=== PATIENT | female | born 1935 | race Caucasian/White ===

== ENCOUNTER 2024-02-25 09:18 | Emergency (ER) | payer MEDICARE, OTHER, SELFPAY ==
--- NOTE | ~2024-02-25 | CT_ITS ---
EXAMINATION: CT ABDOMEN AND PELVIS WITHOUT CONTRAST CLINICAL INFORMATION: abd pain, vomiting COMPARISON: None available. TECHNIQUE: Multidetector volumetric imaging was performed from the superior aspect of the liver through the pubic symphysis. Sagittal and coronal reformatted images were obtained on the technologist's workstation. This CT examination was performed using dose optimization techniques as appropriate, variously including the following: *Automated exposure control *Adjustment of mA and/or kV according to patient size (this includes techniques or standardized protocols for targeted exams where dose is matched to indication/reason for exam; i.e. extremities or head) *Use of iterative reconstruction technique DLP: 288 mGy-cm FINDINGS: LUNG BASES: Bibasilar atelectasis. No pleural effusion. Normal-sized heart with small pericardial effusion. LIVER, GALLBLADDER, AND BILIARY TREE: The liver is normal in size, shape, and attenuation. No focal hepatic lesion or biliary ductal dilatation is present. The gallbladder is unremarkable with no evidence of radiopaque gallstones, gallbladder wall thickening, or obvious pericholecystic inflammatory changes. PANCREAS: Unremarkable. SPLEEN: Unremarkable. ADRENAL GLANDS: Unremarkable. KIDNEYS AND URETERS: Left renal mid pole exophytic simple fluid attenuating cyst with punctate peripheral calcification. There are multiple cysts in the right kidney including a lower pole proximal 1.5 cm low-density attenuation cyst with punctate calcification peripherally, a mid pole 0.9 cm low-density cyst, a subcentimeter upper pole high density cyst and an ill-defined approximately 1.4 cm midpole high density cyst. No calculi in the renal collecting system. No hydronephrosis. The kidneys are normal in size, shape, and attenuation. Mild perinephric stranding bilaterally. BLADDER: Unremarkable. GASTROINTESTINAL TRACT: The small and large bowel are nondilated. Mild scattered colonic diverticulosis without evidence of acute osseous. The appendix is not seen, however there is no right lower quadrant inflammatory stranding to suggest acute appendicitis. ABDOMINAL WALL: No significant hernia is appreciated. LYMPH NODES: Normal. VASCULAR: The abdominal aorta is nonaneurysmal. Moderate to severe aortoiliac calcified plaque. PELVIC VISCERA: The uterus is atrophic versus surgically absent. No adnexal masses. OSSEOUS STRUCTURES: No acute or suspicious osseous abnormality. Multilevel lumbar degenerative disc disease. CT/CT abdomen pelvis wo IV con IMPRESSION: 1. No acute abnormality within the abdomen or pelvis. 2. Multiple bilateral renal cysts some of which are high density and likely represent proteinaceous or hemorrhagic cysts. Nonemergent dedicated renal ultrasound is recommended for further assessment. 3. Mild scattered colonic diverticulosis without evidence of acute diverticulitis. Fleischner guidelines were followed.
--- NOTE | ~2024-02-25 | XR_ITS ---
EXAMINATION: XR CHEST CLINICAL INFORMATION: Mental status change COMPARISON: Previous left shoulder x-ray May 2019 and report from chest CT April 2008 TECHNIQUE: Frontal view of the chest was obtained. FINDINGS: The cardiac silhouette does not appear enlarged. There is a large mediastinal mass. This is similar to 2019 left shoulder x-ray. 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 The lungs are otherwise clear. No pleural effusion or pneumothorax. Thoracolumbar scoliosis and degenerative changes of the spine. XR/XR chest 1V IMPRESSION: Stable mediastinal mass from 2019 left shoulder x-ray. 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 This could be further evaluated with chest CT if clinically indicated. No evidence for acute disease in the chest. Severe thoracolumbar scoliosis and degenerative changes of the spine.
--- NOTE | ~2024-02-25 | CT_ITS ---
EXAMINATION: CT HEAD WITHOUT CONTRAST CLINICAL INFORMATION: Mental status change COMPARISON: MRI brain from 04/11/2008 TECHNIQUE: Contiguous axial imaging was performed from the skull base to vertex without intravenous administration of contrast. This CT examination was performed using dose optimization techniques as appropriate, variously including the following: *Automated exposure control *Adjustment of mA and/or kV according to patient size (this includes techniques or standardized protocols for targeted exams where dose is matched to indication/reason for exam; i.e. extremities or head) *Use of iterative reconstruction technique DLP: 530 mGy-cm FINDINGS: There is no evidence of acute intracranial hemorrhage or territorial infarction. 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 Chronic white matter small vessel ischemic changes. Cerebral atrophy with commensurate ventricular changes. No abnormal mass effect or midline shift is seen. [place] to white matter differentiation is well preserved. No extra-axial fluid collections are identified. The ventricles are normal in size. There is no abnormal attenuation within the brain parenchyma. The osseous structures and soft tissues are normal. The mastoid air cells and visualized portions of the paranasal sinuses are well aerated. Atherosclerotic calcifications. CT/CT head/brain wo IV con IMPRESSION: 1. No acute intracranial pathology. 2. 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 3. Chronic white matter small vessel ischemic changes.
[2024-02-25 09:33] VITALS: BP 162/78; BP 211/100; PULSE 80; PULSE 96; RESP 18; TEMP 36.4; O2SAT 97; O2SAT 98; BMI 19.8
--- NOTE | 2024-02-25 09:49 | ECG_ITS ---
Test Reason : MENTAL STATUS CHANGE Blood Pressure : / mmHG Vent. Rate : 080 BPM Atrial Rate : 080 BPM P-R Int : 134 ms QRS Dur : 074 ms QT Int : 396 ms P-R-T Axes : 059 050 055 degrees QTc Int : 456 ms Normal sinus rhythm Normal ECG When compared with ECG of 21-MAY-2019 11:28, No significant change was found Referred By: Marie Sorenson Electronically Signed By:Speedy Vigil
--- NOTE | 2024-02-25 09:52 | ED.AMS ---
HPI - Altered Mental Status General Chief Complaint: Altered Mental Status Stated Complaint: UNK IDENTIFICATION, HX OF DEMENTIA FOUND WANDERING Time Seen by Provider: 02/25/24 09:39 Source: patient, family (Neighbor) and EMS Mode of arrival: EMS Limitations: altered mental status History of Present Illness ED Provider: DR. Sorenson HPI narrative: 88-year-old female brought in by EMS after was found by a neighbor wandering in the building where she lives. Patient stated that she had history of dementia otherwise patient do not know why she has in the hospital today, able to tell me that she had a history of dementia and her and she live with her daughter went to visit her daughter. Stated that she noted blood in the urine but no other urinary symptoms. In neighbor who found the patient wandering on the 5th floor of the building stated that the patient lives on the 2nd floor of the building with her daughter. Related Data Home Medications ?Medication ?Instructions ?Recorded ?Confirmed amlodipine 10 mg tablet 10 mg PO DAILY 02/25/24 02/25/24 donepezil 10 mg tablet 10 mg PO DAILY 02/25/24 02/25/24 insulin glargine 100 unit/mL (3 See Rx Instructions .Route .COMPLEX 02/25/24 02/25/24 mL) subcutaneous pen (Lantus Solostar U-100 Insulin) losartan 50 mg tablet 100 mg PO DAILY 02/25/24 02/25/24 metoprolol succinate 50 mg 50 mg PO DAILY 02/25/24 02/25/24 tablet,extended release 24 hr Allergies Allergy/AdvReac Type Severity Reaction Status Date / Time No Known Allergies Allergy Verified 02/25/24 09:35 [No Known Allergies*] Review of Systems Review of Systems: Yes Unobtainable due to mental condition PMFSH Social History Social History Unable to assess alcohol history related to: Unknown Smoked in Last 30 Days: No Use of substances other than those prescribed or required for medical reasons: No Advance Directives: No Advance Directives Information Provided: No Do you have a plan to hurt others: No Plan Physical Exam ED Vital Signs: Vital Signs - 24 hr 02/25/24 09:33 02/25/24 12:00 Temperature 97.6 F Pulse Rate 80 85 Respiratory Rate 18 16 Blood Pressure 211/100 H 219/73 H Pulse Oximetry 98 99 Oxygen Delivery Method Room Air BMI result Body Mass Index 19.8 Vital signs have been reviewed and appear to be correct. Blood pressure elevated. Heart rate normal. Respiratory rate normal. Temperature normal. Oxygen saturation normal. Appearance: Alert. Oriented to person and place. No acute distress. Head: Normal external exam. Normocephalic. Atraumatic. No Kenney signs noted. No raccoon eyes noted Eyes: PERRLA. EOMI. Conjunctiva and sclera normal. Eyelids normal. ENT: TM's Normal. Pharynx normal. Uvula midline. Moist mucous membranes. No trismus noted. No drooling noted. No muffled voice noted. Neck: Normal inspection. Neck supple. FROM. No adenopathy. Thyroid Normal. No meningeal signs. No neck mass noted. CVS: Normal heart rate and rhythm. Heart sound normal. No murmurs noted. Pulses normal throughout. Respiratory: No respiratory distress. Painless inspiration. Breath sounds normal. No wheezes/rales/rhonchi noted. Chest nontender. No accessory muscle usage noted or decreased air movement noted. Abdomen: Soft and nontender. Bowel sounds normal in all 4 quadrants. No distention noted. No organomegaly noted. No visible injury noted. Back: No CVA tenderness. Full range of motion noted. Skin: Skin warm and dry. Normal skin color. Normal skin turgor. No rashes/lesions/lacerations noted. Extremities: No lower extremity edema. Extremities exhibit normal range of motion. Extremities nontender. Neuro: Oriented X 2. Cranial nerve exam: II-XII are grossly intact No motor deficit. No sensory deficit. Reflexes normal. Course Reevaluation(s) Reevaluation #1: Was able to contact her daughter who stated patient baseline is dementia for the last 2 days patient in the apartment by herself because the daughter is visiting her daughter, waiting for the family to come and car pick up driver the patient. Time: 10:14 Reevaluation #2: Family at the bedside feels that the patient at her baseline, family stated that her dementia fluctuating, patient is having history of hypertension did not take her medicine today. Family wanted director social service involved to arrange for visiting nurse or short-term placement. Signed out to Dr. Crystal. Time: 15:22 Medical Decision Making Differential Diagnosis Differential Diagnoses: The differential diagnosis associated with the presentation includes (Intracranial pathology, intracranial bleed, dementia, electrolyte derangement, UTI, severe anemia.) Admission/Observation Consideration of admission/observation: Escalation of care including admission/observation considered Lab Data MDM Lab Attestation statement: I reviewed the patient's lab results. 02/25/24 10:10 02/25/24 10:10 Labs: Lab Results 02/25/24 02/25/24 Range/Units 10:10 11:45 WBC 8.2 (4.8-10.8) X10*3/uL RBC 4.18 L (4.20-5.50) X10*6/uL Hgb 13.0 (12.0-16.0) g/dl Hct 37.9 (37.0-47.0) % MCV 90.7 (80.0-98.0) fL MCH 31.1 (27.0-33.0) pg MCHC 34.3 (31.0-35.0) g/dl RDW 12.7 (11.0-16.0) % Plt Count 203 (160-400) X10*3/uL MPV 12.1 (9.4-12.3) fL Immature Gran % (Auto) 0.2 (0.0-0.4) % Neut % (Auto) 85.2 H (45-73) % Lymph % (Auto) 6.8 L (20-40) % [place] % (Auto) 7.0 (2-11) % Eos % (Auto) 0.2 (0-4) % Baso % (Auto) 0.6 (0-2) % Lymph # (Auto) 0.6 L (1.2-4.9) X10*3/uL [place] # (Auto) 0.6 (0.1-1.2) X10*3/uL Eos # (Auto) 0.0 (0.0-0.4) X10*3/uL Baso # (Auto) 0.1 (0.0-0.2) X10*3/uL Abs Immat Gran (auto) 0.02 (0.00-0.03) X10*3/uL Absolute Neuts (auto) 7.0 (2.0-8.3) x10*3/uL Absolute Nucleated RBC 0.000 (0.0-0.012) X10*3/uL Nucleated RBC % (auto) 0.0 (0.0-0.2) /100WBC Sodium 141 (135-145) mmol/L Potassium 4.5 (3.3-5.1) mmol/L Chloride 105 (96-108) mmol/L Carbon Dioxide 26 (22-29) mmol/L Anion Gap 15 (12-20) BUN 26 H (9-16) mg/dL Creatinine 1.66 H (0.5-1.4) mg/dL Estim Creat Clear Calc 17.4 Estimated GFR 29 Random Glucose 182 H (60-115) mg/dL Calcium 9.4 (8.4-10.2) mg/dL Total Bilirubin 0.6 (0.0-1.0) mg/dL Direct Bilirubin 0.2 (0.0-0.5) mg/dL AST 18 (5-31) U/L ALT 13 (0-31) U/L Alkaline Phosphatase 101 (39-117) U/L Troponin I High Sens 16.9 (<3.5-17.0) ng/L B-Natriuretic Peptide 102 H (<100) pg/mL Total Protein 6.5 (6.5-8.0) g/dL Albumin 3.8 (3.5-5.0) g/dL Lipase 53 (8-78) U/L Urine Color Yellow Urine Appearance Clear Urine pH 7.5 (5.0-9.0) Ur Specific [place] 1.010 (1.005-1.025) Urine Protein >=1000 (4+) H (Neg-Trace) mg/dL Urine Glucose (UA) 100 H (Negative) mg/dL Urine Ketones Negative (Negative) mg/dL Urine Blood Trace H (Negative) Urine Nitrite Negative (Negative) Ur Leukocyte Esterase Negative (Negative) Urine RBC 3-5 H (0-2) /HPF Urine WBC 0-5 (0-5) /HPF Ur Squamous Epith Cells 0-2 (0-2) /HPF Urine Bacteria None Seen (None Seen) Hyaline Casts 0-2 (0-2) /LPF Urine Opiates Screen Not Detected (Not Detect) Ur Buprenorphine Scrn Not Detected (Not Detect) ng/mL Ur Oxycodone Screen Not Detected (Not Detect) ng/mL Urine Methadone Screen Not Detected (Not Detect) ng/mL Urine Fentanyl Screen Not Detected (Not Detect) Ur Barbiturates Screen Not Detected (Not Detect) Ur Phencyclidine Scrn Not Detected (Not Detect) Ur Amphetamines Screen Not Detected (Not Detect) U Benzodiazepines Scrn Not Detected (Not Detect) Urine Cocaine Screen Not Detected (Not Detect) U Marijuana (THC) Screen Not Detected (Not Detect) Influenza Type A (PCR) NEGATIVE (Negative) Influenza Type B (PCR) NEGATIVE (Negative) RSV RNA Qual (PCR) NEGATIVE (Negative) SARS-CoV-2 RNA (RT-PCR) NEGATIVE (Negative) Independent Interpretation I performed an independent interpretation of an: Plain X-Ray (Chest:Stable mediastinal mass from 2019 left shoulder x-ray. 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 This could be further evaluated with chest CT if clinically indicated. No evidence for acute disease in the chest. Severe thoracolumbar scoliosi) and CT Scan (Head:1. No acute intracranial pathology. 2. 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 3. Chronic white matter small vessel ischemic changes. ) Radiology Impression Discussion of test interpretation with radiology: I have reviewed the radiologist's reading. Chronic Conditions Patient?s care impacted by: Other (Dementia) Discharge Plan Discharge Clinical Impression: Dementia Patient Disposition: Still a Patient Prescriptions: No Action amlodipine 10 mg tablet 10 mg PO DAILY insulin glargine [Lantus Solostar U-100 Insulin] 100 unit/mL (3 mL) insulin pen See Rx Instructions .ROUTE .COMPLEX Rx Instructions: 12 units daily losartan 50 mg tablet 100 mg PO DAILY metoprolol succinate 50 mg Tablet Extended Release 24 Hr 50 mg PO DAILY donepezil 10 mg Tablet 10 mg PO DAILY Print Language: Swedish
[2024-02-25 10:15] LABS: MANUAL DIFF FLAG NO
[2024-02-25 10:30] LABS: Basophils Absolute Auto 0.1 X10*3/uL (0.0-0.2); Basophils Percent Auto 0.6 % (0-2); Eosinophils Percent Auto 0.2 % (0-4); Hematocrit 37.9 % (37.0-47.0); Imm Gran Abs Auto 0.02 X10*3/uL (0.00-0.03); Imm Gran Pct Auto 0.2 % (0.0-0.4); Lymphocytes Absolute Auto 0.6 X10*3/uL (1.2-4.9); Lymphocytes Percent Auto 6.8 % (20-40); Mean Corpuscular HGB Conc 34.3 g/dl (31.0-35.0); Mean Corpuscular Hemoglobin 31.1 pg (27.0-33.0); Mean Corpuscular Volume 90.7 fL (80.0-98.0); Mean Platelet Volume 12.1 fL (9.4-12.3); Monocytes Absolute Auto 0.6 X10*3/uL (0.1-1.2); Neutrophils Percent Auto 85.2 % (45-73); Platelet Count 203 X10*3/uL (160-400); Red Blood Count 4.18 X10*6/uL (4.20-5.50); Red Cell Distribution Width 12.7 % (11.0-16.0); White Blood Count 8.2 X10*3/uL (4.8-10.8)
[2024-02-25 10:44] LABS: Alanine Aminotransferase 13 U/L (0-31); Albumin Level 3.8 g/dL (3.5-5.0); Alkaline Phosphatase 101 U/L (39-117); Anion Gap 15 (12-20); Aspartate Amino Transferase 18 U/L (5-31); Bilirubin Direct 0.2 mg/dL (0.0-0.5); Bilirubin Total 0.6 mg/dL (0.0-1.0); Blood Urea Nitrogen 26 mg/dL (9-16); Calcium 9.4 mg/dL (8.4-10.2); Carbon Dioxide 26 mmol/L (22-29); Chloride 105 mmol/L (96-108); Creatinine Clr Calc Pharmacy 17.4; Estimated Glomerular Filt Rate 29; Glucose Random 182 mg/dL (60-115); Lipase 53 U/L (8-78); Potassium 4.5 mmol/L (3.3-5.1); Sodium 141 mmol/L (135-145); Total Protein 6.5 g/dL (6.5-8.0)
[2024-02-25 10:46] LABS: Troponin-I High Sensitivity 16.9 ng/L (<3.5-17.0)
[2024-02-25 10:53] LABS: Influenza A PCR NEGATIVE (Negative); Influenza B PCR NEGATIVE (Negative); Resp Syncy Virus RNA Qual PCR NEGATIVE (Negative); SARS COV2 PCR INHOUSE NEGATIVE (Negative)
[2024-02-25 10:58] LABS: B Type Natriuretic Peptide 102 pg/mL (<100)
[2024-02-25 11:51] LABS: Appearance Urine Clear; Color Urine Yellow; Glucose Urine UA 100 mg/dL (Negative); Leukocyte Esterase Urine Negative (Negative); Nitrite Urine Negative (Negative); PH 7.5 (5.0-9.0); UMIC TRIGGER UACC YES; Urine Blood Trace (Negative); Urine Ketones Negative (Negative); Urine Protein >=1000 (4+) mg/dL (Neg-Trace)
[2024-02-25 11:54] LABS: Bacteria Urine None Seen (None Seen); Hyaline Casts Urine 0-2 /LPF (0-2); Squamous Epithelial Cell Urine 0-2 /HPF (0-2); WBC Urine 0-5 /HPF (0-5)
[2024-02-25 12:00] VITALS: BP 219/73; PULSE 85; RESP 16; O2SAT 99
[2024-02-25 12:11] LABS: Amphetamine Screen Urine Not Detected (Not Detect); Barbiturates, Urine Not Detected (Not Detect); Benzodiazepines Screen Urine Not Detected (Not Detect); Buprenorphine Scr Not Detected (Not Detect); Cannabinoid Screen Urine Not Detected (Not Detect); Cocaine Screen Urine Not Detected (Not Detect); Fentanyl, urine Not Detected (Not Detect); Methadone Screen, Urine Not Detected (Not Detect); Opiate Screen Urine Not Detected (Not Detect); Oxycodone Screen Urine Not Detected (Not Detect); Phencyclidine Screen Urine Not Detected (Not Detect)
[2024-02-25 15:36] VITALS: BP 220/83
[2024-02-25] MEDS: Losartan Potassium 50 MG TABLET 100 MG PO (15:36)
[2024-02-25] MEDS: Insulin Glargine,Hum.rec.anlog 100 UNIT/ML 10 ML VIAL 12 UNIT SUBCUT (15:36)
[2024-02-25 15:38] VITALS: BP 220/83; PULSE 76
[2024-02-25] MEDS: Metoprolol Succinate ER 50 MG TAB.ER.24H PO (15:38)
[2024-02-25] MEDS: amLODIPine Besylate 10 MG TABLET PO (15:38)
[2024-02-25] MEDS: Donepezil HCl 10 MG TABLET PO (15:43)
[2024-02-25 17:54] VITALS: BP 158/65; PULSE 52; RESP 18; TEMP 36.4; O2SAT 98
[2024-02-25 20:48] VITALS: BP 164/69; PULSE 75; RESP 15; TEMP 36.2; O2SAT 97
[2024-02-26] VITALS (10 sets, daily range): BP systolic 140–199; BP diastolic 55–81; PULSE 45–69; RESP 12–16; TEMP 36.3–36.6; O2SAT 97–99
[2024-02-26 00:12] LABS: Glucose, Whole Blood 159 mg/dL (60-115)
--- NOTE | 2024-02-26 02:13 | PC.NURSE ---
pt resting comfortably with eyes closed, breathing even and unlabored. no apparent distress noted. call ayoub w/in reach
--- NOTE | 2024-02-26 02:19 | PC.NURSE ---
report given to ED overflow
--- NOTE | 2024-02-26 03:32 | PC.NURSE ---
Patient arrived to ED overflow from main ED at 03:20. Care assumed at this time. Pt presented to hospital after neighbor reported her wandering on the wrong floor in her apartment building. Pt has a pmhx of dementia and is pleasantly confused. A&Ox2 to self//age and place (hospital), though cannot recall where she lives, the year or season, or why she is here. Denies pain, trouble breathing, or n/v. VSS. Breathing is even and unlabored without distress on RA. Patient given bed bath per request and clean hospital gown and socks placed. Pt states she would now like to sleep. Warm blanket given. Call ayoub within reach and educated on use. Bed alarm on and safety measures in place.
[2024-02-26 07:30] LABS: Glucose, Whole Blood 115 mg/dL (60-115)
[2024-02-26] MEDS: Donepezil HCl 10 MG TABLET PO (09:08)
[2024-02-26] MEDS: amLODIPine Besylate 10 MG TABLET PO (09:09)
[2024-02-26] MEDS: Losartan Potassium 50 MG TABLET 100 MG PO (09:09)
[2024-02-26] MEDS: Insulin Glargine,Hum.rec.anlog 100 UNIT/ML 10 ML VIAL 12 UNIT SUBCUT (09:12)
--- NOTE | 2024-02-26 10:05 | MHC.CM.PN ---
CM RECEIVED ED CONSULT AND MET WITH PT AT BEDSIDE. NO FAMILY AVAILABLE AND NOT ABLE TO REACH DAUGHTER BY PHONE. PT IS ALERT X 2 AND ABLE TO ANSWER MOST QUESTIONS. PT LIVES WITH DAUGHTER AND CHOOSES HER TO BE HER HCP. PT IS INDEPENDENT WITH MOBILITY. PT UNABLE TO RECALL WHO HER PCP IN THE COMMUNITY IS I HAVE DEMENTIA AND TERRIBLE MEMORY . PER MD NOTES, PT'S FAMILY WOULD LIKE HER TO HAVE A VNA OR POSSIBLE STR. P.T. EVAL HAS BEEN ORDERED AND DISPOSITION WILL DEPEND ON THAT OUTCOME. CM WILL CONTINUE TO ATTEMPT TO REACH DAUGHTER ALANIS AND FOLLOW FOR DC PLAN.
[2024-02-26 11:49] LABS: Glucose, Whole Blood 154 mg/dL (60-115)
[2024-02-26] MEDS: Ondansetron ODT 4 MG TAB.RAPDIS TRANSLINGU (12:39)
[2024-02-26] MEDS: Pantoprazole Sodium 40 MG/10 ML VIAL IVPUSH (16:04)
[2024-02-26] MEDS: 0.9 % Sodium Chloride 500 ML IV (16:04)
[2024-02-26 16:13] LABS: MANUAL DIFF FLAG NO
--- NOTE | 2024-02-26 16:15 | MHC.EDTECH ---
THIS PCT ASSUMED CARE OF PATIENT AT 1500 ,VITALS TAKEN ,BLADDER SCAN DONE ,BLOOD DRAWN AND SENT TO LAB ,PATIENT FAMILY MEMBERS AT BEDSIDE .
[2024-02-26 16:17] LABS: Basophils Percent Auto 0.4 % (0-2); Eosinophils Percent Auto 0.1 % (0-4); Hematocrit 36.1 % (37.0-47.0); Hemoglobin 12.7 g/dl (12.0-16.0); Imm Gran Abs Auto 0.03 X10*3/uL (0.00-0.03); Imm Gran Pct Auto 0.3 % (0.0-0.4); Lymphocytes Absolute Auto 0.6 X10*3/uL (1.2-4.9); Lymphocytes Percent Auto 6.1 % (20-40); Mean Corpuscular HGB Conc 35.2 g/dl (31.0-35.0); Mean Corpuscular Hemoglobin 31.7 pg (27.0-33.0); Mean Platelet Volume 11.1 fL (9.4-12.3); Monocytes Absolute Auto 0.6 X10*3/uL (0.1-1.2); Monocytes Percent Auto 5.9 % (2-11); Neutrophils Absolute Auto 8.7 x10*3/uL (2.0-8.3); Neutrophils Percent Auto 87.2 % (45-73); Platelet Count 251 X10*3/uL (160-400); Red Blood Count 4.01 X10*6/uL (4.20-5.50); Red Cell Distribution Width 12.4 % (11.0-16.0)
[2024-02-26 16:31] LABS: Alanine Aminotransferase 12 U/L (0-31); Albumin Level 3.7 g/dL (3.5-5.0); Alkaline Phosphatase 104 U/L (39-117); Anion Gap 18 (12-20); Aspartate Amino Transferase 19 U/L (5-31); Bilirubin Total 0.7 mg/dL (0.0-1.0); Blood Urea Nitrogen 26 mg/dL (9-16); Calcium 9.2 mg/dL (8.4-10.2); Carbon Dioxide 23 mmol/L (22-29); Chloride 102 mmol/L (96-108); Creatinine Clr Calc Pharmacy 19.8; Estimated Glomerular Filt Rate 34; Glucose Random 137 mg/dL (60-115); Magnesium 2.2 mg/dL (1.6-2.6); Potassium 3.9 mmol/L (3.3-5.1); Sodium 139 mmol/L (135-145); Total Protein 6.4 g/dL (6.5-8.0)
[2024-02-26 16:40] LABS: Glucose, Whole Blood 130 mg/dL (60-115)
--- NOTE | 2024-02-26 17:00 | PC.NURSE ---
Patient c/o nausea, unable to tolerate PO intake, vomiting, provider notified, IV catheter placed - 22 R arm, IVF 500ml NS infused. Bladder scanned for 205ml. Protonix ordered and administered. CT scan with contrast ordered but patient unable to tolerate oral contrast, MD aware. Patient reports feeling better and able to have some broth for dinner.
--- NOTE | 2024-02-26 18:01 | MHC.EDTECH ---
Patient drank 1 bowl of chicken broth and sips of jorge eliel ,and was able to keep it down ,Patient went foe ct -scan ,back in bed ,watching television ,1800 vitals taken .
--- NOTE | 2024-02-26 18:55 | PHA.MEDREC ---
Pharmacy Consult ? Medication Reconciliation Pharmacy has completed the medication reconciliation. spoke with [facility] and daughter Rachna over the phone to confirm medications. Daughter confirmed 12 units daily of Lantus.
[2024-02-26 19:52] LABS: Glucose, Whole Blood 124 mg/dL (60-115)
--- NOTE | 2024-02-27 02:22 | MHC.EDTECH ---
Patient up to bathroom ,void was very agitated attempting to hit staff ,was able to get Patient in bed ,warm blanket given ,trying to climb out of bed ,saying she can't sleep .
[2024-02-27 04:05] VITALS: BP 159/78; PULSE 64; RESP 16; TEMP 37; O2SAT 97
[2024-02-27] MEDS: OLANZapine 10 MG VIAL 5 MG IM (04:05)
--- NOTE | 2024-02-27 04:42 | PC.NURSE ---
Addendum entered by Teresa Day RN 02/27/24 05:46: patient broke her necklace, left on the bedside table Original Note: after midnight patient restless/fidgety in bed, @ 0330 became violent/combative, hitting and punching the aid and RN, security called, patient not being cooperative to take PO Zyprexa, IM 5 mg Zyprexa given right deltoid, V.S wnl, afterwards patient calm, uncooperative with V.S. regular breathing,
[2024-02-27 07:51] LABS: Glucose, Whole Blood 76 mg/dL (60-115)
[2024-02-27 08:58] VITALS: BP 159/78
[2024-02-27] MEDS: amLODIPine Besylate 10 MG TABLET PO (08:58)
[2024-02-27] MEDS: Losartan Potassium 50 MG TABLET 100 MG PO (08:58)
[2024-02-27 08:59] VITALS: BP 159/78; PULSE 64
[2024-02-27] MEDS: Metoprolol Succinate ER 50 MG TAB.ER.24H PO (08:59)
[2024-02-27] MEDS: Insulin Glargine,Hum.rec.anlog 100 UNIT/ML 10 ML VIAL 12 UNIT SUBCUT (08:59)
[2024-02-27 09:20] VITALS: O2SAT 98
[2024-02-27] MEDS: Donepezil HCl 10 MG TABLET PO (10:35)
[2024-02-27 11:58] LABS: Glucose, Whole Blood 186 mg/dL (60-115)
--- NOTE | 2024-02-27 12:11 | MHC.CM.ED ---
Patient remains in ER overflow. Physical therapy eval completed. Short term rehab is recommended. Copy of HCP obtained from [facility]. Patient received IM Zyprexa overnight. Will not be able to find STR for at least 48 hours. Katya LY aware. Continue to monitor for d/c needs.
--- NOTE | 2024-02-27 12:22 | MHC.CM.ED ---
Addendum entered by Mendy Shen 02/27/24 15:07: Patient's daughter, Rachna and son, Robin at bedside. Both updated about barriers to STR placement. Both aware patient will have to go to STR under [facility] and that patient will be required to be 20% of STR stay. Original Note: Patient remains in ER overflow. Physical therapy eval completed. Short term rehab is recommended. Patient received IM Zyprexa overnight. Will not be able to find STR for at least 48 hours. Katya LY aware. Continue to monitor for d/c needs.
[2024-02-27 14:00] VITALS: BP 141/66; PULSE 69; RESP 18; TEMP 36.5; O2SAT 99
[2024-02-27 16:37] LABS: Glucose, Whole Blood 147 mg/dL (60-115)
[2024-02-27 20:20] VITALS: BP 129/62; PULSE 58; RESP 20; TEMP 36.7; O2SAT 96
[2024-02-27 20:32] LABS: Glucose, Whole Blood 160 mg/dL (60-115)
--- NOTE | 2024-02-28 05:52 | PC.NURSE ---
pt resting comfortably through the night with eyes closed, breathing even and unlabored. no apparent distress noted. call ayoub w/in reach. 1 assist to the bathroom at 0430 then back to bed. pt calm and cooperative with care
[2024-02-28 06:34] VITALS: BP 193/70; PULSE 58; RESP 18; TEMP 36.6; O2SAT 98
[2024-02-28 06:39] LABS: Glucose, Whole Blood 72 mg/dL (60-115)
[2024-02-28 07:24] LABS: Glucose, Whole Blood 60 mg/dL (60-115)
[2024-02-28 07:41] VITALS: BP 193/70
[2024-02-28] MEDS: amLODIPine Besylate 10 MG TABLET PO (07:41)
[2024-02-28 07:42] VITALS: BP 193/70; PULSE 60
[2024-02-28] MEDS: Losartan Potassium 50 MG TABLET 100 MG PO (07:42)
[2024-02-28] MEDS: Metoprolol Succinate ER 50 MG TAB.ER.24H PO (07:42)
[2024-02-28 10:06] VITALS: BP 119/51; PULSE 57; RESP 18; TEMP 36.4; O2SAT 98
--- NOTE | 2024-02-28 11:43 | PC.NURSE ---
Report taken, contact made to pharmacy at 1130 regarding meds not stocked in [facility] pyxis. Per Mo from pharmacy, Meds have been sent down, and will track down. Plan at this time is to follow up with pharmacy at 1200 it check status.
--- NOTE | 2024-02-28 11:47 | PC.NURSE ---
Called pharmacy x4 beginning at ~0750 regarding donepezil not being loaded in pyxis. This RN got floated at ~1140 and med was still not loaded, oncoming RN aware.
[2024-02-28 11:52] LABS: Glucose, Whole Blood 228 mg/dL (60-115)
[2024-02-28] MEDS: Donepezil HCl 10 MG TABLET PO (11:54)
--- NOTE | 2024-02-28 12:39 | MHC.EDTECH ---
Assisted patient to and from restroom.
--- NOTE | 2024-02-28 13:50 | MHC.CM.ED ---
Patient remains in ER. Referral broadcasted in [facility] for STR under [facility]. [facility] and [facility] are able to offer a bed for STR. Attempted to speak with patient's daughter, Rachna, via telephone at [phone] to discuss facility options. Continue to monitor for d/c needs.
[2024-02-28 16:41] LABS: Glucose, Whole Blood 127 mg/dL (60-115)
[2024-02-28 18:44] VITALS: BP 122/59; PULSE 61; RESP 18; TEMP 36.6; O2SAT 97
--- NOTE | 2024-02-28 19:33 | PC.NURSE ---
This RN assumed pt care @ 1900. Pt c&a, no signs of distress. Pt requested and assisted to the restroom and back into bed by tech. Pt has a camera. Plan of care ongoing.
--- NOTE | 2024-02-29 01:27 | PC.NURSE ---
Pt attempting to get oob. Pt states I dont know where Im at . Pt reminded she is in the hospital and redirected back into bed. Plan of care ongoing.
[2024-02-29 06:00] VITALS: BP 166/68; PULSE 60; RESP 12; TEMP 36.4; O2SAT 97
[2024-02-29 07:58] VITALS: BP 140/56
[2024-02-29] MEDS: Losartan Potassium 50 MG TABLET 100 MG PO (07:58)
[2024-02-29 07:59] VITALS: BP 140/56; PULSE 74; RESP 16; TEMP 36.4; O2SAT 98
[2024-02-29 07:59] LABS: Glucose, Whole Blood 149 mg/dL (60-115)
[2024-02-29] MEDS: amLODIPine Besylate 10 MG TABLET PO (07:59)
[2024-02-29] MEDS: Donepezil HCl 10 MG TABLET PO (07:59)
[2024-02-29] MEDS: Metoprolol Succinate ER 50 MG TAB.ER.24H PO (07:59)
[2024-02-29] MEDS: Insulin Glargine,Hum.rec.anlog 100 UNIT/ML 10 ML VIAL 12 UNIT SUBCUT (07:59)
[2024-02-29 09:39] VITALS: BP 140/56; PULSE 74; RESP 16; TEMP 36.4; O2SAT 98
== END 2024-02-29 09:40 ==
PROVIDERS: Physician Assistant Medical; Emergency Provider Emergency Medicine; PCP Physician Assistant
DX: F03.90 Unspecified dementia, unspecified severity, without behavioral disturbance, psychotic disturbance, mood disturbance, and anxiety (principal); E11.649 Type 2 diabetes mellitus with hypoglycemia without coma; I10 Essential (primary) hypertension; Z79.4 Long term (current) use of insulin; Z03.818 Encounter for observation for suspected exposure to other biological agents ruled out; Z79.899 Other long term (current) drug therapy
CPT/HCPCS: 0241U; 36415; 70450; 71045; 74176; 80048; 80053; 80076; 80307; 81001; 82947; 83690; 83735; 83880; 84484; 85025; 93005; 96361; 96372; 96374; 96375; 97161; 99285; C9113; J2359

== ENCOUNTER → 2024-02-25 09:49 | Outpatient (BNV) | payer MEDICARE, OTHER, SELFPAY | PROVIDERS: Emergency Provider Emergency Medicine; Visit Provider Internal Medicine Cardiovascular Disease | DX: R41.82 Altered mental status, unspecified (principal) | CPT/HCPCS: 93010 ==

== ENCOUNTER 2025-01-09 10:36 | Emergency (ER) | payer MEDICARE, OTHER, SELFPAY ==
--- NOTE | ~2025-01-09 | CT_ITS ---
EXAMINATION: CT ABDOMEN AND PELVIS WITHOUT CONTRAST CLINICAL INFORMATION: Upper abdominal pain, EWELINA, rule out obstructive uropathy. 89-year-old female. COMPARISON: 02/26/2024 CT abdomen and pelvis without contrast. TECHNIQUE: Multidetector volumetric imaging was performed from the superior aspect of the liver through the pubic symphysis. Sagittal and coronal reformatted images were obtained on the technologist's workstation. This CT examination was performed using dose optimization techniques as appropriate, variously including the following: *Automated exposure control *Adjustment of mA and/or kV according to patient size (this includes techniques or standardized protocols for targeted exams where dose is matched to indication/reason for exam; i.e. extremities or head) *Use of iterative reconstruction technique FINDINGS: LUNG BASES: There is mild cardiac enlargement. There is a small pericardial effusion. Calcification of the mitral annulus and aortic annulus. There are small to moderate layering pleural effusions left greater than right. There is associated passive atelectasis of the left greater than right lower lobes, and portions of the lingula. There is mild underlying emphysema. LIVER, GALLBLADDER, AND BILIARY TREE: The unenhanced liver is normal in size, shape, and attenuation. No focal hepatic lesion or pathologic biliary ductal dilatation is present. The gallbladder is unremarkable with no evidence of radiopaque gallstones, gallbladder wall thickening, or obvious pericholecystic inflammatory changes. PANCREAS: Unremarkable. SPLEEN: Unremarkable. ADRENAL GLANDS: There is left hyperplasia. The right is normal. KIDNEYS AND URETERS: The right kidney demonstrates several hyperattenuating cyst which are stable from the prior exam, largest in the midpole measuring 1.6 cm. These are likely proteinaceous or hemorrhagic cysts. There is a simple cyst in the midpole cortex measuring 1.5 cm. There are no calculi and there is no hydronephrosis. There are left kidney demonstrates a simple cyst in the upper pole measuring 2.1 cm. There is a small simple cyst ventrally measuring 1.4 cm. There are no calculi and there is no obstruction or hydronephrosis. The ureters are nondilated. BLADDER: Partially decompressed. Normal in appearance. GASTROINTESTINAL TRACT: There is a small type I hiatus hernia. The stomach is grossly normal given noncontrast technique. The duodenum and small bowel demonstrate no abnormalities. Moderate fecal residue seen throughout the colon consistent with constipation. No colonic wall thickening or inflammation identified. There is mild descending and sigmoid diverticulosis. ABDOMINAL WALL: No significant hernia is appreciated. LYMPH NODES: None enlarged by size criteria. VASCULAR: There is heavy atheromatous calcification of the aorta and iliac vessels, and branches, without aneurysm. PELVIC VISCERA: There is been a hysterectomy. There are no adnexal masses. OSSEOUS STRUCTURES: No acute or suspicious bony abnormalities. Right convex scoliosis and multilevel thoracolumbar spondylosis present. CT/CT abdomen pelvis wo IV con IMPRESSION: 1. No acute inflammatory abnormality in the abdomen or pelvis. There is no obstructive uropathy or urological calculus. There are bilateral renal cysts present, some hyperattenuating, essentially unchanged from the prior exam. 2. There is mild cardiomegaly, a small pericardial effusion, and small to moderate left greater than right layering pleural effusions with passive atelectasis of the left greater than right lower lobes. 3. Additional ancillary findings as discussed in the body of the report. Electronically signed by: Harsh Garza MD 01/09/2025 12:06 PM EDT
--- NOTE | ~2025-01-09 | XR_ITS ---
EXAMINATION: XR CHEST CLINICAL INFORMATION: CP COMPARISON: 02/25/2024. Report from CT chest 04/12/2008. TECHNIQUE: Frontal view of the chest was obtained. 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 This is partially calcified. There is mild cardiac enlargement. The aorta is calcified and tortuous. Left hilar silhouettes appear normal. Lungs demonstrate patchy consolidative opacity in the left base, with associated small left effusion suspected. Left lower lobe pneumonia is a consideration. The right lung is grossly clear. There is no pneumothorax identified. There is no focal osseous or soft tissue abnormality. Severe degenerative spondylosis of the spine with levoconvex scoliosis noted. XR/XR chest 1V IMPRESSION: 1. 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 It appears similar to the prior chest x-ray of 02/25/2024. 2. There is left base consolidation with probable small effusion. Pneumonia suspected in the appropriate clinical setting. Electronically signed by: Harsh Garza MD 01/09/2025 01:22 PM EDT
--- NOTE | ~2025-01-09 | US_ITS ---
EXAMINATION: US ABDOMEN LIMITED CLINICAL INFORMATION: Right upper quadrant pain.. COMPARISON: CT abdomen and pelvis without contrast 01/09/2025, and 02/26/2024. TECHNIQUE: Real-time imaging of the gallbladder and bile ducts as per ordering provider. FINDINGS: GALLBLADDER: The gallbladder is physiologically distended without evidence of stones, sludge, polyps, wall thickening or pericholecystic fluid. COMMON BILE DUCT: Normal in caliber measuring 0.2 cm in diameter. FREE FLUID: None. US/US abdomen limited IMPRESSION: Normal gallbladder and bile ducts. Electronically signed by: Harsh Garza MD 01/09/2025 12:08 PM EDT
--- NOTE | 2025-01-09 10:38 | ECG_ITS ---
Test Reason : chest pain/fall Blood Pressure : */* mmHG Vent. Rate : 61 BPM Atrial Rate : 61 BPM P-R Int : 198 ms QRS Dur : 84 ms QT Int : 434 ms P-R-T Axes : 60 23 28 degrees QTcB Int : 436 ms Normal sinus rhythm Normal ECG When compared with ECG of 25-Feb-2024 10:14, No significant change was found Referred By: Generic ED Physician Electronically Signed By: ANGEL BROWNING
[2025-01-09 10:48] VITALS: BP 148/53; PULSE 61; RESP 18; O2SAT 97; BMI 24.7
[2025-01-09 11:04] LABS: MANUAL DIFF FLAG NO
[2025-01-09 11:07] LABS: Basophils Percent Auto 0.4 % (0-2); Eosinophils Absolute Auto 0.1 X10*3/uL (0.0-0.4); Eosinophils Percent Auto 0.6 % (0-4); Hematocrit 35.9 % (37.0-47.0); Hemoglobin 11.7 g/dl (12.0-16.0); Imm Gran Abs Auto 0.05 X10*3/uL (0.00-0.03); Imm Gran Pct Auto 0.5 % (0.0-0.4); Lymphocytes Absolute Auto 0.6 X10*3/uL (1.2-4.9); Lymphocytes Percent Auto 5.3 % (20-40); Mean Corpuscular HGB Conc 32.6 g/dl (31.0-35.0); Mean Corpuscular Hemoglobin 30.7 pg (27.0-33.0); Mean Corpuscular Volume 94.2 fL (80.0-98.0); Monocytes Percent Auto 9.3 % (2-11); Neutrophils Absolute Auto 9.1 x10*3/uL (2.0-8.3); Neutrophils Percent Auto 83.9 % (45-73); Platelet Count 289 X10*3/uL (160-400); Red Blood Count 3.81 X10*6/uL (4.20-5.50); Red Cell Distribution Width 13.2 % (11.0-16.0); White Blood Count 10.8 X10*3/uL (4.8-10.8)
[2025-01-09 11:17] LABS: INTERNATIONAL NORM RATIO 0.9 (0.9-1.1); Prothrombin Time 10.8 SEC (10.9-12.4)
[2025-01-09 11:22] LABS: Alanine Aminotransferase 18 U/L (0-31); Albumin Level 3.2 g/dL (3.5-5.0); Alkaline Phosphatase 86 U/L (39-117); Anion Gap 13 (12-20); Aspartate Amino Transferase 19 U/L (5-31); Bilirubin Total 0.4 mg/dL (0.0-1.0); Blood Urea Nitrogen 38 mg/dL (9-16); Calcium 8.7 mg/dL (8.4-10.2); Carbon Dioxide 24 mmol/L (22-29); Chloride 101 mmol/L (96-108); Creatinine Clr Calc Pharmacy 16.2; Estimated Glomerular Filt Rate 22; Glucose Random 369 mg/dL (60-115); Potassium 4.5 mmol/L (3.3-5.1); Sodium 133 mmol/L (135-145); Total Protein 5.8 g/dL (6.5-8.0)
[2025-01-09 11:26] LABS: Troponin-I High Sensitivity 8.7 ng/L (<3.5-17.0)
--- NOTE | 2025-01-09 11:28 | PC.NURSE ---
Pt coming to ED with daughter with complaints of CP that is now resolved. Pt stated she woke up this morning with epigastric pain that radiated to her right arm. Pt is very frail at this time. Daughter reporting she did have a fall this past weekend, but there is no continued complaints. Pt is able to answer most questions but is not able to to give this RN many details about pain. Stated she felt SOB when the pain was there but is no longer SOB. Pt placed on monitor, vitals WNL. Pt aware we need a urine sample and will let us know when she needs to go. Awaiting ED provider at this time.
--- NOTE | 2025-01-09 11:35 | ED.CHESTPAIN ---
HPI - Chest Pain General Chief Complaint: Chest Pain Stated Complaint: Pain in Chest Area Time Seen by Provider: 01/09/25 11:25 Source: patient and family (Daughter) Mode of arrival: ambulatory Limitations: no limitations History of Present Illness ED Provider: DR. Sorenson HPI narrative: 89-year-old female came in for evaluation of right-sided chest pain and upper abdominal pain started since this morning after patient sustained a cough patient describes the pain is mostly in the right side of the abdomen, epigastric area, right upper quadrant area, and right flank area pain is worse with coughing or movement, but patient also still have the pain if she tried to touch her upper abdomen or right side of the chest, patient currently reported improvement of her symptoms with persistent of some upper abdominal discomfort, no recent travel, no lower extremity swelling or tenderness, no nausea, no vomiting, no fever, chills. Patient has been having a normal appetite ate a good size breakfast this morning with no complaints, patient also still at her baseline as per family member able to ambulate and walk with the family. Related Data Home Medications ?Medication ?Instructions ?Recorded ?Confirmed amlodipine 10 mg tablet 10 mg PO DAILY 02/25/24 02/25/24 donepezil 10 mg tablet 10 mg PO DAILY 02/25/24 02/25/24 insulin glargine 100 unit/mL (3 12 unit subcut DAILY 02/25/24 02/26/24 mL) subcutaneous pen (Lantus Solostar U-100 Insulin) losartan 50 mg tablet 100 mg PO DAILY 02/25/24 02/25/24 metoprolol succinate 50 mg 150 mg PO DAILY 02/25/24 02/26/24 tablet,extended release 24 hr atorvastatin 40 mg tablet 40 mg PO BEDTIME 02/26/24 02/26/24 Previous Rx's ?Medication ?Instructions ?Recorded cefuroxime axetil 250 mg tablet 250 mg PO BID 7 days #14 tabs 01/09/25 Allergies Allergy/AdvReac Type Severity Reaction Status Date / Time No Known Allergies Allergy Verified 01/09/25 10:50 [No Known Allergies*] Review of Systems Review of Systems: All other systems are reviewed and are negative Constitutional: Reports as per HPI and Reports no additional constitutional complaints Eyes: Reports as per HPI and Reports no additional eye complaints Reports system reviewed and no additional complaints, except as documented Cardiovascular: Reports as per HPI and Reports no additional cardiovascular complaints Respiratory: Reports as per HPI and Reports no additional respiratory complaints Gastrointestinal: Reports as per HPI and Reports no additional gastrointestinal complaints Genitourinary: Reports no additional female genitourinary complaints Musculoskeletal: Reports no additional musculoskeletal complaints Skin/Breast: Reports system reviewed and no additional complaints, except as docu Psychiatric: Reports no additional psychiatric complaints Endocrine: Reports no additional endocrine complaints Hematologic/Lymphatic: Reports no additional hematologic/lymphatic complaints Allergic/Immunologic: Reports no additional allergic/immunologic complaints Reports system reviewed and no additional complaints, except as documented and Reports Abnormal speech present [facility] Social History Social History Unable to assess alcohol history related to: Unknown Advance Directives: No Advance Directives Information Provided: Yes Physical Exam Vital Signs: Vital Signs: Last Vital Signs Temp 97.6 F 01/09/25 14:20 Pulse 65 01/09/25 14:20 Resp 18 01/09/25 14:20 BP 149/61 H 01/09/25 14:20 Pulse Ox 96 01/09/25 14:20 O2 Del Method Room Air 01/09/25 14:20 BMI result Body Mass Index 24.7 Vital signs have been reviewed and appear to be correct. Blood pressure elevated. Heart rate normal. Respiratory rate normal. Temperature normal. Oxygen saturation normal. Appearance: Alert. Oriented X3. No acute distress. Head: Normal external exam. Normocephalic. Atraumatic. No Kenney signs noted. No raccoon eyes noted Eyes: PERRLA. EOMI. Conjunctiva and sclera normal. Eyelids normal. ENT: TM's Normal. Pharynx normal. Uvula midline. Moist mucous membranes. No trismus noted. No drooling noted. No muffled voice noted. Neck: Normal inspection. Neck supple. FROM. No adenopathy. Thyroid Normal. No meningeal signs. No neck mass noted. CVS: Normal heart rate and rhythm. Heart sound normal. No murmurs noted. Pulses normal throughout. Respiratory: No respiratory distress. Painless inspiration. Breath sounds normal. No wheezes/rales/rhonchi noted. Chest nontender. No accessory muscle usage noted or decreased air movement noted. Abdomen: Soft, epigastric/right upper quadrant abdominal tenderness to light touch, no guarding, no rebound tenderness, + Holcomb sign, Bowel sounds normal in all 4 quadrants. No distention noted. No organomegaly noted. No visible injury noted. Back: No CVA tenderness. Full range of motion noted. Skin: Skin warm and dry. Normal skin color. Normal skin turgor. No rashes/lesions/lacerations noted. Extremities: No lower extremity edema. Extremities exhibit normal range of motion. Extremities nontender. Neuro: Oriented X 3. Cranial nerve exam: II-XII are grossly intact No motor deficit. No sensory deficit. Reflexes normal. Course Reevaluation(s) Reevaluation #1: Feels better, able to tolerate p.o. intake, improvement of abdominal pain, ultrasound/CT of the abdomen pelvis shows no acute abnormality, labs are unremarkable except for slight elevation of blood glucose, troponin is unremarkable. History and physical exam is consistent with muscle pain after coughing. Chest x-ray is suspecting left lower lobe pneumonia. Time: 15:00 Medications Administered Discontinued Medications Generic Name Dose Route Start Last Admin Trade Name Freq PRN Reason Stop Dose Admin Al Hydroxide/Mg Hydroxide 30 ml 01/09/25 13:04 01/09/25 13:30 Magnesium Hydrox/Alum Hydrox 30 Ml Oral.Susp PO 01/09/25 13:05 30 ml ONCE ONE Administration Cefuroxime Axetil 250 mg 01/09/25 13:47 01/09/25 14:22 Cefuroxime Axetil 250 Mg Tablet PO 01/09/25 13:48 250 mg ONCE ONE Administration Famotidine 20 mg 01/09/25 13:04 01/09/25 13:28 Famotidine/Pf 20 Mg/2 Ml Vial IVPUSH 01/09/25 13:05 Not Given ONCE ONE Famotidine 20 mg 01/09/25 13:27 01/09/25 13:30 Famotidine 20 Mg Tablet PO 01/09/25 13:28 20 mg ONCE ONE Administration Medical Decision Making Differential Diagnosis Differential Diagnoses: The differential diagnosis associated with the presentation includes (ACS, pneumonia, pneumothorax, pleural effusion, gastritis, cholelithiasis, cholecystitis, pancreatitis, electrolyte derangement, severe anemia.) Admission/Observation Consideration of admission/observation: Escalation of care including admission/observation considered Lab Data MDM Lab Attestation statement: I reviewed the patient's lab results. 01/09/25 11:00 01/09/25 11:00 Labs: Lab Results 01/09/25 01/09/25 01/09/25 Range/Units 11:00 11:13 12:20 WBC 10.8 (4.8-10.8) X10*3/uL RBC 3.81 L (4.20-5.50) X10*6/uL Hgb 11.7 L (12.0-16.0) g/dl Hct 35.9 L (37.0-47.0) % MCV 94.2 (80.0-98.0) fL MCH 30.7 (27.0-33.0) pg MCHC 32.6 (31.0-35.0) g/dl RDW 13.2 (11.0-16.0) % Plt Count 289 (160-400) X10*3/uL MPV 11.0 (9.4-12.3) fL Immature Gran % (Auto) 0.5 H (0.0-0.4) % Neut % (Auto) 83.9 H (45-73) % Lymph % (Auto) 5.3 L (20-40) % Hockley % (Auto) 9.3 (2-11) % Eos % (Auto) 0.6 (0-4) % Baso % (Auto) 0.4 (0-2) % Lymph # (Auto) 0.6 L (1.2-4.9) X10*3/uL Hockley # (Auto) 1.0 (0.1-1.2) X10*3/uL Eos # (Auto) 0.1 (0.0-0.4) X10*3/uL Baso # (Auto) 0.0 (0.0-0.2) X10*3/uL Abs Immat Gran (auto) 0.05 H (0.00-0.03) X10*3/uL Absolute Neuts (auto) 9.1 H (2.0-8.3) x10*3/uL Absolute Nucleated RBC 0.000 (0.0-0.012) X10*3/uL Nucleated RBC % (auto) 0.0 (0.0-0.2) /100WBC PT 10.8 L (10.9-12.4) SEC INR 0.9 (0.9-1.1) Sodium 133 L (135-145) mmol/L Potassium 4.5 (3.3-5.1) mmol/L Chloride 101 (96-108) mmol/L Carbon Dioxide 24 (22-29) mmol/L Anion Gap 13 (12-20) BUN 38 H (9-16) mg/dL Creatinine 2.10 H (0.5-1.4) mg/dL Estim Creat Clear Calc 16.2 Estimated GFR 22 Random Glucose 369 H* (60-115) mg/dL Lactic Acid 1.5 (0.5-2.0) mmol/L Calcium 8.7 (8.4-10.2) mg/dL Magnesium 2.0 (1.6-2.6) mg/dL Total Bilirubin 0.4 (0.0-1.0) mg/dL AST 19 (5-31) U/L ALT 18 (0-31) U/L Alkaline Phosphatase 86 (39-117) U/L Troponin I High Sens 8.7 (<3.5-17.0) ng/L Total Protein 5.8 L (6.5-8.0) g/dL Albumin 3.2 L (3.5-5.0) g/dL Influenza Type A (PCR) NEGATIVE (Negative) Influenza Type B (PCR) NEGATIVE (Negative) RSV RNA Qual (PCR) NEGATIVE (Negative) SARS-CoV-2 RNA (RT-PCR) NEGATIVE (Negative) 01/09/25 Range/Units 14:09 WBC (4.8-10.8) X10*3/uL RBC (4.20-5.50) X10*6/uL Hgb (12.0-16.0) g/dl Hct (37.0-47.0) % MCV (80.0-98.0) fL MCH (27.0-33.0) pg MCHC (31.0-35.0) g/dl RDW (11.0-16.0) % Plt Count (160-400) X10*3/uL MPV (9.4-12.3) fL Immature Gran % (Auto) (0.0-0.4) % Neut % (Auto) (45-73) % Lymph % (Auto) (20-40) % Hockley % (Auto) (2-11) % Eos % (Auto) (0-4) % Baso % (Auto) (0-2) % Lymph # (Auto) (1.2-4.9) X10*3/uL Hockley # (Auto) (0.1-1.2) X10*3/uL Eos # (Auto) (0.0-0.4) X10*3/uL Baso # (Auto) (0.0-0.2) X10*3/uL Abs Immat Gran (auto) (0.00-0.03) X10*3/uL Absolute Neuts (auto) (2.0-8.3) x10*3/uL Absolute Nucleated RBC (0.0-0.012) X10*3/uL Nucleated RBC % (auto) (0.0-0.2) /100WBC PT (10.9-12.4) SEC INR (0.9-1.1) Sodium (135-145) mmol/L Potassium (3.3-5.1) mmol/L Chloride (96-108) mmol/L Carbon Dioxide (22-29) mmol/L Anion Gap (12-20) BUN (9-16) mg/dL Creatinine (0.5-1.4) mg/dL Estim Creat Clear Calc Estimated GFR Random Glucose (60-115) mg/dL Lactic Acid (0.5-2.0) mmol/L Calcium (8.4-10.2) mg/dL Magnesium (1.6-2.6) mg/dL Total Bilirubin (0.0-1.0) mg/dL AST (5-31) U/L ALT (0-31) U/L Alkaline Phosphatase (39-117) U/L Troponin I High Sens 8.1 (<3.5-17.0) ng/L Total Protein (6.5-8.0) g/dL Albumin (3.5-5.0) g/dL Influenza Type A (PCR) (Negative) Influenza Type B (PCR) (Negative) RSV RNA Qual (PCR) (Negative) SARS-CoV-2 RNA (RT-PCR) (Negative) Independent Interpretation I performed an independent interpretation of an: Plain X-Ray (Chest: 1. 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 It appears similar to the prior chest x-ray of 02/25/2024. 2. There i), Ultrasound (Limited abdomen GB: No acute cholelithiasis or cholecystitis.) and CT Scan (Abdomen pelvis: No acute intra-abdominal pathology.) Radiology Impression Discussion of test interpretation with radiology: I have reviewed the radiologist's reading. Discharge Plan Discharge Clinical Impression: Chest wall pain, Abdominal wall pain, Pneumonia Patient Disposition: Home, Self-Care Instructions: Chest Wall Pain (ED) Additional Instructions: Take [id number] ibuprofen 200 mg every 6 hours if needed for pain. Prescriptions: New cefuroxime axetil 250 mg tablet 250 mg PO BID 7 Days Qty: 14 0RF No Action amlodipine 10 mg tablet 10 mg PO DAILY insulin glargine [Lantus Solostar U-100 Insulin] 100 unit/mL (3 mL) insulin pen 12 unit subcut DAILY losartan 50 mg tablet 100 mg PO DAILY metoprolol succinate 50 mg Tablet Extended Release 24 Hr 150 mg PO DAILY Rx Instructions: 3 tablets daily per [facility] and daughter donepezil 10 mg Tablet 10 mg PO DAILY atorvastatin 40 mg Tablet 40 mg PO BEDTIME Referrals: Whitley Lay PA-C [Primary Care Provider] - Print Language: Persian
[2025-01-09 11:55] LABS: Influenza A PCR NEGATIVE (Negative); Influenza B PCR NEGATIVE (Negative); Resp Syncy Virus RNA Qual PCR NEGATIVE (Negative); SARS COV2 PCR INHOUSE NEGATIVE (Negative)
[2025-01-09 12:41] LABS: Lactic Acid 1.5 mmol/L (0.5-2.0)
[2025-01-09] MEDS: Famotidine 20 MG TABLET PO (13:30)
[2025-01-09] MEDS: Magnesium Hydrox/Alum Hydrox 30 ML ORAL.SUSP PO (13:30)
--- OUTSIDE RECORDS SUMMARY | 2025-01-09 13:33 | XMS_ITS | Encounter Summary ---
Author Organization [facility], Address [address] [place] [address] Phone Care Team Providers Care Soil Tester Name Role Phone Whitley Lay Primary Care Provider Ambreen ladd Encounter Details Date Type Department Care Team (Late st Contact Info) Description 06/22/2023 Documentation Only [facility] Neri [address] [place] [address] Javon Porter MD [address] [place] [address] [place] [address] Social History Tobacco Use Types Packs/Day Years Used Date Smoking Tobacco: Former Cigarettes Alcohol Use Standard Drinks/Week Comments Not Currently 0 (1 standard drink = 0.6 oz pur e alcohol) Comments Unknown Sex and Gender Information Value Date Recorded Sex Assigned at Not on file Legal Sex Female 3:55 PM EST Gender Identity Not on file Sexual Orientation Not on file Occupation Industry Job Start Date Job End Date Retired Not on file Not on file Not on file documented as of this encounter Plan of Treatment Upcoming Encounters Date Type Department Care Team (Late st Contact Info) Description 06/20/2025 10:30 AM EDT Office Visit [facility] Neri [address] [place] [phone] Javon Porter MD [address] [place] [address] [place] [address] documented as of this encounter Visit Diagnoses Not on filedocumented in this encounter Care Teams Soil Tester Relationship Specialty Start Date End Date Whitley Lay PA [address] [place] [phone] PCP - General 12/22/23 documented as of this encounter
--- OUTSIDE RECORDS SUMMARY | 2025-01-09 13:33 | XMS_ITS | Encounter Summary ---
Author Organization [facility] [place], Address [address] [place] [address] Phone Care Team Providers Care Boil Off Machine Operator Cloth Name Role Phone Whitley Lay Primary Care Provider Ambreen ladd Encounter Details Date Type Department Care Team (Late st Contact Info) Description 12/16/2022 Documentation [facility] [address] [place] [address] Rinku Lozano MD [address] [place] [address] Social History Tobacco Use Types Packs/Day Years [...] [facility] [address] [place] [address] Javon Porter MD [address] [place] [phone] documented as of this encounter Visit Diagnoses Not on filedocumented in this encounter Care Teams Boil Off Machine Operator Cloth Relationship Specialty Start Date End Date Whitley Lay PA [address] [place] [phone] PCP - General 12/22/23 documented as of this encounter
--- OUTSIDE RECORDS SUMMARY | 2025-01-09 13:33 | XMS_ITS | Encounter Summary ---
Author Organization [facility], Address [address] [place] [address] Phone Care Team Providers Care Lithographer Apprentice Name Role Phone Whitley Lay Primary Care Provider Ambreen ladd Encounter Details Date Type Department Care Team (Late st Contact Info) Description 01/09/2024 Documentation Only [facility] [address] [place] [address] Juli Ferguson [address] [place] [address] Social History Tobacco Use Types Packs/Day Years [...] Visit [facility] Maico [address] [place] [phone] Javon Porter MD [address] [place] [address] [place] [address] documented as of this encounter Visit Diagnoses Not on filedocumented in this encounter Care Teams Lithographer Apprentice Relationship Specialty Start Date End Date Whitley Lay PA [address] [place] [phone] PCP - General 12/22/23 documented as of this encounter
--- OUTSIDE RECORDS SUMMARY | 2025-01-09 13:33 | XMS_ITS | Encounter Summary ---
Author Organization [facility], Address [address] [place] [address] Phone Care Team Providers Care Radiologic Technology Instructor Name Role Phone Whitley Lay Primary Care Provider Ambreen ladd Encounter Details Date Type Department Care Team (Late st Contact Info) Description 06/20/2024 Documentation Only [facility] [address] [place] [address] Juli Ferguson [address] [place] [address] Social History Tobacco Use Types [...] Visit [facility] [place] [address] Javon Porter MD [address] [place] [phone] documented as of this encounter Visit Diagnoses Not on filedocumented in this encounter Care Teams Radiologic Technology Instructor Relationship Specialty Start Date End Date Whitley Lay PA [address] [place] [phone] PCP - General 12/22/23 documented as of this encounter
--- OUTSIDE RECORDS SUMMARY | 2025-01-09 13:33 | XMS_ITS | Encounter Summary ---
Author Organization [facility] [place], Address [address] [place] [address] Phone Care Team Providers Care French Folder Name Role Phone Whitley Lay Primary Care Provider Ambreen ladd Encounter Details Date Type Department Care Team (Late st Contact Info) Description 12/21/2023 Documentation Only [facility] [address] [place] [address] Juli Ferguson [address] [place] [address] Social History Tobacco Use Types [...] Visit [facility] Maico [address] [place] [phone] Javon Porter MD [address] [place] [address] [place] [address] documented as of this encounter Visit Diagnoses Not on filedocumented in this encounter Care Teams French Folder Relationship Specialty Start Date End Date Whitley Lay PA [address] [place] [phone] PCP - General 12/22/23 documented as of this encounter
--- OUTSIDE RECORDS SUMMARY | 2025-01-09 13:33 | XMS_ITS | Encounter Summary ---
Author Organization [facility], Address [address] [place] [address] Phone Care Team Providers Care Belt Changer Name Role Phone Whitley Lay Primary Care Provider Ambreen ladd Encounter Details Date Type Department Care Team (Late st Contact Info) Description 07/03/2024 Documentation Only [facility] [address] [place] [address] Juli Ferguson [address] [place] [address] Social History Tobacco Use Types [...] Visit [facility] Maico [address] [place] [phone] Javon Porter MD [address] [place] [address] [place] [address] documented as of this encounter Visit Diagnoses Not on filedocumented in this encounter Care Teams Belt Changer Relationship Specialty Start Date End Date Whitley Lay PA [address] [place] [phone] PCP - General 12/22/23 documented as of this encounter
--- OUTSIDE RECORDS SUMMARY | 2025-01-09 13:33 | XMS_ITS | Encounter Summary ---
Author Organization [facility] [place], Address [address] [place] [address] Phone Care Team Providers Care Automation Manager Name Role Phone Whitley Lay Primary Care Provider Ambreen ladd Encounter Details Date Type Department Care Team (Late st Contact Info) Description 06/29/2023 Documentation Only [facility] Neri [address] [place] [address] Javon Porter MD [address] [place] [address] [place] [address] Social History Tobacco Use Types [...] Visit [facility] Neri [address] [place] [phone] Javon Porter MD [address] [place] [address] [place] [address] documented as of this encounter Visit Diagnoses Not on filedocumented in this encounter Care Teams Automation Manager Relationship Specialty Start Date End Date Whitley Lay PA [address] [place] [phone] PCP - General 12/22/23 documented as of this encounter
--- OUTSIDE RECORDS SUMMARY | 2025-01-09 13:33 | XMS_ITS | Encounter Summary ---
Author Organization [facility] [place], Address [address] [place] [address] Phone Care Team Providers Care Automotive Warranty Administrator Name Role Phone Whitley Lay Primary Care Provider Ambreen ladd Encounter Details Date Type Department Care Team (Late st Contact Info) Description 02/09/2023 Documentation Only [facility] [address] [place] [address] Rinku Lozano MD [address] [place] [address] Social History Tobacco Use Types Packs/Day Years [...] Visit [facility] [address] [place] [address] Javon Porter MD [address] [facility] [place] [phone] documented as of this encounter Visit Diagnoses Not on filedocumented in this encounter Care Teams Automotive Warranty Administrator Relationship Specialty Start Date End Date Whitley Lay PA [address] [place] [phone] PCP - General 12/22/23 documented as of this encounter
--- OUTSIDE RECORDS SUMMARY | 2025-01-09 13:33 | XMS_ITS | Encounter Summary ---
Author Organization [facility] [place], Address [address] [place] [address] Phone Care Team Providers Care Sweetbread Trimmer Name Role Phone Whitley Lay Primary Care Provider Ambreen ladd Encounter Details Date Type Department Care Team (Late st Contact Info) Description 06/22/2023 Documentation Only [facility] Neri [address] [place] [address] Javon Porter MD [address] [place] [address] [place] [address] Social History Tobacco Use Types [...] Visit [facility] Neri [address] [place] [phone] Javon Porter MD [address] [place] [place] [address] [place] [address] documented as of this encounter Visit Diagnoses Not on filedocumented in this encounter Care Teams Sweetbread Trimmer Relationship Specialty Start Date End Date Whitley Lya PA [address] [place] [phone] PCP - General 12/22/23 documented as of this encounter
--- OUTSIDE RECORDS SUMMARY | 2025-01-09 13:33 | XMS_ITS | Encounter Summary ---
Author Organization [facility] [place], Address [address] [place] [address] Phone Care Team Providers Care Tinsmith Helper Name Role Phone Whitley Lay Primary Care Provider Ambreen ladd Encounter Details Date Type Department Care Team (Late st Contact Info) Description 12/21/2022 Documentation Only [facility] Neri [address] [place] [address] Javon Porter MD [address] [place] [address] [place] [address] Social History Tobacco Use Types [...] Visit [facility] Neri [address] [place] [phone] Jvaon Porter MD [address] [place] [address] [place] [address] documented as of this encounter Visit Diagnoses Not on filedocumented in this encounter Care Teams Tinsmith Helper Relationship Specialty Start Date End Date Whitley Lay PA [address] [place] [phone] PCP - General 12/22/23 documented as of this encounter
--- OUTSIDE RECORDS SUMMARY | 2025-01-09 13:33 | XMS_ITS | Clinical Summary ---
Author Organization [facility], Address [address] [place] [address] Phone Care Team Providers Care Electric Refrigerator Servicer Name Role Phone Whitley Lay Primary Care Provider Ambreen ladd Allergies No known active allergies Medications amLODIPine (NORVASC) 10 MG tablet Take 10 mg by mouth daily Active aspirin 81 MG chewable tablet Chew 81 mg daily Act breanna atorvastatin (LIPITOR) 40 MG tablet Take 40 mg by mouth daily Active Cholecalcifero l 50 MCG (2000 UT) capsule Take 5,000 Units by mouth 2 (two) times a week Active cyanocobalamin (VITAMIN B-12) 1000 MCG tablet Take by mouth daily Active Lactobacillus- Inulin capsule Take 200 mg by mouth daily Active losartan (COZAAR) 50 MG tablet Take 100 mg by mouth in the morning. Active magnesium oxide (MAG-OX) 400 MG tablet Take 400 mg by mouth in the morning and 400 mg in the evening. 1 Active metoprolol succinate XL (TOPROL XL) 50 MG 24 hr tablet Take 150 mg by mouth daily Active donepezil (ARICEPT) 10 MG tablet Take 10 mg by mouth in the morning. 2 Active Levemir FlexTouch 100 UNIT/ML injection INJECT 10 UNITS SUBCUTANEOUSLY EVERY MORNING INCREASE BY 2 UNITS EVERY 2 DAYS UNTIL FBS < 140 2 Active Active Problems Problem Noted Date Diagnosed Date Simple renal cyst 07/01/2022 Stage 3b chronic kidney disease 08/14/2021 Hematuria 08/14/2021 Hypercholesterolemia 08/14/2021 Hypomagnesemia 08/14/2021 Hypothyroidism 08/14/2021 Essential hypertension 08/14/2021 Uncontrolled type 2 diabetes mellitus 08/14/2021 Overview (06/05/2024): Replacing diagnoses that were inactivated after the 06/05/24 Regulatory Import Renal disorder due to type 2 diabetes mellitus 1 10/15/2020 Family History Medical History Relation Comments Anxiety disorder Daughter Relation Status Comments Daughter Social History Tobacco Use Types Packs/Day Years [...] file Not on file Not on file Plan of Treatment Upcoming Encounters Date Type Department Care Team (Late st Contact Info) Description 06/20/2025 10:30 AM EDT Office Visit [facility] [address] [phone] Javon Porter MD [address] [place] [address] [place] [phone] Health Maintenance Due Date Last Done Comments Diabetes: Ophthalmology Exam 08/14/2021 Diabetes: Pedal Pulse Checked 08/14/2021 Diabetes: Sensory Foot Exam 08/14/2021 Diabetes: Visual Foot Exam 08/14/2021 Diabetes: Hemoglobin A1C 12/14/2021 09/15/2021 Influenza Vaccine (Season Ended) 2025 04/27/2023, 06/23/2019, 06/07/2018, Additional history exists Pneumococcal Vaccine: 50+ Years Completed 02/24/2016, 12/17/2009 Hepatitis B Vaccine Aged Out No longe r eligible based on patient's age to complete this topic Procedures Procedure Name Priority Date/Time Associated Diagnosis Comments HEMOGLOBIN A1C Routine 09/15/2021 11:10 AM EST Stage 3b chronic kidney disease (HCC) Renal disorder due to type 2 diabetes mellitus <Other diabetic kidney complication> (HCC) Essential hypertension from Last 3 Months or Most Recently Relevant to Health Maintenance Results * Hemoglobin A1c (09/15/2021 11:10 AM EST) Blood (Blood, Venous) us Javon Porter MD LAB BLOOD ORDERABLES Final Resul t PRINT/EXTERNAL (NON-INTERFACED LABS) from Last 3 Months or Most Recently Relevant to Health Maintenance Insurance Medicare [facility] Care Teams Electric Refrigerator Servicer Relationship Specialty Start Date End Date Whitley Lay PA [address] [place] [phone] PCP - General 12/22/23
--- OUTSIDE RECORDS SUMMARY | 2025-01-09 13:33 | XMS_ITS | Encounter Summary ---
Author Organization [facility], Address [address] [place] [address] Phone Care Team Providers Care Wharf Helper Name Role Phone Whitley Lay Primary Care Provider Ambreen ladd Encounter Details Date Type Department Care Team (Late st Contact Info) Description 12/16/2022 Documentation Only [facility] [address] [place] [address] Javon Porter MD [address] [place] [address] [place] [address] Social History Tobacco Use Types [...] Visit [facility] [address] [place] [phone] Javon Porter MD [address] [place] [address] [place] [address] documented as of this encounter Visit Diagnoses Not on filedocumented in this encounter Care Teams Wharf Helper Relationship Specialty Start Date End Date Whitley Lay PA [address] [place] [phone] PCP - General 12/22/23 documented as of this encounter
--- OUTSIDE RECORDS SUMMARY | 2025-01-09 13:33 | XMS_ITS | Encounter Summary ---
Author Organization [facility], Address [address] [place] [address] Phone Care Team Providers Care Chassis Mechanic Name Role Phone Whitley Lay Primary Care Provider Ambreen ladd Encounter Details Date Type Department Care Team (Late st Contact Info) Description 06/29/2023 Documentation Only [facility] [address] [place] [address] Javon Porter MD [address] [place] [address] [place] [address] Social History Tobacco Use Types [...] Visit [facility] [address] [place] [phone] Javon Porter MD [address] [place] [address] [place] [address] documented as of this encounter Visit Diagnoses Not on filedocumented in this encounter Care Teams Chassis Mechanic Relationship Specialty Start Date End Date Whitley Lay PA [address] [place] [phone] PCP - General 12/22/23 documented as of this encounter
--- OUTSIDE RECORDS SUMMARY | 2025-01-09 13:33 | XMS_ITS | Encounter Summary ---
Author Organization [facility], Address [address] [place] [address] Phone Care Team Providers Care Window Draper Name Role Phone Whitley Lay Primary Care Provider Ambreen ladd Encounter Details Date Type Department Care Team (Late st Contact Info) Description 06/22/2023 Documentation Only [facility] [address] [place] [address] Javon Porter MD [address] [place] [address] [place] [address] Social History Tobacco Use Types [...] Visit [facility] [address] [place] [phone] Javon Porter MD [address] [place] [address] [place] [address] documented as of this encounter Visit Diagnoses Not on filedocumented in this encounter Care Teams Window Draper Relationship Specialty Start Date End Date Whitley Lay PA [address] [place] [phone] PCP - General 12/22/23 documented as of this encounter
--- OUTSIDE RECORDS SUMMARY | 2025-01-09 13:33 | XMS_ITS | Encounter Summary ---
Author Organization [facility], Address [address] [place] [address] Phone Care Team Providers Care Instructional Support Assistant Name Role Phone Whitley Lay Primary Care Provider Ambreen ladd Encounter Details Date Type Department Care Team (Late st Contact Info) Description 06/22/2023 Documentation Only [facility] [address] [place] [address] Javon Porter MD [address] [place] [address] [place] [address] Social History Tobacco Use Types [...] Visit [facility] [address] [place] [phone] Javon Porter MD [address] [place] [address] [place] [address] documented as of this encounter Visit Diagnoses Not on filedocumented in this encounter Care Teams Instructional Support Assistant Relationship Specialty Start Date End Date Whitley Lay PA [address] [place] [phone] PCP - General 12/22/23 documented as of this encounter
--- OUTSIDE RECORDS SUMMARY | 2025-01-09 13:33 | XMS_ITS | Encounter Summary ---
Author Organization [facility], Address [address] [place] [address] Phone Care Team Providers Care Grinder Operator Surface Tool Name Role Phone Whitley Lay Primary Care Provider Ambreen ladd Encounter Details Date Type Department Care Team (Late st Contact Info) Description 01/02/2024 Documentation Only [facility] [address] [place] [address] Juli Ferguson [address] [place] [address] Social History Tobacco Use Types [...] Visit [facility] [place] [address] Javon Porter MD [address] [place] [phone] documented as of this encounter Visit Diagnoses Not on filedocumented in this encounter Care Teams Grinder Operator Surface Tool Relationship Specialty Start Date End Date Whitley Lay PA [address] [place] [phone] PCP - General 12/22/23 documented as of this encounter
[2025-01-09 14:20] VITALS: BP 149/61; PULSE 65; RESP 18; TEMP 36.4; O2SAT 96
[2025-01-09] MEDS: cefuroxime axetiL 250 MG TABLET PO (14:22)
[2025-01-09 14:36] LABS: Troponin-I High Sensitivity 8.1 ng/L (<3.5-17.0)
[2025-01-09 15:30] VITALS: BP 148/85; PULSE 56; RESP 16; TEMP 36.5; O2SAT 97
== END 2025-01-09 15:33 | disposition home or self-care (01) ==
PROVIDERS: Emergency Provider Emergency Medicine; PCP Physician Assistant
DX: R07.89 Other chest pain (principal); J18.9 Pneumonia, unspecified organism; R10.10 Upper abdominal pain, unspecified; R05.9 Cough, unspecified; R10.13 Epigastric pain; R10.2 Pelvic and perineal pain; Z03.818 Encounter for observation for suspected exposure to other biological agents ruled out; Z79.899 Other long term (current) drug therapy
CPT/HCPCS: 0241U; 36415; 71045; 74176; 76705; 80053; 83605; 83735; 84484; 85025; 85610; 87040; 93005; 96374; 99284; 99285

== ENCOUNTER → 2025-01-09 10:38 | Outpatient (BNV) | payer MEDICARE, OTHER, SELFPAY | PROVIDERS: Emergency Provider Emergency Medicine; PCP Physician Assistant; Visit Provider Internal Medicine | DX: R07.9 Chest pain, unspecified (principal); W19.XXXA Unspecified fall, initial encounter | CPT/HCPCS: 93010 ==

== ENCOUNTER → 2025-01-09 11:32 | Outpatient (BNV) | payer MEDICARE, OTHER, SELFPAY | PROVIDERS: Emergency Provider Emergency Medicine; PCP Physician Assistant; Visit Provider Radiology Diagnostic Radiology | DX: N17.9 Acute kidney failure, unspecified (principal); R10.11 Right upper quadrant pain; R07.9 Chest pain, unspecified | CPT/HCPCS: 71045; 74176; 76705 ==

== ENCOUNTER 2025-03-02 16:42 | Emergency (ER) | payer MEDICARE, OTHER, SELFPAY ==
--- NOTE | ~2025-03-02 | XR_ITS ---
CLINICAL HISTORY: cough 2 view chest x-ray Comparison: CR/SR - XR CHEST 1V - 01/09/25 12:58 EDT CR/SR - XR CHEST 1V - 02/25/24 10:28 EDT Findings: Heart size within normal limits. Stable large mediastinal mass. Lungs are somewhat hyperinflated with mild chronic interstitial changes. Blunting of bilateral costophrenic angles possible pleural effusion or pleural thickening/scarring. No focal consolidation. No significant pneumothorax. Stable osseous structures with scoliosis and degenerative changes of the spine. IMPRESSION: 1. Hyperinflation and chronic interstitial changes suspicious for emphysema. 2. Blunting of bilateral costophrenic angles either small pleural effusions or pleural thickening/scarring. 3. Stable large mediastinal mass which was reported to be stable dating back to 2018 but older studies than 02/25/2024 are not available for comparison. This document has been electronically signed by: Kathy Wooten MD on 03/02/2025 18:09:05
[2025-03-02 16:45] VITALS: BP 160/67; PULSE 66; RESP 16; TEMP 36.2; O2SAT 96; BMI 17.8
--- NOTE | 2025-03-02 16:45 | ED.URI ---
HPI - URI/Sore Throat General Chief Complaint: Upper Respiratory Symptoms Stated Complaint: coughing, rsv exposure Time Seen by Provider: 03/02/25 16:59 Source: patient, family (daughter), RN notes reviewed and old records reviewed Mode of arrival: ambulatory Limitations: no limitations History of Present Illness ED Provider: Rashida SMITH Narrative: 89-year-old female past medical history significant for dementia, thyroid malignancy requiring thyroidectomy presents for evaluation of cough. Patient has had a dry cough since last night. She denies any fevers, chills, shortness of breath, chest pain. Four days ago, the patient was around a granddaughter that was exposed to RSV and the family is concerned the patient was exposed to RSV due to this The patient reports that she feels quite well aside from her dry cough Related Data Home Medications ?Medication ?Instructions ?Recorded ?Confirmed amlodipine 10 mg tablet 10 mg PO DAILY 02/25/24 02/25/24 donepezil 10 mg tablet 10 mg PO DAILY 02/25/24 02/25/24 insulin glargine 100 unit/mL (3 12 unit subcut DAILY 02/25/24 02/26/24 mL) subcutaneous pen (Lantus Solostar U-100 Insulin) losartan 50 mg tablet 100 mg PO DAILY 02/25/24 02/25/24 metoprolol succinate 50 mg 150 mg PO DAILY 02/25/24 02/26/24 tablet,extended release 24 hr atorvastatin 40 mg tablet 40 mg PO BEDTIME 02/26/24 02/26/24 Previous Rx's ?Medication ?Instructions ?Recorded cefuroxime axetil 250 mg tablet 250 mg PO BID 7 days #14 tabs 01/09/25 Allergies Allergy/AdvReac Type Severity Reaction Status Date / Time No Known Allergies (No Known Allergy Verified 03/02/25 16:48 Allergies*) Review of Systems Constitutional: Constitutional: Denies body ache(s), Denies chills, Denies fever(s), Denies headache(s), Denies increased appetite and Denies snoring Eyes: Eyes: Denies blurry vision ENT: Denies dizziness, Denies dry mouth and Denies headache(s) Cardiovascular: Cardiovascular: Denies dyspnea and Denies dyspnea on exertion Respiratory: Respiratory: Denies change in phlegm color, Denies chest congestion, Reports cough, Denies hemoptysis, Denies excessive phlegm production, Denies pain on inspiration, Denies pain with cough, Denies dyspnea, Denies dyspnea on exertion, Denies snoring, Denies stridor and Denies wheezing Gastrointestinal: Gastrointestinal: Denies abdominal pain, Denies nausea and Denies vomiting Musculoskeletal: Musculoskeletal: Denies back pain Integumentary/Breasts: Skin/Breast: Denies rash Neurologic: Denies dizziness and Denies headache(s) Allergic/Immunologic: Allergic/Immunologic: Denies wheezing PMFSH Social History Social History Unable to assess alcohol history related to: Unknown Alcohol intake: former Smoked in Last 30 Days: No Use of substances other than those prescribed or required for medical reasons: No Advance Directives: Yes Advance Directives on File: Yes Advance Directives Date on File: 03/01/24 Physical Exam Vital Signs: Vital Signs: Last Vital Signs Temp 97.8 F 03/02/25 18:59 Pulse 76 03/02/25 18:59 Resp 16 03/02/25 18:59 BP 166/60 H 03/02/25 18:59 Pulse Ox 97 03/02/25 18:59 O2 Del Method Room Air 03/02/25 18:59 BMI result Body Mass Index 17.8 Const: General: healthy appearing, comfortable, no acute distress, alert and awake Nutritional Appearance: well nourished Orientation/consciousness: patient oriented x3 HEENT: Head: Yes normocephalic and Yes atraumatic Eyes: Eyelids: Yes eyelids normal Conjunctivae: conjunctivae normal Sclerae: sclerae normal Corneas: corneas normal Pupils: Equal, round and reactive pupils present EOM: EOMs intact bilaterally Neck: Neck: Yes full ROM Resp: Effort & Inspection: normal respiratory effort, able to speak in complete sentences, no audible wheezes and not labored Auscultation: clear to auscultation bilaterally Cardio: Rate: regular rate Rhythm: regular rhythm GI: Inspection: No distended Palpation (GI): Soft to palpation, not firm, nontender, no guarding and not rigid Back/Spine/Pelvis: Other: Patient has marked scoliosis Skin: General skin exam: no rashes or lesions noted and elasticity normal Neuro: General: patient oriented x3 Cranial nerves: Yes Equal, round and reactive pupils present and Yes Bilaterally intact EOM present Cognition (Neuro): normal cognition Course Course Course Narrative: Tamara Whitaker ALBERT This is a rapid medical exam. Deferred additional HPI, ROS, PE to primary provider. 89 yo female with PMH of dementia, HTN, HLD, DM, CKD, hypothyroidism here with cough x 24 hrs. Will obtain CXR and viral testing. VSS Reevaluation(s) Reevaluation #1: Chest x-ray is without evidence of pneumonia or pleural effusions. Time: 19:28 Medical Decision Making Medical Decision Making [facility] Narrative: 89-year-old female presents for evaluation of a dry cough. She is quite well appearing denies any chest pain, shortness of breath, vital signs are stable. She was exposed to RSV. Plan for viral swabs. A chest x-ray was also ordered. Given that she has no chest pain or shortness of breath, PE, pneumonia in his head to be less likely. She has no fever either. His symptoms could be related to a viral illness, seasonal allergies use, postnasal drip Differential Diagnosis Differential Diagnoses: The differential diagnosis associated with the presentation includes As above Lab Data Labs: Lab Results 03/02/25 Range/Units 16:53 Influenza Type A (PCR) NEGATIVE (Negative) Influenza Type B (PCR) NEGATIVE (Negative) RSV RNA Qual (PCR) NEGATIVE (Negative) SARS-CoV-2 RNA (RT-PCR) NEGATIVE (Negative) Discharge Plan Discharge Clinical Impression: Acute cough Patient Disposition: Home, Self-Care Instructions: Acute Cough (ED) Additional Instructions: You tested negative for RSV, given that your symptoms just started yesterday it is possible that this is a false negative. If your symptoms persist or worsen, you may want to repeat RSV testing given your recent exposure. Your chest x-ray did not show any pneumonia. You may use [id number] cough medicine to help with your cough Prescriptions: No Action amlodipine 10 mg tablet 10 mg PO DAILY insulin glargine [Lantus Solostar U-100 Insulin] 100 unit/mL (3 mL) insulin pen 12 unit subcut DAILY losartan 50 mg tablet 100 mg PO DAILY metoprolol succinate 50 mg Tablet Extended Release 24 Hr 150 mg PO DAILY Rx Instructions: 3 tablets daily per [facility] and daughter donepezil 10 mg Tablet 10 mg PO DAILY atorvastatin 40 mg Tablet 40 mg PO BEDTIME cefuroxime axetil 250 mg tablet 250 mg PO BID 7 Days Qty: 14 0RF Interventions: ED Discharge Assessment Last Done: 03/02/25 18:59 Discharge Date/Time: 03/02/25 19:00 Print Language: Belizean
--- OUTSIDE RECORDS SUMMARY | 2025-03-02 17:01 | XMS_ITS | Encounter Summary ---
Author Organization [facility], Address [address] [place] [address] Phone Care Team Providers Care Molder Labels Name Role Phone Whitley Lay Primary Care Provider Ambreen ladd Encounter Details Date Type Department Care Team (Late st Contact Info) Description 06/22/2023 Documentation Only [facility] [address] [place] [address] Javon Porter MD [address] [place] [address] [place] [address] Social History Tobacco Use Types [...] [facility] [address] [place] [phone] Javon Porter MD [address] [place] [address] [place] [address] documented as of this encounter Visit Diagnoses Not on filedocumented in this encounter Care Teams Molder Labels Relationship Specialty Start Date End Date Whitley Lay PA [address] [place] [phone] PCP - General 12/22/23 documented as of this encounter
[2025-03-02 17:38] LABS: Influenza A PCR NEGATIVE (Negative); Influenza B PCR NEGATIVE (Negative); Resp Syncy Virus RNA Qual PCR NEGATIVE (Negative); SARS COV2 PCR INHOUSE NEGATIVE (Negative)
[2025-03-02 18:00] VITALS: BP 166/60; PULSE 76; RESP 16; TEMP 36.6; O2SAT 97
[2025-03-02 18:59] VITALS: BP 166/60; PULSE 76; RESP 16; TEMP 36.6; O2SAT 97
== END 2025-03-02 19:00 | disposition home or self-care (01) ==
PROVIDERS: Nurse Practitioner Family; Emergency Provider Emergency Medicine Emergency Medical Services; PCP Physician Assistant
DX: J06.9 Acute upper respiratory infection, unspecified (principal); R05.9 Cough, unspecified; Z03.818 Encounter for observation for suspected exposure to other biological agents ruled out; Z79.899 Other long term (current) drug therapy
CPT/HCPCS: 0241U; 71046; 99283; 99284

== ENCOUNTER → 2025-03-02 16:46 | Outpatient (BNV) | payer MEDICARE, OTHER, SELFPAY | PROVIDERS: Emergency Provider Emergency Medicine Emergency Medical Services; PCP Physician Assistant; Visit Provider Specialist | DX: R91.8 Other nonspecific abnormal finding of lung field (principal) | CPT/HCPCS: 71046 ==

== ENCOUNTER → 2025-03-14 08:47 | Outpatient (BNV) | payer MEDICARE, OTHER, SELFPAY | PROVIDERS: PCP Physician Assistant; Visit Provider Radiology Diagnostic Radiology | DX: J44.9 Chronic obstructive pulmonary disease, unspecified (principal) | CPT/HCPCS: 71046 ==

== ENCOUNTER 2025-03-14 09:07 | Inpatient (IN) | payer MEDICARE, OTHER, SELFPAY ==
[2025-03-14] VITALS (10 sets, daily range): BP systolic 139–166; BP diastolic 50–67; PULSE 58–69; RESP 13–19; TEMP 36.3–36.9; O2SAT 94–96; BMI 16.9
--- NOTE | ~2025-03-14 | XR_ITS ---
CLINICAL HISTORY: post right thoracentesis --- Additional Notes or Special Instructions: patient in ultrasound 1 view chest x-ray. Comparison: CT 03/14/2025 Findings: Heart size normal. Pulmonary vasculature approaches limits of normal. No acute fracture. Healed bilateral chest wall rib fractures are present. A right lung base pleural effusion has decreased when compared to the previous exam. No consolidations. Impression: Large anterior mediastinal mass, containing a eggshell calcifications, unchanged in size and configuration compared to 02/25/2024 Status post right thoracentesis, there are no signs of pneumothorax. Residual small left pleural effusion, the lungs are otherwise well-aerated. This document has been electronically signed by: Rivera Chinchilla MD on 03/15/2025 17:06:12
--- NOTE | ~2025-03-14 | CT_ITS ---
EXAMINATION: CT CHEST WITHOUT CONTRAST CLINICAL INFORMATION: Cough. Lung mass. COMPARISON: Correlated to chest x-ray dated March 14, 2025. TECHNIQUE: Multidetector volumetric CT imaging of the chest was done. Axial MIP volume rendering provided. Sagittal and coronal reformatted images were obtained. This CT examination was performed using dose optimization techniques as appropriate, variously including the following: *Automated exposure control *Adjustment of mA and/or kV according to patient size (this includes techniques or standardized protocols for targeted exams where dose is matched to indication/reason for exam; i.e. extremities or head) *Use of iterative reconstruction technique DLP: 198 mGy centimeter. FINDINGS: LIME SLUDGE MIXER: Widening superior mediastinum. Levoconvex curvature of the lower thoracic spine and dextroconvex curvature upper lumbar spine. Vascular calcifications. Blunting of the costophrenic angles bilaterally. Hyperinflated lungs. LUNGS: Pulmonary patchy groundglass extending from pulmonary leilani to the right middle lung lobe lingula and lung bases. Confluent attenuation in the lung bases. No bronchiectasis. No honeycombing. No gross pulmonary nodules. MEDIASTINUM: There is an heterogeneous partially calcified cluster of nodular masses extending from the inferior aspect of the thyroid gland into the anterior mediastinum resulting in lateral deformity of the upper trachea and abutting the ascending thoracic aorta the overall measurement of this mass is 7 x 12 x 10 cm. Mediastinal lymphadenopathy. Small to moderate volume pericardial effusion. Calcified plaques throughout the thoracic aorta its main branches and the coronary arteries. No aneurysm, thoracic aorta. No pneumomediastinum. No hemomediastinum. Calcified plaques in the mitral valve and aortic valve. CORONARY ARTERY CALCIFICATION: Calcified plaques. PLEURA: Bilateral pleural effusions, moderate to large volume. No calcified pleural plaques. No pneumothorax. No hemothorax. AXILLA: No lymphadenopathy. UPPER ABDOMEN: Vascular calcifications. Exophytic cystic lesion, upper pole left kidney. Soft tissue fullness, left adrenal gland which measures 15 Hounsfield units. OSSEOUS STRUCTURES: A S-shaped curvature of the thoracolumbar spine with a levoconvex curvature apex at T7-8. Multilevel spondylosis. 6 mm blastic lesion the superior endplate of T2, nonspecific. 30% volume loss of the vertebral bodies in the midportion of the thoracic spine and likely old. Old healed rib fractures, bilaterally. CT/CT chest wo IV con IMPRESSION: 7 x 12 x 10 cm heterogeneous multinodular with calcific component mass extending from the inferior thyroid gland to the anterior mediastinum. Concerning for malignancy. Bilateral pleural effusions, moderate to large volume. Mild interstitial lung edema. Atelectasis, lung bases. Pericardial effusion, small to moderate volume. Coronary artery disease and atherosclerosis disease. Fleischner guidelines were followed. Electronically signed by: Angel Pedroza MD 03/14/2025 12:13 PM EDT
--- NOTE | ~2025-03-14 | XR_ITS ---
CLINICAL HISTORY: F U bilateral effusion 1 view chest x-ray Comparison: 03/15/2025 Findings: Portions of the exam are obscured by overlying material. There is increasing pulmonary consolidation with bilateral pleural effusions. The exam is otherwise unchanged IMPRESSION: 1. Increased pulmonary consolidation with bilateral pleural effusions This document has been electronically signed by: Héctor Dolan MD on 03/17/2025 08:55:05
--- NOTE | ~2025-03-14 | US_ITS ---
PROCEDURE: Ultrasound-guided right thoracentesis History: Right pleural effusion Specimen: A sample of pleural fluid was sent for analysis Access: 5 Yemeni Yueh catheter Medications: 5 mL 1% lidocaine TECHNIQUE/FINDINGS Appropriate preprocedural clinical history and imaging studies were reviewed. The patient was brought to the department and placed in the seated position. Ultrasound images of the right thorax were obtained to localize a moderate to large pleural effusion. Permanent ultrasound images were saved. Risks and benefits and possible complications were discussed with the patient and consent form was signed. An area of the patient's right back was prepped and draped in usual sterile fashion. 5 mL of 1% lidocaine was used to obtain local anesthesia of the skin and deeper tissues. A standard small bore needle was introduced to sample pleural fluid and demonstrate a safe access route. A 5 Yemeni Yueh catheter was then used to access the pleural cavity. 750 ml of yellow fluid was removed passively. The catheter was then removed. A dressing was applied. A postprocedure chest x-ray will be performed and will be dictated separately. There were no immediate complications. The procedure was performed by Ulices Muhammad NP and supervised by Claude Marquez MD. US/US thoracentesis Impression: Ultrasound-guided right thoracentesis Electronically signed by: Claude Marquez MD 03/19/2025 03:35 PM EDT
--- NOTE | ~2025-03-14 | XR_ITS ---
EXAMINATION: XR CHEST CLINICAL INFORMATION: cough COMPARISON: Several priors dating back to 02/23/2024, most recently 02/22/2025. TECHNIQUE: 2 views of the chest were obtained. FINDINGS: There is a stable large mediastinal mass present. By reports, this is stable from 2018, and related to a large substernal goiter. Aortic mural calcification and aortic tortuosity. Eggshell calcification overlying the right inferior aspect of the mass, unchanged. The left hilar silhouette is normal. The right is partially obscured. Lungs demonstrate small to moderate right effusion, enlarging, and small stable left effusion. Associated right greater than left basilar parenchymal opacities, likely passive atelectasis. There is underlying COPD with increased thoracic AP diameter. Subtle nodular opacity in the left upper lung region, similar to 02/22/2025. There are healed right rib fractures. There is scoliosis and degenerative spondylosis of the spine. No acute osseous or soft tissue abnormality. XR/XR chest 2V IMPRESSION: 1. 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 It appears similar to the prior chest x-rays of 02/23/2024, and 02/22/2025. 2. Oval nodular opacity left upper lung, cannot exclude lung nodule. CT recommended. 3. Enlarging small to moderate right effusion with underlying parenchymal opacity. 4. Stable small layering left effusion. 5. COPD. Electronically signed by: Harsh Garza MD 03/14/2025 10:03 AM EDT
[2025-03-14 10:16] LABS: MANUAL DIFF FLAG NO
[2025-03-14 10:24] LABS: Hematocrit 34.8 % (37.0-47.0); Hemoglobin 12.2 g/dl (12.0-16.0); Imm Gran Abs Auto 0.09 X10*3/uL (0.00-0.03); Imm Gran Pct Auto 0.6 % (0.0-0.4); Lymphocytes Absolute Auto 0.6 X10*3/uL (1.2-4.9); Mean Corpuscular HGB Conc 35.1 g/dl (31.0-35.0); Mean Corpuscular Hemoglobin 31.1 pg (27.0-33.0); Mean Corpuscular Volume 88.8 fL (80.0-98.0); NRBC Abs Auto 0.000 X10*3/uL (0.0-0.012); NRBC Pct Auto 0.0 /100WBC (0.0-0.2); Platelet Count 349 X10*3/uL (160-400); Red Blood Count 3.92 X10*6/uL (4.20-5.50); White Blood Count 15.6 X10*3/uL (4.8-10.8)
[2025-03-14 10:31] LABS: Alanine Aminotransferase 21 U/L (0-31); Albumin Level 3.0 g/dL (3.5-5.0); Alkaline Phosphatase 109 U/L (39-117); Anion Gap 11 (12-20); Aspartate Amino Transferase 23 U/L (5-31); Blood Urea Nitrogen 30 mg/dL (9-16); Calcium 8.3 mg/dL (8.4-10.2); Carbon Dioxide 26 mmol/L (22-29); Chloride 104 mmol/L (96-108); Creatinine Clr Calc Pharmacy 11.9; Estimated Glomerular Filt Rate 20; Magnesium 2.0 mg/dL (1.6-2.6); Potassium 3.9 mmol/L (3.3-5.1); Sodium 137 mmol/L (135-145); Total Protein 5.5 g/dL (6.5-8.0)
[2025-03-14 10:54] LABS: Resp Syncy Virus RNA Qual PCR NEGATIVE (Negative); SARS COV2 PCR INHOUSE NEGATIVE (Negative)
--- NOTE | 2025-03-14 10:55 | ECG_ITS ---
Test Reason : RESP Blood Pressure : */* mmHG Vent. Rate : 59 BPM Atrial Rate : 59 BPM P-R Int : 196 ms QRS Dur : 80 ms QT Int : 468 ms P-R-T Axes : 27 45 30 degrees QTcB Int : 463 ms Sinus bradycardia Cannot rule out Anterior infarct , age undetermined Abnormal ECG When compared with ECG of 09-Jan-2025 10:42, No significant change was found Referred By: Generic ED Physician Electronically Signed By: Speedy Vigil
--- NOTE | 2025-03-14 11:33 | ED.GENADULT ---
[facility] - General Adult General Chief complaint: Upper Respiratory Symptoms Stated complaint: cough l side pain Time Seen by Provider: 03/14/25 11:06 Source: patient and family Mode of arrival: ambulatory Limitations: no limitations History of Present Illness ED Provider: HPI narrative: 89-year-old woman is here with her daughter for persistent cough, there was seen here end of February of this year with concerns of exposure to RSV, tested negative, started on antitussives and initially felt better but she is presenting with a recurrent cough, no fevers or chills, cough is clear, denies chest pain, weight gain. Hemoptysis. No recent procedures or prolonged travels. Her daughter states that also she has having more shortness of breath as well especially when she is ambulating and that has been progressively getting worse over some time. She is usually much more active. Related Data Home Medications ?Medication ?Instructions ?Recorded ?Confirmed amlodipine 10 mg tablet 10 mg PO DAILY 02/25/24 02/25/24 donepezil 10 mg tablet 10 mg PO DAILY 02/25/24 02/25/24 insulin glargine 100 unit/mL (3 12 unit subcut DAILY 02/25/24 02/26/24 mL) subcutaneous pen (Lantus Solostar U-100 Insulin) losartan 50 mg tablet 100 mg PO DAILY 02/25/24 02/25/24 metoprolol succinate 50 mg 150 mg PO DAILY 02/25/24 02/26/24 tablet,extended release 24 hr atorvastatin 40 mg tablet 40 mg PO BEDTIME 02/26/24 02/26/24 albuterol sulfate 90 mcg/actuation 2 puff inhalation Q4H PRN Wheezing 03/14/25 aerosol inhaler sertraline 100 mg tablet 100 mg PO DAILY 03/14/25 sitagliptin phosphate 25 mg tablet 25 mg PO DAILY 03/14/25 (Januvia) Allergies Allergy/AdvReac Type Severity Reaction Status Date / Time No Known Allergies (No Known Allergy Verified 03/14/25 09:24 Allergies*) Review of Systems Constitutional: Constitutional: Reports as per [facility] Social History Social History Unable to assess alcohol history related to: Unknown Alcohol intake: former Smoked in Last 30 Days: No Use of substances other than those prescribed or required for medical reasons: No Advance Directives: Yes Advance Directives on File: Yes Advance Directives Date on File: 03/01/24 Physical Exam ED Vital Signs: Vital Signs - 24 hr 03/14/25 09:20 03/14/25 10:57 03/14/25 11:03 Temperature 98.5 F 97.8 F Pulse Rate 59 58 Respiratory Rate 14 16 Blood Pressure 162/62 H 159/50 H Pulse Oximetry 94 96 95 Oxygen Delivery Method Room Air Room Air Room Air 03/14/25 11:06 03/14/25 13:30 Temperature 97.5 F Pulse Rate 59 Respiratory Rate 19 14 Blood Pressure 151/65 H Pulse Oximetry 95 Oxygen Delivery Method Room Air BMI result Body Mass Index 16.9 Const Other: Gen: ?Overall well-appearing patient HEENT: PERRLA, boggy nasal mucosa bilaterally CV: RRR, no obvious murmurs appreciated Resp: ?Rhonchorous at the bases bilaterally Abd: ?Bowel sounds are present, no tenderness no rebound no rigidity Skin: Warm, dry, intact, no lower extremity edema Neuro: ?Alert and oriented x3, moving upper and lower extremities symmetrically, no obvious facial asymmetry noted Medications Administered Discontinued Medications Generic Name Dose Route Start Last Admin Trade Name Freq PRN Reason Stop Dose Admin Ceftriaxone Sodium 1 gm 03/14/25 13:09 03/14/25 13:30 Ceftriaxone Sodium 1 Gm Vial IVPUSH 03/14/25 13:10 1 gm ONCE ONE Administration Furosemide 40 mg 03/14/25 13:09 03/14/25 13:29 Furosemide 40 Mg/4 Ml Vial IVPUSH 03/14/25 13:10 40 mg STAT STA Administration Protocol Medical Decision Making Medical Decision Making [facility] Narrative: I reviewed patient's prior visit as well as imaging and blood work from today she does have leukocytosis, to meet chest x-ray appears to have consolidation with pleural effusion involving in the right lower lung field, radiologist also noted possible lesion in the left upper lung, 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 This has been discussed with patient and her daughter and they agreeable with the plan. Disposition to be determined 13:[address] reveals bilateral pleural effusions, right greater than left with some pulmonary edema, in the setting of her dyspnea CT finding of bilateral pleural effusions right greater than left as well as pulmonary edema and CKD am going to admit patient for gentle diuresis, we will also cover with antibiotics we will give a g of ceftriaxone if she does have leukocytosis with considerations that if effusions are resolved maybe there is underlying consolidation or possibly these effusions are infectious but that is unlikely, this has been discussed with the patient and her daughter they agreeable with the plan. She needs an official echo, and inpatient cards consult Differential Diagnosis Differential Diagnoses: The differential diagnosis associated with the presentation includes CHF, COPD exacerbation, pneumonia, pneumothorax, ACS, PE, Admission/Observation Consideration of admission/observation: Escalation of care including admission/observation considered Lab Data MDM Lab Attestation statement: I reviewed the patient's lab results. 03/14/25 10:12 03/14/25 10:12 Labs: Lab Results 03/14/25 Range/Units 10:12 WBC 15.6 H (4.8-10.8) X10*3/uL RBC 3.92 L (4.20-5.50) X10*6/uL Hgb 12.2 (12.0-16.0) g/dl Hct 34.8 L (37.0-47.0) % MCV 88.8 (80.0-98.0) fL MCH 31.1 (27.0-33.0) pg MCHC 35.1 H (31.0-35.0) g/dl RDW 13.0 (11.0-16.0) % Plt Count 349 (160-400) X10*3/uL MPV 10.2 (9.4-12.3) fL Immature Gran % (Auto) 0.6 H (0.0-0.4) % Neut % (Auto) 88.2 H (45-73) % Lymph % (Auto) 3.8 L (20-40) % Parker % (Auto) 6.5 (2-11) % Eos % (Auto) 0.5 (0-4) % Baso % (Auto) 0.4 (0-2) % Lymph # (Auto) 0.6 L (1.2-4.9) X10*3/uL Parker # (Auto) 1.0 (0.1-1.2) X10*3/uL Eos # (Auto) 0.1 (0.0-0.4) X10*3/uL Baso # (Auto) 0.1 (0.0-0.2) X10*3/uL Abs Immat Gran (auto) 0.09 H (0.00-0.03) X10*3/uL Absolute Neuts (auto) 13.8 H (2.0-8.3) x10*3/uL Absolute Nucleated RBC 0.000 (0.0-0.012) X10*3/uL Nucleated RBC % (auto) 0.0 (0.0-0.2) /100WBC Sodium 137 (135-145) mmol/L Potassium 3.9 (3.3-5.1) mmol/L Chloride 104 (96-108) mmol/L Carbon Dioxide 26 (22-29) mmol/L Anion Gap 11 L (12-20) BUN 30 H (9-16) mg/dL Creatinine 2.26 H (0.5-1.4) mg/dL Estim Creat Clear Calc 11.9 Estimated GFR 20 Random Glucose 204 H (60-115) mg/dL Calcium 8.3 L (8.4-10.2) mg/dL Magnesium 2.0 (1.6-2.6) mg/dL Total Bilirubin 0.4 (0.0-1.0) mg/dL AST 23 (5-31) U/L ALT 21 (0-31) U/L Alkaline Phosphatase 109 (39-117) U/L B-Natriuretic Peptide 238 H (<100) pg/mL Total Protein 5.5 L (6.5-8.0) g/dL Albumin 3.0 L (3.5-5.0) g/dL Influenza Type A (PCR) NEGATIVE (Negative) Influenza Type B (PCR) NEGATIVE (Negative) RSV RNA Qual (PCR) NEGATIVE (Negative) SARS-CoV-2 RNA (RT-PCR) NEGATIVE (Negative) Independent Interpretation I performed an independent interpretation of an: EKG (59 beats per minute otherwise normal ECG without dysrhythmia, AV neo blocks or ST-T changes to suspect underlying ACS, my independent interpretation) and Plain X-Ray (COPD changes, right lower lobe consolidation versus atelectasis, left upper lobe discoid lesion, no pneumothorax, there is a known mediastinal mass and small bilateral pleural effusions) Radiology Impression Discussion of test interpretation with radiology: I have reviewed the radiologist's reading. 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 Concerning for malignancy. Bilateral pleural effusions, moderate to large volume. Mild interstitial lung edema. Atelectasis, lung bases. Pericardial effusion, small to moderate volume. Coronary artery disease and atherosclerosis disease. Critical Care Time Critical Care Time Total Critical Care Time: 45 Attestation: Time is exclusive of separately billable procedures. Time includes: direct patient care, patient reassessment, coordination of patient care, interpretation of data (laboratory data, pulse oximetry, arterial blood gases and chest xrays), review of patient's medical records, medical consultation and documentation of patient care. Procedures excluded from critical care time: central intravenous line placement and electrocardiography. Discharge Plan Discharge Clinical Impression: Exertional dyspnea, Pulmonary edema, Pleural effusion, bilateral Patient Disposition: Admitted As Inpatient Print Language: Hungarian
--- OUTSIDE RECORDS SUMMARY | 2025-03-14 11:40 | XMS_ITS ---
Author Organization [facility] on Care Team Providers Care Firearms Sales Associate Name Role Phone Deborah Ch Unavailable Unavailable Brook Ford Unavailable Unavailable Howard Vidal Unavailable Unavailable Garo Chaudhary Unavailable Unavailable Paul, Carrie Unavailable Unavailable Ele, Paola Unavailable Unava ilable Marni Renteria Unavailable Unavailable Allergies and adverse reactions No Known Allergies Care Team Name Role Address Phone Organization Dates Garo Chaudhary [address], [address], [place] (Office): : [facility] 02/29/2024 - 03/13/2024 Deborah Ch [address] [place] [address], [id number], [place] (Office): : : [facility] 02/29/2024 - 03/13/2024 Brook Ford [address] [place] [address], [id number], [place] (Office): [facility] 02/29/2024 - 03/13/2024 Howard Vidal [address] [facility], [place], [address], [place] (Office): [facility] 02/29/2024 - 03/13/2024 Carrie Miller [address] [place] [address], [id number], [place] (Office): : [facility] 02/29/2024 - 03/13/2024 Paola Marlow [address] [facility], [place], [address], [place] (Office): [facility] 02/29/2024 - 03/13/2024 Marni Renteria [address] [facility] [address], [place], [address], [place] (Office): : [facility] 02/29/2024 - 03/13/2024 Immunizations Immunization Status Vaccine Details Vaccine Code CodeSystem Date Notes Zostavax(Shingles ) completed zoster vaccine, live 121 CVX created date: 4 administe red date: 3 Verified in NCIS. Pneumococcal Conjugate Vaccine (PCV13) completed pneumococcal conjugate vaccine, 13 valent 133 CVX created date: 4 administe red date: 6 Verified in MIIS. Pneumococcal Polysaccharide Vaccine (PPSV23) completed pneumococcal polysaccharide vaccine, 23 valent 33 CVX created date: 4 administe red date: 0 Verified in MIIS. SARS-COV-2 (COVID-19) completed SARS-COV-2 (COVID-19) vaccine, mRNA, spike protein, LNP, preservative free, 100 mcg/0.5mL dose or 50 mcg/0.25mL dose Mfg: Oskara Step 2 of Multi-step with next step required 207 CVX created date: 4 administe red date: 1 Verified in MIIS. SARS-COV-2 (COVID-19) completed SARS-COV-2 (COVID-19) vaccine, mRNA, spike protein, LNP, preservative free, 100 mcg/0.5mL dose or 50 mcg/0.25mL dose Mfg: Moderna Step 1 of Multi-step with next step required 207 CVX created date: 4 administe red date: 1 Verified in MIIS. Prevnar 20 Pneumococcal conjugate (PCV20) cancelled Pneumococcal conjugate vaccine 20-valent (PCV20), polysaccharide [id number] conjugate, adjuvant, preservative free 216 CVX created date: 4 consent date: 4 Educated by Lyndsay Case RN on 03/02/2024 SARS-COV-2 (COVID-19 BOOSTER) completed SARS-COV-2 (COVID-19) vaccine, mRNA, spike protein, LNP, bivalent, preservative free, 50 mcg/0.5 mL or 25 mcg/0.25 mL dose Mfg: Moderna Bivalent Booster 229 CVX created date: 4 administe red date: 2 Verified in MIIS. SARS-COV-2 (COVID-19 BOOSTER) completed SARS-COV-2 (COVID-19) vaccine, mRNA, spike protein, LNP, preservative free, 100 mcg/0.5mL dose or 50 mcg/0.25mL dose Mfg: Moderna Booster # 3 207 CVX created date: 4 administe red date: 2 Verified in MIIS. SARS-COV-2 (COVID-19 BOOSTER) completed SARS-COV-2 (COVID-19) vaccine, mRNA, spike protein, LNP, preservative free, 100 mcg/0.5mL dose or 50 mcg/0.25mL dose Mfg: Moderna Booster # 2 207 CVX created date: 4 administe red date: 1 Verified in MIIS. SARS-COV-2 (COVID-19 BOOSTER) completed SARS-COV-2 (COVID-19) vaccine, mRNA, spike protein, LNP, preservative free, 100 mcg/0.5mL dose or 50 mcg/0.25mL dose Mfg: Moderna Booster # 1 207 CVX created date: 4 administe red date: 1 Verified in MIIS. RSV, recombinant, protein subunit RSVpreF, adjuvant rec cancelled Respiratory syncytial virus (RSV), vaccine, recombinant, protein subunit RSV prefusion F, adjuvant reconstituted, 0.5 mL, preservative free 303 CVX created date: 4 consent date: 4 Previously Received influenza, unspecified formulation completed influenza virus vaccine, unspecified formulation 88 CVX created date: 4 administe red date: 3 Verified in NCIS. COVID-19 vaccine, vector-nr, rS-Ad26, PF, 0.5 mL completed SARS-COV-2 (COVID-19) vaccine, mRNA, spike protein, LNP, preservative free, 50 mcg/0.5 mL dose Mfg: Moderna Spikevax 312 CVX created date: 4 administe red date: 3 Verified in MIIS. Td(adult) unspecified formulation completed Td(adult) unspecified formulation 139 CVX created date: 4 administe red date: 9 Verified in NCIS. Mental Status Section Date Assessment Total Score Description 03/13/2024 BIMS 06 severe cognitiv e impairment CAM 0 No delirium ind icated PHQ-9 02 minimal depress ion 03/06/2024 CAM 2 Delirium indica sd PHQ-9 00 Problems Problem # Description Date of onset Resolved Date Code CodeSystem Concern Status 1 ESSENTIAL (PRIMARY) HYPERTENSION 02/29/[address] active 2 HYPOTHYROIDISM, UNSPECIFIED 02/29/[address] active 3 PURE HYPERCHOLESTEROLEM IA, UNSPECIFIED 02/29/[address] active 4 TYPE 2 DIABETES MELLITUS WITH DIABETIC NEPHROPATHY 02/29/[address] active 5 UNSPECIFIED DEMENTIA, UNSPECIFIED SEVERITY, WITHOUT BEHAVIORAL DISTURBANCE, PSYCHOTIC DISTURBANCE, MOOD DISTURBANCE, AND ANXIETY 02/29/[address] active Reason for Referral No Reasons for Referral Entered Social History Social History Observation Description Start Date End Date Code Code System Current Smoking Status Tobacco smoking consumption unknown 577732857 SNOMED CT Sex Assigned At Female 1935 40643-3 [facility] Gender Identity Vital Signs Code Code System Vitals Name Values and Units Timing Information 9279-1 [facility] Respiratory Rate Value=18.0 Units=/m in 03/13/2024 8462-4 [facility] Blood Pressure-Diastolic Value=58 Un its=mmHg 03/13/2024 8480-6 [facility] Blood Pressure-Systolic Zhtew=316 Un its=mmHg 03/13/2024 8310-5 [facility] Body Temperature Value=97.4 Units= F 03/13/2024 8867-4 [facility] Heart rate Value=78.0 Units=/min 05/2024 84424-4 [facility] O2 % BldC Oximetry Value=95.0 Units= % 03/13/2024 2339-0 [facility] Blood Sugar Iurni=442.0 Units=mg/dL 03/13/2024 20176-2 [facility] Pain Level Value=0.0 03/13/2024 70426-8 [facility] Weight Mswfy=718.2 Units=Lbs 11/2023 8302-2 [facility] Height Value=60.0 Units=Inches 03/05/2024
--- OUTSIDE RECORDS SUMMARY | 2025-03-14 11:40 | XMS_ITS | Encounter Summary ---
Author Organization [facility], Address [address] [place] [address] Phone Care Team Providers Care Stone Belt Sander Name Role Phone Whitley Lay Primary Care Provider Ambreen ladd Encounter Details Date Type Department Care Team (Late st Contact Info) Description 06/22/2023 Documentation Only [facility] Neri [address] [place] [address] Javon Porter MD [address] [place] [address] [place] [address] Social History Tobacco Use Types [...] Visit [facility] N[address] [place] [phone] Javon Porter MD [address] [place] [address] [place] [address] documented as of this encounter Visit Diagnoses Not on filedocumented in this encounter Care Teams Stone Belt Sander Relationship Specialty Start Date End Date Whitley Lay PA [address] [place] [phone] PCP - General 12/22/23 documented as of this encounter
[2025-03-14] MEDS: Furosemide 40 MG/4 ML VIAL IVPUSH (13:29)
[2025-03-14 13:36] LABS: B Type Natriuretic Peptide 238 pg/mL (<100)
--- NOTE | 2025-03-14 13:50 | PHA.MEDREC ---
Pharmacy Consult ? Medication Reconciliation Pharmacy has completed the medication reconciliation. Patient's daughter confirmed all medications. Reported 10,000 units of vitamin D and magnesium in addition to prescription medications Shamika Jauregui, SherineD
--- NOTE | 2025-03-14 13:58 | PM.IMHP ---
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 The cough is productive left-sided chest pain. She denied any headache, palpitations, dizziness, fever or chills. She allows report any acute gastrointestinal or genitourinary symptoms. She does not have history of congestive heart failure or MIs. She denied tobacco smoking, alcohol abuse illicit drug use. Daughter was at bedside and contributed with the HPI. In the ED she was found to have stable vital signs. Blood workup was remarkable for leukocytosis of 15.6. Hemoglobin is 12.2 and hematocrit 34.8. There are no significant electrolyte imbalances. BUN is 30 and creatinine 2.26. LFTs are normal. Troponin is 14.5. BNP is elevated at 230. Viral testing for COVID-19, influenza and RSV is negative. Chest CTA showed a mediastinal mass from the inferior thyroid gland to the anterior mediastinum (concerning for malignancy). It also showed bilateral pleural effusion (moderate to large), pericardial effusion and mild interstitial edema. ECG showed sinus bradycardia, heart rate 59 bpm without acute ischemic changes. ED Tx: Ceftriaxone 1 g current, Lasix mg IV Review of Systems Review of Systems: All 12 systems were reviewed and normal except as noted in HPI. [facility] Medical History (Updated 03/14/25 @ 14:34 by Demar Edwards MD) Type 2 diabetes mellitus Chronic kidney disease (CKD), stage 4 Substernal goiter Essential hypertension Hyperlipidemia Social History Unable to assess alcohol history related to: Unknown Alcohol intake: former Smoked in Last 30 Days: No Use of substances other than those prescribed or required for medical reasons: No Advance Directives: Yes Advance Directives on File: Yes Advance Directives Date on File: 03/01/24 Meds Allergies Allergy/AdvReac Type Severity Reaction Status Date / Time No Known Allergies (No Known Allergy Verified 03/14/25 09:24 Allergies*) Active Medications: Current Medications Acetaminophen (Acetaminophen 325 Mg Tablet) 975 mg PO Q6H PRN PRN Reason: Pain, Mild 1-3,fever,headache Albuterol Sulfate (Albuterol Sulfate (0.083%) 2.5 Mg/3 Ml Vial.Neb) 2.5 mg INHALE ONCE STA Stop: 03/14/25 13:56 Albuterol Sulfate (Albuterol Sulfate (0.083%) 2.5 Mg/3 Ml Vial.Neb) 2.5 mg INHALE RQ4H WHILE AWAKE LAWANDA Albuterol Sulfate (Albuterol Sulfate (0.083%) 2.5 Mg/3 Ml Vial.Neb) 2.5 mg INHALE RQ4H WHILE AWAKE LAWANDA Calcium Carbonate (Calcium Carbonate 750 Mg Tab.Chew) 750 mg PO Q4H PRN PRN Reason: Heartburn Ceftriaxone Sodium (Ceftriaxone Sodium 1 Gm Vial) 1 gm IVPUSH Q24H LAWANDA Enoxaparin Sodium (Enoxaparin Sodium 40 Mg/0.4 Ml Syringe) 40 mg SUBCUT Q24H LAWANDA Furosemide (Furosemide 20 Mg/2 Ml Vial) 20 mg IVPUSH DAILY LAWANDA; Protocol Azithromycin 500 mg/ Sodium (Chloride) 250 mls @ 125 mls/hr IV Q24H LAWANDA Magnesium Hydroxide (Milk Of Magnesia 30 Ml Oral.Susp) 30 ml PO DAILY PRN PRN Reason: Constipation Melatonin (Melatonin 3 Mg Tablet) 6 mg PO BEDTIME PRN PRN Reason: Insomnia Methylprednisolone Sodium Succinate (Methylprednisolone Sod Succ 125 Mg/2 Ml Vial) 60 mg IVPUSH ONCE STA Stop: 03/14/25 13:56 Methylprednisolone Sodium Succinate (Methylprednisolone Sod Succ 40 Mg Vial) 40 mg IVPUSH DAILY REPLACED BY [facility] Sodium Chloride (0.9 % Sodium Chloride Flush 3 Ml Syringe) 3 ml IVFLUSH QSHIFT REPLACED BY [facility] Home Medications ?Medication ?Instructions ?Recorded ?Confirmed ?Last Taken ?Type amlodipine 10 mg tablet 10 mg PO DAILY 02/25/24 03/14/25 03/14/25 History losartan 50 mg tablet 100 mg PO DAILY 02/25/24 03/14/25 03/14/25 History metoprolol succinate 50 mg 150 mg PO DAILY 02/25/24 03/14/25 03/14/25 History tablet,extended release 24 hr atorvastatin 40 mg tablet 40 mg PO BEDTIME 02/26/24 03/14/25 03/13/25 History albuterol sulfate 90 mcg/actuation 2 puff inhalation Q4H PRN Wheezing 03/14/25 03/14/25 03/14/25 History aerosol inhaler cholecalciferol (vitamin D3) 125 250 mcg PO Q48H 03/14/25 03/14/25 Unknown History mcg (5,000 unit) tablet (Vitamin D3) magnesium oxide 200 mg PO DAILY 03/14/25 03/14/25 03/14/25 History sertraline 100 mg tablet 100 mg PO DAILY 03/14/25 03/14/25 03/14/25 History sitagliptin phosphate 25 mg tablet 25 mg PO DAILY 03/14/25 03/14/25 03/14/25 History (Januvia) Physical Exam Vital Signs and Narrative: Vital Signs: Last Vital Signs Temp 97.5 F 03/14/25 13:30 Pulse 59 03/14/25 13:30 Resp 14 03/14/25 13:30 BP 151/65 H 03/14/25 13:30 Pulse Ox 95 03/14/25 13:30 O2 Del Method Room Air 03/14/25 13:30 BMI result Body Mass Index 16.9 Constitutional - Awake and Alert, No apparent distress. Cachectic. Afebrile. Hard of hearing. HEENT - PER, EOMI Heart - RRR, No murmurs meds Lungs - Normal lung expansion, Normal respiratory effort, No respiratory distress. Tachypnea. Decreased breath sound at bases. Upper lung ahumada wheezing or rhonchi. Abdomen - NT / ND; +BS; No rebound or guarding - No CVA tenderness Extremities - Pitting edema to the lower extremities. No erythema. Musculoskeletal - generalized muscular atrophy Skin - Warm/Dry. No pallor. Neurological - Alert & oriented x3. Moving all extremities spontaneously. Normal speech. Psychological - Appropriate affect Results Labs 03/14/25 10:12 03/14/25 10:12 Labs: Laboratory Results - last 24 hr 03/14/25 10:12 MCV 88.8 MCH 31.1 MCHC 35.1 H RDW 13.0 Plt Count 349 MPV 10.2 Immature Gran % (Auto) 0.6 H Neut % (Auto) 88.2 H Lymph % (Auto) 3.8 L Douglas % (Auto) 6.5 Eos % (Auto) 0.5 Baso % (Auto) 0.4 Lymph # (Auto) 0.6 L Douglas # (Auto) 1.0 Eos # (Auto) 0.1 Baso # (Auto) 0.1 Abs Immat Gran (auto) 0.09 H Absolute Neuts (auto) 13.8 H Absolute Nucleated RBC 0.000 Nucleated RBC % (auto) 0.0 Anion Gap 11 L Estim Creat Clear Calc 11.9 Estimated GFR 20 Random Glucose 204 H Calcium 8.3 L Magnesium 2.0 Total Bilirubin 0.4 AST 23 ALT 21 Alkaline Phosphatase 109 B-Natriuretic Peptide 238 H Total Protein 5.5 L Albumin 3.0 L Influenza Type A (PCR) NEGATIVE Influenza Type B (PCR) NEGATIVE RSV RNA Qual (PCR) NEGATIVE SARS-CoV-2 RNA (RT-PCR) NEGATIVE Imaging Radiologist's Impressions: Impressions Chest X-Ray 03/14/25 08:47 IMPRESSION: 1. 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 It appears similar to the prior chest x-rays of 02/23/2024, and 02/22/2025. 2. Oval nodular opacity left upper lung, cannot exclude lung nodule. CT recommended. 3. Enlarging small to moderate right effusion with underlying parenchymal opacity. 4. Stable small layering left effusion. 5. COPD. Electronically signed by: Harsh Garza MD 03/14/2025 10:[address] 03/14/25 10:35 IMPRESSION: 7 x 12 x 10 cm heterogeneous multinodular with calcific component mass extending from the inferior thyroid gland to the anterior mediastinum. Concerning for malignancy. Bilateral pleural effusions, moderate to large volume. Mild interstitial lung edema. Atelectasis, lung bases. Pericardial effusion, small to moderate volume. Coronary artery disease and atherosclerosis disease. Fleischner guidelines were followed. 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 Admit to hospitalist service. Telemetry. Pulse oximetry. Supplemental O2 to keep O2 sats > 90%. Continue IV diuresis with furosemide. Start empiric IV antibiotic therapy with ceftriaxone and azithromycin. Except bronchodilator therapy and IV steroids. Check TTE. Pulmonology consult for possible thoracentesis: Diagnostic and therapeutic. Leukocytosis, likely secondary to above. No tachycardia, fever, lactic acidosis or hypotension. Blood cultures obtained in the ED -will follow results. Continue to monitor. Mediastinal mass. Concern for malignancy. Check beta HCG, TSH, LDH and AFP. Oncology consult. Essential hypertension. Continue metoprolol and losartan. Decreased amlodipine to 5 mg PO (to decreased peripheral edema). CKD stage 4. Continue to monitor renal function. Type 2 diabetes mellitus. Continue Januvia. BG checks before meals at bedtime. Insulin sliding scale. Diabetic diet. Hyperlipidemia. Continue statin. Mood disorder. Continue sertraline. Protein-calorie malnutrition. BMI 16.9 kg/m2. Dietary consult. DVT prophylaxis: Lovenox Code status: Full Patient will need hospitalization for at least 2 midnights for bilateral pleural effusion and possible pneumonia treatment with IV diuretics, empiric IV antibiotic therapy and supplemental oxygen as needed; will also need evaluation by the pulmonology for possible thoracentesis. Quality Stroke Does the patient have a stroke diagnosis?: No VTE Prior VTE?: No VTE Risk Level:: Medical - moderate - high VTE Device Contraindication: Treatment Not Indicated VTE Drug Contraindication: N/A - Med Ordered
[2025-03-14 14:06] LABS: Troponin-I High Sensitivity 14.5 ng/L (<3.5-17.0)
[2025-03-14] MEDS: Albuterol Sulfate (0.083%) 2.5 MG/3 ML VIAL.NEB INHALE ×2 (14:22→19:23)
[2025-03-14 14:40] LABS: Free T4 (Free Thyroxine) 0.83 ng/dL (0.71-1.85); Thyroid Stimulating Hormone 2.43 uIU/mL (0.32-4.0)
--- NOTE | 2025-03-14 15:00 | CA_ITS ---
Transthoracic Echocardiogram Patient (Last, First, Middle): Brooke Mason C Gender: Female Date of : 1935 Age: 89 Procedure Date: 03/14/2025 Procedure Type: Transthoracic Echocardiogram Location: ER Height: 160.02 cm Weight: 43.09 kg BSA: 1.41 m2 Heart Rate: bpm BP: 166 / 59 mmHg Sign Language Interpreter: SUZANNA Symptoms: Bilateral effusion, leg edema Study Quality: Adequate Conclusions: - Normal left ventricular size and systolic function. There is mildly increased left ventricular wall thickness. The visually estimated ejection fraction is between 60-65%. - Elevated filling pressures. - Moderate pulmonary hypertension is present. - There is a small pericardial effusion. Findings Left Ventricle Normal left ventricular size and systolic function. There is mildly increased left ventricular wall thickness. The visually estimated ejection fraction is between 60-65%. There is no evidence of regional wall motion abnormalities. Abnormal diastolic function is noted. Spectral Doppler is indicative of an impaired relaxation filling pattern. Elevated filling pressures. There is severe septal asymmetric hypertrophy. Right Ventricle Normal right ventricular cavity size and systolic function. Atria The left atrium is mildly dilated. The right atrium is mildly dilated. Aortic Valve There is a normal trileaflet aortic valve. There is no aortic valve stenosis. There is no aortic valve regurgitation. Mitral Valve The mitral valve appears normal. There is no mitral valve regurgitation. There is no mitral valve stenosis. Pulmonic Valve The pulmonic valve is likely normal. Tricuspid Valve Normal tricuspid valve structure. There is mild tricuspid valve regurgitation. The right ventricular systolic pressure is 51 mmHg. Normal right atrial pressure. Moderate pulmonary hypertension is present. Great Vessels All visible segments of the aorta are normal in size. The visualized portions of the pulmonary artery and branches are normal. Venous The inferior vena cava is normal in size and collapses greater than 50% with inspiration. Pericardium/Pleural There is a small pericardial effusion. There are no definitive echocardiographic findings of tamponade physiology. Prior Study Comparison No prior study available for comparison. Measurements 2D Linear Measurements IVSd: 0.94 0.6-0.9/0.6-1.0 cm LVIDd: 4.53 3.9-5.3/4.2-5.9 cm LVIDd Index: 3.21 2.4-3.2/2.2-3.1 cm/m2 LVIDs: 2.14 2.0-3.6 cm LVPWd: 0.98 0.7-1.1 cm LA Diam: 2.60 2.7-3.8/3.0-4.0 cm LAIDs Index: 1.84 1.5-2.3 cm/m2 LV Mass: 181.48 67-162/88-224 g LV Mass Index: 128.71 43-95/49-115 g/m2 LVOT Diam: 2.00 3.0+(-)1.3 cm 2D Systolic Function EF 4C: 67.50 >55% EF 2C: 73.60 >55% EF BiP: 71.40 >55% Mitral Valve MV VTI: 0.42 MV Pk Richard: 1.63 MV Mn Richard: 0.94 MV Pk Grad: 11.00 MV Mn Grad: 4.00 MV Pk E: 0.99 MV PK A: 1.40 MV Decel Time: 197.00 E/A: 0.70 E'Lateral: 3.48 E'Medial: 3.48 E/E' Med: 28.60 E/E' Lat: 28.60 PHT: 58.00 MVA PHT: 3.79 MVA Continuity: 1.74 Decel Gregg: 5.06 Aortic Valve AoV Pk Richard: 1.29 AoV Mn Richard: 0.92 AoV VTI: 0.36 AoV Pk Grad: 7.00 Aov Mn Grad: 4.00 CLARIBEL Cont.VTI: 2.06 LVOT LVOT Pk Richard: 0.94 LVOT Mn Richard: 0.62 LVOT VTI: 0.23 LVOT Pk Grad: 4.00 LVOT Mn Grad: 2.00 LVOT Diam: 2.00 LVOT Area: 3.14 Diastolic Function MV Pk E: 0.99 MV Pk A: 1.40 E/A: 0.70 E'Medial: 3.48 E/E' Med: 28.60 E' Laterial: 3.48 E/E' Lat: 28.60 Right Ventricle TAPSE (mm): 23.20 TVS' Richard: 10.70 Tricuspid Valve TR Pk Richard: 3.45 TR Pk Grad: 48.00 RA Press: 3.00 RVSP: 51.00 Great Vessels Aorta Sinus of Valsalva: 3.29 2.0-3.5 cm Ao Asc: 3.20 2.1-3.4 cm Updated in Other Vendor System with Status of Final Speedy Vigil MD electronically signed on 03/16/2025 12:19:47 AM with status of Final
[2025-03-14 18:00] LABS: Glucose, Whole Blood 233 mg/dL (60-115)
[2025-03-14] MEDS: 0.9 % Sodium Chloride Flush 3 ML SYRINGE IVFLUSH (18:12)
[2025-03-14 21:03] LABS: Glucose, Whole Blood 379 mg/dL (60-115)
--- NOTE | 2025-03-14 21:49 | PC.NURSE ---
notified Dr June of patients blood sugar 379. medicated per NOV. no additional orders at this time
[2025-03-15] VITALS (21 sets, daily range): BP systolic 107–195; BP diastolic 46–78; PULSE 60–84; RESP 14–20; TEMP 36.2–37.1; O2SAT 92–98; BMI 17.8
[2025-03-15] MEDS: 0.9 % Sodium Chloride Flush 3 ML SYRINGE IVFLUSH ×3 (00:30→20:48)
[2025-03-15 04:16] LABS: MANUAL DIFF FLAG NO
[2025-03-15 04:17] LABS: Hematocrit 32.9 % (37.0-47.0); Hemoglobin 11.5 g/dl (12.0-16.0); Imm Gran Abs Auto 0.07 X10*3/uL (0.00-0.03); Imm Gran Pct Auto 0.6 % (0.0-0.4); Lymphocytes Absolute Auto 0.5 X10*3/uL (1.2-4.9); Mean Corpuscular HGB Conc 35.0 g/dl (31.0-35.0); Mean Corpuscular Hemoglobin 30.5 pg (27.0-33.0); Mean Corpuscular Volume 87.3 fL (80.0-98.0); NRBC Abs Auto 0.000 X10*3/uL (0.0-0.012); NRBC Pct Auto 0.0 /100WBC (0.0-0.2); Platelet Count 345 X10*3/uL (160-400); Red Blood Count 3.77 X10*6/uL (4.20-5.50); White Blood Count 11.4 X10*3/uL (4.8-10.8)
[2025-03-15 04:36] LABS: Anion Gap 14 (12-20); Blood Urea Nitrogen 44 mg/dL (9-16); Calcium 8.5 mg/dL (8.4-10.2); Carbon Dioxide 23 mmol/L (22-29); Chloride 104 mmol/L (96-108); Creatinine Clr Calc Pharmacy 11.2; Estimated Glomerular Filt Rate 19; Potassium 3.8 mmol/L (3.3-5.1); Sodium 137 mmol/L (135-145)
[2025-03-15 07:42] LABS: Glucose, Whole Blood 275 mg/dL (60-115)
--- NOTE | 2025-03-15 07:57 | P.PNIM_ITS ---
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 Pulmonology consulted we will likely need diagnostic and therapeutic thoracocentesis Will likely need biopsy of the mediastinal mass will need establishment with thoracic surgeon Her masses concerning for malignancy/lymphoma Patient has advanced dementia and a poor historian at baseline Patient underwent right thoracocentesis-removal of 750 cc which has been sent for diagnostic purposes Will likely undergo left thoracocentesis at a later date Review of Systems Review of Systems: Yes Unobtainable due to mental status Physical Exam 2 Vital Signs: Vital Signs: Last Vital Signs Temp 97.5 F 03/15/25 05:15 Pulse 70 03/15/25 06:21 Resp 18 03/15/25 05:15 BP 189/68 H 03/15/25 06:21 Pulse Ox 93 03/15/25 05:15 O2 Del Method Room Air 03/15/25 05:15 BMI result Body Mass Index 16.9 GENERAL APPEARANCE: She is on nebulizers. Coughing significantly. Dry cough. HEART: no murmurs, regular rate and rhythm. LUNGS: Bilateral decreased breath sounds at the bases ABDOMEN: soft, nontender. EXTREMITIES: no edema. PERIPHERAL PULSES: equal. NEUROLOGIC: Dementia, Objective Data Active Medications Acetaminophen (Acetaminophen 325 Mg Tablet) 975 mg PO Q6H PRN PRN Reason: Pain, Mild 1-3,fever,headache Albuterol Sulfate (Albuterol Sulfate (0.083%) 2.5 Mg/3 Ml Vial.Neb) 2.5 mg INHALE RQ4H WHILE AWAKE [facility] Last Admin: 03/14/25 19:23 Dose: 2.5 mg Documented By: JUSTIN Amlodipine Besylate (Amlodipine Besylate 10 Mg Tablet) 10 mg PO DAILY [facility]; Protocol Atorvastatin Calcium (Atorvastatin Calcium 40 Mg Tablet) 40 mg PO BEDTIME [facility] Last Admin: 03/14/25 21:06 Dose: 40 mg Documented By: IGNACIO Calcium Carbonate (Calcium Carbonate 750 Mg Tab.Chew) 750 mg PO Q4H PRN PRN Reason: Heartburn Ceftriaxone Sodium (Ceftriaxone Sodium 1 Gm Vial) 1 gm IVPUSH Q24H [facility] Dextrose (Dextrose 50 % 25 Gm/50 Ml Syringe) 25 gm IVPUSH Q15M PRN; Protocol PRN Reason: per Hypoglycemia Standing Ord. Enoxaparin Sodium (Enoxaparin Sodium 30 Mg/0.3 Ml Syringe) 30 mg SUBCUT Q24H [facility] Furosemide (Furosemide 20 Mg/2 Ml Vial) 20 mg IVPUSH DAILY [facility]; Protocol Glucose (Glucose Gel 15 Gm Gel..Gram.) 15 gm PO Q15M PRN; Protocol PRN Reason: per Hypoglycemia Standing Ord. Azithromycin 500 mg/ Sodium (Chloride) 250 mls @ 125 mls/hr IV Q24H [facility] Last Infusion: 03/14/25 17:39 Dose: Infused Documented By: EDIN Insulin Human Lispro (Insulin Lispro 100 Unit/Ml 3 Ml Vial) 0 unit SUBCUT QIDACHS [facility]; Protocol Last Admin: 03/14/25 21:06 Dose: 10 unit Documented By: IGNACIO Losartan Potassium (Losartan Potassium 50 Mg Tablet) 100 mg PO DAILY [facility]; Protocol Magnesium Hydroxide (Milk Of Magnesia 30 Ml Oral.Susp) 30 ml PO DAILY PRN PRN Reason: Constipation Magnesium Oxide (Magnesium Oxide 400 Mg Tablet) 200 mg PO DAILY [facility] Melatonin (Melatonin 3 Mg Tablet) 6 mg PO BEDTIME PRN PRN Reason: Insomnia Methylprednisolone Sodium Succinate (Methylprednisolone Sod Succ 40 Mg Vial) 40 mg IVPUSH DAILY [facility] Metoprolol Succinate (Metoprolol Succinate Er 50 Mg Tab.Er.24h) 150 mg PO DAILY [facility]; Protocol Sertraline HCl (Sertraline Hcl 100 Mg Tablet) 100 mg PO DAILY [facility] Sitagliptin Phosphate (Sitagliptin Phosphate 25 Mg Tablet) 25 mg PO DAILY [facility] Sodium Chloride (0.9 % Sodium Chloride Flush 3 Ml Syringe) 3 ml IVFLUSH QSHIFT [facility] Last Admin: 03/15/25 00:30 Dose: 3 ml Documented By: IGNACIO Vitamin D (Cholecalciferol (Vitamin D3) 25 Mcg Tablet) 250 mcg PO Q48H [facility] Last Admin: 03/14/25 14:53 Dose: 250 mcg Documented By: EDIN Labs 03/15/25 04:05 03/15/25 04:05 Labs: Laboratory Results - last 24 hr 03/14/25 03/14/25 03/14/25 10:12 17:56 20:44 MCV 88.8 MCH 31.1 MCHC 35.1 H RDW 13.0 Plt Count 349 MPV 10.2 Immature Gran % (Auto) 0.6 H Neut % (Auto) 88.2 H Lymph % (Auto) 3.8 L Randolph % (Auto) 6.5 Eos % (Auto) 0.5 Baso % (Auto) 0.4 Lymph # (Auto) 0.6 L Randolph # (Auto) 1.0 Eos # (Auto) 0.1 Baso # (Auto) 0.1 Abs Immat Gran (auto) 0.09 H Absolute Neuts (auto) 13.8 H Absolute Nucleated RBC 0.000 Nucleated RBC % (auto) 0.0 Anion Gap 11 L Estim Creat Clear Calc 11.9 Estimated GFR 20 POC Glucose 233 H 379 H* Random Glucose 204 H Calcium 8.3 L Magnesium 2.0 Total Bilirubin 0.4 AST 23 ALT 21 Alkaline Phosphatase 109 Lactate Dehydrogenase 249 H B-Natriuretic Peptide 238 H Total Protein 5.5 L Albumin 3.0 L TSH 2.43 Free T4 0.83 Influenza Type A (PCR) NEGATIVE Influenza Type B (PCR) NEGATIVE RSV RNA Qual (PCR) NEGATIVE SARS-CoV-2 RNA (RT-PCR) NEGATIVE 03/15/25 03/15/25 04:05 07:35 MCV 87.3 MCH 30.5 MCHC 35.0 RDW 12.8 Plt Count 345 MPV 10.4 Immature Gran % (Auto) 0.6 H Neut % (Auto) 89.2 H Lymph % (Auto) 4.6 L Randolph % (Auto) 5.4 Eos % (Auto) 0.0 Baso % (Auto) 0.2 Lymph # (Auto) 0.5 L Randolph # (Auto) 0.6 Eos # (Auto) 0.0 Baso # (Auto) 0.0 Abs Immat Gran (auto) 0.07 H Absolute Neuts (auto) 10.1 H Absolute Nucleated RBC 0.000 Nucleated RBC % (auto) 0.0 Anion Gap 14 Estim Creat Clear Calc 11.2 Estimated GFR 19 POC Glucose 275 H Random Glucose 333 H Calcium 8.5 Magnesium Total Bilirubin AST ALT Alkaline Phosphatase Lactate Dehydrogenase B-Natriuretic Peptide Total Protein Albumin TSH Free T4 Influenza Type A (PCR) Influenza Type B (PCR) RSV RNA Qual (PCR) SARS-CoV-2 RNA (RT-PCR) Assessment and Plan (1) Exertional dyspnea: Status: Acute (2) Mediastinal mass: Status: Acute Plan 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 Bilateral moderate to large pleural effusion 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 Pulmonology consulted we will likely need diagnostic and therapeutic thoracocentesis Will likely need biopsy of the mediastinal mass will need establishment with thoracic surgeon Her masses concerning for malignancy/lymphoma Patient has advanced dementia and a poor historian at baseline Patient underwent right thoracocentesis-removal of 750 cc which has been sent for diagnostic purposes Will likely undergo left thoracocentesis at a later date We will consult Oncology based on results For cough we will give supportive management and breathing treatments Appreciate pleuritic diagnostic and therapeutic tap Appreciate pulmonology input Appreciate cardiology input We will be very cautious with diuresis with Lasix 20 b.i.d. Quality Stroke Does the patient have a stroke diagnosis?: No VTE Prior VTE?: No VTE Risk Level:: Medical - moderate - high VTE Device Contraindication: Treatment Not Indicated VTE Drug Contraindication: N/A - Med Ordered
[2025-03-15] MEDS: Albuterol Sulfate (0.083%) 2.5 MG/3 ML VIAL.NEB INHALE ×4 (08:12→20:04)
--- NOTE | 2025-03-15 08:47 | MHC.CM.PN ---
Addendum entered by Farnaz Easley 03/15/25 13:53: Per pts daughters Rachna and Monica, Monica will be the primary HCP, as Rachna will be moving to [place] soon. They have already completed a new HCP, and will bring in a copy. Addendum entered by Farnaz Easley 03/15/25 09:05: Return call received from pts daughter/HCP Rachna. Per Rachna, her mother lives at home with her other daughter Monica, and is her primary sleep lab technologist. Pt has services through [facility] (formerly known as [facility] Per Rachna, pt uses a walker, and has safety rails in the bathroom, a gait belt, and also uses a nebulizer. HCP on file and verified. Pt may need STR at discharge, vs returning home with resumption of family support and home services. PCP: Whitley [facility] Original Note: Chart review completed, pt with dx, dementia. This CM placed a call to pts daughter/HCP Rachna to complete CM intake assessment, voicemail left, awaiting return call.
[2025-03-15] MEDS: Metoprolol Succinate ER 50 MG TAB.ER.24H 150 MG PO (08:58)
[2025-03-15] MEDS: Furosemide 20 MG/2 ML VIAL IVPUSH (08:59)
[2025-03-15 11:23] LABS: Glucose, Whole Blood 129 mg/dL (60-115)
--- NOTE | 2025-03-15 12:50 | PM.CNPUL ---
History of Present Illness History of Present Illness Consult date: 03/15/25 Chief complaint: Bilateral pleural effusion Narrative: This is an inpatient pulmonary consultation. 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 The cough is productive left-sided chest pain. She denied any headache, palpitations, dizziness, fever or chills. Chest CTA, personally reviewed by me, showed a mediastinal mass from the inferior thyroid gland to the anterior mediastinum. It also showed bilateral pleural effusion (moderate to large), pericardial effusion and mild interstitial edema. Review of Systems Constitutional: Constitutional: Denies body ache(s), Denies chills, Denies fever(s), Denies headache(s), Denies increased appetite and Denies snoring Eyes: Eyes: Denies blurry vision ENT: Denies dizziness, Denies dry mouth and Denies headache(s) Cardiovascular: Cardiovascular: Denies dyspnea and Reports dyspnea on exertion Respiratory: Respiratory: Denies change in phlegm color, Reports chest congestion, Reports cough, Denies hemoptysis, Denies excessive phlegm production, Denies pain on inspiration, Denies pain with cough, Denies dyspnea, Reports dyspnea on exertion, Denies snoring, Denies stridor and Denies wheezing Gastrointestinal: Gastrointestinal: Denies abdominal pain, Denies nausea and Denies vomiting Musculoskeletal: Musculoskeletal: Denies back pain Integumentary/Breasts: Skin/Breast: Denies rash Neurologic: Denies dizziness and Denies headache(s) Allergic/Immunologic: Allergic/Immunologic: Denies wheezing [facility] Past Medical History Medical History (Updated 03/15/25 @ 12:53 by Luis Elder MD) Bronchitis Type 2 diabetes mellitus Chronic kidney disease (CKD), stage 4 Substernal goiter Essential hypertension Hyperlipidemia Social History Social History Household Members: None Housing: Assisted Living Facility Do you presently have visiting nurse or other home services: No Unable to assess alcohol history related to: Unknown Alcohol intake: former Patient Tobacco Use Status: Never used Tobacco Advance Directives Date on File: 03/01/24 service: No Meds Allergies Allergy/AdvReac Type Severity Reaction Status Date / Time No Known Allergies (No Known Allergy Verified 03/14/25 09:24 Allergies*) Active Medications: Current Medications Acetaminophen (Acetaminophen 325 Mg Tablet) 975 mg PO Q6H PRN PRN Reason: Pain, Mild 1-3,fever,headache Albuterol Sulfate (Albuterol Sulfate (0.083%) 2.5 Mg/3 Ml Vial.Neb) 2.5 mg INHALE RQ4H WHILE AWAKE [facility] Last Admin: 03/15/25 11:15 Dose: 2.5 mg Amlodipine Besylate (Amlodipine Besylate 10 Mg Tablet) 10 mg PO DAILY [facility]; Protocol Last Admin: 03/15/25 08:58 Dose: 10 mg Atorvastatin Calcium (Atorvastatin Calcium 40 Mg Tablet) 40 mg PO BEDTIME [facility] Last Admin: 03/14/25 21:06 Dose: 40 mg Calcium Carbonate (Calcium Carbonate 750 Mg Tab.Chew) 750 mg PO Q4H PRN PRN Reason: Heartburn Ceftriaxone Sodium (Ceftriaxone Sodium 1 Gm Vial) 1 gm IVPUSH Q24H [facility] Last Admin: 03/15/25 12:42 Dose: 1 gm Dextrose (Dextrose 50 % 25 Gm/50 Ml Syringe) 25 gm IVPUSH Q15M PRN; Protocol PRN Reason: per Hypoglycemia Standing Ord. Enoxaparin Sodium (Enoxaparin Sodium 30 Mg/0.3 Ml Syringe) 30 mg SUBCUT Q24H [facility] Furosemide (Furosemide 20 Mg/2 Ml Vial) 20 mg IVPUSH DAILY [facility]; Protocol Last Admin: 03/15/25 08:59 Dose: 20 mg Glucose (Glucose Gel 15 Gm Gel..Gram.) 15 gm PO Q15M PRN; Protocol PRN Reason: per Hypoglycemia Standing Ord. Azithromycin 500 mg/ Sodium (Chloride) 250 mls @ 125 mls/hr IV Q24H [facility] Last Infusion: 03/14/25 17:39 Dose: Infused Insulin Human Lispro (Insulin Lispro 100 Unit/Ml 3 Ml Vial) 0 unit SUBCUT QIDACHS [facility]; Protocol Last Admin: 03/15/25 11:26 Dose: Not Given Losartan Potassium (Losartan Potassium 50 Mg Tablet) 100 mg PO DAILY [facility]; Protocol Last Admin: 03/15/25 08:58 Dose: 100 mg Magnesium Hydroxide (Milk Of Magnesia 30 Ml Oral.Susp) 30 ml PO DAILY PRN PRN Reason: Constipation Magnesium Oxide (Magnesium Oxide 400 Mg Tablet) 200 mg PO DAILY [facility] Last Admin: 03/15/25 08:58 Dose: 200 mg Melatonin (Melatonin 3 Mg Tablet) 6 mg PO BEDTIME PRN PRN Reason: Insomnia Methylprednisolone Sodium Succinate (Methylprednisolone Sod Succ 40 Mg Vial) 40 mg IVPUSH DAILY [facility] Last Admin: 03/15/25 08:59 Dose: 40 mg Metoprolol Succinate (Metoprolol Succinate Er 50 Mg Tab.Er.24h) 150 mg PO DAILY [facility]; Protocol Last Admin: 03/15/25 08:58 Dose: 150 mg Sertraline HCl (Sertraline Hcl 100 Mg Tablet) 100 mg PO DAILY [facility] Last Admin: 03/15/25 12:40 Dose: 100 mg Sitagliptin Phosphate (Sitagliptin Phosphate 25 Mg Tablet) 25 mg PO DAILY [facility] Last Admin: 03/15/25 12:40 Dose: 25 mg Sodium Chloride (0.9 % Sodium Chloride Flush 3 Ml Syringe) 3 ml IVFLUSH QSHIFT [facility] Last Admin: 03/15/25 08:03 Dose: 3 ml Vitamin D (Cholecalciferol (Vitamin D3) 25 Mcg Tablet) 250 mcg PO Q48H [facility] Last Admin: 03/14/25 14:53 Dose: 250 mcg Home Medications ?Medication ?Instructions ?Recorded ?Confirmed ?Last Taken ?Type amlodipine 10 mg tablet 10 mg PO DAILY 02/25/24 03/14/25 03/14/25 History losartan 50 mg tablet 100 mg PO DAILY 02/25/24 03/14/25 03/14/25 History metoprolol succinate 50 mg 150 mg PO DAILY 02/25/24 03/14/25 03/14/25 History tablet,extended release 24 hr atorvastatin 40 mg tablet 40 mg PO BEDTIME 02/26/24 03/14/25 03/13/25 History albuterol sulfate 90 mcg/actuation 2 puff inhalation Q4H PRN Wheezing 03/14/25 03/14/25 03/14/25 History aerosol inhaler cholecalciferol (vitamin D3) 125 250 mcg PO Q48H 03/14/25 03/14/25 Unknown History mcg (5,000 unit) tablet (Vitamin D3) magnesium oxide 200 mg PO DAILY 03/14/25 03/14/25 03/14/25 History sertraline 100 mg tablet 100 mg PO DAILY 03/14/25 03/14/25 03/14/25 History sitagliptin phosphate 25 mg tablet 25 mg PO DAILY 03/14/25 03/14/25 03/14/25 History (Clarissa) Physical Exam Vital Signs: Vital Signs: Last Vital Signs Temp 97.2 F 03/15/25 11:15 Pulse 63 03/15/25 11:19 Resp 18 03/15/25 11:19 BP 154/58 H 03/15/25 11:15 Pulse Ox 98 03/15/25 11:15 O2 Del Method Room Air 03/15/25 11:15 BMI result Body Mass Index 17.8 Const: General: healthy appearing, comfortable, no acute distress, alert and awake Nutritional Appearance: well nourished Orientation/consciousness: patient oriented x3 HEENT: Head: Yes normocephalic and Yes atraumatic Eyes: Eyelids: Yes eyelids normal Conjunctivae: conjunctivae normal Sclerae: sclerae normal Corneas: corneas normal Pupils: Equal, round and reactive pupils present EOM: EOMs intact bilaterally Neck: Neck: Yes full ROM Chest: Breast/axilla inspection: normal inspection of the breasts Resp: Effort & Inspection: normal respiratory effort, able to speak in complete sentences, Actively coughing and not labored Auscultation: rhonchi and diminished lung sounds Cardio: Rate: regular rate Rhythm: regular rhythm GI: Inspection: No distended Palpation (GI): Soft to palpation, not firm, nontender, no guarding and not rigid Back/Spine/Pelvis: Other: Patient has marked scoliosis Skin: General skin exam: no rashes or lesions noted and elasticity normal Neuro: General: patient oriented x3 Cranial nerves: Yes Equal, round and reactive pupils present and Yes Bilaterally intact EOM present Cognition (Neuro): normal cognition Results Laboratory Findings 03/15/25 04:05 03/15/25 04:05 Abnormal lab findings: Abnormal Labs 03/14/25 03/14/25 03/14/25 10:12 17:56 20:44 WBC 15.6 H RBC 3.92 L Hgb Hct 34.8 L MCHC 35.1 H Immature Gran % (Auto) 0.6 H Neut % (Auto) 88.2 H Lymph % (Auto) 3.8 L Lymph # (Auto) 0.6 L Abs Immat Gran (auto) 0.09 H Absolute Neuts (auto) 13.8 H Anion Gap 11 L BUN 30 H Creatinine 2.26 H POC Glucose 233 H 379 H* Random Glucose 204 H Calcium 8.3 L Lactate Dehydrogenase 249 H B-Natriuretic Peptide 238 H Total Protein 5.5 L Albumin 3.0 L 03/15/25 03/15/25 03/15/25 04:05 07:35 11:15 WBC 11.4 H RBC 3.77 L Hgb 11.5 L Hct 32.9 L MCHC Immature Gran % (Auto) 0.6 H Neut % (Auto) 89.2 H Lymph % (Auto) 4.6 L Lymph # (Auto) 0.5 L Abs Immat Gran (auto) 0.07 H Absolute Neuts (auto) 10.1 H Anion Gap BUN 44 H Creatinine 2.40 H POC Glucose 275 H 129 H Random Glucose 333 H Calcium Lactate Dehydrogenase B-Natriuretic Peptide Total Protein Albumin Assessment and Plan (1) Mediastinal mass: Status: Acute (2) Pulmonary edema: Qualifiers: Chronicity: acute Qualified Code(s): J81.0 - Acute pulmonary edema Status: Acute (3) Pleural effusion, bilateral: Status: Acute (4) Bronchitis: Status: Acute Plan Continue solumedrol continue CTX/ZTX Respiratory therapy will request CPT Aerobika from Respiratory diuresis as tolerated agree with thoracentesis for cytology bx of the mediastinal mass as inpt or outpt based on her clinical response to therapy Procedures Date of Service Date of Service: 03/15/25
--- NOTE | 2025-03-15 14:33 | MHC.CLN ---
NUTRITION DIET=DIABETIC 1800 KCALS, 2 GRAM SODIUM. QUALIFIES MODERATELY MALNOURISHED IN THE CONTEXT OF CHRONIC ILLNESS. DAUGHTER IN ROOM AT TIME OF VISIT. REPORTS THAT PATIENT EATS AT HOME WITH NO SIGNIFICANT WEIGHT CHANGE. NO SUPPPLEMENT AT THIS TIME DUE TO ELEVATED BLOOD GLUCOSE AND CKD STAGE 4. ENCOURAGE INTAKE AT MEALS ABLE. SEE CLINICAL NUTRITION ASSESSMENT 03/15/25.
--- NOTE | 2025-03-15 15:27 | PM.CNCAR ---
History of Present Illness History of Present Illness Date of Service: 03/15/25 Requesting physician: Maria Fernanda Hill Chief complaint: Bilateral pleural effusion Narrative: [age] year female who is presenting for cough and shortness of breath. 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 She has bilateral pleural effusion as well as small pericardial effusion. Her main complaint is cough which has been going on for some time. The daughter was present in the room and said that the mediastinal mass was known for some time. No previous workup was performed for that. She is denying any significant issues other than coughing spells. [facility] Past Medical History Medical History (Updated 03/15/25 @ 12:53 by Luis Elder MD) Bronchitis Type 2 diabetes mellitus Chronic kidney disease (CKD), stage 4 Substernal goiter Essential hypertension Hyperlipidemia Social History Social History Household Members: None Housing: Assisted Living Facility Do you presently have visiting nurse or other home services: No Unable to assess alcohol history related to: Unknown Alcohol intake: former Patient Tobacco Use Status: Never used Tobacco Advance Directives Date on File: 03/01/24 service: No Meds Allergies Allergy/AdvReac Type Severity Reaction Status Date / Time No Known Allergies (No Known Allergy Verified 03/14/25 09:24 Allergies*) Active Medications: Current Medications Acetaminophen (Acetaminophen 325 Mg Tablet) 975 mg PO Q6H PRN PRN Reason: Pain, Mild 1-3,fever,headache Albuterol Sulfate (Albuterol Sulfate (0.083%) 2.5 Mg/3 Ml Vial.Neb) 2.5 mg INHALE RQ4H WHILE AWAKE [facility] Last Admin: 03/15/25 15:19 Dose: 2.5 mg Amlodipine Besylate (Amlodipine Besylate 10 Mg Tablet) 10 mg PO DAILY [facility]; Protocol Last Admin: 03/15/25 08:58 Dose: 10 mg Atorvastatin Calcium (Atorvastatin Calcium 40 Mg Tablet) 40 mg PO BEDTIME [facility] Last Admin: 03/14/25 21:06 Dose: 40 mg Calcium Carbonate (Calcium Carbonate 750 Mg Tab.Chew) 750 mg PO Q4H PRN PRN Reason: Heartburn Ceftriaxone Sodium (Ceftriaxone Sodium 1 Gm Vial) 1 gm IVPUSH Q24H [facility] Last Admin: 03/15/25 12:42 Dose: 1 gm Dextrose (Dextrose 50 % 25 Gm/50 Ml Syringe) 25 gm IVPUSH Q15M PRN; Protocol PRN Reason: per Hypoglycemia Standing Ord. Enoxaparin Sodium (Enoxaparin Sodium 30 Mg/0.3 Ml Syringe) 30 mg SUBCUT Q24H [facility] Furosemide (Furosemide 20 Mg/2 Ml Vial) 20 mg IVPUSH DAILY [facility]; Protocol Last Admin: 03/15/25 08:59 Dose: 20 mg Glucose (Glucose Gel 15 Gm Gel..Gram.) 15 gm PO Q15M PRN; Protocol PRN Reason: per Hypoglycemia Standing Ord. Azithromycin 500 mg/ Sodium (Chloride) 250 mls @ 125 mls/hr IV Q24H [facility] Last Admin: 03/15/25 13:38 Dose: 125 mls/hr Insulin Human Lispro (Insulin Lispro 100 Unit/Ml 3 Ml Vial) 0 unit SUBCUT QIDACHS [facility]; Protocol Last Admin: 03/15/25 11:26 Dose: Not Given Losartan Potassium (Losartan Potassium 50 Mg Tablet) 100 mg PO DAILY [facility]; Protocol Last Admin: 03/15/25 08:58 Dose: 100 mg Magnesium Hydroxide (Milk Of Magnesia 30 Ml Oral.Susp) 30 ml PO DAILY PRN PRN Reason: Constipation Magnesium Oxide (Magnesium Oxide 400 Mg Tablet) 200 mg PO DAILY [facility] Last Admin: 03/15/25 08:58 Dose: 200 mg Melatonin (Melatonin 3 Mg Tablet) 6 mg PO BEDTIME PRN PRN Reason: Insomnia Methylprednisolone Sodium Succinate (Methylprednisolone Sod Succ 40 Mg Vial) 40 mg IVPUSH DAILY [facility] Last Admin: 03/15/25 08:59 Dose: 40 mg Metoprolol Succinate (Metoprolol Succinate Er 50 Mg Tab.Er.24h) 150 mg PO DAILY [facility]; Protocol Last Admin: 03/15/25 08:58 Dose: 150 mg Sertraline HCl (Sertraline Hcl 100 Mg Tablet) 100 mg PO DAILY [facility] Last Admin: 03/15/25 12:40 Dose: 100 mg Sitagliptin Phosphate (Sitagliptin Phosphate 25 Mg Tablet) 25 mg PO DAILY [facility] Last Admin: 03/15/25 12:40 Dose: 25 mg Sodium Chloride (0.9 % Sodium Chloride Flush 3 Ml Syringe) 3 ml IVFLUSH QSHIFT [facility] Last Admin: 03/15/25 08:03 Dose: 3 ml Vitamin D (Cholecalciferol (Vitamin D3) 25 Mcg Tablet) 250 mcg PO Q48H [facility] Last Admin: 03/14/25 14:53 Dose: 250 mcg Home Medications ?Medication ?Instructions ?Recorded ?Confirmed ?Last Taken ?Type amlodipine 10 mg tablet 10 mg PO DAILY 02/25/24 03/14/25 03/14/25 History losartan 50 mg tablet 100 mg PO DAILY 02/25/24 03/14/25 03/14/25 History metoprolol succinate 50 mg 150 mg PO DAILY 02/25/24 03/14/25 03/14/25 History tablet,extended release 24 hr atorvastatin 40 mg tablet 40 mg PO BEDTIME 02/26/24 03/14/25 03/13/25 History albuterol sulfate 90 mcg/actuation 2 puff inhalation Q4H PRN Wheezing 03/14/25 03/14/25 03/14/25 History aerosol inhaler cholecalciferol (vitamin D3) 125 250 mcg PO Q48H 03/14/25 03/14/25 Unknown History mcg (5,000 unit) tablet (Vitamin D3) magnesium oxide 200 mg PO DAILY 03/14/25 03/14/25 03/14/25 History sertraline 100 mg tablet 100 mg PO DAILY 03/14/25 03/14/25 03/14/25 History sitagliptin phosphate 25 mg tablet 25 mg PO DAILY 03/14/25 03/14/25 03/14/25 History (Clarissa) Physical Exam Vital Signs: Vital Signs: Last Vital Signs Temp 97.2 F 03/15/25 11:15 Pulse 84 03/15/25 15:19 Resp 18 03/15/25 15:19 BP 154/58 H 03/15/25 11:15 Pulse Ox 98 03/15/25 11:15 O2 Del Method Room Air 03/15/25 11:15 BMI result Body Mass Index 17.8 GENERAL APPEARANCE: She is on nebulizers. Coughing significantly. Dry cough. NECK: no carotid bruit, no jugular venous distention. SKIN: no suspicious lesions, warm and dry. HEART: no murmurs, regular rate and rhythm. LUNGS: clear to auscultation bilaterally. Diminished at bases. ABDOMEN: soft, nontender. EXTREMITIES: no edema. PERIPHERAL PULSES: equal. NEUROLOGIC: No gross deficits, AAO X 3 Objective Labs and Meds 03/15/25 04:05 03/15/25 04:05 Lab results: Laboratory Results - last 24 hr 03/14/25 03/14/25 03/15/25 17:56 20:44 04:05 WBC 11.4 H RBC 3.77 L Hgb 11.5 L Hct 32.9 L MCV 87.3 MCH 30.5 MCHC 35.0 RDW 12.8 Plt Count 345 MPV 10.4 Immature Gran % (Auto) 0.6 H Neut % (Auto) 89.2 H Lymph % (Auto) 4.6 L [place] % (Auto) 5.4 Eos % (Auto) 0.0 Baso % (Auto) 0.2 Lymph # (Auto) 0.5 L [place] # (Auto) 0.6 Eos # (Auto) 0.0 Baso # (Auto) 0.0 Abs Immat Gran (auto) 0.07 H Absolute Neuts (auto) 10.1 H Absolute Nucleated RBC 0.000 Nucleated RBC % (auto) 0.0 Sodium 137 Potassium 3.8 Chloride 104 Carbon Dioxide 23 Anion Gap 14 BUN 44 H Creatinine 2.40 H Estim Creat Clear Calc 11.2 Estimated GFR 19 POC Glucose 233 H 379 H* Random Glucose 333 H Calcium 8.5 03/15/25 03/15/25 07:35 11:15 WBC RBC Hgb Hct MCV MCH MCHC RDW Plt Count MPV Immature Gran % (Auto) Neut % (Auto) Lymph % (Auto) [place] % (Auto) Eos % (Auto) Baso % (Auto) Lymph # (Auto) [place] # (Auto) Eos # (Auto) Baso # (Auto) Abs Immat Gran (auto) Absolute Neuts (auto) Absolute Nucleated RBC Nucleated RBC % (auto) Sodium Potassium Chloride Carbon Dioxide Anion Gap BUN Creatinine Estim Creat Clear Calc Estimated GFR POC Glucose 275 H 129 H Random Glucose Calcium Assessment and Plan (1) Mediastinal mass: Status: Acute (2) Pleural effusion, bilateral: Status: Acute Plan Pleasant 89 year female who is presenting with shortness of breath and cough. 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 She also has bilateral pleural effusions as well as small pericardial effusion by CT scan. Clinically does not appear to be significantly volume overloaded. It is possible that the pleural process is malignant. She is getting thoracentesis. Recommend low-dose diuretics. Controlled blood pressure vasodilators, she is already on losartan which should be continued. We will do echocardiography to assess LV function. Procedures Date of Service Date of Service: 03/15/25
[2025-03-15] MEDS: Lidocaine HCl 1 % MPF 5 ML VIAL SUBCUT (16:57)
[2025-03-15 17:09] LABS: Glucose, Whole Blood 403 mg/dL (60-115)
[2025-03-15 19:50] LABS: Glucose, Whole Blood 438 mg/dL (60-115)
[2025-03-15] MEDS: diazePAM 10 MG/2 ML CARTRIDGE 5 MG IVPUSH (20:48)
[2025-03-15 22:54] LABS: Glucose, Whole Blood 333 mg/dL (60-115)
[2025-03-16] VITALS (9 sets, daily range): BP systolic 110–181; BP diastolic 53–84; PULSE 55–63; RESP 16; TEMP 36.1–37.1; O2SAT 93–98
[2025-03-16 00:46] LABS: Glucose, Whole Blood 266 mg/dL (60-115)
[2025-03-16 06:22] LABS: Hematocrit 34.4 % (37.0-47.0); Hemoglobin 12.0 g/dl (12.0-16.0); Mean Corpuscular HGB Conc 34.9 g/dl (31.0-35.0); Mean Corpuscular Hemoglobin 30.9 pg (27.0-33.0); Mean Corpuscular Volume 88.7 fL (80.0-98.0); NRBC Abs Auto 0.000 X10*3/uL (0.0-0.012); NRBC Pct Auto 0.0 /100WBC (0.0-0.2); Platelet Count 355 X10*3/uL (160-400); Red Blood Count 3.88 X10*6/uL (4.20-5.50); White Blood Count 15.9 X10*3/uL (4.8-10.8)
[2025-03-16 06:31] LABS: INTERNATIONAL NORM RATIO 0.9 (0.9-1.1); Prothrombin Time 10.2 SEC (10.9-12.4)
[2025-03-16 06:44] LABS: Alanine Aminotransferase 20 U/L (0-31); Albumin Level 2.9 g/dL (3.5-5.0); Alkaline Phosphatase 101 U/L (39-117); Anion Gap 13 (12-20); Aspartate Amino Transferase 21 U/L (5-31); Blood Urea Nitrogen 57 mg/dL (9-16); Calcium 8.4 mg/dL (8.4-10.2); Carbon Dioxide 25 mmol/L (22-29); Chloride 107 mmol/L (96-108); Creatinine Clr Calc Pharmacy 11.7; Estimated Glomerular Filt Rate 19; Potassium 3.2 mmol/L (3.3-5.1); Sodium 142 mmol/L (135-145); Total Protein 5.3 g/dL (6.5-8.0)
[2025-03-16 07:42] LABS: Glucose, Whole Blood 85 mg/dL (60-115)
[2025-03-16] MEDS: Albuterol Sulfate (0.083%) 2.5 MG/3 ML VIAL.NEB INHALE ×3 (08:12→20:05)
[2025-03-16 08:13] LABS: Glucose, Whole Blood 118 mg/dL (60-115)
[2025-03-16] MEDS: Metoprolol Succinate ER 50 MG TAB.ER.24H 150 MG PO (09:57)
[2025-03-16] MEDS: Potassium Chloride Packet 20 MEQ PACKET 40 MEQ PO (09:59)
[2025-03-16] MEDS: 0.9 % Sodium Chloride Flush 3 ML SYRINGE IVFLUSH ×2 (10:01→22:08)
[2025-03-16 11:28] LABS: Glucose, Whole Blood 141 mg/dL (60-115)
--- NOTE | 2025-03-16 12:53 | P.PNIM_ITS ---
Subjective Subjective Date of Service: 03/16/25 Interval History: seen and evaluated this morning laying comfortable in her bed sound sleep, had delerium overnight requiring medications and sitter no other events Physical Exam 2 Vital Signs: Vital Signs: Last Vital Signs Temp 98.8 F 03/16/25 11:38 Pulse 63 03/16/25 11:53 Resp 16 03/16/25 11:53 BP 181/82 H 03/16/25 11:38 Pulse Ox 95 03/16/25 11:38 O2 Del Method Room Air 03/16/25 11:38 BMI result Body Mass Index 17.8 Const: Other: Constitutional : interactive with stimulation, not in distress Cardiovascular : no JVP, no lower extremity edema Respiratory : bilateral chest movement, not in resp distress Gastrointestinal: soft, lax, Non tender Skin : Warm, Dry Neurological : Alert & oriented to self only , No focal deficit Objective Data Active Medications Acetaminophen (Acetaminophen 325 Mg Tablet) 975 mg PO Q6H PRN PRN Reason: Pain, Mild 1-3,fever,headache Albuterol Sulfate (Albuterol Sulfate (0.083%) 2.5 Mg/3 Ml Vial.Neb) 2.5 mg INHALE RQ4H WHILE AWAKE [facility] Last Admin: 03/16/25 11:49 Dose: 2.5 mg Documented By: DUSTIN Amlodipine Besylate (Amlodipine Besylate 10 Mg Tablet) 10 mg PO DAILY [facility]; Protocol Last Admin: 03/16/25 10:01 Dose: 10 mg Documented By: JULISSA Atorvastatin Calcium (Atorvastatin Calcium 40 Mg Tablet) 40 mg PO BEDTIME [facility] Last Admin: 03/15/25 20:45 Dose: 40 mg Documented By: CAROLINA Calcium Carbonate (Calcium Carbonate 750 Mg Tab.Chew) 750 mg PO Q4H PRN PRN Reason: Heartburn Ceftriaxone Sodium (Ceftriaxone Sodium 1 Gm Vial) 1 gm IVPUSH Q24H [facility] Last Admin: 03/16/25 12:38 Dose: 1 gm Documented By: JULISSA Dextrose (Dextrose 50 % 25 Gm/50 Ml Syringe) 25 gm IVPUSH Q15M PRN; Protocol PRN Reason: per Hypoglycemia Standing Ord. Enoxaparin Sodium (Enoxaparin Sodium 30 Mg/0.3 Ml Syringe) 30 mg SUBCUT Q24H [facility] Last Admin: 03/16/25 10:00 Dose: 30 mg Documented By: JULISSA Furosemide (Furosemide 20 Mg Tablet) 20 mg PO BID@0900,1800 [facility]; Protocol Last Admin: 03/16/25 10:02 Dose: 20 mg Documented By: JULISSA Glucose (Glucose Gel 15 Gm Gel..Gram.) 15 gm PO Q15M PRN; Protocol PRN Reason: per Hypoglycemia Standing Ord. Azithromycin 500 mg/ Sodium (Chloride) 250 mls @ 125 mls/hr IV Q24H [facility] Last Infusion: 03/15/25 15:45 Dose: Infused Documented By: JOE Insulin Human Lispro (Insulin Lispro 100 Unit/Ml 3 Ml Vial) 0 unit SUBCUT QIDACHS [facility]; Protocol Last Admin: 03/16/25 11:34 Dose: Not Given Documented By: JULISSA Non-Admin Reason: No Insulin Coverage Losartan Potassium (Losartan Potassium 50 Mg Tablet) 100 mg PO DAILY [facility]; Protocol Last Admin: 03/16/25 09:59 Dose: 100 mg Documented By: JULISSA Magnesium Hydroxide (Milk Of Magnesia 30 Ml Oral.Susp) 30 ml PO DAILY PRN PRN Reason: Constipation Magnesium Oxide (Magnesium Oxide 400 Mg Tablet) 200 mg PO DAILY [facility] Last Admin: 03/16/25 10:03 Dose: 200 mg Documented By: JULISSA Melatonin (Melatonin 3 Mg Tablet) 6 mg PO BEDTIME PRN PRN Reason: Insomnia Metoprolol Succinate (Metoprolol Succinate Er 50 Mg Tab.Er.24h) 150 mg PO DAILY [facility]; Protocol Last Admin: 03/16/25 09:57 Dose: 150 mg Documented By: JULISSA Quetiapine Fumarate (Quetiapine Fumarate 25 Mg Tablet) 25 mg PO DAILY@1700 PRN PRN Reason: anxiety/restlessness Sertraline HCl (Sertraline Hcl 100 Mg Tablet) 100 mg PO DAILY [facility] Last Admin: 03/16/25 10:24 Dose: 100 mg Documented By: JULISSA Sodium Chloride (0.9 % Sodium Chloride Flush 3 Ml Syringe) 3 ml IVFLUSH QSHIFT [facility] Last Admin: 03/16/25 10:01 Dose: 3 ml Documented By: JULISSA Vitamin D (Cholecalciferol (Vitamin D3) 25 Mcg Tablet) 250 mcg PO Q48H [facility] Last Admin: 03/14/25 14:53 Dose: 250 mcg Documented By: DEIN Labs 03/16/25 06:09 03/16/25 06:09 Labs: Laboratory Results - last 24 hr 03/15/25 03/15/25 03/15/25 04:05 17:05 19:46 MCV MCH MCHC RDW Plt Count MPV Absolute Nucleated RBC Nucleated RBC % (auto) PT INR Anion Gap Estim Creat Clear Calc Estimated GFR POC Glucose 403 H* 438 H* Random Glucose Calcium Total Bilirubin AST ALT Alkaline Phosphatase Total Protein Albumin Tumor Marker HCG 5 H 03/15/25 03/16/25 03/16/25 22:11 00:42 06:09 MCV 88.7 MCH 30.9 MCHC 34.9 RDW 13.0 Plt Count 355 MPV 10.3 Absolute Nucleated RBC 0.000 Nucleated RBC % (auto) 0.0 PT 10.2 L INR 0.9 Anion Gap 13 Estim Creat Clear Calc 11.7 Estimated GFR 19 POC Glucose 333 H 266 H Random Glucose 58 L* Calcium 8.4 Total Bilirubin 0.2 AST 21 ALT 20 Alkaline Phosphatase 101 Total Protein 5.3 L Albumin 2.9 L Tumor Marker HCG 03/16/25 03/16/25 03/16/25 07:32 08:10 11:24 MCV MCH MCHC RDW Plt Count MPV Absolute Nucleated RBC Nucleated RBC % (auto) PT INR Anion Gap Estim Creat Clear Calc Estimated GFR POC Glucose 85 118 H 141 H Random Glucose Calcium Total Bilirubin AST ALT Alkaline Phosphatase Total Protein Albumin Tumor Marker HCG Microbiology Microbiology Results: Microbiology 03/15/25 16:26 Gram Stain - Final Thoracentesis Fluid Anaerobic Culture - Preliminary No growth to date. Body Fluid Culture - Preliminary No growth to date. Assessment and Plan (1) Mediastinal mass: Status: Acute (2) Pleural effusion, bilateral: Status: Acute (3) Pulmonary edema: Status: Acute (4) Exertional dyspnea: Status: Acute Plan An 89 years old lady with PMH of advanced dementia, HTN, HLD, Mood disorder among others who presents pleural effusins bilaterally and large mediastinal mass for evaluation. # 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 Her masses concerning for malignancy/lymphoma Pulmonology recommended diagnostic and therapeutic thoracocentesis, Will likely need biopsy of the mediastinal mass will need establishment with thoracic surgeon Patient underwent right thoracocentesis-removal of 750 cc on 03/15 , pending result Will likely undergo left thoracocentesis at a later date? Pending Oncology consult # Pericardial effusion Cardiology input appreciated, Pericardial effusion mild, low dose diuretics Echo showing EF 60-65% with small pericardial effusion diuresis with Lasix 20 b.i.d. # HTN Amlpdipine, Losartan DVT PPx Lovenox Quality Stroke Does the patient have a stroke diagnosis?: No VTE Prior VTE?: No VTE Risk Level:: Medical - moderate - high VTE Device Contraindication: Treatment Not Indicated VTE Drug Contraindication: N/A - Med Ordered
[2025-03-16 16:18] LABS: Glucose, Whole Blood 353 mg/dL (60-115)
[2025-03-16 19:44] LABS: Glucose, Whole Blood 484 mg/dL (60-115)
[2025-03-16 22:03] LABS: Glucose, Whole Blood 399 mg/dL (60-115)
[2025-03-16 23:29] LABS: Glucose, Whole Blood 242 mg/dL (60-115)
[2025-03-17] VITALS (11 sets, daily range): BP systolic 120–171; BP diastolic 60–80; PULSE 55–72; RESP 16–18; TEMP 36.3–37; O2SAT 94–98
[2025-03-17 05:38] LABS: Glucose, Whole Blood 73 mg/dL (60-115)
[2025-03-17 07:03] LABS: Albumin Pleural Fluid 1.2
[2025-03-17 07:09] LABS: MANUAL DIFF FLAG NO
[2025-03-17 07:17] LABS: Hematocrit 32.7 % (37.0-47.0); Hemoglobin 11.0 g/dl (12.0-16.0); Imm Gran Abs Auto 0.09 X10*3/uL (0.00-0.03); Imm Gran Pct Auto 0.7 % (0.0-0.4); Lymphocytes Absolute Auto 1.2 X10*3/uL (1.2-4.9); Mean Corpuscular HGB Conc 33.6 g/dl (31.0-35.0); Mean Corpuscular Hemoglobin 30.8 pg (27.0-33.0); Mean Corpuscular Volume 91.6 fL (80.0-98.0); NRBC Abs Auto 0.000 X10*3/uL (0.0-0.012); NRBC Pct Auto 0.0 /100WBC (0.0-0.2); Platelet Count 339 X10*3/uL (160-400); Red Blood Count 3.57 X10*6/uL (4.20-5.50); White Blood Count 13.3 X10*3/uL (4.8-10.8)
[2025-03-17 07:32] LABS: Anion Gap 13 (12-20); Blood Urea Nitrogen 58 mg/dL (9-16); Calcium 7.8 mg/dL (8.4-10.2); Carbon Dioxide 22 mmol/L (22-29); Chloride 108 mmol/L (96-108); Creatinine Clr Calc Pharmacy 12.0; Estimated Glomerular Filt Rate 19; Potassium 3.6 mmol/L (3.3-5.1); Sodium 139 mmol/L (135-145)
[2025-03-17 07:34] LABS: Glucose, Whole Blood 140 mg/dL (60-115)
[2025-03-17] MEDS: Albuterol Sulfate (0.083%) 2.5 MG/3 ML VIAL.NEB INHALE ×3 (07:44→20:33)
[2025-03-17] MEDS: Metoprolol Succinate ER 50 MG TAB.ER.24H 150 MG PO (08:19)
[2025-03-17] MEDS: 0.9 % Sodium Chloride Flush 3 ML SYRINGE IVFLUSH ×3 (08:21→22:16)
--- NOTE | 2025-03-17 11:28 | HO.PM.IMPN ---
Subjective Subjective Date of Service: 03/17/25 Interval History: seen and evaluated this morning laying comfortable in her bed no delerium overnight, more alert and interactive today no other events Review of Systems Review of Systems: Yes all other systems are reviewed and are negative Physical Exam Vital Signs: Vital Signs: Last Vital Signs Temp 97.5 F 03/17/25 07:16 Pulse 57 03/17/25 07:48 Resp 18 03/17/25 07:48 BP 157/70 H 03/17/25 07:16 Pulse Ox 97 03/17/25 07:16 O2 Del Method Room Air 03/17/25 07:16 BMI result Body Mass Index 17.8 Const: Other: Constitutional : interactive , not in distress Cardiovascular : no JVP, no lower extremity edema Respiratory : bilateral chest movement, not in resp distress Gastrointestinal: soft, lax, Non tender Skin : Warm, Dry Neurological : Alert & oriented to self and place , No focal deficit Objective Data Active Medications Acetaminophen (Acetaminophen 325 Mg Tablet) 975 mg PO Q6H PRN PRN Reason: Pain, Mild 1-3,fever,headache Albuterol Sulfate (Albuterol Sulfate (0.083%) 2.5 Mg/3 Ml Vial.Neb) 2.5 mg INHALE RQ4H WHILE AWAKE [facility] Last Admin: 03/17/25 11:22 Dose: Not Given Documented By: DUSTIN Non-Admin Reason: Patient Asleep Amlodipine Besylate (Amlodipine Besylate 10 Mg Tablet) 10 mg PO DAILY [facility]; Protocol Last Admin: 03/17/25 08:19 Dose: 10 mg Documented By: KARLO Atorvastatin Calcium (Atorvastatin Calcium 40 Mg Tablet) 40 mg PO BEDTIME [facility] Last Admin: 03/16/25 22:06 Dose: 40 mg Documented By: CAROLINA Calcium Carbonate (Calcium Carbonate 750 Mg Tab.Chew) 750 mg PO Q4H PRN PRN Reason: Heartburn Ceftriaxone Sodium (Ceftriaxone Sodium 1 Gm Vial) 1 gm IVPUSH Q24H [facility] Last Admin: 03/16/25 12:38 Dose: 1 gm Documented By: JULISSA Dextrose (Dextrose 50 % 25 Gm/50 Ml Syringe) 25 gm IVPUSH Q15M PRN; Protocol PRN Reason: per Hypoglycemia Standing Ord. Enoxaparin Sodium (Enoxaparin Sodium 30 Mg/0.3 Ml Syringe) 30 mg SUBCUT Q24H [facility] Last Admin: 03/17/25 08:18 Dose: 30 mg Documented By: KARLO Furosemide (Furosemide 20 Mg Tablet) 20 mg PO BID@0900,1800 [facility]; Protocol Last Admin: 03/17/25 08:19 Dose: 20 mg Documented By: KARLO Glucose (Glucose Gel 15 Gm Gel..Gram.) 15 gm PO Q15M PRN; Protocol PRN Reason: per Hypoglycemia Standing Ord. Azithromycin 500 mg/ Sodium (Chloride) 250 mls @ 125 mls/hr IV Q24H [facility] Last Infusion: 03/16/25 16:48 Dose: Infused Documented By: JULISSA Insulin Human Lispro (Insulin Lispro 100 Unit/Ml 3 Ml Vial) 0 unit SUBCUT QIDACHS [facility]; Protocol Last Admin: 03/17/25 08:21 Dose: Not Given Documented By: KARLO Non-Admin Reason: No Insulin Coverage Losartan Potassium (Losartan Potassium 50 Mg Tablet) 100 mg PO DAILY [facility]; Protocol Last Admin: 03/17/25 08:19 Dose: 100 mg Documented By: KARLO Magnesium Hydroxide (Milk Of Magnesia 30 Ml Oral.Susp) 30 ml PO DAILY PRN PRN Reason: Constipation Magnesium Oxide (Magnesium Oxide 400 Mg Tablet) 200 mg PO DAILY [facility] Last Admin: 03/17/25 08:19 Dose: 200 mg Documented By: KARLO Melatonin (Melatonin 3 Mg Tablet) 6 mg PO BEDTIME PRN PRN Reason: Insomnia Metoprolol Succinate (Metoprolol Succinate Er 50 Mg Tab.Er.24h) 150 mg PO DAILY [facility]; Protocol Last Admin: 03/17/25 08:19 Dose: 150 mg Documented By: KARLO Quetiapine Fumarate (Quetiapine Fumarate 25 Mg Tablet) 25 mg PO DAILY@1700 PRN PRN Reason: anxiety/restlessness Sertraline HCl (Sertraline Hcl 100 Mg Tablet) 100 mg PO DAILY [facility] Last Admin: 03/17/25 08:19 Dose: 100 mg Documented By: KARLO Sitagliptin Phosphate (Sitagliptin Phosphate 25 Mg Tablet) 25 mg PO DAILY [facility] Last Admin: 03/17/25 08:19 Dose: 25 mg Documented By: KARLO Sodium Chloride (0.9 % Sodium Chloride Flush 3 Ml Syringe) 3 ml IVFLUSH QSHIFT [facility] Last Admin: 03/17/25 08:21 Dose: 3 ml Documented By: KARLO Vitamin D (Cholecalciferol (Vitamin D3) 25 Mcg Tablet) 250 mcg PO Q48H [facility] Last Admin: 03/16/25 14:50 Dose: 250 mcg Documented By: JULISSA Labs 03/17/25 06:41 03/17/25 06:41 Labs: Laboratory Results - last 24 hr 03/15/25 03/16/25 03/16/25 16:26 11:24 16:15 MCV MCH MCHC RDW Plt Count MPV Immature Gran % (Auto) Neut % (Auto) Lymph % (Auto) [place] % (Auto) Eos % (Auto) Baso % (Auto) Lymph # (Auto) [place] # (Auto) Eos # (Auto) Baso # (Auto) Abs Immat Gran (auto) Absolute Neuts (auto) Absolute Nucleated RBC Nucleated RBC % (auto) Anion Gap Estim Creat Clear Calc Estimated GFR POC Glucose 141 H 353 H* Random Glucose Calcium Pleural Total Protein 1.9 Pleural Albumin 1.2 Pleural LDH 94 Pleural Glucose 358 Pleural Amylase 66 03/16/25 03/16/25 03/16/25 19:39 21:54 23:23 MCV MCH MCHC RDW Plt Count MPV Immature Gran % (Auto) Neut % (Auto) Lymph % (Auto) [place] % (Auto) Eos % (Auto) Baso % (Auto) Lymph # (Auto) [place] # (Auto) Eos # (Auto) Baso # (Auto) Abs Immat Gran (auto) Absolute Neuts (auto) Absolute Nucleated RBC Nucleated RBC % (auto) Anion Gap Estim Creat Clear Calc Estimated GFR POC Glucose 484 H* 399 H* 242 H Random Glucose Calcium Pleural Total Protein Pleural Albumin Pleural LDH Pleural Glucose Pleural Amylase 03/17/25 03/17/25 03/17/25 05:33 06:41 07:28 MCV 91.6 MCH 30.8 MCHC 33.6 RDW 13.0 Plt Count 339 MPV 10.8 Immature Gran % (Auto) 0.7 H Neut % (Auto) 78.9 H Lymph % (Auto) 9.0 L [place] % (Auto) 11.1 H Eos % (Auto) 0.1 Baso % (Auto) 0.2 Lymph # (Auto) 1.2 Fleming # (Auto) 1.5 H Eos # (Auto) 0.0 Baso # (Auto) 0.0 Abs Immat Gran (auto) 0.09 H Absolute Neuts (auto) 10.5 H Absolute Nucleated RBC 0.000 Nucleated RBC % (auto) 0.0 Anion Gap 13 Estim Creat Clear Calc 12.0 Estimated GFR 19 POC Glucose 73 140 H Random Glucose 117 H Calcium 7.8 L D Pleural Total Protein Pleural Albumin Pleural LDH Pleural Glucose Pleural Amylase Microbiology Microbiology Results: Microbiology 03/15/25 16:26 Gram Stain - Final Thoracentesis Fluid Anaerobic Culture - Preliminary No growth to date. Body Fluid Culture - Preliminary No growth to date. Assessment and Plan (1) Mediastinal mass: Status: Acute (2) Pleural effusion, bilateral: Status: Acute (3) Pulmonary edema: Status: Acute Plan An 89 years old lady with PMH of advanced dementia, HTN, HLD, Mood disorder among others who presents pleural effusins bilaterally and large mediastinal mass for evaluation. # 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 Her masses concerning for malignancy/lymphoma Repeat CXR showing effusions and opacities Pulmonology recommended diagnostic and therapeutic thoracocentesis, Will likely need biopsy of the mediastinal mass and she will need establishment with thoracic surgeon Patient underwent right thoracocentesis-removal of 750 cc on 03/15 , pending result Will likely undergo left thoracocentesis Tuesday Pending Oncology consult Cytology added to pleural fluid studies # Pneumonia Continue Ling and CTx pending cultures # Pericardial effusion Cardiology input appreciated, Pericardial effusion mild, low dose diuretics Echo showing EF 60-65% with small pericardial effusion diuresis with Lasix 20 b.i.d. # HTN Amlpdipine, Losartan DVT PPx Lovenox Quality Stroke Does the patient have a stroke diagnosis?: No VTE Prior VTE?: No VTE Risk Level:: Medical - moderate - high VTE Device Contraindication: Treatment Not Indicated VTE Drug Contraindication: N/A - Med Ordered
[2025-03-17 11:32] LABS: Glucose, Whole Blood 157 mg/dL (60-115)
[2025-03-17 15:58] LABS: Glucose, Whole Blood 294 mg/dL (60-115)
--- NOTE | 2025-03-17 19:04 | PC.NURSE ---
MD Valentine made aware pt has had 4 diarrhea BMs this shift, per MD hold any laxatives.
[2025-03-17 20:49] LABS: Glucose, Whole Blood 180 mg/dL (60-115)
[2025-03-18] VITALS (11 sets, daily range): BP systolic 130–178; BP diastolic 50–68; PULSE 57–75; RESP 14–18; TEMP 35.9–37.1; O2SAT 95–100
[2025-03-18 05:42] LABS: Appearance Urine Clear; Glucose Urine UA 100 mg/dL (Negative); PH 5.5 (5.0-9.0); Specific Gravity - Urine 1.010 (1.005-1.025); UMIC TRIGGER UA YES
[2025-03-18 07:21] LABS: Anion Gap 14 (12-20); Blood Urea Nitrogen 61 mg/dL (9-16); Calcium 8.3 mg/dL (8.4-10.2); Carbon Dioxide 24 mmol/L (22-29); Chloride 106 mmol/L (96-108); Creatinine Clr Calc Pharmacy 9.7; Estimated Glomerular Filt Rate 15; Potassium 4.3 mmol/L (3.3-5.1); Sodium 140 mmol/L (135-145)
[2025-03-18] MEDS: Albuterol Sulfate (0.083%) 2.5 MG/3 ML VIAL.NEB INHALE ×4 (07:43→19:17)
[2025-03-18 07:59] LABS: Glucose, Whole Blood 146 mg/dL (60-115)
[2025-03-18] MEDS: Metoprolol Succinate ER 50 MG TAB.ER.24H 150 MG PO (08:04)
[2025-03-18] MEDS: 0.9 % Sodium Chloride Flush 3 ML SYRINGE IVFLUSH ×3 (08:05→21:14)
--- NOTE | 2025-03-18 10:49 | MHC.CM.PN ---
PER MD ROUNDS, PT NOT MEDICALLY CLEARED TODAY PLAN FOR L THORACOCENTESIS DCP: HOME, RESUME [facility] VS STR
[2025-03-18 11:41] LABS: Glucose, Whole Blood 374 mg/dL (60-115)
--- NOTE | 2025-03-18 13:15 | MHC.CLN ---
F/U PO INTAKE 100% X4 MEALS DIET RX: 1800DM 2GM NA-APPROPRIATE NOTED FRAGILE SKIN CONTINUE TO MONITOR PO INTAKE AND WEIGHT
[2025-03-18 16:12] LABS: Glucose, Whole Blood 257 mg/dL (60-115)
--- NOTE | 2025-03-18 19:57 | P.PNIM_ITS ---
Subjective Subjective Date of Service: 03/18/25 Interval History: No acute events overnight Pt seen and evaluated at bedside Reports overall feels much better than yesterday However, has some continued SOB and nonproductive cough Some nausea, no vomiting Denies abdominal pain; no chest pain Review of Systems Review of Systems: Yes all other systems are reviewed and are negative Physical Exam 2 Vital Signs: Vital Signs: Last Vital Signs Temp 98.5 F 03/18/25 19:20 Pulse 75 03/18/25 19:20 Resp 18 03/18/25 19:20 BP 142/54 H 03/18/25 19:20 Pulse Ox 100 03/18/25 19:20 O2 Del Method Room Air 03/18/25 19:20 BMI result Body Mass Index 17.8 General: Awake and alert to self and place, not to time or situation. In no acute distress. Frail, elderly Resp: Coarse breath sounds bilaterally CVS: S1, S2, RRR GI: +BS, NT, no distention Neuro: Cranial nerves II-XII grossly intact bilaterally. Motor grossly intact bilaterally Extremities: No edema Psych: Mildly confused Objective Data Active Medications Acetaminophen (Acetaminophen 325 Mg Tablet) 975 mg PO Q6H PRN PRN Reason: Pain, Mild 1-3,fever,headache Albuterol Sulfate (Albuterol Sulfate (0.083%) 2.5 Mg/3 Ml Vial.Neb) 2.5 mg INHALE RQ4H WHILE AWAKE [facility] Last Admin: 03/18/25 19:17 Dose: 2.5 mg Documented By: SERJIO Amlodipine Besylate (Amlodipine Besylate 10 Mg Tablet) 10 mg PO DAILY [facility]; Protocol Last Admin: 03/18/25 08:03 Dose: 10 mg Documented By: BRODIE Atorvastatin Calcium (Atorvastatin Calcium 40 Mg Tablet) 40 mg PO BEDTIME [facility]ANDA Last Admin: 03/17/25 22:13 Dose: 40 mg Documented By: N-DESSK Calcium Carbonate (Calcium Carbonate 750 Mg Tab.Chew) 750 mg PO Q4H PRN PRN Reason: Heartburn Ceftriaxone Sodium (Ceftriaxone Sodium 1 Gm Vial) 1 gm IVPUSH Q24H [facility] Last Admin: 03/18/25 12:20 Dose: 1 gm Documented By: BRODIE Dextrose (Dextrose 50 % 25 Gm/50 Ml Syringe) 25 gm IVPUSH Q15M PRN; Protocol PRN Reason: per Hypoglycemia Standing Ord. Enoxaparin Sodium (Enoxaparin Sodium 30 Mg/0.3 Ml Syringe) 30 mg SUBCUT Q24H [facility] Last Admin: 03/18/25 08:04 Dose: 30 mg Documented By: BRODIE Glucose (Glucose Gel 15 Gm Gel..Gram.) 15 gm PO Q15M PRN; Protocol PRN Reason: per Hypoglycemia Standing Ord. Azithromycin 500 mg/ Sodium (Chloride) 250 mls @ 125 mls/hr IV Q24H [facility] Last Infusion: 03/18/25 16:54 Dose: Infused Documented By: VI Insulin Human Lispro (Insulin Lispro 100 Unit/Ml 3 Ml Vial) 0 unit SUBCUT QIDACHS [facility]; Protocol Last Admin: 03/18/25 16:51 Dose: 6 unit Documented By: VI Losartan Potassium (Losartan Potassium 50 Mg Tablet) 100 mg PO DAILY [facility]; Protocol Last Admin: 03/18/25 08:03 Dose: 100 mg Documented By: BRODIE Magnesium Hydroxide (Milk Of Magnesia 30 Ml Oral.Susp) 30 ml PO DAILY PRN PRN Reason: Constipation Magnesium Oxide (Magnesium Oxide 400 Mg Tablet) 200 mg PO DAILY [facility] Last Admin: 03/18/25 08:04 Dose: 200 mg Documented By: BRODIE Melatonin (Melatonin 3 Mg Tablet) 6 mg PO BEDTIME PRN PRN Reason: Insomnia Last Admin: 03/17/25 22:12 Dose: 6 mg Documented By: LA NENA-DESJOHNATHAN Metoprolol Succinate (Metoprolol Succinate Er 50 Mg Tab.Er.24h) 150 mg PO DAILY [facility]; Protocol Last Admin: 03/18/25 08:04 Dose: 150 mg Documented By: BRODIE Quetiapine Fumarate (Quetiapine Fumarate 25 Mg Tablet) 25 mg PO DAILY@1700 PRN PRN Reason: anxiety/restlessness Sertraline HCl (Sertraline Hcl 100 Mg Tablet) 100 mg PO DAILY [facility] Last Admin: 03/18/25 08:03 Dose: 100 mg Documented By: BRODIE Sitagliptin Phosphate (Sitagliptin Phosphate 25 Mg Tablet) 25 mg PO DAILY [facility] Last Admin: 03/18/25 08:03 Dose: 25 mg Documented By: BRODIE Sodium Chloride (0.9 % Sodium Chloride Flush 3 Ml Syringe) 3 ml IVFLUSH QSHIFT [facility] Last Admin: 03/18/25 16:51 Dose: 3 ml Documented By: VI Spironolactone (Spironolactone 25 Mg Tablet) 25 mg PO DAILY [facility]; Protocol On Hold: 03/18/25 08:36 Last Admin: 03/18/25 08:04 Dose: 25 mg Documented By: BRODIE Vitamin D (Cholecalciferol (Vitamin D3) 25 Mcg Tablet) 250 mcg PO Q48H [facility] Last Admin: 03/18/25 14:18 Dose: 250 mcg Documented By: BRODIE Labs 03/17/25 06:41 03/18/25 06:45 Labs: Laboratory Results - last 24 hr 03/15/25 03/17/25 03/18/25 04:05 20:41 04:10 Hold Purple Top Anion Gap Estim Creat Clear Calc Estimated GFR POC Glucose 180 H Random Glucose Calcium Alpha Fetoprotein 6.9 H Urine Color Yellow Urine Appearance Clear Urine pH 5.5 Ur Specific [place] 1.010 Urine Protein 300 (3+) H Urine Glucose (UA) 100 H Urine Ketones Negative Urine Blood Negative Urine Nitrite Negative Ur Leukocyte Esterase Negative Urine RBC 0-2 Urine WBC 0-5 Ur Squamous Epith Cells 0-2 Urine Bacteria None Seen Hyaline Casts 0-2 03/18/25 03/18/25 03/18/25 06:45 07:53 11:38 Hold Purple Top SEE NOTE Anion Gap 14 Estim Creat Clear Calc 9.7 Estimated GFR 15 POC Glucose 146 H 374 H* Random Glucose 151 H Calcium 8.3 L D Alpha Fetoprotein Urine Color Urine Appearance Urine pH Ur Specific [place] Urine Protein Urine Glucose (UA) Urine Ketones Urine Blood Urine Nitrite Ur Leukocyte Esterase Urine RBC Urine WBC Ur Squamous Epith Cells Urine Bacteria Hyaline Casts 03/18/25 16:08 Hold Purple Top Anion Gap Estim Creat Clear Calc Estimated GFR POC Glucose 257 H Random Glucose Calcium Alpha Fetoprotein Urine Color Urine Appearance Urine pH Ur Specific [place] Urine Protein Urine Glucose (UA) Urine Ketones Urine Blood Urine Nitrite Ur Leukocyte Esterase Urine RBC Urine WBC Ur Squamous Epith Cells Urine Bacteria Hyaline Casts Microbiology Microbiology Results: Microbiology 03/15/25 16:26 Gram Stain - Final Thoracentesis Fluid Anaerobic Culture - Preliminary No growth to date. Body Fluid Culture - Final No growth after 2 days Assessment and Plan (1) Pleural effusion, bilateral: Status: Acute (2) Mediastinal mass: Status: Acute Plan An 89 years old lady with PMH of advanced dementia, HTN, HLD, Mood disorder among others who presents pleural effusins bilaterally and large mediastinal mass for evaluation. 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 Concerning for malignancy/lymphoma Repeat CXR showing effusions and opacities Pulmonology recommended diagnostic and therapeutic thoracocentesis, According to family, mass known for some time; no additional workup has yet to be done Will likely need outpatient biopsy of the mediastinal mass and she will need establishment with thoracic surgeon Patient underwent right thoracocentesis-removal of 750 cc on 03/15 , pending result Will likely undergo left thoracocentesis Tuesday or Tuesday Pending Oncology consult Cytology added to pleural fluid studies Pneumonia Continue Ling and CTx Pending cultures Pericardial effusion Cardiology input appreciated, Pericardial effusion mild, low dose diuretics Echo showing EF 60-65% with small pericardial effusion Diuresed with Lasix 20 b.i.d.; will hold due to EWELINA HTN Amlpdipine, Losartan Lvx-fsveyco-jgqghpzth type 2 diabetes Pt has been hyperglycemic Continue diabetic diet, sliding scale DVT PPx Lovenox Quality Stroke Does the patient have a stroke diagnosis?: No VTE Prior VTE?: No VTE Risk Level:: Medical - moderate - high VTE Device Contraindication: Treatment Not Indicated VTE Drug Contraindication: N/A - Med Ordered
[2025-03-18 20:09] LABS: Glucose, Whole Blood 108 mg/dL (60-115)
[2025-03-19] VITALS (9 sets, daily range): BP systolic 134–190; BP diastolic 62–77; PULSE 59–78; RESP 16–18; TEMP 36.2–36.8; O2SAT 93–98
[2025-03-19 07:17] LABS: Glucose, Whole Blood 141 mg/dL (60-115)
[2025-03-19 07:30] LABS: Anion Gap 15 (12-20); Blood Urea Nitrogen 60 mg/dL (9-16); Calcium 8.3 mg/dL (8.4-10.2); Carbon Dioxide 24 mmol/L (22-29); Chloride 105 mmol/L (96-108); Creatinine Clr Calc Pharmacy 11.0; Estimated Glomerular Filt Rate 18; Potassium 3.9 mmol/L (3.3-5.1); Sodium 140 mmol/L (135-145)
[2025-03-19] MEDS: Albuterol Sulfate (0.083%) 2.5 MG/3 ML VIAL.NEB INHALE ×4 (07:42→19:36)
[2025-03-19] MEDS: Metoprolol Succinate ER 50 MG TAB.ER.24H 150 MG PO (09:16)
[2025-03-19] MEDS: 0.9 % Sodium Chloride Flush 3 ML SYRINGE IVFLUSH ×3 (09:18→21:33)
[2025-03-19 11:45] LABS: Glucose, Whole Blood 129 mg/dL (60-115)
[2025-03-19 16:23] LABS: Glucose, Whole Blood 208 mg/dL (60-115)
--- NOTE | 2025-03-19 18:42 | P.PNIM_ITS ---
Subjective Subjective Date of Service: 03/19/25 Interval History: No acute events overnight Complains of nonproductive cough Overall reports she feels ?fine? Denies any significant pain or discomfort Appears more confused than yesterday Physical Exam 2 Vital Signs: Vital Signs: Last Vital Signs Temp 97.7 F 03/19/25 15:23 Pulse 61 03/19/25 15:30 Resp 16 03/19/25 15:30 BP 134/62 03/19/25 15:23 Pulse Ox 93 03/19/25 15:23 O2 Del Method Room Air 03/19/25 15:23 BMI result Body Mass Index 17.8 General: Awake and alert to self only, In no acute distress. Frail, elderly Resp: Diffuse bilateral rhonchi CVS: S1, S2, RRR GI: +BS, NT, no distention Neuro: Cranial nerves II-XII grossly intact bilaterally. Motor grossly intact bilaterally Extremities: No edema Psych: Pleasantly confused Objective Data Active Medications Acetaminophen (Acetaminophen 325 Mg Tablet) 975 mg PO Q6H PRN PRN Reason: Pain, Mild 1-3,fever,headache Albuterol Sulfate (Albuterol Sulfate (0.083%) 2.5 Mg/3 Ml Vial.Neb) 2.5 mg INHALE RQ4H WHILE AWAKE [facility] Last Admin: 03/19/25 15:30 Dose: 2.5 mg Documented By: JORGE Amlodipine Besylate (Amlodipine Besylate 10 Mg Tablet) 10 mg PO DAILY [facility]; Protocol Last Admin: 03/19/25 09:17 Dose: 10 mg Documented By: TESFAYE Atorvastatin Calcium (Atorvastatin Calcium 40 Mg Tablet) 40 mg PO BEDTIME [facility]ANDA Last Admin: 03/18/25 21:13 Dose: 40 mg Documented By: DIANE Calcium Carbonate (Calcium Carbonate 750 Mg Tab.Chew) 750 mg PO Q4H PRN PRN Reason: Heartburn Ceftriaxone Sodium (Ceftriaxone Sodium 1 Gm Vial) 1 gm IVPUSH Q24H [facility] Last Admin: 03/19/25 13:30 Dose: 1 gm Documented By: TESFAYE Dextrose (Dextrose 50 % 25 Gm/50 Ml Syringe) 25 gm IVPUSH Q15M PRN; Protocol PRN Reason: per Hypoglycemia Standing Ord. Enoxaparin Sodium (Enoxaparin Sodium 30 Mg/0.3 Ml Syringe) 30 mg SUBCUT Q24H [facility] Last Admin: 03/19/25 09:18 Dose: 30 mg Documented By: TESFAYE Glucose (Glucose Gel 15 Gm Gel..Gram.) 15 gm PO Q15M PRN; Protocol PRN Reason: per Hypoglycemia Standing Ord. Azithromycin 500 mg/ Sodium (Chloride) 250 mls @ 125 mls/hr IV Q24H [facility] Last Infusion: 03/19/25 16:07 Dose: Infused Documented By: TESFAYE Insulin Human Lispro (Insulin Lispro 100 Unit/Ml 3 Ml Vial) 0 unit SUBCUT QIDACHS [facility]; Protocol Last Admin: 03/19/25 16:43 Dose: 4 unit Documented By: TESFAYE Losartan Potassium (Losartan Potassium 50 Mg Tablet) 100 mg PO DAILY [facility]; Protocol On Hold: 03/19/25 10:00 Last Admin: 03/19/25 09:16 Dose: 100 mg Documented By: TESFAYE Magnesium Hydroxide (Milk Of Magnesia 30 Ml Oral.Susp) 30 ml PO DAILY PRN PRN Reason: Constipation Magnesium Oxide (Magnesium Oxide 400 Mg Tablet) 200 mg PO DAILY [facility] Last Admin: 03/19/25 09:16 Dose: 200 mg Documented By: TESFAYE Melatonin (Melatonin 3 Mg Tablet) 6 mg PO BEDTIME PRN PRN Reason: Insomnia Last Admin: 03/17/25 22:12 Dose: 6 mg Documented By: PIPE Metoprolol Succinate (Metoprolol Succinate Er 50 Mg Tab.Er.24h) 150 mg PO DAILY [facility]; Protocol Last Admin: 03/19/25 09:16 Dose: 150 mg Documented By: TESFAYE Quetiapine Fumarate (Quetiapine Fumarate 25 Mg Tablet) 25 mg PO DAILY@1700 PRN PRN Reason: anxiety/restlessness Sertraline HCl (Sertraline Hcl 100 Mg Tablet) 100 mg PO DAILY [facility] Last Admin: 03/19/25 09:16 Dose: 100 mg Documented By: TESFAYE Sitagliptin Phosphate (Sitagliptin Phosphate 25 Mg Tablet) 25 mg PO DAILY [facility] Last Admin: 03/19/25 09:16 Dose: 25 mg Documented By: TESFAYE Sodium Chloride (0.9 % Sodium Chloride Flush 3 Ml Syringe) 3 ml IVFLUSH QSHIFT [facility] Last Admin: 03/19/25 16:44 Dose: 3 ml Documented By: TESFAYE Spironolactone (Spironolactone 25 Mg Tablet) 25 mg PO DAILY [facility]; Protocol On Hold: 03/18/25 08:36 Last Admin: 03/18/25 08:04 Dose: 25 mg Documented By: BRODIE Vitamin D (Cholecalciferol (Vitamin D3) 25 Mcg Tablet) 250 mcg PO Q48H [facility] Last Admin: 03/18/25 14:18 Dose: 250 mcg Documented By: BRODIE Labs 03/17/25 06:41 03/19/25 06:55 Labs: Laboratory Results - last 24 hr 03/18/25 03/19/25 03/19/25 20:06 06:55 07:12 Hold Purple Top SEE NOTE Anion Gap 15 Estim Creat Clear Calc 11.0 Estimated GFR 18 POC Glucose 108 141 H Random Glucose 145 H Calcium 8.3 L 03/19/25 03/19/25 11:37 16:14 Hold Purple Top Anion Gap Estim Creat Clear Calc Estimated GFR POC Glucose 129 H 208 H Random Glucose Calcium Microbiology Microbiology Results: Microbiology 03/15/25 16:26 Direct Acid Fast Bacilli Smear - Final Pleural Fluid 03/15/25 16:26 Gram Stain - Final Thoracentesis Fluid Anaerobic Culture - Preliminary No growth to date. Body Fluid Culture - Final No growth after 2 days Assessment and Plan (1) Mediastinal mass: Status: Acute (2) Pleural effusion, bilateral: Status: Acute Plan An 89 years old lady with PMH of advanced dementia, HTN, HLD, Mood disorder among others who presents pleural effusins bilaterally and large mediastinal mass for evaluation. 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 Unclear whether mass has grown since either 2018 or 2007 Will likely need outpatient biopsy of the mediastinal mass and she will need establishment with thoracic surgeon Patient underwent right thoracocentesis-removal of 750 cc on 03/15, cytology pending Has not yet undergone left thoracocentesis Pending Oncology consult EWELINA Creatinine noted to be 2.92 on 03/18, elevated from 2.10 at time of presentation Likely secondary to hypovolemia from diuresing Hold Lasix and spironolactone Currently improving at 2.58 Follow creatinine Pneumonia Continue Ling and CTx Blood cultures negative Acid-fast and gram stains negative Pericardial effusion, small Cardiology recommended low dose diuretics Echo showing EF 60-65% with small pericardial effusion Diuresed with Lasix 20 b.i.d.; will hold due to EWELINA Goals of care Spoke to family who note pt lives alone with help from family Has been declining significantly after hospitalization for encephalopathy 8 months ago PT evaluation recommends home with services HTN Amlpdipine Hold losartan Npg-mdocqsc-mdufljguu type 2 diabetes Pt has been hyperglycemic Continue diabetic diet, sliding scale DVT PPx Lovenox Quality Stroke Does the patient have a stroke diagnosis?: No VTE Prior VTE?: No VTE Risk Level:: Medical - moderate - high VTE Device Contraindication: Treatment Not Indicated VTE Drug Contraindication: N/A - Med Ordered
[2025-03-19 20:08] LABS: Glucose, Whole Blood 200 mg/dL (60-115)
[2025-03-20] VITALS (12 sets, daily range): BP systolic 124–191; BP diastolic 51–84; PULSE 58–83; RESP 16–18; TEMP 36–37.2; O2SAT 93–97
[2025-03-20 06:52] LABS: Anion Gap 12 (12-20); Blood Urea Nitrogen 50 mg/dL (9-16); Calcium 8.5 mg/dL (8.4-10.2); Carbon Dioxide 26 mmol/L (22-29); Chloride 104 mmol/L (96-108); Creatinine Clr Calc Pharmacy 11.9; Estimated Glomerular Filt Rate 19; Potassium 4.4 mmol/L (3.3-5.1); Sodium 138 mmol/L (135-145)
[2025-03-20 07:24] LABS: Glucose, Whole Blood 144 mg/dL (60-115)
[2025-03-20] MEDS: Metoprolol Succinate ER 50 MG TAB.ER.24H 150 MG PO (07:59)
[2025-03-20] MEDS: Albuterol Sulfate (0.083%) 2.5 MG/3 ML VIAL.NEB INHALE ×3 (08:02→19:52)
--- NOTE | 2025-03-20 09:34 | P.CNHO_ITS ---
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 The cough was productive left-sided chest pain. She denied any headache, palpitations, dizziness, fever or chills. She allows report any acute gastrointestinal or genitourinary symptoms. She does not have history of congestive heart failure or MIs. She denied tobacco smoking, alcohol abuse illicit drug use. Chest CTA showed a mediastinal mass from the inferior thyroid gland to the anterior mediastinum (concerning for malignancy). It also showed bilateral pleural effusion (moderate to large), pericardial effusion and mild interstitial edema. Patient's daughter was at the bedside today. Patient has had no complaints such as dysphagia, dysphonia, stridor or difficulty breathing. No loss of appetite or weight loss. Review of Systems - Constitutional Reports as per HPI - Neurologic Denies dizziness, Denies headache(s) [facility] Medical History: Medical History (Last Updated 03/15/25 @ 12:53 by Luis Elder MD) Bronchitis Chronic kidney disease (CKD), stage 4 Essential hypertension Hyperlipidemia Substernal goiter Type 2 diabetes mellitus Social History: Social History (Last Reviewed 01/09/25 @ 11:38 by Marie Sorenson MD) Living Situation History: Household Members: None Housing: Assisted Living Facility Do you presently have visiting nurse or other home services: No Alcohol History: Unable to assess alcohol history related to: Unknown Tobacco History: Patient Tobacco Use Status: Never used Tobacco Advance Directives: Advance Directives Date on File: 03/01/24 Occupation Assessmet: service: No Home Medications and Allergies Current Medications: Current Medications Acetaminophen (Acetaminophen 325 Mg Tablet) 975 mg PO Q6H PRN PRN Reason: Pain, Mild 1-3,fever,headache Albuterol Sulfate (Albuterol Sulfate (0.083%) 2.5 Mg/3 Ml Vial.Neb) 2.5 mg INHALE RQ4H WHILE AWAKE [facility] Last Admin: 03/20/25 08:02 Dose: 2.5 mg Amlodipine Besylate (Amlodipine Besylate 10 Mg Tablet) 10 mg PO DAILY [facility]; Protocol Last Admin: 03/20/25 07:57 Dose: 10 mg Atorvastatin Calcium (Atorvastatin Calcium 40 Mg Tablet) 40 mg PO BEDTIME [facility] Last Admin: 03/19/25 21:26 Dose: 40 mg Calcium Carbonate (Calcium Carbonate 750 Mg Tab.Chew) 750 mg PO Q4H PRN PRN Reason: Heartburn Ceftriaxone Sodium (Ceftriaxone Sodium 1 Gm Vial) 1 gm IVPUSH Q24H [facility] Last Admin: 03/19/25 13:30 Dose: 1 gm Dextrose (Dextrose 50 % 25 Gm/50 Ml Syringe) 25 gm IVPUSH Q15M PRN; Protocol PRN Reason: per Hypoglycemia Standing Ord. Enoxaparin Sodium (Enoxaparin Sodium 30 Mg/0.3 Ml Syringe) 30 mg SUBCUT Q24H [facility] Last Admin: 03/20/25 07:59 Dose: 30 mg Glucose (Glucose Gel 15 Gm Gel..Gram.) 15 gm PO Q15M PRN; Protocol PRN Reason: per Hypoglycemia Standing Ord. Azithromycin 500 mg/ Sodium (Chloride) 250 mls @ 125 mls/hr IV Q24H [facility] Last Infusion: 03/19/25 16:07 Dose: Infused Insulin Human Lispro (Insulin Lispro 100 Unit/Ml 3 Ml Vial) 0 unit SUBCUT QIDACHS [facility]; Protocol Last Admin: 03/20/25 07:29 Dose: Not Given Losartan Potassium (Losartan Potassium 50 Mg Tablet) 100 mg PO DAILY [facility]; Protocol On Hold: 03/19/25 10:00 Last Admin: 03/19/25 09:16 Dose: 100 mg Magnesium Hydroxide (Milk Of Magnesia 30 Ml Oral.Susp) 30 ml PO DAILY PRN PRN Reason: Constipation Magnesium Oxide (Magnesium Oxide 400 Mg Tablet) 200 mg PO DAILY [facility] Last Admin: 03/20/25 07:58 Dose: 200 mg Melatonin (Melatonin 3 Mg Tablet) 6 mg PO BEDTIME PRN PRN Reason: Insomnia Last Admin: 03/17/25 22:12 Dose: 6 mg Metoprolol Succinate (Metoprolol Succinate Er 50 Mg Tab.Er.24h) 150 mg PO DAILY [facility]; Protocol Last Admin: 03/20/25 07:59 Dose: 150 mg Quetiapine Fumarate (Quetiapine Fumarate 25 Mg Tablet) 25 mg PO DAILY@1700 PRN PRN Reason: anxiety/restlessness Sertraline HCl (Sertraline Hcl 100 Mg Tablet) 100 mg PO DAILY [facility] Last Admin: 03/20/25 07:58 Dose: 100 mg Sitagliptin Phosphate (Sitagliptin Phosphate 25 Mg Tablet) 25 mg PO DAILY [facility] Last Admin: 03/20/25 07:58 Dose: 25 mg Sodium Chloride (0.9 % Sodium Chloride Flush 3 Ml Syringe) 3 ml IVFLUSH QSHIFT [facility] Last Admin: 03/19/25 21:33 Dose: 3 ml Spironolactone (Spironolactone 25 Mg Tablet) 25 mg PO DAILY [facility]; Protocol On Hold: 03/18/25 08:36 Last Admin: 03/18/25 08:04 Dose: 25 mg Vitamin D (Cholecalciferol (Vitamin D3) 25 Mcg Tablet) 250 mcg PO Q48H [facility] Last Admin: 03/18/25 14:18 Dose: 250 mcg Home Medications ?Medication ?Instructions ?Recorded ?Confirmed ?Type amlodipine 10 mg tablet 10 mg PO DAILY 02/25/24 03/14/25 History losartan 50 mg tablet 100 mg PO DAILY 02/25/24 03/14/25 Histor y metoprolol succinate 50 mg 150 mg PO DAILY 02/25/24 03/14/25 Histor y tablet,extended release 24 hr atorvastatin 40 mg tablet 40 mg PO BEDTIME 02/26/24 03/14/25 Histo ry albuterol sulfate 90 mcg/actuation 2 puff inhalation Q4H PRN Wheezing 03/1403/14/25 History aerosol inhaler cholecalciferol (vitamin D3) 125 250 mcg PO Q48H 03/14/25 03/14/25 Histor y mcg (5,000 unit) tablet (Vitamin D3) magnesium oxide 200 mg PO DAILY 03/14/25 03/14/25 Histor y sertraline 100 mg tablet 100 mg PO DAILY 03/14/25 03/14/25 Histor y sitagliptin phosphate 25 mg tablet 25 mg PO DAILY 03/14/25 03/14/25 History (Vazquezuvia) Allergies Allergy/AdvReac Type Severity Reaction Status Date / Time No Known Allergies (No Known Allergy Verified 03/14/25 09:24 Allergies*) Physical Exam Vital signs: Vital Signs Temp 97.9 F 07/16/25 06:57 Pulse 73 03/20/25 08:06 Resp 16 03/20/25 08:06 BP 175/71 H 03/20/25 06:57 Pulse Ox 96 03/20/25 06:57 O2 Del Method Room Air 03/20/25 06:57 Intake & Output 03/19/25 03/20/25 03/20/25 18:59 06:59 18:59 Intake Total 850 / 1030 180 / 1030 Output Total 200 / 200 Balance 850 / 830 -20 / 830 Urine Output (Average ml/kg/hr) 0.37 0.37 Intake: Intake, Oral Amount 600 / 780 180 / 780 Intake, IV Amount 250 / 250 Azithromycin 500 mg In 0.9 % 250 / 250 Sodium Chloride 250 ml @ 125 mls/hr IV Q24H [facility] Rx#: [id number] Output: Output, Urine Amount 200 / 200 Other: Breakfast % Eaten 100% Lunch % Eaten 100% Number of Unmeasured Voids 2 1 Number of Bowel Movements 2 1 Urine purewick Urine Color Yellow Last Bowel Movement 03/18/25 03/18/25 03/18/25 Stool Incontinent Incontinent Stool Amount Large Moderate Stool Color Anguiano Brown Stool Consistency Loose Semi Formed Weight 45.5 kg - Constitutional Present: no acute distress, thin - Routine HEENT Exam Head: Present: normal inspection Eye: Present: EOMI, PERRL - Routine Neck Exam Present: supple, trachea midline. Absent: lymphadenopathy, swelling - Routine Respiratory Exam Present: decreased breath sounds. Absent: accessory muscle use - Routine Cardiovascular Exam Cardiovascular: Present: S1, S2 - Routine Abdominal Exam Present: soft. Absent: mass - Routine Extremities Exam Present: pulses intact Hem/Onc Consult Result - Labs CBC & Chem 7: 03/17/25 06:41 03/20/25 06:25 Labs: BMP 03/20/25 06:25 Sodium 138 Potassium 4.4 Chloride 104 Carbon Dioxide 26 BUN 50 H Creatinine 2.38 H Calcium 8.5 Assessment and Plan Patient Active problem list reviewed?: Yes (1) Mediastinal mass Status: Chronic Assessment and plan: 1. This is a 89-year-old woman with dementia who has been admitted for cough and found to have bilateral moderate to large pleural effusions. She had therapeutic and diagnostic thoracentesis, cytology is awaited. CT scan also demonstrated massive mediastinal mass originating from inferior thyroid extending to anterior mediastinum. 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 Review of old records indicates that this mass/substernal thyroid goiter has been present since 2007. Differential diagnosis for the mass is thyroid tumor, lymphoma or thymoma. She is not symptomatic from the mediastinal mass. It is unclear if this has transformed or is a low-grade malignancy that is now causing pleural effusions. She had an echocardiogram which showed normal ejection fraction. Software Packaging Engineer has recommended low-dose diuretics. Given patient's age, frailty and advanced dementia, I discussed with her daughter if any further intervention such as biopsy of mediastinal mass would be useful. Her daughter is certain that the family is not interested in pursuing any further treatment even if a diagnosis was established. If it is malignancy, options would be surgery, chemotherapy or radiation therapy. None of these options would be recommended at her age. I have recommended supportive care/symptom management. If she does have malignant pleural effusion and fluid recurs, she may need PleurX catheter for drainage. Placement has to be discussed as patient has been living alone up until now. Her daughter agrees that she is no longer safe to be alone at home. Thank you for the consultation. - Time Spent With Patient Time Spent with Patient (in minutes): 30
--- NOTE | 2025-03-20 11:20 | MHC.CLN ---
F/U PO INTAKE 100% CONSISTENTLY DIET RX: 1800DM 2GM NA-APPROPRIATE NOTED FRAGILE SKIN BUT DEMETRA [place] CONTINUE TO MONITOR PO INTAKE AND WEIGHT
[2025-03-20 11:22] LABS: Glucose, Whole Blood 280 mg/dL (60-115)
--- NOTE | 2025-03-20 13:08 | MHC.CM.PN ---
Per PA, Patient will not be dc'd today.PA spoke with Daughter/HCP/Monica and Patient lives alone (not with her Daughter) and they have hired private caregivers that come in shifts. DC plan is home with new [facility]NA([facility]) VS STR, pending PT PN from today. CM will continue to follow.
--- NOTE | 2025-03-20 14:05 | P.PNIM_ITS ---
Subjective Subjective Date of Service: 03/20/25 Interval History: Pt seen and evaluated in her room where she is resting comfortably in bed Reports nonproductive cough, otherwise no complaints Denies SOB Creatinine improved, now back to baseline Spoke to family who state pt usually has someone staying with her, but uncertain if they can care for her at home right now; considering STR Review of Systems Review of Systems: Yes all other systems are reviewed and are negative Physical Exam 2 Vital Signs: Vital Signs: Last Vital Signs Temp 97.5 F 03/20/25 11:06 Pulse 58 03/20/25 11:06 Resp 18 03/20/25 11:06 BP 136/51 L 03/20/25 11:06 Pulse Ox 97 03/20/25 11:06 O2 Del Method Room Air 03/20/25 11:06 BMI result Body Mass Index 17.8 General: Alert and oriented to self only, no acute distress. Frail, cachectic, elderly Resp: CTA bilaterally CVS: S1, S2, RRR GI: +BS, NT, no distention Skin: Warm, dry Neuro: Cranial nerves II-XII grossly intact bilaterally. Motor grossly intact bilaterally Extremities: No edema Psych: Pleasantly confused Objective Data Active Medications Acetaminophen (Acetaminophen 325 Mg Tablet) 975 mg PO Q6H PRN PRN Reason: Pain, Mild 1-3,fever,headache Albuterol Sulfate (Albuterol Sulfate (0.083%) 2.5 Mg/3 Ml Vial.Neb) 2.5 mg INHALE RQ4H WHILE AWAKE [facility] Last Admin: 03/20/25 11:59 Dose: Not Given Documented By: DUSTIN Non-Admin Reason: Patient Refused Amlodipine Besylate (Amlodipine Besylate 10 Mg Tablet) 10 mg PO DAILY [facility]; Protocol Last Admin: 03/20/25 07:57 Dose: 10 mg Documented By: TESFAYE Atorvastatin Calcium (Atorvastatin Calcium 40 Mg Tablet) 40 mg PO BEDTIME [facility] Last Admin: 03/19/25 21:26 Dose: 40 mg Documented By: DIANE Calcium Carbonate (Calcium Carbonate 750 Mg Tab.Chew) 750 mg PO Q4H PRN PRN Reason: Heartburn Ceftriaxone Sodium (Ceftriaxone Sodium 1 Gm Vial) 1 gm IVPUSH Q24H [facility] Last Admin: 03/20/25 12:11 Dose: 1 gm Documented By: TESFAYE Dextrose (Dextrose 50 % 25 Gm/50 Ml Syringe) 25 gm IVPUSH Q15M PRN; Protocol PRN Reason: per Hypoglycemia Standing Ord. Enoxaparin Sodium (Enoxaparin Sodium 30 Mg/0.3 Ml Syringe) 30 mg SUBCUT Q24H [facility] Last Admin: 03/20/25 07:59 Dose: 30 mg Documented By: TESFAYE Glucose (Glucose Gel 15 Gm Gel..Gram.) 15 gm PO Q15M PRN; Protocol PRN Reason: per Hypoglycemia Standing Ord. Azithromycin 500 mg/ Sodium (Chloride) 250 mls @ 125 mls/hr IV Q24H [facility] Last Infusion: 03/19/25 16:07 Dose: Infused Documented By: TESFAYE Insulin Human Lispro (Insulin Lispro 100 Unit/Ml 3 Ml Vial) 0 unit SUBCUT QIDACHS [facility]; Protocol Last Admin: 03/20/25 12:11 Dose: 6 unit Documented By: TESFAYE Losartan Potassium (Losartan Potassium 50 Mg Tablet) 100 mg PO DAILY [facility]; Protocol On Hold: 03/19/25 10:00 Last Admin: 03/19/25 09:16 Dose: 100 mg Documented By: TESFAYE Magnesium Hydroxide (Milk Of Magnesia 30 Ml Oral.Susp) 30 ml PO DAILY PRN PRN Reason: Constipation Magnesium Oxide (Magnesium Oxide 400 Mg Tablet) 200 mg PO DAILY [facility] Last Admin: 03/20/25 07:58 Dose: 200 mg Documented By: TESFAYE Melatonin (Melatonin 3 Mg Tablet) 6 mg PO BEDTIME PRN PRN Reason: Insomnia Last Admin: 03/17/25 22:12 Dose: 6 mg Documented By: PIPE Metoprolol Succinate (Metoprolol Succinate Er 50 Mg Tab.Er.24h) 150 mg PO DAILY [facility]; Protocol Last Admin: 03/20/25 07:59 Dose: 150 mg Documented By: TESFAYE Quetiapine Fumarate (Quetiapine Fumarate 25 Mg Tablet) 25 mg PO DAILY@1700 PRN PRN Reason: anxiety/restlessness Sertraline HCl (Sertraline Hcl 100 Mg Tablet) 100 mg PO DAILY [facility] Last Admin: 03/20/25 07:58 Dose: 100 mg Documented By: TESFAYE Sitagliptin Phosphate (Sitagliptin Phosphate 25 Mg Tablet) 25 mg PO DAILY [facility] Last Admin: 03/20/25 07:58 Dose: 25 mg Documented By: TESFAYE Sodium Chloride (0.9 % Sodium Chloride Flush 3 Ml Syringe) 3 ml IVFLUSH QSHIFT [facility] Last Admin: 03/20/25 11:09 Dose: Not Given Documented By: TESFAYE Non-Admin Reason: Previously Administered Spironolactone (Spironolactone 25 Mg Tablet) 25 mg PO DAILY [facility]; Protocol On Hold: 03/18/25 08:36 Last Admin: 03/18/25 08:04 Dose: 25 mg Documented By: BRODIE Vitamin D (Cholecalciferol (Vitamin D3) 25 Mcg Tablet) 250 mcg PO Q48H [facility] Last Admin: 03/18/25 14:18 Dose: 250 mcg Documented By: BRODIE Labs 03/17/25 06:41 03/20/25 06:25 Labs: Laboratory Results - last 24 hr 03/19/25 03/19/25 03/20/25 16:14 20:01 06:25 Hold Purple Top SEE NOTE Anion Gap 12 Estim Creat Clear Calc 11.9 Estimated GFR 19 POC Glucose 208 H 200 H Random Glucose 166 H Calcium 8.5 03/20/25 03/20/25 07:00 11:20 Hold Purple Top Anion Gap Estim Creat Clear Calc Estimated GFR POC Glucose 144 H 280 H Random Glucose Calcium Microbiology Microbiology Results: Microbiology 03/15/25 16:26 Gram Stain - Final Thoracentesis Fluid Anaerobic Culture - Preliminary No growth to date. Body Fluid Culture - Final No growth after 2 days 03/15/25 16:26 Direct Acid Fast Bacilli Smear - Final Pleural Fluid Assessment and Plan (1) Pleural effusion, bilateral: Status: Acute Plan An 89 years old lady with PMH of advanced dementia, HTN, HLD, Mood disorder among others who presents pleural effusins bilaterally and large mediastinal mass for evaluation. 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 to the anterior mediastinum Concerning for malignancy/lymphoma Repeat CXR showing effusions and opacities Pulmonology recommended diagnostic and therapeutic thoracocentesis According to family, mass known for some time; review of records indicates has had substernal thyroid goiter since at least chest CT of 04/2008 Unclear whether mass has grown since either 2018 or 2007 Family does not want to pursue biopsy at this time Patient underwent right thoracocentesis-removal of 750 cc on 03/15, cytology pending Has not yet undergone left thoracocentesis Oncology consulted, recommend supportive care/symptom management EWELINA, resolved Likely secondary to hypovolemia from diuresing with Lasix bid and spironolactone Diuretics being held Currently back to baseline with creatinine 2.38 Pneumonia Continue Ling and CTx Blood cultures negative Acid-fast and gram stains negative Pericardial effusion, small Cardiology recommended low dose diuretics Echo showing EF 60-65% with small pericardial effusion Diuresed with Lasix 20 b.i.d.; will hold due to EWELINA Goals of care Spoke to family who note pt lives alone though usually has one family member with her 28/03 to help out Recently hired a [employer] OPERATOR for care 2 days a week Has been declining significantly after hospitalization for encephalopathy 8 months ago PT evaluation recommends home with services, though family uncertain if they can continue caring for her at home Will get PT re-evaluation for possible STR/LTC placement HTN Amlpdipine Hold losartan Dno-ahklgvt-lxucvokrn type 2 diabetes Pt has been hyperglycemic Continue diabetic diet, sliding scale DVT PPx Lovenox Pt will require continued hospitalization for safe disposition home or to SNF. Quality Stroke Does the patient have a stroke diagnosis?: No VTE Prior VTE?: No VTE Risk Level:: Medical - moderate - high VTE Device Contraindication: Treatment Not Indicated VTE Drug Contraindication: N/A - Med Ordered
[2025-03-20 16:04] LABS: Glucose, Whole Blood 180 mg/dL (60-115)
[2025-03-20 20:32] LABS: Glucose, Whole Blood 171 mg/dL (60-115)
[2025-03-21 00:21] VITALS: BP 191/84
[2025-03-21] MEDS: 0.9 % Sodium Chloride Flush 3 ML SYRINGE IVFLUSH ×2 (00:21→09:30)
[2025-03-21 04:00] VITALS: BP 150/65; PULSE 74; RESP 18; TEMP 35.9; O2SAT 96
[2025-03-21 07:28] VITALS: BP 149/69; PULSE 71; RESP 16; TEMP 37.2; O2SAT 93
[2025-03-21 07:30] LABS: Glucose, Whole Blood 151 mg/dL (60-115)
[2025-03-21] MEDS: Metoprolol Succinate ER 50 MG TAB.ER.24H 150 MG PO (09:25)
[2025-03-21 10:54] VITALS: BP 133/61; PULSE 60; RESP 16; TEMP 36.9; O2SAT 97
[2025-03-21] MEDS: Albuterol Sulfate (0.083%) 2.5 MG/3 ML VIAL.NEB INHALE (11:20)
[2025-03-21 11:34] VITALS: PULSE 60; RESP 16
[2025-03-21 11:43] LABS: Glucose, Whole Blood 219 mg/dL (60-115)
--- NOTE | 2025-03-21 11:48 | MHC.CM.PN ---
Per PA, Patient is medically cleared for dc to SNF/STR today. Patient will dc to her/family's first choice SNF/[facility] today at 3:30 PM, via [facility]. CM met with Patient and Daughter/HCP/Monica at bedside and addressed IMM with them, providing them with the original and a copy has been placed on the chart.
--- NOTE | 2025-03-21 13:34 | PM.DS ---
DS: Providers Provider Date of Service: 03/21/25 Date of admission: 03/14/25 13:39 Date of discharge: 03/21/25 Primary care physician: Whitley Lay PA-C Consults: 03/14/25 13:53 Consult to Pulmonology Routine Consulting Provider: [facility] Pul[facility] Services Reason for consultation: Dyspnea, bilat pleural effusion, cough Has provider been notified: No 03/14/25 14:14 Consult to Hematology / Oncology Routine Consulting Provider: [facility] Oncology/Hematology Reason for consultation: Mediastinal mass concerning for malignancy Has provider been notified: No 03/14/25 16:15 Consult to Cardiology Routine Consulting Provider: [facility] Reason for consultation: Bilateral pleural effusion Has provider been notified: No 03/19/25 18:22 Consult to Hematology / Oncology Routine Consulting Provider: [facility] Oncology/Hematology Reason for consultation: Mediastinal mass with ?malignancy; family would like to discuss options DS: Diagnosis Discharge Diagnosis (1) Pleural effusion, bilateral: Status: Acute DS: Summary Hospital Course Hospital Course: From admission HPI: Date of Service: 03/14/25 Attending physician on admission: Demar Edwards Chief Complaint: Cough Brooke Mason is a 89 years old woman with past medical history significant for 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 The cough is productive left-sided chest pain. She denied any headache, palpitations, dizziness, fever or chills. She allows report any acute gastrointestinal or genitourinary symptoms. She does not have history of congestive heart failure or MIs. She denied tobacco smoking, alcohol abuse illicit drug use. Daughter was at bedside and contributed with the HPI. In the ED she was found to have stable vital signs. Blood workup was remarkable for leukocytosis of 15.6. Hemoglobin is 12.2 and hematocrit 34.8. There are no significant electrolyte imbalances. BUN is 30 and creatinine 2.26. LFTs are normal. Troponin is 14.5. BNP is elevated at 230. Viral testing for COVID-19, influenza and RSV is negative. Chest CTA showed a mediastinal mass from the inferior thyroid gland to the anterior mediastinum (concerning for malignancy). It also showed bilateral pleural effusion (moderate to large), pericardial effusion and mild interstitial edema. ECG showed sinus bradycardia, heart rate 59 bpm without acute ischemic changes. ED Tx: Ceftriaxone 1 g current, Lasix mg IV Hospital Course: Pt was admitted to the hospital for bilateral pleural effusions, pneumonia, and mediastinal mass concerning for malignancy. Pt was treated for pneumonia with a full 7-day course of ceftriaxone and azithromycin. For bilateral pleural effusions underwent right thoracentesis on 03/15 which drained 750 cc. Cytology studies overall unremarkable, and acid-fast and Gram stains negative, as well as blood cultures. Cytology study did not show any malignancy noted. Review of records show pt has had a substernal thyroid goiter since at least 2007, though it is unclear whether mass has grown any during that time or turned into a low-grade malignancy. Pt was seen by Oncology who recommended supportive care/symptom management as pt not a good candidate for further workup or treatment. Family also did not wish to pursue a biopsy. Pt was also noted to have a small pericardial effusion which Cardiology suggested treating with low-dose diuretics. Pt was started on Lasix 20 mg b.i.d. as well as spironolactone for both pericardial and pleural effusions. Subsequently pt developed an EWELINA which was resolved after diuretics were held. However, it was noted pt's kidney function has worsened since last year, and pt is referred to [facility] for follow up and possible further treatment. Spoke to family at great length about goals of care. Pt has advanced dementia at baseline and needs 24 hour care. Previously lived with 1 of her daughters, though they moved out of the house for months ago. Since then various family members has been alternating staying with the pt and they have also recently hired a [employer] to help out for a few hours a few times a week. Pt apparently has been significantly declining for the past 8 months after being admitted to the hospital for acute encephalopathy. Pt was seen and evaluated by PT who recommended discharge to [facility] for strengthening and conditioning. Of note, pt is still a full code, though family is considering changing code status, and also considering hospice care if pt continues to significantly decline. For asthma continue home inhaler. For hypertension continue amlodipine, losartan, and metoprolol. For [id number] type 2 diabetes continue Januvia and adhere to a diabetic diet. For HLD continue statin. For mood disorder/dementia continue sertraline. Time Attestation Discharge Coordination Time (in mins): 35 Quality: Safe Use of Opioids Does Pt have an Active Cancer Diagnosis on the Problem List?: No Quality: Stroke Does the patient have a stroke diagnosis?: No Physical Exam Vital Signs: Vital Signs: Last Vital Signs Temp 98.5 F 03/21/25 10:54 Pulse 60 03/21/25 11:34 Resp 16 03/21/25 11:34 BP 133/61 03/21/25 10:54 Pulse Ox 97 03/21/25 10:54 O2 Del Method Room Air 03/21/25 10:54 BMI result Body Mass Index 17.8 General: Alert and oriented to self only, no acute distress. Frail, cachectic, elderly Resp: Coarse breath sounds CVS: S1, S2, RRR GI: +BS, NT, no distention Skin: Warm, dry Neuro: Cranial nerves II-XII grossly intact bilaterally. Motor grossly intact bilaterally Extremities: No edema Psych: Pleasantly confused DS: Data Data Completed and Pending Labs on day of discharge: Laboratory Results - last 24 hr 03/20/25 03/20/25 03/21/25 15:53 20:00 07:27 POC Glucose 180 H 171 H 151 H 03/21/25 11:19 POC Glucose 219 H Discharge Plan Discharge Anticipated Discharge Date/Time: 03/21/25 15:30 Patient Disposition: Xfer SNF Discharge Diagnosis: Bilateral pleural effusions Referrals: [facility] [Outside] - 1 Week Whitley Lay PA-C [Primary Care Provider, Family Practice] - 1 Week Christian Hodge MD [Physician, Nephrology] - 1 Week Referral Note: Worsening kidney function. Now CKD 4/5 Discharge Medications: Continued amlodipine 10 mg tablet 10 mg PO DAILY losartan 50 mg tablet 100 mg PO DAILY metoprolol succinate 50 mg Tablet Extended Release 24 Hr 150 mg PO DAILY Rx Instructions: 3 tablets daily per [facility] and daughter atorvastatin 40 mg Tablet 40 mg PO BEDTIME sertraline 100 mg tablet 100 mg PO DAILY albuterol sulfate 90 mcg/actuation HFA aerosol inhaler 2 puff INHALATION Q4H PRN (Reason: Wheezing) Januvia 25 mg tablet 25 mg PO DAILY cholecalciferol (vitamin D3) [Vitamin D3] 125 mcg (5,000 unit) Tablet 250 mcg PO Q48H magnesium oxide 200 mg magnesium Tablet 200 mg PO DAILY Discharge Orders: Discharge Order (Routine); Ordered 03/21/25 Ordered By: Tatyana Correia Activity on Discharge: Use cane or walker Stand Alone Forms: Patient Portal Discharge page Print Language: Citizen Of [place] Care Plan Goals: See below Health Concerns: Bilateral pleural effusions Pneumonia Renal failure Dementia Mediastinal mass Plan of Treatment: You were admitted to the hospital for bilateral moderate to large pleural effusions and underlying pneumonia. You underwent right thoracentesis and were treated with a full course of antibiotics for pneumonia. You will be discharged to [facility] for strengthening and rehabilitation. You were noted to have worsening kidney function and has been referred to Dr. Hodge at [facility]. Please contact to set up follow up appointment. Follow up with PCP in 1 week for routine post-hospitalization follow up Assessment: See discharge summary Discharge Date/Time: 03/21/25 16:00
[2025-03-21 15:17] VITALS: BP 136/60; PULSE 69; RESP 16; TEMP 37.1; O2SAT 93
--- NOTE | 2025-03-24 11:09 | P.CDIM_ITS ---
PROVIDER RESPONSE TEXT: To clarify, the appropriate diagnosis supported by the clinical indicators: Mild QUERY TEXT: PHYSICIAN'S DOCUMENTATION REQUEST Date of Query: 03/19/2025 09:38 AM EDT Patient Name: Brooke Mason Admit Date: 03/14/2025 Dear Tatyana LY, A review of the medical record indicates additional documentation may be needed. Please review below and update the documentation accordingly. Documentation includes the diagnosis of malnutrition. Additional clinical indicators from the record include: BMI 16.9 Per Clinical Nutrition Assessment 03/15/25: mild depletion body fat rib cage, mild depletion muscle mass clavicle, inadequate oral intake, prolong catabolic illness qualifies as moderately malnourished If possible, please provide additional specificity regarding the severity of the malnutrition using the above information: Mild Moderate Severe Other (explain) Clinically unable to determine (explain) Thank you, Josselin Encinas RN Use of terms such as suspected, likely, concern for, or probable (associated with a specific diagnosis that is being evaluated, monitored, or treated as if it exists) are acceptable and can be coded in the inpatient setting, when documented at the time of discharge. Please use your independent medical judgment in providing your response. THIS QUERY IS PART OF THE PERMANENT MEDICAL RECORD
== END 2025-03-21 16:00 | disposition skilled nursing facility (03) | DRG 193 ==
LOC: HO.ED 13:38 → HO.EDOVER 13:39 → HO.IMC 03-15 07:33
PROVIDERS: Student in an Organized Health Care Education/Training Program; Admitting Provider Internal Medicine; Emergency Provider Emergency Medicine; PCP Physician Assistant; Visit Provider Student in an Organized Health Care Education/Training Program
DX: J18.9 Pneumonia, unspecified organism (principal); J98.59 Other diseases of mediastinum, not elsewhere classified; E44.1 Mild protein-calorie malnutrition; J91.8 Pleural effusion in other conditions classified elsewhere; Z68.1 Body mass index [BMI] 19.9 or less, adult; N18.4 Chronic kidney disease, stage 4 (severe); F05 Delirium due to known physiological condition; N17.9 Acute kidney failure, unspecified; I31.39 Other pericardial effusion (noninflammatory); R64 Cachexia; J45.909 Unspecified asthma, uncomplicated; F03.90 Unspecified dementia, unspecified severity, without behavioral disturbance, psychotic disturbance, mood disturbance, and anxiety; I12.9 Hypertensive chronic kidney disease with stage 1 through stage 4 chronic kidney disease, or unspecified chronic kidney disease; E86.1 Hypovolemia; E11.65 Type 2 diabetes mellitus with hyperglycemia; E11.22 Type 2 diabetes mellitus with diabetic chronic kidney disease; Z20.822 Contact with and (suspected) exposure to COVID-19; Z79.899 Other long term (current) drug therapy
CPT/HCPCS: 32555; 36415; 71045; 71046; 71250; 80048; 80053; 81001; 82042; 82105; 82150; 82945; 82947; 83615; 83735; 83880; 84157; 84439; 84443; 84484; 84702; 85025; 85027; 85610; 87070; 87073; 87116; 87205; 87206; 87637; 88112; 88305; 88341; 88342; 93005; 93306; 94640; 97116; 97161; 97530; 99285; J0360; J0456; J0696; J1650; J1938; J2003; J2919; J3360; Q9957

== ENCOUNTER 2025-03-14 13:39 | Outpatient (BNV) | payer MEDICARE, OTHER, SELFPAY | END 2025-03-17 07:45 | PROVIDERS: Admitting Provider Internal Medicine; Emergency Provider Emergency Medicine; PCP Physician Assistant; Visit Provider Specialist | DX: J90 Pleural effusion, not elsewhere classified (principal); R91.8 Other nonspecific abnormal finding of lung field | CPT/HCPCS: 71045 ==

== ENCOUNTER 2025-03-14 13:39 | Outpatient (BNV) | payer MEDICARE, OTHER, SELFPAY | END 2025-03-15 16:37 | PROVIDERS: Admitting Provider Internal Medicine; Emergency Provider Emergency Medicine; PCP Physician Assistant; Visit Provider Radiology Diagnostic Radiology | DX: J90 Pleural effusion, not elsewhere classified (principal) | CPT/HCPCS: 32555 ==

== ENCOUNTER → 2025-03-14 13:39 | Outpatient (BNV) | payer MEDICARE, OTHER, SELFPAY | PROVIDERS: Admitting Provider Internal Medicine; Emergency Provider Emergency Medicine; PCP Physician Assistant; Visit Provider Internal Medicine | DX: J98.59 Other diseases of mediastinum, not elsewhere classified (principal); J90 Pleural effusion, not elsewhere classified; J81.0 Acute pulmonary edema; R06.09 Other forms of dyspnea | CPT/HCPCS: 99223; 99233 ==

== ENCOUNTER → 2025-03-14 13:39 | Outpatient (BNV) | payer MEDICARE, OTHER, SELFPAY | PROVIDERS: Admitting Provider Internal Medicine; Emergency Provider Emergency Medicine; PCP Physician Assistant; Visit Provider Internal Medicine | DX: J98.59 Other diseases of mediastinum, not elsewhere classified (principal) | CPT/HCPCS: 99222 ==

== ENCOUNTER → 2025-03-14 13:39 | Outpatient (BNV) | payer MEDICARE, OTHER, SELFPAY | PROVIDERS: Admitting Provider Internal Medicine; Emergency Provider Emergency Medicine; PCP Physician Assistant; Visit Provider Internal Medicine Cardiovascular Disease | DX: J98.59 Other diseases of mediastinum, not elsewhere classified (principal); J90 Pleural effusion, not elsewhere classified; I31.39 Other pericardial effusion (noninflammatory) | CPT/HCPCS: 99223 ==

== ENCOUNTER → 2025-03-14 13:39 | Outpatient (BNV) | payer MEDICARE, OTHER, SELFPAY | PROVIDERS: Admitting Provider Internal Medicine; Emergency Provider Emergency Medicine; PCP Physician Assistant; Visit Provider Hospitalist | DX: J98.59 Other diseases of mediastinum, not elsewhere classified (principal); J81.0 Acute pulmonary edema; J90 Pleural effusion, not elsewhere classified; J40 Bronchitis, not specified as acute or chronic | CPT/HCPCS: 99223 ==

== ENCOUNTER 2025-03-18 10:38 | Outpatient (REF) | payer MEDICARE, OTHER, SELFPAY ==
--- OUTSIDE RECORDS SUMMARY | 2025-03-18 11:30 | XMS_ITS ---
Author Organization [facility] on Care Team Providers Care Forming Machine Adjuster Name Role Phone Deborah Ch Unavailable Unavailable Brook Ford Unavailable Unavailable Howard Vidal Unavailable Unavailable Garo Chaudhary Unavailable Unavailable Paul, Carrie Unavailable Unavailable Ele, Paola Unavailable Unava ilable Marni Renteria Unavailable Unavailable Allergies and adverse reactions No Known Allergies Care Team Name Role Address Phone Organization Dates Garo Chaudhary [address], [address], [place] (Office): : [facility] 02/29/2024 - 03/13/2024 Deborah Ch [address] [place] [address], [address], [place] (Office): : : [facility] 02/29/2024 - 03/13/2024 Brook Ford [address] [place] [address], [address], [place] (Office): [facility] 02/29/2024 - 03/13/2024 Howard Vidal [address] [facility], [place], [address], [place] (Office): [facility] 02/29/2024 - 03/13/2024 Carrie Miller [address] [place] [address], [address], [place] (Office): : [facility] 02/29/2024 - 03/13/2024 Paola Marlow [address] [facility], [place], [address], [place] (Office): [facility] 02/29/2024 - 03/13/2024 Marni Renteria [address] [facility] [address], [place], [address], [place] (Office): : [facility] 02/29/2024 - 03/13/2024 Immunizations Immunization Status Vaccine Details Vaccine Code CodeSystem Date Notes Zostavax(Shingles ) completed zoster vaccine, live 121 CVX created date: 4 administe red date: 3 Verified in [facility]. Pneumococcal Conjugate Vaccine (PCV13) completed pneumococcal conjugate [...] cancelled Pneumococcal conjugate vaccine 20-valent (PCV20), polysaccharide [id number] conjugate, adjuvant, preservative free 216 CVX created [...] 4 administe red date: 3 Verified in [facility]. COVID-19 vaccine, vector-nr, rS-Ad26, PF, 0.5 mL completed SARS-COV-2 (COVID-19) vaccine, mRNA, spike protein, LNP, preservative free, 50 mcg/0.5 mL dose Mfg: Moderna Spikevax 312 CVX created date: 4 administe red date: 3 Verified in [facility]. Td(adult) unspecified formulation completed Td(adult) unspecified formulation 139 CVX created date: 4 administe red date: 9 Verified in [facility]. Mental Status Section Date Assessment Total Score Description 03/13/2024 BIMS 06 severe cognitiv e impairment CAM 0 No delirium ind icated PHQ-9 02 minimal depress ion 03/06/2024 CAM 2 Delirium indica sd PHQ-9 00 Problems Problem # Description Date of onset Resolved Date Code CodeSystem Concern Status 1 ESSENTIAL (PRIMARY) HYPERTENSION 02/29/[address] active 2 HYPOTHYROIDISM, UNSPECIFIED 02/29/[address] active 3 PURE HYPERCHOLESTEROLEM IA, UNSPECIFIED 02/29/[address] active 4 TYPE 2 DIABETES MELLITUS WITH DIABETIC NEPHROPATHY 02/29/[address] active 5 UNSPECIFIED DEMENTIA, UNSPECIFIED SEVERITY, WITHOUT BEHAVIORAL DISTURBANCE, PSYCHOTIC DISTURBANCE, MOOD DISTURBANCE, AND ANXIETY 02/29/[address] active Reason for Referral No Reasons for Referral Entered Social History Social History Observation Description Start Date End Date Code Code System Current Smoking Status Tobacco smoking consumption unknown 488590242 SNOMED CT Sex Assigned At Female 1935 [address]-5 [facility] Gender Identity Vital Signs Code Code System Vitals Name Values and Units Timing Information 9279-1 [facility] Respiratory Rate Value=18.0 Units=/m in 03/13/2024 8462-4 [facility] Blood Pressure-Diastolic Value=58 Un its=mmHg 03/13/2024 8480-6 [facility] Blood Pressure-Systolic Hcppu=966 Un its=mmHg 03/13/2024 8310-5 [facility] Body Temperature Value=97.4 Units= F 03/13/2024 8867-4 [facility] Heart rate Value=78.0 Units=/min 05/2024 31139-1 [facility] O2 % BldC Oximetry Value=95.0 Units= % 03/13/2024 2339-0 [facility] Blood Sugar Thzux=200.0 Units=mg/dL 03/13/2024 47461-5 [facility] Pain Level Value=0.0 03/13/2024 47406-6 [facility] Weight Dtwsi=968.2 Units=Lbs 11/2023 8302-2 [facility] Height Value=60.0 Units=Inches 03/05/2024
--- OUTSIDE RECORDS SUMMARY | 2025-03-18 11:30 | XMS_ITS | Encounter Summary ---
Author Organization [facility], Address [address] [place] [address] Phone Care Team Providers Care Slime Plant Operator Name Role Phone Whitley Lay Primary Care Provider Ambreen ladd Encounter Details Date Type Department Care Team (Late st Contact Info) Description 06/22/2023 Documentation Only [facility] Neri ROSEN [address] [place] [address] Javon Porter MD [address] [place] [address] [place] [address] Social History Tobacco Use Types [...] Visit [facility] Neri ROSEN [address] [place] [phone] Javon Porter MD [address] [place] [address] [place] [address] documented as of this encounter Visit Diagnoses Not on filedocumented in this encounter Care Teams Slime Plant Operator Relationship Specialty Start Date End Date Whitley Lay PA [address] [place] [phone] PCP - General 12/22/23 documented as of this encounter
== END 2025-03-18 10:39 | disposition home or self-care (01) ==
LOC: HO.LAB 10:38
PROVIDERS: Visit Provider Student in an Organized Health Care Education/Training Program
DX: Z13.89 Encounter for screening for other disorder (principal)

== ENCOUNTER 2025-04-19 21:48 | Inpatient (IN) | payer MEDICARE, OTHER, SELFPAY ==
--- NOTE | ~2025-04-19 | XR_ITS ---
EXAMINATION: XR CHEST CLINICAL INFORMATION: wheezing COMPARISON: Several priors dating back to 02/23/2024, most recently 03/17/2025 CT chest 03/14/2025. TECHNIQUE: AP view of the chest was obtained. FINDINGS: There is a stable large mediastinal mass present. By reports, this is stable from 2018, and related to a large substernal multinodular goiter. Eggshell calcification overlying the right inferior aspect of the mass, unchanged. Aortic mural calcification and aortic tortuosity. The left hilar silhouette is normal. The right is partially obscured. Lungs demonstrate small to moderate bilateral effusions. There is associated right greater than left basilar parenchymal opacities, likely passive atelectasis. There is underlying COPD suspected. Subtle nodular opacity in the left upper lung region, similar to 02/22/2025. There are healed right rib fractures. There is scoliosis and degenerative spondylosis of the spine. No acute osseous or soft tissue abnormality. XR/XR chest 1V IMPRESSION: 1. Large right suprahilar/mediastinal mass present, which by report from 02/25/2024 states is related to a large substernal goiter goiter as seen on a recent and prior CT examinations. 3. Similar small to moderate bilateral effusions with underlying parenchymal opacities. Electronically signed by: Harsh Garza MD 04/23/2025 10:40 AM EDT
[2025-04-19 21:56] VITALS: BP 152/58; BP 167/58; PULSE 72; PULSE 76; RESP 14; TEMP 36.6; O2SAT 96; BMI 20.6
[2025-04-19 22:00] VITALS: BP 167/58; PULSE 67; RESP 14; TEMP 36.9; O2SAT 99
--- NOTE | 2025-04-19 22:12 | PC.NURSE ---
Pt arrives via EMS from home, recently discharged from [facility]. Pt is unsure of the reason at this time. Answering questions appropriately but unsure of and sons name. Pt states Im sorry, I have dementia. Pt does report having diarrhea episodes, denies any bloody stool but one in particular that was very dark. Med list provided shows recently completed vanco antibiotics on 04/14/25. Pt is unsure the reason for the antibiotics. EMS reports pts son should be on his way. #20G IV R AC. Labs obtained and sent. Monitoring is ongoing.
[2025-04-19 22:13] LABS: Hematocrit 31.0 % (37.0-47.0); Hemoglobin 10.8 g/dl (12.0-16.0); Imm Gran Abs Auto 0.36 X10*3/uL (0.00-0.03); Imm Gran Pct Auto 0.9 % (0.0-0.4); Lymphocytes Absolute Auto 0.4 X10*3/uL (1.2-4.9); MANUAL DIFF FLAG SCAN; Mean Corpuscular HGB Conc 34.8 g/dl (31.0-35.0); Mean Corpuscular Hemoglobin 31.5 pg (27.0-33.0); Mean Corpuscular Volume 90.4 fL (80.0-98.0); NRBC Abs Auto 0.000 X10*3/uL (0.0-0.012); NRBC Pct Auto 0.0 /100WBC (0.0-0.2); Platelet Count 312 X10*3/uL (160-400); Red Blood Count 3.43 X10*6/uL (4.20-5.50); SCAN SMEAR FLAG 1
[2025-04-19 22:15] LABS: White Blood Count 39.1 X10*3/uL (4.8-10.8)
--- NOTE | 2025-04-19 22:18 | ECG_ITS ---
Test Reason : WEAKNESS Blood Pressure : */* mmHG Vent. Rate : 74 BPM Atrial Rate : 74 BPM P-R Int : 198 ms QRS Dur : 84 ms QT Int : 456 ms P-R-T Axes : 55 50 32 degrees QTcB Int : 506 ms Sinus rhythm with marked sinus arrhythmia with occasional Premature ventricular complexes Nonspecific T wave abnormality Abnormal ECG When compared with ECG of 14-Mar-2025 11:16, Premature ventricular complexes are now Present Nonspecific T wave abnormality now evident in Lateral leads Referred By: Generic ED Physician Electronically Signed By: Speedy Vigil
[2025-04-19 22:26] LABS: Alanine Aminotransferase 15 U/L (0-31); Albumin Level 2.8 g/dL (3.5-5.0); Alkaline Phosphatase 111 U/L (39-117); Anion Gap 13 (12-20); Aspartate Amino Transferase 18 U/L (5-31); Blood Urea Nitrogen 43 mg/dL (9-16); Calcium 8.0 mg/dL (8.4-10.2); Carbon Dioxide 20 mmol/L (22-29); Chloride 107 mmol/L (96-108); Creatinine Clr Calc Pharmacy 14.5; Estimated Glomerular Filt Rate 20; Potassium 3.2 mmol/L (3.3-5.1); Sodium 137 mmol/L (135-145); Total Protein 5.2 g/dL (6.5-8.0)
--- NOTE | 2025-04-19 23:07 | ED_ITS ---
HPI - Nausea/Vomiting/Diarrhea General Chief complaint: Nausea/Vomiting/Diarrhea Stated complaint: FECAL INCONTINENCE Time Seen by Provider: 04/19/25 22:35 Source: patient, family and EMS Mode of arrival: EMS Limitations: no limitations History of Present Illness ED Provider: Dr. Niya Panchal HPI Narrative: Emergency room via ambulance from home. Patient comes accompanied by her son. Patient reports 5 episodes of watery diarrhea today. Patient denies nausea vomiting diarrhea, no abdominal pain. According to the patient's son, the patient was discharged from [facility] a proximally 5 days ago. Before being admitted to [facility], patient was being treated for pneumonia, and while she was in [facility], she developed C diff. according to the patient's family, the last time that the patient had p.o. medication/antibiotics was 3 days ago. Patient was doing well until today, the diarrhea restarted. Related Data Home Medications ?Medication ?Instructions ?Recorded ?Confirmed amlodipine 10 mg tablet 10 mg PO DAILY 02/25/2403/05 losartan 50 mg tablet 100 mg PO DAILY 02/25/2406/29 metoprolol succinate 50 mg 150 mg PO DAILY 02/25/24 tablet,extended release 24 hr atorvastatin 40 mg tablet 40 mg PO BEDTIME 02/26/24 albuterol sulfate 90 mcg/actuation 2 puff inhalation Q 4H PRN Wheezing 03/14/25 03/14/25 aerosol inhaler cholecalciferol (vitamin D3) 125 250 mcg PO Q48H 03/1403/14/25 mcg (5,000 unit) tablet (Vitamin D3) magnesium oxide 200 mg PO DAILY 03/14/2506/29 sertraline 100 mg tablet 100 mg PO DAILY 03/14/2506/29 sitagliptin phosphate 25 mg tablet 25 mg PO DAILY 03/0503/14/25 (Januvia) Allergies Allergy/AdvReac Type Severity Reaction Status Date / Time No Known Allergies (No Known Allergy Verified 04/19/25 22:00 Allergies*) Review of Systems 2 Review of Systems: Constitutional : No Weight loss, No Fever, No Chills, No Night Sweats, No Fatigue, No Malaise ENT/Mouth : No Hearing loss, No Ear Pain, No Nasal Congestion, No Sinus Pain, No Hoarseness, No sore throat, No Rhinorrhea, No Swallowing Difficulty Eyes: No Eye Pain, No Swelling, No Redness, No Foreign Body, No Discharge, No Vision Changes Cardiovascular : No Chest Pain, No SOB, No Dyspnea on Exertion, No Orthopnea, No Edema, No Palpitations Respiratory : No Cough, No Sputum, No Wheezing, No Smoke Exposure, No Dyspnea Gastrointestinal : No Nausea, No Vomiting, complaining of profuse watery Diarrhea, No Constipation, No abdominal Pain, No Hematochezia, No Melena Genitourinary : no irregular bleeding, No Dysuria, No Urinary Frequency, No Hematuria, No Urinary Incontinence, No Urgency, No Flank Pain, No Urinary Flow Changes, No Hesitancy Musculoskeletal : No joint pain, No Myalgias, No Joint Swelling Skin : No Skin Lesions, No rash Neuro : No Weakness, No Numbness, No Paresthesias, No Loss of Consciousness, No Dizziness, No Headache Psych : No Anxiety/Panic, No Depression, No SI/HI/AH/VH, No Social Issues, Heme/Lymph: No Bruising, No Bleeding,No Lymphadenopathy Endocrine : No Polyuria, No Polydipsia, No Temperature Intolerance [facility] Past Medical History Medical History (Updated 04/20/25 @ 00:09 by Niya Panchal MD) C. difficile colitis Bronchitis Type 2 diabetes mellitus Chronic kidney disease (CKD), stage 4 Substernal goiter Essential hypertension Hyperlipidemia Social History Social History Household Members: None Housing: Assisted Living Facility Do you presently have visiting nurse or other home services: No Unable to assess alcohol history related to: Unknown Alcohol intake: former Patient Tobacco Use Status: Never used Tobacco Advance Directives: Yes Advance Directives on File: Yes Advance Directives Date on File: 03/01/24 Do you have a plan to hurt others: No Plan service: No Physical Exam 2 Exam: Exam: Appearance: Alert. Oriented X3. No acute distress. Well-appearing Eyes: Pupils equal, round and reactive to light. ENT: Pharynx normal. Dry oral mucosa Neck: Normal inspection. Neck supple. No lymph nodes noted. No crepitus CVS: Normal heart rate and rhythm. Pulses normal. Normal S1 and S2 Respiratory: No respiratory distress. Breath sounds normal. No Wheezing. No rales Abdomen: Soft and nontender. No rigidity. No distention. Skin: Skin warm and dry. Normal skin color. Normal skin turgor. Extremities: No lower extremity edema. No Lacerations. No Rash Neuro: Oriented X 3. No motor deficit. No sensory deficit. Moving all extremities. No slurred speech. CN 2 through 12 grossly intact Psych: calm, cooperative, normal affect Vital Signs: Vital Signs: Last Vital Signs Temp 98.6 F 04/19/25 23:33 Pulse 70 04/19/25 23:33 Resp 16 04/19/25 23:33 BP 155/53 H 04/19/25 23:33 Pulse Ox 97 04/19/25 23:33 O2 Del Method Room Air 04/19/25 23:33 BMI result Body Mass Index 20.6 Course Course Course Narrative: Patient comes in for profuse watery diarrhea, dehydration Patient has stopped taking antibiotics 2 days ago for C diff. Diarrhea stopped 3 days ago and now restarted Patient's vitals stable, no fever, sepsis is not suspected Patient is receiving IV fluids for dehydration, given patient's recent history of C diff, we will start p.o. vancomycin. Stool C diff PCR pending Medications Administered Generic Name Dose Route Start Last Admin Trade Name Freq PRN Reason Stop Dose Admin Lactated Ringer's 2,000 mls @ 999 mls/hr 04/19/25 22:45 04/19/25 23:46 Lr IV 04/20/25 00:45 999 mls/hr .Q2H1M LAWANDA Administration Discontinued Medications Generic Name Dose Route Start Last Admin Trade Name Freq PRN Reason Stop Dose Admin Potassium Chloride 40 meq 04/19/25 22:37 04/19/25 23:45 Potassium Chloride Packet 20 Meq Packet PO 04/19/25 22:38 40 meq ONCE ONE Administration Vancomycin HCl 125 mg 04/19/25 23:06 04/19/25 23:45 Vancomycin Hcl 125 Mg Capsule PO 04/19/25 23:07 125 mg ONCE ONE Administration Medical Decision Making Medical Decision Making [facility] Narrative: My interpretation of labs: Patient's white blood cell count 31.1, rest of hemoglobin baseline, sodium within normal limits, potassium 3.2, being repleted p.o., patient's creatinine 2.35 which is at patient's baseline P.o. vancomycin was started. At this time, no sample has been obtain. However, given the patient's recent history and lab work, patient likely has a diff Given patient's age, seems dehydrated, still having diarrhea, it would be best to keep the patient here in the hospital. At this time, patient has no abdominal tenderness, abdominal physical exam not concerning for any acute medical pathology. CT scan not indicated at this time I discussed the above-mentioned with our hospitalist Dr. Solano, patient being admitted. Patient and her son agree with plan. Differential Diagnosis Differential Diagnoses: The differential diagnosis associated with the presentation includes (C diff, gastritis, gastroenteritis, enteritis) Admission/Observation Consideration of admission/observation: Escalation of care including admission/observation considered Consult Healthcare Provider Management of the patient was discussed with: Hospitalist Lab Data MDM Lab Attestation statement: I reviewed the patient's lab results. 04/19/25 22:06 04/19/25 22:06 Labs: Lab Results 04/19/25 04/19/25 Range/Units 22:06 22:42 WBC 39.1 H* (4.8-10.8) X10*3/uL RBC 3.43 L (4.20-5.50) X10*6/uL Hgb 10.8 L (12.0-16.0) g/dl Hct 31.0 L (37.0-47.0) % MCV 90.4 (80.0-98.0) fL MCH 31.5 (27.0-33.0) pg MCHC 34.8 (31.0-35.0) g/dl RDW 13.7 (11.0-16.0) % Plt Count 312 (160-400) X10*3/uL MPV 10.5 (9.4-12.3) fL Immature Gran % (Auto) 0.9 H (0.0-0.4) % Neut % (Auto) 92.8 H (45-73) % Lymph % (Auto) 1.0 L (20-40) % [place] % (Auto) 5.0 (2-11) % Eos % (Auto) 0.0 (0-4) % Baso % (Auto) 0.3 (0-2) % Lymph # (Auto) 0.4 L (1.2-4.9) X10*3/uL [place] # (Auto) 2.0 H (0.1-1.2) X10*3/uL Eos # (Auto) 0.0 (0.0-0.4) X10*3/uL Baso # (Auto) 0.1 (0.0-0.2) X10*3/uL Abs Immat Gran (auto) 0.36 H (0.00-0.03) X10*3/uL Absolute Neuts (auto) 36.3 H (2.0-8.3) x10*3/uL Absolute Nucleated RBC 0.000 (0.0-0.012) X10*3/uL Nucleated RBC % (auto) 0.0 (0.0-0.2) /100WBC Smear Tech's Comments VERIFIED Sodium 137 (135-145) mmol/L Potassium 3.2 L D (3.3-5.1) mmol/L Chloride 107 (96-108) mmol/L Carbon Dioxide 20 L (22-29) mmol/L Anion Gap 13 (12-20) BUN 43 H (9-16) mg/dL Creatinine 2.35 H (0.5-1.4) mg/dL Estim Creat Clear Calc 14.5 Estimated GFR 20 Random Glucose 220 H (60-115) mg/dL Lactic Acid 0.9 (0.5-2.0) mmol/L Calcium 8.0 L (8.4-10.2) mg/dL Total Bilirubin 0.3 (0.0-1.0) mg/dL AST 18 (5-31) U/L ALT 15 (0-31) U/L Alkaline Phosphatase 111 (39-117) U/L Total Protein 5.2 L (6.5-8.0) g/dL Albumin 2.8 L (3.5-5.0) g/dL Critical Care Time Critical Care Time Critical Care Time: Yes Total Critical Care Time: 60 Attestation: I have personally provided critical care time. Time includes review of lab data, radiology results, discussion with consultants, and monitoring for potential decompensation. Intervention performed as documented. Discharge Plan Discharge Clinical Impression: C. difficile colitis, Dehydration Patient Disposition: Admitted As Inpatient Print Language: Armenian
[2025-04-19 23:33] VITALS: BP 155/53; PULSE 70; RESP 16; TEMP 37; O2SAT 97
[2025-04-19] MEDS: Potassium Chloride Packet 20 MEQ PACKET 40 MEQ PO (23:45)
[2025-04-19] MEDS: Lactated Ringers 2,000 ML 999 ML IV (23:46)
[2025-04-20 00:57] LABS: Glucose, Whole Blood 161 mg/dL (60-115)
--- NOTE | 2025-04-20 01:41 | P.HPHOSP_ITS ---
History of Present Illness Date of Service: 04/19/25 <MARIAMA Harvey Last Filed: 04/20/25 01:51> Attending physician on admission: Demar Edwards <MARIAMA Harvey Last Filed: 04/20/25 01:51> Chief Complaint: diarrhea <MARIAMA Harvey Last Filed: 04/20/25 01:51> Patient is an 89-year-old female with a past medical history significant for dementia, hypertension, type 2 diabetes, HLD, anxiety, depression, CKD 4, who presented to the ED via EMS due to fecal incontinence all day. The patient is currently being treated for C diff per her medication list however the patient does not recall this. She reports waking up this morning to her daughter telling her that she had incontinence all over the restroom. The patient denies any nausea, vomiting, fever, chills or abdominal pain. No urinary symptoms including frequency, urgency or dysuria. She denies any blood in the stool. < MARIAMA Harvey Last Filed: 04/20/25 01:51> Review of Systems 2 Constitutional: Constitutional: Denies chills, Denies fatigue, Denies fever(s) and Denies headache(s) <MARIAMA Harvey Last Filed: 04/20/25 01:51> Eyes: Eyes: Denies change in vision <MARIAMA Harvey Last Filed: 04/20/25 01:51> ENT: Denies headache(s) and Denies sore throat <MARIAMA Harvey Last Filed: 04/20/25 01:51> Cardiovascular: Cardiovascular: Denies chest pain, Denies rapid heart rate, Denies leg edema, Denies lightheadedness and Denies dyspnea <MARIAMA Harvey Filed: 04/20/25 01:51> Respiratory: Respiratory: Denies chest congestion, Denies cough, Denies dyspnea and Denies wheezing <MARIAMA Harvey Filed: 04/20/25 01:51> Gastrointestinal: Gastrointestinal: Reports as per HPI <MARIAMA Harvey Last Filed: 04/20/25 01:51> Genitourinary: Genitourinary: Denies difficulty voiding, Denies dysuria and Denies urinary urgency <Susana Carrasco PA-C - Last Filed: 04/20/25 01:51> Musculoskeletal: Musculoskeletal: Denies myalgias <Susana Carrasco PA-C - Last Filed: 04/20/25 01:51> Integumentary/Breasts: Skin/Breast: Denies rash <Susana Carrasco PA-C Last Filed: 04/20/25 01:51> Neurologic: Denies headache(s) and Reports memory loss <Susana Carrasco PA-C - Last Filed: 04/20/25 01:51> Comments: dementia <MARIAMA Harvey Last Filed: 04/20/25 01:51> Psychiatric: Psychiatric: Reports memory loss <Susana Carrasco PA-C Last Filed: 04/20/25 01:51> Endocrine: Endocrine: Denies fatigue <Susana Carrasco PA-C Last Filed: 04/20/25 01:51> Hematologic/Lymphatic: Hematologic/Lymphatic: Denies easy bleeding and Denies easy bruising <Susana Carrasco PA-C - Last Filed: 04/20/25 01:51> Allergic/Immunologic: Allergic/Immunologic: Denies wheezing <Susana Carrasco PA-C Last Filed: 04/20/25 01:51> [facility] Medical History: Medical History C. difficile colitis Bronchitis Type 2 diabetes mellitus Chronic kidney disease (CKD), stage 4 Substernal goiter Essential hypertension Hyperlipidemia <Susana Carrasco PA-C - Last Filed: 04/20/25 01:51> Social History: Social History Household Members: Unknown / Unable to assess Housing: Unknown / Unable to assess Do you presently have visiting nurse or other home services: No Unable to assess alcohol history related to: Unknown Alcohol intake: former Patient Tobacco Use Status: Never used Tobacco Advance Directives: Yes Advance Directives on File: Yes Advance Directives Date on File: 03/01/24 Do you have a plan to hurt others: No Plan Recently lost weight without trying: Unsure Eating poorly because of decreased appetite: No Nutrition Risks: No Nutritional Risk Patient : No service: No <Susana Carrasco PA-C - Last Filed: 04/20/25 01:51> Meds Allergies/Adverse reactions: Allergies Allergy/AdvReac Type Severity Reaction Status Date / Time No Known Allergies (No Known Allergy Verified 04/19/25 22:00 Allergies*) <Susana Carrasco PA-C - Last Filed: 04/20/25 01:51> Active Medications: Current Medications Dextrose (Dextrose 50 % 25 Gm/50 Ml Syringe) 25 gm IVPUSH Q15M PRN; Protocol PRN Reason: per Hypoglycemia Standing Ord. Glucose (Glucose Gel 15 Gm Gel..Gram.) 15 gm PO Q15M PRN; Protocol PRN Reason: per Hypoglycemia Standing Ord. Lactated Ringer's (Lr) 500 mls @ 999 mls/hr IV .Q31M LAWANDA Stop: 04/20/25 01:45 Insulin Glargine (Insulin Glargine,Hum.Rec.Anlog 100 Unit/Ml 10 Ml Vial) 7 unit SUBCUT BEDTIME LAWANDA Insulin Human Lispro (Insulin Lispro 100 Unit/Ml 3 Ml Vial) 0 unit SUBCUT QIDACHS LAWANDA; Protocol Vancomycin HCl (Vancomycin Hcl 125 Mg Capsule) 125 mg PO Q6H LAWANDA <Susana Carrasco PA-C - Last Filed: 04/20/25 01:51> Home medications: Home Medications ?Medication ?Instructions ?Recorded ?Confirmed ?Last Taken ?Type amlodipine 10 mg tablet 10 mg PO DAILY 02/25/2403/0503/14/25 History losartan 50 mg tablet 100 mg PO DAILY 02/25/2406/2903/14/25 History metoprolol succinate 50 mg 150 mg PO DAILY 02/25/2403/14/25 History tablet,extended release 24 hr atorvastatin 40 mg tablet 40 mg PO BEDTIME 02/26/2403/13/25 History albuterol sulfate 90 mcg/actuation 2 puff inhalation Q 4H PRN Wheezing 03/14/25 03/14/25 03/14/25 History aerosol inhaler cholecalciferol (vitamin D3) 125 250 mcg PO Q48H 03/1403/14/25 Unknown History mcg (5,000 unit) tablet (Vitamin D3) magnesium oxide 200 mg PO DAILY 03/14/2506/2903/14/25 History sertraline 100 mg tablet 100 mg PO DAILY 03/14/2506/2903/14/25 History sitagliptin phosphate 25 mg tablet 25 mg PO DAILY 03/0503/14/25 03/14/25 History (Januvia) <Susana Carrasco PA-C - Last Filed: 04/20/25 01:51> Physical Exam 2 Vital Signs and Narrative: Vital Signs: Last Vital Signs Temp 98.6 F 04/19/25 23:33 Pulse 70 04/19/25 23:33 Resp 16 04/19/25 23:33 BP 155/53 H 04/19/25 23:33 Pulse Ox 97 04/19/25 23:33 O2 Del Method Room Air 04/19/25 23:33 BMI result Body Mass Index 20.6 <Susana Carrasco PA-C - Last Filed: 04/20/25 01:51> General: AOx3, no acute distress Resp: CTA bilaterally CVS: RRR, +murmur GI: +BS, NT, no distention Skin: Warm, dry Neuro: Cranial nerves II-XII grossly intact bilaterally. Motor grossly intact bilaterally Extremities: No LE edema Psych: Appropriate affect, repetitive, reports dementia <Susana Carrasco PA-C - Last Filed: 04/20/25 01:51> Results Labs CBC and Chem 7: 04/19/25 22:06 04/19/25 22:06 <Susana Carrasco PA-C - Last Filed: 04/20/25 01:51> Labs: Laboratory Results - last 24 hr 04/19/25 04/19/25 04/20/25 22:06 22:42 00:48 MCV 90.4 MCH 31.5 MCHC 34.8 RDW 13.7 Plt Count 312 MPV 10.5 Immature Gran % (Auto) 0.9 H Neut % (Auto) 92.8 H Lymph % (Auto) 1.0 L [place] % (Auto) 5.0 Eos % (Auto) 0.0 Baso % (Auto) 0.3 Lymph # (Auto) 0.4 L [place] # (Auto) 2.0 H Eos # (Auto) 0.0 Baso # (Auto) 0.1 Abs Immat Gran (auto) 0.36 H Absolute Neuts (auto) 36.3 H Absolute Nucleated RBC 0.000 Nucleated RBC % (auto) 0.0 Smear Tech's Comments VERIFIED Anion Gap 13 Estim Creat Clear Calc 14.5 Estimated GFR 20 POC Glucose 161 H Random Glucose 220 H Lactic Acid 0.9 Calcium 8.0 L Total Bilirubin 0.3 AST 18 ALT 15 Alkaline Phosphatase 111 Total Protein 5.2 L Albumin 2.8 L <Susana Carrasco PA-C - Last Filed: 04/20/25 01:51> Assessment and Plan (1) C. difficile colitis: Status: Acute <MARIAMA Harvey Last Filed: 04/20/25 01:51> (2) Dehydration: Status: Acute <MARIAMA Harvey Last Filed: 04/20/25 01:51> (3) Acute hypokalemia: Status: Acute <MARIAMA Harvey Last Filed: 04/20/25 01:51> (4) Metabolic acidosis: Status: Acute <MARIAMA Harvey Last Filed: 04/20/25 01:51> Patient is an 89-year-old female with a past medical history significant for dementia, hypertension, type 2 diabetes, HLD, anxiety, depression, CKD 4, who presented to the ED via EMS due to fecal incontinence all day. Suspected C diff, diarrhea - patient currently being treated for C diff with vancomycin, patient does not recall this - WBC 39.1, vital signs stable, lactic acid normal, blood cultures x2 pending, no sepsis - C diff ordered, pending - started on vancomycin in ED, continue - monitor CBC and BMP - ID consult Dehydration, acute hypokalemia, metabolic acidosis -- secondary to diarrhea - potassium 3.2, repleted with 40 p.o. - bicarb 20, given 2L LR in ED - EKG with prolonged QT - creatinine at baseline - check magnesium - monitor BMP chronic anemia, likely due to CKD - hemoglobin 10.8, hematocrit 31.0, stable - no need for blood transfusion - monitor CBC CKD 4 - creatinine at baseline - avoid nephrotoxins - follow BMP Hypertension - continue home meds Type 2 diabetes - hold Januvia - sliding scale insulin - Lantus reduced dose 7 units nightly - diabetic diet HLD - continue statin Anxiety/depression - continue sertraline Full code VTE prophylaxis: Heparin Patient with recurrent C diff, complicated by acute hypokalemia and metabolic acidosis, requiring admission for at least 2 midnight stay for monitoring and Infectious Disease consult. <Susana Carrasco PA-C - Last Filed: 04/20/25 01:51> Patient is an 89-year-old female with a past medical history significant for dementia, hypertension, type 2 diabetes, HLD, anxiety, depression, CKD 4, who presented to the ED via EMS due to fecal incontinence all day. Suspected C diff, diarrhea - patient currently being treated for C diff with vancomycin, patient does not recall this - WBC 39.1, vital signs stable, lactic acid normal, blood cultures x2 pending, no sepsis - C diff ordered, pending - Start fidaxomicin 200 mg p.o. b.i.d. x 10 days. - monitor CBC and BMP - ID consult Dehydration, acute hypokalemia, metabolic acidosis -- secondary to diarrhea - potassium 3.2, repleted with 40 p.o. - bicarb 20, given 2L LR in ED - EKG with prolonged QT - creatinine at baseline - check magnesium - monitor BMP chronic anemia, likely due to CKD - hemoglobin 10.8, hematocrit 31.0, stable - no need for blood transfusion - monitor CBC CKD 4 - creatinine at baseline - avoid nephrotoxins - follow [facility] Hypertension - continue home meds Type 2 diabetes - hold Januvia - sliding scale insulin - Lantus reduced dose 7 units nightly - diabetic diet HLD - continue statin Anxiety/depression - continue sertraline Full code VTE prophylaxis: Heparin Patient with recurrent C diff, complicated by acute hypokalemia and metabolic acidosis, requiring admission for at least 2 midnight stay for monitoring and Infectious Disease consult. <Demar Edwards MD - Last Filed: 04/20/25 05:23> Quality Stroke Does the patient have a stroke diagnosis?: No <Susana Carrasco PA-C - Last Filed: 04/20/25 01:51> VTE Prior VTE?: No <Susana Carrasco PA-C - Last Filed: 04/20/25 01:51> VTE Risk Level:: Medical - moderate - high <MARIAMA Harvey Last Filed: 04/20/25 01:51> VTE Device Contraindication: Treatment Not Indicated <Susana Carrasco PA-C - Last Filed: 04/20/25 01:51> VTE Drug Contraindication: N/A - Med Ordered <MARIAMA Harvey Last Filed: 04/20/25 01:51>
[2025-04-20 02:08] LABS: Magnesium 2.0 mg/dL (1.6-2.6)
[2025-04-20 02:22] VITALS: BP 141/48; PULSE 68; RESP 16; O2SAT 98
[2025-04-20 03:31] LABS: CDiff Gene PCR POSITIVE (Negative)
[2025-04-20 03:39] VITALS: BP 165/93; PULSE 70; RESP 20; TEMP 36.3; O2SAT 95
[2025-04-20 03:57] LABS: CDIFF Internal ctrl Dots and bkg OK (V)
[2025-04-20 04:09] LABS: CDiff Toxin Positive (Negative)
[2025-04-20] MEDS: Lactated Ringers 500 ML 999 ML IV (04:24)
[2025-04-20 06:47] LABS: Hematocrit 30.7 % (37.0-47.0); Hemoglobin 10.7 g/dl (12.0-16.0); Imm Gran Abs Auto 0.31 X10*3/uL (0.00-0.03); Imm Gran Pct Auto 0.9 % (0.0-0.4); Lymphocytes Absolute Auto 1.1 X10*3/uL (1.2-4.9); Mean Corpuscular HGB Conc 34.9 g/dl (31.0-35.0); Mean Corpuscular Hemoglobin 31.4 pg (27.0-33.0); Mean Corpuscular Volume 90.0 fL (80.0-98.0); NRBC Abs Auto 0.000 X10*3/uL (0.0-0.012); NRBC Pct Auto 0.0 /100WBC (0.0-0.2); Platelet Count 284 X10*3/uL (160-400); Red Blood Count 3.41 X10*6/uL (4.20-5.50); SCAN SMEAR FLAG 1
[2025-04-20 07:05] LABS: Anion Gap 19 (12-20); Blood Urea Nitrogen 36 mg/dL (9-16); Calcium 7.8 mg/dL (8.4-10.2); Carbon Dioxide 18 mmol/L (22-29); Chloride 105 mmol/L (96-108); Creatinine Clr Calc Pharmacy 17.5; Estimated Glomerular Filt Rate 24; Magnesium 1.9 mg/dL (1.6-2.6); Potassium 3.6 mmol/L (3.3-5.1); Sodium 138 mmol/L (135-145)
[2025-04-20 07:13] LABS: MANUAL DIFF FLAG SCAN
[2025-04-20 07:16] LABS: White Blood Count 34.3 X10*3/uL (4.8-10.8)
[2025-04-20 07:34] LABS: Glucose, Whole Blood 147 mg/dL (60-115)
[2025-04-20 07:41] VITALS: BP 166/74; PULSE 70; RESP 16; TEMP 36.3; O2SAT 94
--- NOTE | 2025-04-20 08:53 | PHA.MEDREC ---
Pharmacy Consult ? Medication Reconciliation Pharmacy has completed the medication reconciliation.Med rec complete, spoke with daughter Monica who was able to confirm all medications
--- NOTE | 2025-04-20 09:55 | P.PNIM_ITS ---
Subjective Subjective Date of Service: 04/20/25 Interval History: Seen and examined this morning Interval history: Somnolent but arousable. Disgruntled. Reports poor appetite. Ongoing diarrhea. No nausea and vomiting Review of Systems Review of Systems: Yes all other systems are reviewed and are negative Physical Exam 2 Exam: Exam: Constitutional - Awake and Alert, No apparent distress Eyes - PERRLA, EOMI Cardiovascular - S1S2, RRR, No edema Respiratory - Normal lung expansion, Normal respiratory effort, No respiratory distress, CTA bilaterally Gastrointestinal - diffuse tenderness to palpation without any guarding or rebound. Nondistended, BS x4 Extremities - no calf tenderness bilaterally, no swelling Skin - Warm/Dry Neurological - Alert & oriented x3 Psychological - Appropriate affect Vital Signs: Vital Signs: Last Vital Signs Temp 97.4 F 04/20/25 07:41 Pulse 70 04/20/25 07:41 Resp 16 04/20/25 07:41 BP 166/74 H 04/20/25 07:41 Pulse Ox 94 04/20/25 07:41 O2 Del Method Room Air 04/20/25 07:41 BMI result Body Mass Index 20.6 Objective Data Active Medications Acetaminophen (Acetaminophen 325 Mg Tablet) 650 mg PO Q6H PRN PRN Reason: Pain, Mild 1-3,fever,headache Albuterol Sulfate (Albuterol Sulfate 90 Mcg 8 Gm Inhaler) 2 puff INHALE Q4H PRN PRN Reason: Wheezing Amlodipine Besylate (Amlodipine Besylate 10 Mg Tablet) 10 mg PO DAILY LAWANDA; Protocol Atorvastatin Calcium (Atorvastatin Calcium 40 Mg Tablet) 40 mg PO BEDTIME LAWANDA Calcium Carbonate (Calcium Carbonate 750 Mg Tab.Chew) 750 mg PO Q4H PRN PRN Reason: Heartburn Dextrose (Dextrose 50 % 25 Gm/50 Ml Syringe) 25 gm IVPUSH Q15M PRN; Protocol PRN Reason: per Hypoglycemia Standing Ord. Fidaxomicin (Fidaxomicin 200 Mg Tablet) 200 mg PO Q12H LAWANDA Stop: 04/29/25 18:01 Last Admin: 04/20/25 05:58 Dose: 200 mg Documented By: NAYLA Glucose (Glucose Gel 15 Gm Gel..Gram.) 15 gm PO Q15M PRN; Protocol PRN Reason: per Hypoglycemia Standing Ord. Heparin Sodium (Porcine) (Heparin Sodium,Porcine 5,000 Unit/Ml Vial) 5,000 unit SUBCUT BID [facility] Last Admin: 04/20/25 02:17 Dose: 5,000 unit Documented By: ALYSON Insulin Glargine (Insulin Glargine,Hum.Rec.Anlog 100 Unit/Ml 10 Ml Vial) 7 unit SUBCUT BEDTIME LAWANDA Insulin Human Lispro (Insulin Lispro 100 Unit/Ml 3 Ml Vial) 0 unit SUBCUT QIDACHS LAWANDA; Protocol Last Admin: 04/20/25 07:37 Dose: Not Given Documented By: BERKLEY Non-Admin Reason: No Insulin Coverage Magnesium Hydroxide (Milk Of Magnesia 30 Ml Oral.Susp) 30 ml PO DAILY PRN PRN Reason: Constipation Magnesium Oxide (Magnesium Oxide 400 Mg Tablet) 200 mg PO DAILY LAWANDA Melatonin (Melatonin 3 Mg Tablet) 6 mg PO BEDTIME PRN PRN Reason: Insomnia Metoprolol Succinate (Metoprolol Succinate Er 50 Mg Tab.Er.24h) 150 mg PO DAILY [facility]; Protocol Sertraline HCl (Sertraline Hcl 100 Mg Tablet) 100 mg PO BEDTIME LAWANDA Sitagliptin Phosphate (Sitagliptin Phosphate 25 Mg Tablet) 25 mg PO DAILY [facility] Sodium Chloride (0.9 % Sodium Chloride Flush 3 Ml Syringe) 3 ml IVFLUSH QSHIFT [facility] Vitamin D (Cholecalciferol (Vitamin D3) 25 Mcg Tablet) 125 mcg PO Q48H [facility] Labs 04/20/25 06:21 04/20/25 06:21 Labs: Laboratory Results - last 24 hr 04/19/25 04/19/25 04/20/25 22:06 22:42 00:48 MCV 90.4 MCH 31.5 MCHC 34.8 RDW 13.7 Plt Count 312 MPV 10.5 Immature Gran % (Auto) 0.9 H Neut % (Auto) 92.8 H Lymph % (Auto) 1.0 L [place] % (Auto) 5.0 Eos % (Auto) 0.0 Baso % (Auto) 0.3 Lymph # (Auto) 0.4 L [place] # (Auto) 2.0 H Eos # (Auto) 0.0 Baso # (Auto) 0.1 Abs Immat Gran (auto) 0.36 H Absolute Neuts (auto) 36.3 H Absolute Nucleated RBC 0.000 Nucleated RBC % (auto) 0.0 Smear Tech's Comments VERIFIED Anion Gap 13 Estim Creat Clear Calc 14.5 Estimated GFR 20 POC Glucose 161 H Random Glucose 220 H Lactic Acid 0.9 Calcium 8.0 L Magnesium 2.0 Total Bilirubin 0.3 AST 18 ALT 15 Alkaline Phosphatase 111 Total Protein 5.2 L Albumin 2.8 L C. difficile Tox B Gene C. difficile Toxin A&B C. difficile Interpret 04/20/25 04/20/25 04/20/25 02:20 06:21 07:30 MCV 90.0 MCH 31.4 MCHC 34.9 RDW 13.7 Plt Count 284 MPV 11.0 Immature Gran % (Auto) 0.9 H Neut % (Auto) 89.3 H Lymph % (Auto) 3.3 L [place] % (Auto) 6.3 Eos % (Auto) 0.0 Baso % (Auto) 0.2 Lymph # (Auto) 1.1 L [place] # (Auto) 2.2 H Eos # (Auto) 0.0 Baso # (Auto) 0.1 Abs Immat Gran (auto) 0.31 H Absolute Neuts (auto) 30.7 H Absolute Nucleated RBC 0.000 Nucleated RBC % (auto) 0.0 Smear Tech's Comments VERIFIED Anion Gap 19 Estim Creat Clear Calc 17.5 Estimated GFR 24 POC Glucose 147 H Random Glucose 146 H Lactic Acid Calcium 7.8 L Magnesium 1.9 Total Bilirubin AST ALT Alkaline Phosphatase Total Protein Albumin C. difficile Tox B Gene POSITIVE A* C. difficile Toxin A&B Positive A* C. difficile Interpret SEE NOTE Assessment and Plan (1) Encephalopathy: Status: Acute Plan Patient is an 89-year-old female with a past medical history significant for dementia, hypertension, type 2 diabetes, HLD, anxiety, depression, CKD 4, who presented to the ED via EMS due to fecal incontinence all day. C diff, diarrhea - patient currently being treated for C diff with vancomycin at home though does not recall this - WBC 39.1, vital signs stable, lactic acid normal, blood cultures x2 pending, no sepsis. WBC downtrending - C diff + - Change PO vanco to fidaxomicin 200 mg p.o. b.i.d. x 10 days. - monitor CBC and BMP - ID consult Dehydration, acute hypokalemia, metabolic acidosis -- secondary to diarrhea - potassium 3.2, repleted with 40 p.o. - bicarb 20, given 2L LR in ED - EKG with prolonged QT - creatinine at baseline - check magnesium - monitor BMP Unspecified cognitive impairment vs acute metabolic encephalopathy Possibly related to infection Will contact HCP for baseline mentation check vbg given CO2 drop. Check UC w/ straight cath chronic anemia, likely due to CKD - hemoglobin 10.8, hematocrit 31.0, stable - no need for blood transfusion - monitor CBC CKD 4 - creatinine at baseline - avoid nephrotoxins - follow BMP Hypertension - continue home meds Type 2 diabetes - hold Januvia - sliding scale insulin - Lantus reduced dose 7 units nightly - diabetic diet HLD - continue statin Anxiety/depression - continue sertraline Full code VTE prophylaxis: Heparin Patient with recurrent C diff, complicated by acute hypokalemia and metabolic acidosis, requiring admission for at least 2 midnight stay for monitoring and Infectious Disease consult. Quality Stroke Does the patient have a stroke diagnosis?: No VTE Prior VTE?: No VTE Risk Level:: Medical - moderate - high VTE Device Contraindication: Treatment Not Indicated VTE Drug Contraindication: N/A - Med Ordered
[2025-04-20 11:24] LABS: Glucose, Whole Blood 123 mg/dL (60-115)
[2025-04-20] MEDS: Lactated Ringers 1,000 ML 80 ML IVCONT (13:29)
[2025-04-20 15:27] VITALS: BP 144/77; PULSE 59; RESP 17; TEMP 36.4; O2SAT 94
--- NOTE | 2025-04-20 16:09 | MHC.CM.PN ---
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
[2025-04-20 16:27] LABS: Glucose, Whole Blood 162 mg/dL (60-115)
[2025-04-20 20:00] VITALS: BP 142/70; PULSE 78; RESP 16; TEMP 36.2; O2SAT 96
[2025-04-20 20:27] LABS: Glucose, Whole Blood 136 mg/dL (60-115)
[2025-04-20] MEDS: Insulin Glargine,Hum.rec.anlog 100 UNIT/ML 10 ML VIAL 7 UNIT SUBCUT (20:48)
[2025-04-21] MEDS: Lactated Ringers 1,000 ML 80 ML IVCONT ×2 (02:01→11:45)
[2025-04-21 03:48] VITALS: BP 150/80; PULSE 86; RESP 17; TEMP 36.6; O2SAT 95
[2025-04-21 06:34] LABS: MANUAL DIFF FLAG NO
[2025-04-21 06:35] LABS: Venous Blood Gas Refer to POC result
[2025-04-21 06:37] LABS: VBG HCO3 21 mmol/L (22-26); VBG O2 % Saturation 85.0 %
[2025-04-21 06:39] LABS: Hematocrit 31.3 % (37.0-47.0); Hemoglobin 10.5 g/dl (12.0-16.0); Imm Gran Abs Auto 0.07 X10*3/uL (0.00-0.03); Imm Gran Pct Auto 0.5 % (0.0-0.4); Lymphocytes Absolute Auto 1.0 X10*3/uL (1.2-4.9); Mean Corpuscular HGB Conc 33.5 g/dl (31.0-35.0); Mean Corpuscular Hemoglobin 30.5 pg (27.0-33.0); Mean Corpuscular Volume 91.0 fL (80.0-98.0); NRBC Abs Auto 0.000 X10*3/uL (0.0-0.012); NRBC Pct Auto 0.0 /100WBC (0.0-0.2); Platelet Count 296 X10*3/uL (160-400); Red Blood Count 3.44 X10*6/uL (4.20-5.50); White Blood Count 14.7 X10*3/uL (4.8-10.8)
[2025-04-21 06:57] LABS: Anion Gap 11 (12-20); Blood Urea Nitrogen 29 mg/dL (9-16); Calcium 7.7 mg/dL (8.4-10.2); Carbon Dioxide 20 mmol/L (22-29); Chloride 112 mmol/L (96-108); Creatinine Clr Calc Pharmacy 18.8; Estimated Glomerular Filt Rate 26; Potassium 3.2 mmol/L (3.3-5.1); Sodium 140 mmol/L (135-145)
[2025-04-21 07:32] LABS: Glucose, Whole Blood 67 mg/dL (60-115)
[2025-04-21] MEDS: Metoprolol Succinate ER 50 MG TAB.ER.24H 150 MG PO (07:40)
[2025-04-21] MEDS: 0.9 % Sodium Chloride Flush 3 ML SYRINGE IVFLUSH (07:41)
[2025-04-21 07:43] VITALS: BP 187/79; PULSE 64; RESP 12; TEMP 36.7; O2SAT 93
[2025-04-21 09:06] VITALS: BP 128/60
--- NOTE | 2025-04-21 11:12 | HO.PM.IMPN ---
Subjective Subjective Date of Service: 04/21/25 Interval History: Episodes of diarrhea with semi formed stool overnight Potassium slightly low, creatinine around baseline Pt pleasantly confused, no acute complaints Review of Systems Review of Systems: Yes all other systems are reviewed and are negative Physical Exam Exam: Exam: General: AOx3, no acute distress. Elderly, frail. Confused. Resp: CTA bilaterally CVS: S1, S2, RRR GI: +BS, NT, no distention Skin: Warm, dry Neuro: Cranial nerves II-XII grossly intact bilaterally. Motor grossly intact bilaterally Extremities: No edema Psych: Pleasantly confused Vital Signs: Vital Signs: Last Vital Signs Temp 98.0 F 04/21/25 07:43 Pulse 64 04/21/25 07:43 Resp 12 04/21/25 07:43 BP 128/60 04/21/25 09:06 Pulse Ox 93 04/21/25 07:43 O2 Del Method Room Air 04/21/25 07:43 BMI result Body Mass Index 20.6 Objective Data Active Medications Acetaminophen (Acetaminophen 325 Mg Tablet) 650 mg PO Q6H PRN PRN Reason: Pain, Mild 1-3,fever,headache Albuterol Sulfate (Albuterol Sulfate 90 Mcg 8 Gm Inhaler) 2 puff INHALE Q4H PRN PRN Reason: Wheezing Amlodipine Besylate (Amlodipine Besylate 10 Mg Tablet) 10 mg PO DAILY [facility]; Protocol Last Admin: 04/21/25 07:41 Dose: 10 mg Documented By: DAVID Atorvastatin Calcium (Atorvastatin Calcium 40 Mg Tablet) 40 mg PO BEDTIME [facility] Last Admin: 04/20/25 20:47 Dose: 40 mg Documented By: LUCILA Calcium Carbonate (Calcium Carbonate 750 Mg Tab.Chew) 750 mg PO Q4H PRN PRN Reason: Heartburn Dextrose (Dextrose 50 % 25 Gm/50 Ml Syringe) 25 gm IVPUSH Q15M PRN; Protocol PRN Reason: per Hypoglycemia Standing Ord. Fidaxomicin (Fidaxomicin 200 Mg Tablet) 200 mg PO Q12H [facility] Stop: 04/29/25 18:01 Last Admin: 04/21/25 05:47 Dose: 200 mg Documented By: LUCILA Glucose (Glucose Gel 15 Gm Gel..Gram.) 15 gm PO Q15M PRN; Protocol PRN Reason: per Hypoglycemia Standing Ord. Heparin Sodium (Porcine) (Heparin Sodium,Porcine 5,000 Unit/Ml Vial) 5,000 unit SUBCUT BID [facility] Last Admin: 04/21/25 07:40 Dose: 5,000 unit Documented By: DAVID Lactated Ringer's (Lr) 1,000 mls @ 80 mls/hr IVCONT .[id number] [facility] Last Admin: 04/21/25 02:01 Dose: 80 mls/hr Documented By: LUCILA Insulin Glargine (Insulin Glargine,Hum.Rec.Anlog 100 Unit/Ml 10 Ml Vial) 7 unit SUBCUT BEDTIME [facility] Last Admin: 04/20/25 20:48 Dose: 7 unit Documented By: LUCILA Insulin Human Lispro (Insulin Lispro 100 Unit/Ml 3 Ml Vial) 0 unit SUBCUT QIDACHS [facility]; Protocol Last Admin: 04/21/25 07:41 Dose: Not Given Documented By: DAVID Non-Admin Reason: No Insulin Coverage Magnesium Hydroxide (Milk Of Magnesia 30 Ml Oral.Susp) 30 ml PO DAILY PRN PRN Reason: Constipation Magnesium Oxide (Magnesium Oxide 400 Mg Tablet) 200 mg PO DAILY [facility] Last Admin: 04/21/25 07:41 Dose: 200 mg Documented By: DAVID Melatonin (Melatonin 3 Mg Tablet) 6 mg PO BEDTIME PRN PRN Reason: Insomnia Metoprolol Succinate (Metoprolol Succinate Er 50 Mg Tab.Er.24h) 150 mg PO DAILY [facility]; Protocol Last Admin: 04/21/25 07:40 Dose: 150 mg Documented By: DAVID Quetiapine Fumarate (Quetiapine Fumarate 25 Mg Tablet) 25 mg PO TID PRN PRN Reason: agitation Sertraline HCl (Sertraline Hcl 100 Mg Tablet) 100 mg PO BEDTIME [facility] Last Admin: 04/20/25 20:47 Dose: 100 mg Documented By: LUCILA Sitagliptin Phosphate (Sitagliptin Phosphate 25 Mg Tablet) 25 mg PO DAILY [facility] Last Admin: 04/21/25 07:41 Dose: 25 mg Documented By: DAVID Sodium Chloride (0.9 % Sodium Chloride Flush 3 Ml Syringe) 3 ml IVFLUSH QSHIFT [facility] Last Admin: 04/21/25 07:41 Dose: 3 ml Documented By: DAVID Vitamin D (Cholecalciferol (Vitamin D3) 25 Mcg Tablet) 125 mcg PO Q48H [facility] Last Admin: 04/20/25 10:02 Dose: Not Given Documented By: BERKLEY Non-Admin Reason: Patient Refused Labs 04/21/25 06:25 04/21/25 06:25 Labs: Laboratory Results - last 24 hr 04/20/25 04/20/25 04/20/25 11:20 16:21 20:21 MCV MCH MCHC RDW Plt Count MPV Immature Gran % (Auto) Neut % (Auto) Lymph % (Auto) [place] % (Auto) Eos % (Auto) Baso % (Auto) Lymph # (Auto) [place] # (Auto) Eos # (Auto) Baso # (Auto) Abs Immat Gran (auto) Absolute Neuts (auto) Absolute Nucleated RBC Nucleated RBC % (auto) VBG pH VBG pCO2 VBG pO2 VBG HCO3 VBG O2 Saturation VBG Base Excess Anion Gap Estim Creat Clear Calc Estimated GFR POC Glucose 123 H 162 H 136 H Random Glucose Calcium 04/21/25 04/21/25 04/21/25 06:25 06:33 07:28 MCV 91.0 MCH 30.5 MCHC 33.5 RDW 13.9 Plt Count 296 MPV 11.0 Immature Gran % (Auto) 0.5 H Neut % (Auto) 85.1 H Lymph % (Auto) 6.9 L [place] % (Auto) 6.7 Eos % (Auto) 0.3 Baso % (Auto) 0.5 Lymph # (Auto) 1.0 L [place] # (Auto) 1.0 Eos # (Auto) 0.1 Baso # (Auto) 0.1 Abs Immat Gran (auto) 0.07 H Absolute Neuts (auto) 12.5 H Absolute Nucleated RBC 0.000 Nucleated RBC % (auto) 0.0 VBG pH 7.41 VBG pCO2 33 VBG pO2 48 VBG HCO3 21 L VBG O2 Saturation 85.0 VBG Base Excess -2.7 Anion Gap 11 L Estim Creat Clear Calc 18.8 Estimated GFR 26 POC Glucose 67 Random Glucose 63 Calcium 7.7 L Microbiology Microbiology Results: Microbiology 04/19/25 23:33 Blood Culture - Preliminary Blood - Venous No growth after 24 hours. 04/19/25 22:42 Blood Culture - Preliminary Blood - Venous No growth after 24 hours. Assessment and Plan (1) C. difficile colitis: Status: Acute Plan Patient is an 89-year-old female with a past medical history significant for dementia, hypertension, type 2 diabetes, HLD, anxiety, depression, CKD 4, who presented to the ED via EMS due to fecal incontinence all day. C diff, diarrhea - patient currently being treated for C diff with vancomycin at home though does not recall this - WBC 39.1, vital signs stable, lactic acid normal, blood cultures x2 pending, no sepsis. WBC downtrending - C diff + - PO vanco changed to fidaxomicin 200 mg p.o. b.i.d. x 10 days. - monitor CBC and BMP - ID consult Dehydration, acute hypokalemia, metabolic acidosis -- secondary to diarrhea - potassium 3.2, repleted with 40 p.o. - bicarb 20, given 2L LR in ED - EKG with prolonged QT - creatinine at baseline - check magnesium - monitor BMP Unspecified cognitive impairment - pt with advanced dementia at baseline, has been declining significantly in the past 6+ months chronic anemia, likely due to CKD - hemoglobin 10.8, hematocrit 31.0, stable - no need for blood transfusion - monitor CBC CKD 4 - creatinine at baseline - avoid nephrotoxins - follow BMP Hypertension - continue home meds Type 2 diabetes - hold Januvia - sliding scale insulin - Lantus reduced dose 7 units nightly - diabetic diet HLD - continue statin Anxiety/depression - continue sertraline Full code VTE prophylaxis: Heparin Patient with recurrent C diff, complicated by acute hypokalemia and metabolic acidosis, requiring admission for at least 2 midnight stay for monitoring and Infectious Disease consult. Quality Stroke Does the patient have a stroke diagnosis?: No VTE Prior VTE?: No VTE Risk Level:: Medical - moderate - high VTE Device Contraindication: Treatment Not Indicated VTE Drug Contraindication: N/A - Med Ordered
[2025-04-21 11:25] LABS: Glucose, Whole Blood 118 mg/dL (60-115)
[2025-04-21] MEDS: Potassium Chloride Packet 20 MEQ PACKET 40 MEQ PO (11:44)
[2025-04-21 16:00] VITALS: BP 173/74; PULSE 70; RESP 18; TEMP 36.4; O2SAT 97
[2025-04-21 16:36] LABS: Glucose, Whole Blood 109 mg/dL (60-115)
[2025-04-21 20:00] VITALS: BP 198/84; PULSE 70; RESP 14; TEMP 36.3; O2SAT 97
[2025-04-21 21:24] LABS: Glucose, Whole Blood 157 mg/dL (60-115)
[2025-04-21 21:27] VITALS: BP 186/72
[2025-04-21] MEDS: Insulin Glargine,Hum.rec.anlog 100 UNIT/ML 10 ML VIAL 7 UNIT SUBCUT (21:38)
[2025-04-22] VITALS (7 sets, daily range): BP systolic 141–191; BP diastolic 69–98; PULSE 67–83; RESP 14–18; TEMP 36.1–36.3; O2SAT 95–96
[2025-04-22] MEDS: Lactated Ringers 1,000 ML 80 ML IVCONT (01:33)
[2025-04-22] MEDS: Metoprolol Succinate ER 50 MG TAB.ER.24H 150 MG PO (04:37)
[2025-04-22 07:51] LABS: Glucose, Whole Blood 49 mg/dL (60-115)
[2025-04-22 08:07] LABS: MANUAL DIFF FLAG NO
[2025-04-22 08:13] LABS: Hematocrit 31.2 % (37.0-47.0); Hemoglobin 10.5 g/dl (12.0-16.0); Imm Gran Abs Auto 0.07 X10*3/uL (0.00-0.03); Imm Gran Pct Auto 0.6 % (0.0-0.4); Lymphocytes Absolute Auto 0.6 X10*3/uL (1.2-4.9); Mean Corpuscular HGB Conc 33.7 g/dl (31.0-35.0); Mean Corpuscular Hemoglobin 30.7 pg (27.0-33.0); Mean Corpuscular Volume 91.2 fL (80.0-98.0); NRBC Abs Auto 0.000 X10*3/uL (0.0-0.012); NRBC Pct Auto 0.0 /100WBC (0.0-0.2); Platelet Count 345 X10*3/uL (160-400); Red Blood Count 3.42 X10*6/uL (4.20-5.50); White Blood Count 12.5 X10*3/uL (4.8-10.8)
[2025-04-22 08:22] LABS: Glucose, Whole Blood 78 mg/dL (60-115)
[2025-04-22 08:58] LABS: Anion Gap 15 (12-20); Blood Urea Nitrogen 24 mg/dL (9-16); Calcium 8.4 mg/dL (8.4-10.2); Carbon Dioxide 18 mmol/L (22-29); Chloride 113 mmol/L (96-108); Creatinine Clr Calc Pharmacy 20.1; Estimated Glomerular Filt Rate 29; Magnesium 2.0 mg/dL (1.6-2.6); Potassium 3.7 mmol/L (3.3-5.1); Sodium 142 mmol/L (135-145)
[2025-04-22 09:11] LABS: Glucose, Whole Blood 168 mg/dL (60-115)
--- NOTE | 2025-04-22 09:13 | PC.NURSE ---
BS was checked by SETH Stanley at 0815 was 78 RN witnessed
--- NOTE | 2025-04-22 09:29 | PC.NURSE ---
BP 191/84 earlier,BP at present 179/81 pulse 67 ,Norvasc and METROPROLOL WAS ADMINISTERED EARLIER BY NIGHT RN Dr. Sewell notified
--- NOTE | 2025-04-22 10:13 | PC.NURSE ---
RN got a message from Lab at 0856 about BS 35,BS was rechecked at that time and it was 168,lab results were from earlier,Dr. Sewell notified
[2025-04-22 11:52] LABS: Glucose, Whole Blood 263 mg/dL (60-115)
--- NOTE | 2025-04-22 14:59 | MHC.CM.PN ---
pr rounds pti awaiting a pt eval to [facility] dc plan home w/services vs str
--- NOTE | 2025-04-22 15:13 | W.PM.IDCN ---
History of Present Illness Data of Consult Service Date: 04/22/25 Requesting physician: Zain Sewell Primary Care Provider: MARIAMA Portillo Reason for consult: severe Cdiff She presents with diarrhea,five times a day. She has nausea and vomiting.. She has been on antibiotics for UTI and Cdiff while at [facility]. Review of Systems Review of Systems: Yes all other systems are reviewed and are negative [facility] Past Medical History Medical History C. difficile colitis Bronchitis Type 2 diabetes mellitus Chronic kidney disease (CKD), stage 4 Substernal goiter Essential hypertension Hyperlipidemia Family History Family history: reviewed and not pertinent Social History Social History Household Members: Unknown / Unable to assess Housing: Unknown / Unable to assess Do you presently have visiting nurse or other home services: No Unable to assess alcohol history related to: Unknown Alcohol intake: former Patient Tobacco Use Status: Never used Tobacco Currently Displaying Signs/Symptoms of Drug Intoxication Withdrawal: No Advance Directives: Yes Advance Directives on File: Yes Advance Directives Date on File: 03/01/24 Do you have a plan to hurt others: No Plan Recently lost weight without trying: Unsure Eating poorly because of decreased appetite: No Nutrition Risks: No Nutritional Risk Patient : No service: No Meds Allergies Allergy/AdvReac Type Severity Reaction Status Date / Time No Known Allergies (No Known Allergy Verified 04/19/25 22:00 Allergies*) Active Medications: Current Medications Acetaminophen (Acetaminophen 325 Mg Tablet) 650 mg PO Q6H PRN PRN Reason: Pain, Mild 1-3,fever,headache Albuterol Sulfate (Albuterol Sulfate 90 Mcg 8 Gm Inhaler) 2 puff INHALE Q4H PRN PRN Reason: Wheezing Amlodipine Besylate (Amlodipine Besylate 10 Mg Tablet) 10 mg PO DAILY [facility]; Protocol Last Admin: 04/22/25 04:39 Dose: 10 mg Atorvastatin Calcium (Atorvastatin Calcium 40 Mg Tablet) 40 mg PO BEDTIME [facility] Last Admin: 04/21/25 21:35 Dose: 40 mg Calcium Carbonate (Calcium Carbonate 750 Mg Tab.Chew) 750 mg PO Q4H PRN PRN Reason: Heartburn Dextrose (Dextrose 50 % 25 Gm/50 Ml Syringe) 25 gm IVPUSH Q15M PRN; Protocol PRN Reason: per Hypoglycemia Standing Ord. Fidaxomicin (Fidaxomicin 200 Mg Tablet) 200 mg PO Q12H [facility] Stop: 04/29/25 18:01 Last Admin: 04/22/25 05:26 Dose: 200 mg Glucose (Glucose Gel 15 Gm Gel..Gram.) 15 gm PO Q15M PRN; Protocol PRN Reason: per Hypoglycemia Standing Ord. Heparin Sodium (Porcine) (Heparin Sodium,Porcine 5,000 Unit/Ml Vial) 5,000 unit SUBCUT BID [facility] Last Admin: 04/22/25 08:11 Dose: 5,000 unit Insulin Glargine (Insulin Glargine,Hum.Rec.Anlog 100 Unit/Ml 10 Ml Vial) 7 unit SUBCUT BEDTIME [facility] Last Admin: 04/21/25 21:38 Dose: 7 unit Insulin Human Lispro (Insulin Lispro 100 Unit/Ml 3 Ml Vial) 0 unit SUBCUT QIDACHS [facility]; Protocol Last Admin: 04/22/25 12:48 Dose: 6 unit Magnesium Hydroxide (Milk Of Magnesia 30 Ml Oral.Susp) 30 ml PO DAILY PRN PRN Reason: Constipation Magnesium Oxide (Magnesium Oxide 400 Mg Tablet) 200 mg PO DAILY [facility] Last Admin: 04/22/25 08:12 Dose: 200 mg Melatonin (Melatonin 3 Mg Tablet) 6 mg PO BEDTIME PRN PRN Reason: Insomnia Metoprolol Succinate (Metoprolol Succinate Er 50 Mg Tab.Er.24h) 150 mg PO DAILY [facility]; Protocol Last Admin: 04/22/25 04:37 Dose: 150 mg Quetiapine Fumarate (Quetiapine Fumarate 25 Mg Tablet) 25 mg PO TID PRN PRN Reason: agitation Sertraline HCl (Sertraline Hcl 100 Mg Tablet) 100 mg PO BEDTIME [facility] Last Admin: 04/21/25 21:35 Dose: 100 mg Sitagliptin Phosphate (Sitagliptin Phosphate 25 Mg Tablet) 25 mg PO DAILY [facility] Last Admin: 04/22/25 07:59 Dose: Not Given Sodium Chloride (0.9 % Sodium Chloride Flush 3 Ml Syringe) 3 ml IVFLUSH QSHIFT [facility] Last Admin: 04/22/25 07:56 Dose: Not Given Vitamin D (Cholecalciferol (Vitamin D3) 25 Mcg Tablet) 125 mcg PO Q48H [facility] Last Admin: 04/22/25 08:12 Dose: 125 mcg Home Medications ?Medication ?Instructions ?Recorded ?Confirmed ?Last Taken ?Type amlodipine 10 mg tablet 10 mg PO DAILY 02/25/24 04/20/25 03/14/25 History losartan 50 mg tablet 100 mg PO DAILY 02/25/24 04/20/25 03/14/25 History metoprolol succinate 50 mg 150 mg PO DAILY 02/25/24 04/20/25 03/14/25 History tablet,extended release 24 hr atorvastatin 40 mg tablet 40 mg PO BEDTIME 02/26/24 04/20/25 03/13/25 History albuterol sulfate 90 mcg/actuation 2 puff inhalation Q4H PRN Wheezing 03/14/25 04/20/25 03/14/25 History aerosol inhaler cholecalciferol (vitamin D3) 125 125 mcg PO Q48H 03/14/25 04/20/25 Unknown History mcg (5,000 unit) tablet (Vitamin D3) magnesium oxide 200 mg PO DAILY 03/14/25 04/20/25 03/14/25 History sertraline 100 mg tablet 100 mg PO BEDTIME 03/14/25 04/20/25 03/14/25 History sitagliptin phosphate 25 mg tablet 25 mg PO DAILY 03/14/25 04/20/25 03/14/25 History (Januvia) glipizide 5 mg tablet, extended 5 mg PO DAILY 04/20/25 04/20/25 Unknown History release 24 hr insulin glargine 100 unit/mL 10 unit subcut BEDTIME 04/20/25 04/20/25 Unknown History subcutaneous solution (Lantus U-100 Insulin) Physical Exam Vital Signs: Vital Signs: Last Vital Signs Temp 97.0 F 04/22/25 07:52 Pulse 67 04/22/25 09:26 Resp 17 04/22/25 07:52 BP 171/81 H 04/22/25 09:26 Pulse Ox 95 04/22/25 07:52 O2 Del Method Room Air 04/22/25 07:52 BMI result Body Mass Index 20.6 Const: General: cooperative HEENT: Head: Yes normal to inspection Face and sinus: Yes normal facial exam Mouth: Normal oral and palatal mucosa present Teeth and gingiva: dentition normal Eyes: General: appearance normal, both eyes and all related structures Pupils: Equal, round and reactive pupils present Resp: Effort & Inspection: normal respiratory effort Cardio: Rate: regular rate Rhythm: regular rhythm GI: Palpation (GI): Soft to palpation and nontender : General: Yes no CVA tenderness Back/Spine/Pelvis: Back: no CVA tenderness Skin: General skin exam: no rashes or lesions noted Neuro: General: moves all extremities Cranial nerves: Yes Equal, round and reactive pupils present Extrem: General: Yes normal to inspection Psych: Appearance: grossly normal Results Labs 04/22/25 06:48 04/22/25 06:48 Labs: Short CBC 04/22/25 Range/Units 06:48 WBC 12.5 H (4.8-10.8) X10*3/uL Hgb 10.5 L (12.0-16.0) g/dl Hct 31.2 L (37.0-47.0) % Plt Count 345 (160-400) X10*3/uL BMP 04/22/25 06:48 Sodium 142 Potassium 3.7 Chloride 113 H Carbon Dioxide 18 L BUN 24 H Creatinine 1.69 H Calcium 8.4 D Microbiology Microbiology Results: Microbiology 04/21/25 12:21 Urine clean catch Urine Culture - Final 04/19/25 23:33 Blood - Venous Blood Culture - Preliminary No growth after 48 hours. 04/19/25 22:42 Blood - Venous Blood Culture - Preliminary No growth after 48 hours. Assessment and Plan (1) Dehydration: Status: Acute (2) C. difficile colitis: Status: Acute (3) Encephalopathy: Status: Acute Plan Likely severe Cdiff with high WBC and patient also with CKD. She has recurrent episode and been on Vancomycin Agree with Fidaxomicin 200 mg po bid for 10 days Add metronidazole 500 mg every [address] abdomen evaluate colon and surgery consult if not improving WBC as well.
--- NOTE | 2025-04-22 15:15 | P.PNIM_ITS ---
Subjective Subjective Date of Service: 04/22/25 Interval History: Patient pleasant and asleep on evaluation. No new complaints or issues on general review. Review of Systems Constitutional : No Weight loss, No Fever, No Chills, No Night Sweats, No Fatigue, No Malaise ENT/Mouth : No Hearing loss, No Ear Pain, No Nasal Congestion, No Sinus Pain, No Hoarseness, No sore throat, No Rhinorrhea, No Swallowing Difficulty Eyes: No Eye Pain, No Swelling, No Redness, No Foreign Body, No Discharge, No Vision Changes Cardiovascular : No Chest Pain, No SOB, No Dyspnea on Exertion, No Orthopnea, No Edema, No Palpitations Respiratory : No Cough, No Sputum, No Wheezing, No Smoke Exposure, No Dyspnea Gastrointestinal : No Nausea, No Vomiting, complaining of profuse watery Diarrhea, No Constipation, No abdominal Pain, No Hematochezia, No Melena Genitourinary : no irregular bleeding, No Dysuria, No Urinary Frequency, No Hematuria, No Urinary Incontinence, No Urgency, No Flank Pain, No Urinary Flow Changes, No Hesitancy Musculoskeletal : No joint pain, No Myalgias, No Joint Swelling Skin : No Skin Lesions, No rash Neuro : No Weakness, No Numbness, No Paresthesias, No Loss of Consciousness, No Dizziness, No Headache Psych : No Anxiety/Panic, No Depression, No SI/HI/AH/VH, No Social Issues, Heme/Lymph: No Bruising, No Bleeding,No Lymphadenopathy Endocrine : No Polyuria, No Polydipsia, No Temperature Intolerance Physical Exam 2 Exam: Exam: General: A&O x3, oriented to time place person and siutaion, comfortable, no pain Cardiac: S1, S2 auscultated with no S3/4, no MRG. Well perfused. Respiratory: Normal breath sounds auscultated throughout all lung zones, without wheezing, rales. Normal rate. GI/ : No abdominal pain on palpation, no masses or distentions. MSK: Normal ambulation without pain at bony prominences or musculature Neurological: Normal neurological examination on overview, without obvious CN II-XII abnormalities. Vital Signs: Vital Signs: Last Vital Signs Temp 97.0 F 04/22/25 07:52 Pulse 67 04/22/25 09:26 Resp 17 04/22/25 07:52 BP 171/81 H 04/22/25 09:26 Pulse Ox 95 04/22/25 07:52 O2 Del Method Room Air 04/22/25 07:52 BMI result Body Mass Index 20.6 Objective Data Active Medications Acetaminophen (Acetaminophen 325 Mg Tablet) 650 mg PO Q6H PRN PRN Reason: Pain, Mild 1-3,fever,headache Albuterol Sulfate (Albuterol Sulfate 90 Mcg 8 Gm Inhaler) 2 puff INHALE Q4H PRN PRN Reason: Wheezing Amlodipine Besylate (Amlodipine Besylate 10 Mg Tablet) 10 mg PO DAILY [facility]; Protocol Last Admin: 04/22/25 04:39 Dose: 10 mg Documented By: LUCILA Comments: Notified MD Russ Edwards about high BP's and this RN was told by Russ Edwards to give this medication now. Atorvastatin Calcium (Atorvastatin Calcium 40 Mg Tablet) 40 mg PO BEDTIME [facility] Last Admin: 04/21/25 21:35 Dose: 40 mg Documented By: NAYLA Calcium Carbonate (Calcium Carbonate 750 Mg Tab.Chew) 750 mg PO Q4H PRN PRN Reason: Heartburn Dextrose (Dextrose 50 % 25 Gm/50 Ml Syringe) 25 gm IVPUSH Q15M PRN; Protocol PRN Reason: per Hypoglycemia Standing Ord. Fidaxomicin (Fidaxomicin 200 Mg Tablet) 200 mg PO Q12H [facility] Stop: 04/29/25 18:01 Last Admin: 04/22/25 05:26 Dose: 200 mg Documented By: LUCILA Glucose (Glucose Gel 15 Gm Gel..Gram.) 15 gm PO Q15M PRN; Protocol PRN Reason: per Hypoglycemia Standing Ord. Heparin Sodium (Porcine) (Heparin Sodium,Porcine 5,000 Unit/Ml Vial) 5,000 unit SUBCUT BID [facility] Last Admin: 04/22/25 08:11 Dose: 5,000 unit Documented By: CHRISTIANO Insulin Glargine (Insulin Glargine,Hum.Rec.Anlog 100 Unit/Ml 10 Ml Vial) 7 unit SUBCUT BEDTIME [facility] Last Admin: 04/21/25 21:38 Dose: 7 unit Documented By: NAYLA Insulin Human Lispro (Insulin Lispro 100 Unit/Ml 3 Ml Vial) 0 unit SUBCUT QIDACHS [facility]; Protocol Last Admin: 04/22/25 12:48 Dose: 6 unit Documented By: CHRISTIANO Magnesium Hydroxide (Milk Of Magnesia 30 Ml Oral.Susp) 30 ml PO DAILY PRN PRN Reason: Constipation Magnesium Oxide (Magnesium Oxide 400 Mg Tablet) 200 mg PO DAILY [facility] Last Admin: 04/22/25 08:12 Dose: 200 mg Documented By: CHRISTIANO Melatonin (Melatonin 3 Mg Tablet) 6 mg PO BEDTIME PRN PRN Reason: Insomnia Metoprolol Succinate (Metoprolol Succinate Er 50 Mg Tab.Er.24h) 150 mg PO DAILY [facility]; Protocol Last Admin: 04/22/25 04:37 Dose: 150 mg Documented By: LUCILA Comments: Notified MD Russ Edwards about high BP's and this RN was told by Russ Edwards to give this medication now. Quetiapine Fumarate (Quetiapine Fumarate 25 Mg Tablet) 25 mg PO TID PRN PRN Reason: agitation Sertraline HCl (Sertraline Hcl 100 Mg Tablet) 100 mg PO BEDTIME [facility] Last Admin: 04/21/25 21:35 Dose: 100 mg Documented By: NAYLA Sitagliptin Phosphate (Sitagliptin Phosphate 25 Mg Tablet) 25 mg PO DAILY [facility] Last Admin: 04/22/25 07:59 Dose: Not Given Documented By: CHRISTIANO Non-Admin Reason: low Blood sugar 49 Sodium Chloride (0.9 % Sodium Chloride Flush 3 Ml Syringe) 3 ml IVFLUSH QSHIFT [facility] Last Admin: 04/22/25 07:56 Dose: Not Given Documented By: CHRISTIANO Non-Admin Reason: IV Running Vitamin D (Cholecalciferol (Vitamin D3) 25 Mcg Tablet) 125 mcg PO Q48H [facility] Last Admin: 04/22/25 08:12 Dose: 125 mcg Documented By: CHRISTIANO Labs 04/22/25 06:48 04/22/25 06:48 Labs: Laboratory Results - last 24 hr 04/19/25 04/21/25 04/21/25 22:06 16:32 20:04 MCV MCH MCHC RDW Plt Count MPV Immature Gran % (Auto) Neut % (Auto) Lymph % (Auto) [place] % (Auto) Eos % (Auto) Baso % (Auto) Lymph # (Auto) [place] # (Auto) Eos # (Auto) Baso # (Auto) Abs Immat Gran (auto) Absolute Neuts (auto) Absolute Nucleated RBC Nucleated RBC % (auto) Smear Path Review SEE NOTE Anion Gap Estim Creat Clear Calc Estimated GFR POC Glucose 109 157 H Random Glucose Calcium Magnesium 04/22/25 04/22/25 04/22/25 06:48 07:48 08:19 MCV 91.2 MCH 30.7 MCHC 33.7 RDW 13.7 Plt Count 345 MPV 11.2 Immature Gran % (Auto) 0.6 H Neut % (Auto) 87.5 H Lymph % (Auto) 4.8 L Sampson % (Auto) 6.5 Eos % (Auto) 0.2 Baso % (Auto) 0.4 Lymph # (Auto) 0.6 L [place] # (Auto) 0.8 Eos # (Auto) 0.0 Baso # (Auto) 0.1 Abs Immat Gran (auto) 0.07 H Absolute Neuts (auto) 10.9 H Absolute Nucleated RBC 0.000 Nucleated RBC % (auto) 0.0 Smear Path Review Anion Gap 15 Estim Creat Clear Calc 20.1 Estimated GFR 29 POC Glucose 49 L* 78 Random Glucose 35 L* Calcium 8.4 D Magnesium 2.0 04/22/25 04/22/25 09:06 11:47 MCV MCH MCHC RDW Plt Count MPV Immature Gran % (Auto) Neut % (Auto) Lymph % (Auto) [place]pson % (Auto) Eos % (Auto) Baso % (Auto) Lymph # (Auto) [place]pson # (Auto) Eos # (Auto) Baso # (Auto) Abs Immat Gran (auto) Absolute Neuts (auto) Absolute Nucleated RBC Nucleated RBC % (auto) Smear Path Review Anion Gap Estim Creat Clear Calc Estimated GFR POC Glucose 168 H 263 H Random Glucose Calcium Magnesium Microbiology Microbiology Results: Microbiology 04/21/25 12:21 Urine Culture - Final Urine clean catch 04/19/25 23:33 Blood Culture - Preliminary Blood - Venous No growth after 48 hours. 04/19/25 22:42 Blood Culture - Preliminary Blood - Venous No growth after 48 hours. Assessment and Plan (1) C. difficile colitis: Status: Acute (2) Dehydration: Status: Acute (3) Metabolic acidosis: Status: Acute Plan Patient is an 89-year-old female with a past medical history significant for dementia, hypertension, type 2 diabetes, HLD, anxiety, depression, CKD 4, who presented to the ED via EMS due to fecal incontinence, admitted with recurrent uncomplicated C.Diff colitis having failed outpatient therapy. C diff, diarrhea; uncomplicated Patient currently being treated for C diff with vancomycin at home. WBC 39.1, vital signs stable, lactic acid normal, blood cultures x2 pending, no sepsis. WBC downtrending C diff +toxin positive. PLAN - PO vanco changed to fidaxomicin 200 mg p.o. b.i.d. x 10 days. - monitor CBC and BMP - ID consult; reccs appreciated Dehydration Acute hypokalemia Metabolic acidosis (secondary to diarrhea) PLAN - EKG with prolonged QT - check magnesium - monitor BMP Unspecified cognitive impairment Advanced dementia - pt with advanced dementia at baseline, has been declining significantly in the past 6+ months Chronic anemia; nephrogenic, nutritional - hemoglobin 10.8, hematocrit 31.0, stable - no need for blood transfusion - monitor CBC CKD 4; hypertensive and diabetic - creatinine at baseline - avoid nephrotoxins - follow BMP Hypertension - continue home meds Type 2 diabetes - hold Januvia - sliding scale insulin - Lantus reduced dose 7 units nightly - diabetic diet HLD - continue statin Anxiety/depression - continue sertraline Full code VTE prophylaxis: Heparin TID SQ Quality Stroke Does the patient have a stroke diagnosis?: No VTE Prior VTE?: No VTE Risk Level:: Medical - moderate - high VTE Device Contraindication: Treatment Not Indicated VTE Drug Contraindication: N/A - Med Ordered
[2025-04-22 16:13] LABS: Glucose, Whole Blood 170 mg/dL (60-115)
[2025-04-22] MEDS: 0.9 % Sodium Chloride Flush 3 ML SYRINGE IVFLUSH ×2 (16:42→20:25)
[2025-04-22 20:17] LABS: Glucose, Whole Blood 73 mg/dL (60-115)
[2025-04-22 23:44] LABS: Glucose, Whole Blood 117 mg/dL (60-115)
[2025-04-23] VITALS (9 sets, daily range): BP systolic 148–170; BP diastolic 74–82; PULSE 63–71; RESP 18–20; TEMP 36.1–36.5; O2SAT 95–96
[2025-04-23 07:50] LABS: Glucose, Whole Blood 135 mg/dL (60-115)
[2025-04-23 09:48] LABS: MANUAL DIFF FLAG NO
[2025-04-23 09:52] LABS: Hematocrit 34.3 % (37.0-47.0); Hematocrit 34.5 % (37.0-47.0); Hemoglobin 11.5 g/dl (12.0-16.0); Imm Gran Abs Auto 0.03 X10*3/uL (0.00-0.03); Imm Gran Pct Auto 0.3 % (0.0-0.4); Lymphocytes Absolute Auto 0.6 X10*3/uL (1.2-4.9); Mean Corpuscular HGB Conc 33.3 g/dl (31.0-35.0); Mean Corpuscular HGB Conc 33.5 g/dl (31.0-35.0); Mean Corpuscular Hemoglobin 30.5 pg (27.0-33.0); Mean Corpuscular Hemoglobin 30.7 pg (27.0-33.0); Mean Corpuscular Volume 91.5 fL (80.0-98.0); Mean Corpuscular Volume 91.7 fL (80.0-98.0); NRBC Abs Auto 0.000 X10*3/uL (0.0-0.012); NRBC Pct Auto 0.0 /100WBC (0.0-0.2); Platelet Count 365 X10*3/uL (160-400); Red Blood Count 3.74 X10*6/uL (4.20-5.50); Red Blood Count 3.77 X10*6/uL (4.20-5.50); White Blood Count 10.3 X10*3/uL (4.8-10.8); White Blood Count 9.8 X10*3/uL (4.8-10.8)
[2025-04-23] MEDS: 0.9 % Sodium Chloride Flush 3 ML SYRINGE IVFLUSH ×3 (10:05→22:05)
[2025-04-23] MEDS: Metoprolol Succinate ER 50 MG TAB.ER.24H 150 MG PO (10:05)
[2025-04-23 10:57] LABS: Albumin Level 2.7 g/dL (3.5-5.0); Anion Gap 11 (12-20); Blood Urea Nitrogen 19 mg/dL (9-16); Calcium 7.9 mg/dL (8.4-10.2); Carbon Dioxide 24 mmol/L (22-29); Chloride 108 mmol/L (96-108); Creatinine Clr Calc Pharmacy 20.5; Estimated Glomerular Filt Rate 29; Potassium 3.6 mmol/L (3.3-5.1); Sodium 139 mmol/L (135-145)
[2025-04-23 11:35] LABS: Glucose, Whole Blood 161 mg/dL (60-115)
--- NOTE | 2025-04-23 12:09 | P.PNIM_ITS ---
Subjective Subjective Date of Service: 04/23/25 Interval History: Patient was seen today, with no new complaints. Noting slightly labored breathing with wheezing by bedside. She endorses mild dyspnea when this was pointed out to her. Denies cough, phlegm production. Review of Systems Review of Systems: Yes all other systems are reviewed and are negative Physical Exam 2 Exam: Exam: General: A&O x3, oriented to time place person and situation, comfortable, no pain Cardiac: S1, S2 auscultated with no S3/4, no MRG. Well perfused. Respiratory: Wheezing auscultated throughout all lung zones in particular the upper and mid zones. Decreased breath sounds at the bases bilaterally. No rhonchi or crackles. No respiratory distress GI/ : No abdominal pain on palpation, no masses or distentions. MSK: Normal ambulation without pain at bony prominences or musculature Neurological: Normal neurological examination on overview, without obvious CN II-XII abnormalities. Vital Signs: Vital Signs: Last Vital Signs Temp 96.9 F 04/23/25 07:44 Pulse 71 04/23/25 10:05 Resp 18 04/23/25 07:44 BP 168/78 H 04/23/25 10:04 Pulse Ox 96 04/23/25 07:44 O2 Del Method Room Air 04/23/25 07:44 BMI result Body Mass Index 20.6 Objective Data Active Medications Acetaminophen (Acetaminophen 325 Mg Tablet) 650 mg PO Q6H PRN PRN Reason: Pain, Mild 1-3,fever,headache Albuterol Sulfate (Albuterol Sulfate 90 Mcg 8 Gm Inhaler) 2 puff INHALE Q4H PRN PRN Reason: Wheezing Amlodipine Besylate (Amlodipine Besylate 10 Mg Tablet) 10 mg PO DAILY [facility]; Protocol Last Admin: 04/23/25 10:04 Dose: 10 mg Documented By: CHRISTIANO Atorvastatin Calcium (Atorvastatin Calcium 40 Mg Tablet) 40 mg PO BEDTIME [facility] Last Admin: 04/22/25 20:23 Dose: 40 mg Documented By: BRIANNA Calcium Carbonate (Calcium Carbonate 750 Mg Tab.Chew) 750 mg PO Q4H PRN PRN Reason: Heartburn Dextrose (Dextrose 50 % 25 Gm/50 Ml Syringe) 25 gm IVPUSH Q15M PRN; Protocol PRN Reason: per Hypoglycemia Standing Ord. Fidaxomicin (Fidaxomicin 200 Mg Tablet) 200 mg PO Q12H [facility] Stop: 04/29/25 18:01 Last Admin: 04/23/25 06:19 Dose: 200 mg Documented By: BRIANNA Glucose (Glucose Gel 15 Gm Gel..Gram.) 15 gm PO Q15M PRN; Protocol PRN Reason: per Hypoglycemia Standing Ord. Heparin Sodium (Porcine) (Heparin Sodium,Porcine 5,000 Unit/Ml Vial) 5,000 unit SUBCUT BID [facility] Last Admin: 04/23/25 10:02 Dose: 5,000 unit Documented By: CHRISTIANO Insulin Glargine (Insulin Glargine,Hum.Rec.Anlog 100 Unit/Ml 10 Ml Vial) 7 unit SUBCUT BEDTIME [facility] Last Admin: 04/22/25 20:41 Dose: Not Given Documented By: BRIANNA Non-Admin Reason: HOLD PER MD FOR POC 73 Insulin Human Lispro (Insulin Lispro 100 Unit/Ml 3 Ml Vial) 0 unit SUBCUT QIDACHS [facility]; Protocol Last Admin: 04/23/25 11:47 Dose: 2 unit Documented By: KARLO Magnesium Hydroxide (Milk Of Magnesia 30 Ml Oral.Susp) 30 ml PO DAILY PRN PRN Reason: Constipation Magnesium Oxide (Magnesium Oxide 400 Mg Tablet) 200 mg PO DAILY [facility] Last Admin: 04/23/25 10:04 Dose: 200 mg Documented By: CHRISTIANO Melatonin (Melatonin 3 Mg Tablet) 6 mg PO BEDTIME PRN PRN Reason: Insomnia Metoprolol Succinate (Metoprolol Succinate Er 50 Mg Tab.Er.24h) 150 mg PO DAILY [facility]; Protocol Last Admin: 04/23/25 10:05 Dose: 150 mg Documented By: CHRISTIANO Quetiapine Fumarate (Quetiapine Fumarate 25 Mg Tablet) 25 mg PO TID PRN PRN Reason: agitation Sertraline HCl (Sertraline Hcl 100 Mg Tablet) 100 mg PO BEDTIME [facility] Last Admin: 04/22/25 20:42 Dose: 100 mg Documented By: BRIANNA Sitagliptin Phosphate (Sitagliptin Phosphate 25 Mg Tablet) 25 mg PO DAILY [facility] Last Admin: 04/23/25 10:02 Dose: 25 mg Documented By: CHRISTIANO Sodium Chloride (0.9 % Sodium Chloride Flush 3 Ml Syringe) 3 ml IVFLUSH QSHIFT [facility] Last Admin: 04/23/25 10:05 Dose: 3 ml Documented By: CHRISTIANO Vitamin D (Cholecalciferol (Vitamin D3) 25 Mcg Tablet) 125 mcg PO Q48H [facility] Last Admin: 04/22/25 08:12 Dose: 125 mcg Documented By: CHRISTIANO Labs 04/23/25 09:16 04/23/25 09:16 Labs: Laboratory Results - last 24 hr 04/19/25 04/22/25 04/22/25 22:06 16:04 20:12 MCV MCH MCHC RDW Plt Count MPV Immature Gran % (Auto) Neut % (Auto) Lymph % (Auto) [place] % (Auto) Eos % (Auto) Baso % (Auto) Lymph # (Auto) [place] # (Auto) Eos # (Auto) Baso # (Auto) Abs Immat Gran (auto) Absolute Neuts (auto) Absolute Nucleated RBC Nucleated RBC % (auto) Smear Path Review SEE NOTE Anion Gap Estim Creat Clear Calc Estimated GFR POC Glucose 170 H 73 Random Glucose Calcium Albumin 04/22/25 04/23/25 04/23/25 23:40 07:42 09:16 MCV 91.5 MCH MCHC RDW Plt Count MPV Immature Gran % (Auto) Neut % (Auto) Lymph % (Auto) [place] % (Auto) Eos % (Auto) Baso % (Auto) Lymph # (Auto) [place] # (Auto) Eos # (Auto) Baso # (Auto) Abs Immat Gran (auto) Absolute Neuts (auto) Absolute Nucleated RBC Nucleated RBC % (auto) Smear Path Review Anion Gap Estim Creat Clear Calc Estimated GFR POC Glucose 117 H 135 H Random Glucose Calcium Albumin 04/23/25 04/23/25 04/23/25 09:16 09:16 09:16 MCV 91.7 MCH 30.5 30.7 MCHC 33.3 33.5 RDW 13.7 Plt Count MPV Immature Gran % (Auto) Neut % (Auto) Lymph % (Auto) [place] % (Auto) Eos % (Auto) Baso % (Auto) Lymph # (Auto) [place] # (Auto) Eos # (Auto) Baso # (Auto) Abs Immat Gran (auto) Absolute Neuts (auto) Absolute Nucleated RBC Nucleated RBC % (auto) Smear Path Review Anion Gap Estim Creat Clear Calc Estimated GFR POC Glucose Random Glucose Calcium Albumin 04/23/25 04/23/25 04/23/25 09:16 09:16 09:16 MCV MCH MCHC RDW 13.7 Plt Count 365 365 MPV 11.0 11.0 Immature Gran % (Auto) 0.3 Neut % (Auto) 82.8 H Lymph % (Auto) 6.2 L [place] % (Auto) 8.1 Eos % (Auto) 1.8 Baso % (Auto) 0.8 Lymph # (Auto) 0.6 L [place] # (Auto) 0.8 Eos # (Auto) 0.2 Baso # (Auto) 0.1 Abs Immat Gran (auto) 0.03 Absolute Neuts (auto) 8.5 H Absolute Nucleated RBC 0.000 Nucleated RBC % (auto) Smear Path Review Anion Gap Estim Creat Clear Calc Estimated GFR POC Glucose Random Glucose Calcium Albumin 04/23/25 04/23/25 04/23/25 09:16 09:16 09:16 MCV MCH MCHC RDW Plt Count MPV Immature Gran % (Auto) Neut % (Auto) Lymph % (Auto) [place] % (Auto) Eos % (Auto) Baso % (Auto) Lymph # (Auto) [place] # (Auto) Eos # (Auto) Baso # (Auto) Abs Immat Gran (auto) Absolute Neuts (auto) Absolute Nucleated RBC 0.000 Nucleated RBC % (auto) 0.0 0.0 Smear Path Review Anion Gap 11 L Cancelled Estim Creat Clear Calc 20.5 Estimated GFR POC Glucose Random Glucose Calcium Albumin 04/23/25 04/23/25 04/23/25 09:16 09:16 09:16 MCV MCH MCHC RDW Plt Count MPV Immature Gran % (Auto) Neut % (Auto) Lymph % (Auto) [place] % (Auto) Eos % (Auto) Baso % (Auto) Lymph # (Auto) [place] # (Auto) Eos # (Auto) Baso # (Auto) Abs Immat Gran (auto) Absolute Neuts (auto) Absolute Nucleated RBC Nucleated RBC % (auto) Smear Path Review Anion Gap Estim Creat Clear Calc Cancelled Estimated GFR 29 Cancelled POC Glucose Random Glucose 179 H Cancelled Calcium 7.9 L Albumin 04/23/25 04/23/25 09:16 11:19 MCV MCH MCHC RDW Plt Count MPV Immature Gran % (Auto) Neut % (Auto) Lymph % (Auto) [place] % (Auto) Eos % (Auto) Baso % (Auto) Lymph # (Auto) [place] # (Auto) Eos # (Auto) Baso # (Auto) Abs Immat Gran (auto) Absolute Neuts (auto) Absolute Nucleated RBC Nucleated RBC % (auto) Smear Path Review Anion Gap Estim Creat Clear Calc Estimated GFR POC Glucose 161 H Random Glucose Calcium Cancelled Albumin 2.7 L Microbiology Microbiology Results: Microbiology 04/21/25 12:21 Urine Culture - Final Urine clean catch Assessment and Plan (1) C. difficile colitis: Status: Acute (2) Acute CHF (congestive heart failure): Status: Acute Plan Patient is an 89-year-old female with a past medical history significant for dementia, hypertension, type 2 diabetes, HLD, anxiety, depression, CKD 4, who presented to the ED via EMS due to fecal incontinence, admitted with recurrent uncomplicated C.Diff colitis having failed outpatient therapy. C diff, diarrhea; uncomplicated Patient currently being treated for C diff with vancomycin at home. WBC 39.1, vital signs stable, lactic acid normal, blood cultures x2 pending, no sepsis. WBC downtrending C diff +toxin positive. PLAN - PO vanco changed to fidaxomicin 200 mg p.o. b.i.d. x 10 days. - monitor CBC and BMP - ID consult; reccs appreciated Acute CHFpEF 60-65% Severe septal asymmetric hypertrophy Patient has wheezing by bedside, with decreased breath sounds at the bases. Chest x-ray revealing bilateral pleural effusions Echo 03/29: LVEF 60-65% with diastolic dysfunction and severe asymmetric septal hypertrophy. Impression of acute exacerbation. PLAN - monitor BMP - order BNP and trend - furosemide 20 mg once - I/O every 6 hours - monitor respiratory function Dehydration Acute hypokalemia Metabolic acidosis (secondary to diarrhea) PLAN - EKG with prolonged QT - check magnesium - monitor BMP Unspecified cognitive impairment Advanced dementia - pt with advanced dementia at baseline, has been declining significantly in the past 6+ months Chronic anemia; nephrogenic, nutritional - hemoglobin 10.8, hematocrit 31.0, stable - no need for blood transfusion - monitor CBC CKD 4; hypertensive and diabetic - creatinine at baseline - avoid nephrotoxins - follow BMP Hypertension - continue home meds Type 2 diabetes - hold Januvia - sliding scale insulin - Lantus reduced dose 7 units nightly - diabetic diet HLD - continue statin Anxiety/depression - continue sertraline Full code VTE prophylaxis: Heparin TID SQ Total time managing care of this patient today: 35 minutes. Quality Stroke Does the patient have a stroke diagnosis?: No VTE Prior VTE?: No VTE Risk Level:: Medical - moderate - high VTE Device Contraindication: Treatment Not Indicated VTE Drug Contraindication: N/A - Med Ordered
[2025-04-23 12:13] LABS: B Type Natriuretic Peptide 320 pg/mL (<100)
[2025-04-23 16:23] LABS: Glucose, Whole Blood 175 mg/dL (60-115)
[2025-04-23 20:43] LABS: Glucose, Whole Blood 176 mg/dL (60-115)
[2025-04-23] MEDS: Insulin Glargine,Hum.rec.anlog 100 UNIT/ML 10 ML VIAL 7 UNIT SUBCUT (22:01)
[2025-04-24] VITALS (7 sets, daily range): BP systolic 152–187; BP diastolic 64–88; PULSE 59–75; RESP 14–16; TEMP 36.1–36.6; O2SAT 95–97
[2025-04-24 06:28] LABS: MANUAL DIFF FLAG NO
[2025-04-24 06:37] LABS: Hematocrit 34.1 % (37.0-47.0); Hemoglobin 11.4 g/dl (12.0-16.0); Imm Gran Abs Auto 0.07 X10*3/uL (0.00-0.03); Imm Gran Pct Auto 0.5 % (0.0-0.4); Lymphocytes Absolute Auto 0.9 X10*3/uL (1.2-4.9); Mean Corpuscular HGB Conc 33.4 g/dl (31.0-35.0); Mean Corpuscular Hemoglobin 30.4 pg (27.0-33.0); Mean Corpuscular Volume 90.9 fL (80.0-98.0); NRBC Abs Auto 0.000 X10*3/uL (0.0-0.012); NRBC Pct Auto 0.0 /100WBC (0.0-0.2); Platelet Count 385 X10*3/uL (160-400); Red Blood Count 3.75 X10*6/uL (4.20-5.50); White Blood Count 12.8 X10*3/uL (4.8-10.8)
[2025-04-24 07:01] LABS: Anion Gap 11 (12-20); Blood Urea Nitrogen 20 mg/dL (9-16); Calcium 8.1 mg/dL (8.4-10.2); Carbon Dioxide 25 mmol/L (22-29); Chloride 108 mmol/L (96-108); Creatinine Clr Calc Pharmacy 19.9; Estimated Glomerular Filt Rate 28; Potassium 3.7 mmol/L (3.3-5.1); Sodium 140 mmol/L (135-145)
[2025-04-24 07:56] LABS: Glucose, Whole Blood 87 mg/dL (60-115)
[2025-04-24] MEDS: 0.9 % Sodium Chloride Flush 3 ML SYRINGE IVFLUSH ×3 (08:18→20:28)
[2025-04-24] MEDS: Furosemide 40 MG/4 ML VIAL IVPUSH (10:22)
[2025-04-24 11:09] LABS: Glucose, Whole Blood 145 mg/dL (60-115)
--- NOTE | 2025-04-24 11:42 | HO.PM.IMPN ---
Subjective Subjective Date of Service: 04/24/25 Interval History: Patient was seen today, with no new complaints. Breathing improved. Still wheezing by bedside. Received furosemide yesterday - reprtin gradual improvement Review of Systems Constitutional : No Weight loss, No Fever, No Chills, No Night Sweats, No Fatigue, No Malaise ENT/Mouth : No Hearing loss, No Ear Pain, No Nasal Congestion, No Sinus Pain, No Hoarseness, No sore throat, No Rhinorrhea, No Swallowing Difficulty Eyes: No Eye Pain, No Swelling, No Redness, No Foreign Body, No Discharge, No Vision Changes Cardiovascular : No Chest Pain, No SOB, No Dyspnea on Exertion, No Orthopnea, No Edema, No Palpitations Respiratory : No Cough, No Sputum, No Wheezing, No Smoke Exposure, No Dyspnea Gastrointestinal : No Nausea, No Vomiting, complaining of profuse watery Diarrhea, No Constipation, No abdominal Pain, No Hematochezia, No Melena Genitourinary : no irregular bleeding, No Dysuria, No Urinary Frequency, No Hematuria, No Urinary Incontinence, No Urgency, No Flank Pain, No Urinary Flow Changes, No Hesitancy Musculoskeletal : No joint pain, No Myalgias, No Joint Swelling Skin : No Skin Lesions, No rash Neuro : No Weakness, No Numbness, No Paresthesias, No Loss of Consciousness, No Dizziness, No Headache Psych : No Anxiety/Panic, No Depression, No SI/HI/AH/VH, No Social Issues, Heme/Lymph: No Bruising, No Bleeding,No Lymphadenopathy Endocrine : No Polyuria, No Polydipsia, No Temperature Intolerance Physical Exam Exam: Exam: General: A&O x3, oriented to time place person and situation, comfortable, no pain Cardiac: S1, S2 auscultated with no S3/4, no MRG. Well perfused. Respiratory: Bibasilar crepitations and crackles auscultated with mid zone wheezing and upper zone wheezing. No rales. No phlegm production. No respiratory distress GI/ : No abdominal pain on palpation, no masses or distentions. MSK: Normal ambulation without pain at bony prominences or musculature Neurological: Normal neurological examination on overview, without obvious CN II-XII abnormalities. Vital Signs: Vital Signs: Last Vital Signs Temp 97.0 F 04/24/25 07:56 Pulse 59 04/24/25 07:56 Resp 14 04/24/25 07:56 BP 152/64 H 04/24/25 10:22 Pulse Ox 96 04/24/25 07:56 O2 Del Method Room Air 04/24/25 07:56 BMI result Body Mass Index 20.6 Objective Data Active Medications Acetaminophen (Acetaminophen 325 Mg Tablet) 650 mg PO Q6H PRN PRN Reason: Pain, Mild 1-3,fever,headache Albuterol Sulfate (Albuterol Sulfate 90 Mcg 8 Gm Inhaler) 2 puff INHALE Q4H PRN PRN Reason: Wheezing Amlodipine Besylate (Amlodipine Besylate 10 Mg Tablet) 10 mg PO DAILY [facility]; Protocol Last Admin: 04/24/25 08:15 Dose: 10 mg Documented By: JOSE J Atorvastatin Calcium (Atorvastatin Calcium 40 Mg Tablet) 40 mg PO BEDTIME [facility] Last Admin: 04/23/25 22:02 Dose: 40 mg Documented By: BRIANNA Calcium Carbonate (Calcium Carbonate 750 Mg Tab.Chew) 750 mg PO Q4H PRN PRN Reason: Heartburn Dextrose (Dextrose 50 % 25 Gm/50 Ml Syringe) 25 gm IVPUSH Q15M PRN; Protocol PRN Reason: per Hypoglycemia Standing Ord. Fidaxomicin (Fidaxomicin 200 Mg Tablet) 200 mg PO Q12H [facility] Stop: 04/29/25 18:01 Last Admin: 04/24/25 06:16 Dose: 200 mg Documented By: BRIANNA Glucose (Glucose Gel 15 Gm Gel..Gram.) 15 gm PO Q15M PRN; Protocol PRN Reason: per Hypoglycemia Standing Ord. Heparin Sodium (Porcine) (Heparin Sodium,Porcine 5,000 Unit/Ml Vial) 5,000 unit SUBCUT BID [facility] Last Admin: 04/24/25 08:19 Dose: 5,000 unit Documented By: JOSE J Insulin Glargine (Insulin Glargine,Hum.Rec.Anlog 100 Unit/Ml 10 Ml Vial) 7 unit SUBCUT BEDTIME [facility] Last Admin: 04/23/25 22:01 Dose: 7 unit Documented By: BRIANNA Insulin Human Lispro (Insulin Lispro 100 Unit/Ml 3 Ml Vial) 0 unit SUBCUT QIDACHS [facility]; Protocol Last Admin: 04/24/25 11:23 Dose: Not Given Documented By: JOSE J Non-Admin Reason: No Insulin Coverage Magnesium Hydroxide (Milk Of Magnesia 30 Ml Oral.Susp) 30 ml PO DAILY PRN PRN Reason: Constipation Magnesium Oxide (Magnesium Oxide 400 Mg Tablet) 200 mg PO DAILY [facility] Last Admin: 04/24/25 08:16 Dose: 200 mg Documented By: JOSE J Melatonin (Melatonin 3 Mg Tablet) 6 mg PO BEDTIME PRN PRN Reason: Insomnia Metoprolol Succinate (Metoprolol Succinate Er 50 Mg Tab.Er.24h) 150 mg PO DAILY [facility]; Protocol Last Admin: 04/24/25 08:17 Dose: Not Given Documented By: JOSE J Non-Admin Reason: Decreased Heart Rate Quetiapine Fumarate (Quetiapine Fumarate 25 Mg Tablet) 25 mg PO TID PRN PRN Reason: agitation Sertraline HCl (Sertraline Hcl 100 Mg Tablet) 100 mg PO BEDTIME [facility] Last Admin: 04/23/25 22:02 Dose: 100 mg Documented By: BRIANNA Sitagliptin Phosphate (Sitagliptin Phosphate 25 Mg Tablet) 25 mg PO DAILY [facility] Last Admin: 04/24/25 08:19 Dose: 25 mg Documented By: JOSE J Sodium Chloride (0.9 % Sodium Chloride Flush 3 Ml Syringe) 3 ml IVFLUSH QSHIFT [facility] Last Admin: 04/24/25 08:18 Dose: 3 ml Documented By: JOSE J Vitamin D (Cholecalciferol (Vitamin D3) 25 Mcg Tablet) 125 mcg PO Q48H [facility] Last Admin: 04/24/25 08:17 Dose: 125 mcg Documented By: JOSE J Labs 04/24/25 05:53 04/24/25 05:53 Labs: Laboratory Results - last 24 hr 04/23/25 04/23/25 04/23/25 09:16 16:19 20:27 MCV MCH MCHC RDW Plt Count MPV Immature Gran % (Auto) Neut % (Auto) Lymph % (Auto) [place] % (Auto) Eos % (Auto) Baso % (Auto) Lymph # (Auto) [place] # (Auto) Eos # (Auto) Baso # (Auto) Abs Immat Gran (auto) Absolute Neuts (auto) Absolute Nucleated RBC Nucleated RBC % (auto) Anion Gap Estim Creat Clear Calc Estimated GFR POC Glucose 175 H 176 H Random Glucose Calcium B-Natriuretic Peptide 320 H 04/24/25 04/24/2504/24/25 05:53 07:52 11:01 MCV 90.9 MCH 30.4 MCHC 33.4 RDW 13.7 Plt Count 385 MPV 10.7 Immature Gran % (Auto) 0.5 H Neut % (Auto) 81.1 H Lymph % (Auto) 7.0 L [place] % (Auto) 9.2 Eos % (Auto) 1.7 Baso % (Auto) 0.5 Lymph # (Auto) 0.9 L [place] # (Auto) 1.2 Eos # (Auto) 0.2 Baso # (Auto) 0.1 Abs Immat Gran (auto) 0.07 H Absolute Neuts (auto) 10.4 H Absolute Nucleated RBC 0.000 Nucleated RBC % (auto) 0.0 Anion Gap 11 L Estim Creat Clear Calc 19.9 Estimated GFR 28 POC Glucose 87 145 H Random Glucose 75 Calcium 8.1 L B-Natriuretic Peptide Assessment and Plan (1) Acute CHF (congestive heart failure): Status: Acute (2) Dehydration: Status: Acute (3) C. difficile colitis: Status: Acute Plan Patient is an 89-year-old female with a past medical history significant for dementia, hypertension, type 2 diabetes, HLD, anxiety, depression, CKD 4, who presented to the ED via EMS due to fecal incontinence, admitted with recurrent uncomplicated C.Diff colitis having failed outpatient therapy. C diff, diarrhea; uncomplicated Patient currently being treated for C diff with vancomycin at home. WBC 39.1, vital signs stable, lactic acid normal, blood cultures x2 pending, no sepsis. WBC downtrending C diff +toxin positive. PLAN - PO vanco changed to fidaxomicin 200 mg p.o. b.i.d. x 10 days. - monitor CBC and BMP - ID consult; reccs appreciated Acute CHFpEF 60-65% Severe septal asymmetric hypertrophy Patient has wheezing by bedside, with decreased breath sounds at the bases. Chest x-ray revealing bilateral pleural effusions Echo 03/29: LVEF 60-65% with diastolic dysfunction and severe asymmetric septal hypertrophy. Impression of acute exacerbation. PLAN - monitor BMP - order BNP and trend - furosemide 40mg IV once - I/O every 6 hours - monitor respiratory function Dehydration Acute hypokalemia Metabolic acidosis (secondary to diarrhea) PLAN - EKG with prolonged QT - check magnesium - monitor BMP Unspecified cognitive impairment Advanced dementia - pt with advanced dementia at baseline, has been declining significantly in the past 6+ months Chronic anemia; nephrogenic, nutritional - hemoglobin 10.8, hematocrit 31.0, stable - no need for blood transfusion - monitor CBC CKD 4; hypertensive and diabetic - creatinine at baseline - avoid nephrotoxins - follow BMP Hypertension - continue home meds Type 2 diabetes - hold Januvia - sliding scale insulin - Lantus reduced dose 7 units nightly - diabetic diet HLD - continue statin Anxiety/depression - continue sertraline Full code VTE prophylaxis: Heparin TID SQ Quality Stroke Does the patient have a stroke diagnosis?: No VTE Prior VTE?: No VTE Risk Level:: Medical - moderate - high VTE Device Contraindication: Treatment Not Indicated VTE Drug Contraindication: N/A - Med Ordered
--- NOTE | 2025-04-24 12:43 | MHC.CM.PN ---
per rounds pt expected to dc in 1 to 2 days pt plan remains home vs str pending pt eval
[2025-04-24 16:36] LABS: Glucose, Whole Blood 138 mg/dL (60-115)
--- NOTE | 2025-04-24 19:17 | PC.NURSE ---
Pt ambulated to BR and had moderate soft brown stool. Oriented to person only. Resistive to care at times. Denies pain. Tolerating diet but needs assistance and encouragement with meals. Foam placed to coccyx for blanchable redness after sitting up in recliner
[2025-04-24 20:45] LABS: Glucose, Whole Blood 222 mg/dL (60-115)
[2025-04-24] MEDS: Insulin Glargine,Hum.rec.anlog 100 UNIT/ML 10 ML VIAL 7 UNIT SUBCUT (20:50)
[2025-04-25 03:08] VITALS: BP 120/76; PULSE 87; RESP 18; TEMP 36.5; O2SAT 96
[2025-04-25 05:51] LABS: MANUAL DIFF FLAG NO
[2025-04-25 06:18] LABS: Hematocrit 32.7 % (37.0-47.0); Hemoglobin 10.8 g/dl (12.0-16.0); Imm Gran Abs Auto 0.07 X10*3/uL (0.00-0.03); Imm Gran Pct Auto 0.6 % (0.0-0.4); Lymphocytes Absolute Auto 0.8 X10*3/uL (1.2-4.9); Mean Corpuscular HGB Conc 33.0 g/dl (31.0-35.0); Mean Corpuscular Hemoglobin 30.2 pg (27.0-33.0); Mean Corpuscular Volume 91.3 fL (80.0-98.0); NRBC Abs Auto 0.000 X10*3/uL (0.0-0.012); NRBC Pct Auto 0.0 /100WBC (0.0-0.2); Platelet Count 220 X10*3/uL (160-400); Red Blood Count 3.58 X10*6/uL (4.20-5.50); White Blood Count 12.5 X10*3/uL (4.8-10.8)
[2025-04-25 06:27] LABS: Anion Gap 12 (12-20); Blood Urea Nitrogen 22 mg/dL (9-16); Calcium 7.5 mg/dL (8.4-10.2); Carbon Dioxide 19 mmol/L (22-29); Chloride 112 mmol/L (96-108); Creatinine Clr Calc Pharmacy 17.9; Estimated Glomerular Filt Rate 25; Potassium 3.7 mmol/L (3.3-5.1); Sodium 139 mmol/L (135-145)
--- NOTE | 2025-04-25 07:20 | P.CDIM_ITS ---
PROVIDER RESPONSE TEXT: To clarify, the appropriate diagnosis supported by the clinical indicators: Acute QUERY TEXT: PHYSICIAN'S DOCUMENTATION REQUEST Date of Query: 04/22/2025 12:33 PM EDT Patient Name: Brooke Mason Admit Date: 04/20/2025 Dear Tatyana LY, A review of the medical record indicates additional documentation may be needed. Please review below and update the documentation accordingly. Clinical Indicators: Progress note dated 04/21/25 - Dehydration, hypokalemia, metabolic acidosis -- secondary to dehydration. Bicarb 20, given 2L LR in Ed. Clarify which of the following accurately represents the acuity of the Metabolic acidosis: Possible options might include: Acute Chronic Other specified Other (explain) Clinically unable to determine (explain) Thank you, Corinna Gallagher, CCS, CDIS Use of terms such as suspected, likely, concern for, or probable (associated with a specific diagnosis that is being evaluated, monitored, or treated as if it exists) are acceptable and can be coded in the inpatient setting, when documented at the time of discharge. Please use your independent medical judgment in providing your response. THIS QUERY IS PART OF THE PERMANENT MEDICAL RECORD
[2025-04-25 08:00] VITALS: BP 140/80; PULSE 71; RESP 16; TEMP 36.1; O2SAT 94
[2025-04-25 08:21] LABS: Glucose, Whole Blood 93 mg/dL (60-115)
[2025-04-25] MEDS: Metoprolol Succinate ER 50 MG TAB.ER.24H 150 MG PO (09:06)
[2025-04-25] MEDS: 0.9 % Sodium Chloride Flush 3 ML SYRINGE IVFLUSH (09:11)
[2025-04-25 11:40] LABS: Glucose, Whole Blood 140 mg/dL (60-115)
--- NOTE | 2025-04-25 13:33 | PM.DS ---
DS: Providers Provider Date of Service: 04/19/25 Date of admission: 04/19/25 23:49 Date of discharge: 04/25/25 Primary care physician: Whitley Lay PA-C Consults: 04/20/25 01:37 Consult to Infectious Diseases Routine Consulting Provider[place] [facility] Reason for consultation: recurrent c diff Has provider been notified: No Attending physician on discharge: Zain Sewell DS: Diagnosis Discharge Diagnosis (1) Acute CHF (congestive heart failure): Status: Acute (2) Dehydration: Status: Acute (3) C. difficile colitis: Status: Acute DS: Summary Hospital Course Hospital Course: Patient is an 89-year-old female with a past medical history significant for dementia, hypertension, type 2 diabetes, HLD, anxiety, depression, CKD 4, who presented to the ED via EMS due to fecal incontinence, admitted with recurrent uncomplicated C.Diff colitis having failed outpatient therapy. C diff, diarrhea; uncomplicated Patient currently being treated for C diff with vancomycin at home. WBC 39.1, vital signs stable, lactic acid normal, blood cultures x2 pending, no sepsis. WBC downtrending C diff +toxin positive. Started on vancomycin and switched to fidaxomicin 200 mg p.o. b.i.d. for 10 days. End date is 04/29. Infectious diseases has been consulted, following up in the outpatient setting. Acute CHFpEF 60-65% Severe septal asymmetric hypertrophy Patient has wheezing by bedside, with decreased breath sounds at the bases. Chest x-ray revealing bilateral pleural effusions Echo 03/29: LVEF 60-65% with diastolic dysfunction and severe asymmetric septal hypertrophy. Suffered with an acute exacerbation while in hospital. She was diuresed with 40 mg IV furosemide daily, with good effect. Currently euvolemic Status at Discharge Functional status at discharge: independent ambulation Overall status at discharge: patient is back to baseline Time Attestation Total time managing care of this patient today: 35 mintues. Discharge Coordination Time (in mins): 15 Quality: Safe Use of Opioids Does Pt have an Active Cancer Diagnosis on the Problem List?: No Quality: Stroke Does the patient have a stroke diagnosis?: No Physical Exam Exam: Exam: General: Comfortable, no pain. Oriented to self, not place time or situation. Cardiac: S1, S2 auscultated with no S3/4, no MRG. Well perfused. Respiratory: Vesicular breath sounds throughout all lung zones. No wheezing. No rales. No phlegm production. No respiratory distress GI/ : No abdominal pain on palpation, no masses or distentions. MSK: Normal ambulation without pain at bony prominences or musculature Neurological: Normal neurological examination on overview, without obvious CN II-XII abnormalities. Vital Signs: Vital Signs: Last Vital Signs Temp 97 F 04/25/25 08:00 Pulse 71 04/25/25 08:00 Resp 16 04/25/25 08:00 BP 140/80 H 04/25/25 08:00 Pulse Ox 94 04/25/25 08:00 O2 Del Method Room Air 04/25/25 08:00 BMI result Body Mass Index 20.6 DS: Data Data Completed and Pending Completed studies during hospitalization [Text1]: Procedures Drainage of Right Pleural Cavity, Percutaneous Approach (03/14/25) Labs on day of discharge: Laboratory Results - last 24 hr 04/24/25 04/24/25 04/25/25 16:28 20:39 05:39 WBC 12.5 H RBC 3.58 L Hgb 10.8 L Hct 32.7 L MCV 91.3 MCH 30.2 MCHC 33.0 RDW 13.6 Plt Count 220 D MPV 11.9 Immature Gran % (Auto) 0.6 H Neut % (Auto) 80.5 H Lymph % (Auto) 6.6 L [place] % (Auto) 10.8 Eos % (Auto) 1.0 Baso % (Auto) 0.5 Lymph # (Auto) 0.8 L [place] # (Auto) 1.4 H Eos # (Auto) 0.1 Baso # (Auto) 0.1 Abs Immat Gran (auto) 0.07 H Absolute Neuts (auto) 10.0 H Absolute Nucleated RBC 0.000 Nucleated RBC % (auto) 0.0 Sodium 139 Potassium 3.7 Chloride 112 H Carbon Dioxide 19 L Anion Gap 12 BUN 22 H Creatinine 1.89 H Estim Creat Clear Calc 17.9 Estimated GFR 25 POC Glucose 138 H 222 H Random Glucose 85 Calcium 7.5 L D 04/25/25 04/25/25 07:54 11:34 WBC RBC Hgb Hct MCV MCH MCHC RDW Plt Count MPV Immature Gran % (Auto) Neut % (Auto) Lymph % (Auto) [place] % (Auto) Eos % (Auto) Baso % (Auto) Lymph # (Auto) [place] # (Auto) Eos # (Auto) Baso # (Auto) Abs Immat Gran (auto) Absolute Neuts (auto) Absolute Nucleated RBC Nucleated RBC % (auto) Sodium Potassium Chloride Carbon Dioxide Anion Gap BUN Creatinine Estim Creat Clear Calc Estimated GFR POC Glucose 93 140 H Random Glucose Calcium Discharge Plan Discharge Anticipated Discharge Date/Time: 04/25/25 13:37 Patient Disposition: Xfer SNF Discharge Diagnosis: Recurrent C diff colitis, acute delirium, metabolic acidosis, acute CHF exacerbation Referrals: [facility] [Outside] - 1 Week Referral Note: TRANSFER FOR SHORT TERM REHAB Whitley Lay PA-C [Primary Care Provider, [facility]] - 1 Week Discharge Medications: New fidaxomicin [Dificid] 200 mg Tablet 200 mg PO Q12H 5 Days Qty: 10 0RF Continued glipizide 5 mg Tablet Extended Release 24hr 5 mg PO DAILY insulin glargine [Lantus U-100 Insulin] 100 unit/mL Solution 10 unit SUBCUT BEDTIME amlodipine 10 mg tablet 10 mg PO DAILY losartan 50 mg tablet 100 mg PO DAILY metoprolol succinate 50 mg Tablet Extended Release 24 Hr 150 mg PO DAILY Rx Instructions: 3 tablets daily per [facility] and daughter atorvastatin 40 mg Tablet 40 mg PO BEDTIME sertraline 100 mg tablet 100 mg PO BEDTIME albuterol sulfate 90 mcg/actuation HFA aerosol inhaler 2 puff INHALATION Q4H PRN (Reason: Wheezing) Januvia 25 mg tablet 25 mg PO DAILY cholecalciferol (vitamin D3) [Vitamin D3] 125 mcg (5,000 unit) Tablet 125 mcg PO Q48H magnesium oxide 200 mg magnesium Tablet 200 mg PO DAILY Discharge Orders: Discharge Order (Routine); Ordered 04/25/25 Ordered By: Zain Sewell Diet: Advance to usual diet Activity on Discharge: As tolerated Stand Alone Forms: Patient Portal Discharge page Print Language: Mohawk Care Plan Goals: Follow-up Infectious diseases outpatient Follow-up PCP within 1 week Complete antibiotics fidaxomicin until completion Health Concerns: Acute CHF exacerbation (iatrogenic fluid overload) C diff recurrence Advanced dementia Plan of Treatment: As above Assessment: Patient is back to clinical baseline, euvolemic on evaluation
--- NOTE | 2025-04-25 13:55 | MHC.CM.PN ---
DP: PT HAS BEEN MEDICALLY CLEARED FOR DC TO STR AT [facility]. BLS TRANSPORT BOOKED FOR 3 PM [facility]IA [facility]. RN/HCP/DAUGHTERS ALANIS AND ARMANDO MADE AWARE. FINAL IMM DELIVERED.
== END 2025-04-25 14:58 | disposition skilled nursing facility (03) | DRG 371 ==
LOC: HO.ED 04-20 00:09 → HO.EDOVER 04-20 00:41 → HO.S3 04-20 01:00
PROVIDERS: Physician Assistant; Student in an Organized Health Care Education/Training Program; Admitting Provider Internal Medicine; Emergency Provider Emergency Medicine; PCP Physician Assistant; Visit Provider Hospitalist
DX: A04.71 Enterocolitis due to Clostridium difficile, recurrent (principal); G93.41 Metabolic encephalopathy; I50.33 Acute on chronic diastolic (congestive) heart failure; E87.21 Acute metabolic acidosis; I13.0 Hypertensive heart and chronic kidney disease with heart failure and stage 1 through stage 4 chronic kidney disease, or unspecified chronic kidney disease; N18.4 Chronic kidney disease, stage 4 (severe); F05 Delirium due to known physiological condition; F41.9 Anxiety disorder, unspecified; F32.A Depression, unspecified; D63.1 Anemia in chronic kidney disease; E78.5 Hyperlipidemia, unspecified; F03.90 Unspecified dementia, unspecified severity, without behavioral disturbance, psychotic disturbance, mood disturbance, and anxiety; E87.6 Hypokalemia; E86.0 Dehydration; E11.22 Type 2 diabetes mellitus with diabetic chronic kidney disease; Z79.84 Long term (current) use of oral hypoglycemic drugs; Z79.899 Other long term (current) drug therapy
CPT/HCPCS: 36415; 71045; 80048; 80053; 82040; 82803; 82947; 83605; 83735; 83880; 85025; 85027; 87040; 87086; 87324; 87493; 93005; 97162; 97530; 99285; J1644; J1938; J7120

== ENCOUNTER → 2025-04-19 22:18 | Outpatient (BNV) | payer MEDICARE, OTHER, SELFPAY | PROVIDERS: Admitting Provider Internal Medicine; Emergency Provider Emergency Medicine; PCP Physician Assistant; Visit Provider Internal Medicine Cardiovascular Disease | DX: I49.3 Ventricular premature depolarization (principal); I49.9 Cardiac arrhythmia, unspecified | CPT/HCPCS: 93010 ==

== ENCOUNTER 2025-04-19 23:49 | Outpatient (BNV) | payer MEDICARE, OTHER, SELFPAY | END 2025-04-23 09:23 | PROVIDERS: Admitting Provider Internal Medicine; Emergency Provider Emergency Medicine; PCP Physician Assistant; Visit Provider Radiology Diagnostic Radiology | DX: J90 Pleural effusion, not elsewhere classified (principal) | CPT/HCPCS: 71045 ==

== ENCOUNTER → 2025-04-19 23:49 | Outpatient (BNV) | payer MEDICARE, OTHER, SELFPAY | PROVIDERS: Admitting Provider Internal Medicine; Emergency Provider Emergency Medicine; PCP Physician Assistant; Visit Provider Internal Medicine | DX: E86.0 Dehydration (principal); A04.72 Enterocolitis due to Clostridium difficile, not specified as recurrent; G93.40 Encephalopathy, unspecified | CPT/HCPCS: 99222 ==

== ENCOUNTER → 2025-04-19 23:49 | Outpatient (BNV) | payer MEDICARE, OTHER, SELFPAY | PROVIDERS: Admitting Provider Internal Medicine; Emergency Provider Emergency Medicine; PCP Physician Assistant; Visit Provider Physician Assistant | DX: A04.72 Enterocolitis due to Clostridium difficile, not specified as recurrent (principal) | CPT/HCPCS: 99223; 99232; 99499 ==

== ENCOUNTER 2025-05-01 13:28 | Outpatient (AMB) | payer MEDICARE, OTHER, SELFPAY ==
--- OUTSIDE RECORDS SUMMARY | 2025-04-26 08:41 | XMS_ITS | Encounter Summary ---
Author Organization [facility] Address [address] [facility] [address] [place] [address] Phone Care Team Providers Care Fruit Or Nut Farmworker Name Role Phone Destin Shermanruv Brian DO Unavailable [phone] Whitley Lay Primary Care Provider [phone] Norma Chance OT Unavailable [phone] Encounter Details Date Type Department Care Team (Latest Contact Info) Description 04/26/2025 8:41 AM EDT - 04/26/2025 11:59 PM EDT Hospital Encounter [facility] [address] [place] [address] Garo Chaudhary MD [address] [facility] [address], [address] [place] [address] [email or web address] Discharge Disposition: Home or Self Care Social History Tobacco Use Types Packs/Day Years Used Date Smoking Tobacco: Former Cigarettes Smokeless Tobacco: Never Comments:quit 48yrs ago Alcohol Use Standard Drinks/Week Comments Not Currently 0 (1 standard drink = 0.6 oz pur e alcohol) rare Education Answer Date Recorded Are you interested in more education? Not on lashawn e 12/31/2022 Are you concerned about learning? Not on file 12/31/2022 No 12/31/2022 No 12/31/2022 Digital Access Answer Date Recorded No 01/29/2023 No 01/29/2023 Reliable internet access at home? Not on file 01/29/2023 Device with a working camera? Not on file Comments No Sex and Gender Information Value Date Recorded Sex Assigned at Not on file Legal Sex Female 10:14 PM EDT Gender Identity Not on file Sexual Orientation Not on file documented as of this encounter Medications at Time of Discharge amLODIPine (NORVASC) 10 MG tablet Take 10 mg by mouth daily. aspirin 81 mg chewable tablet Take 81 mg by mouth daily. atorvastatin (LIPITOR) 40 MG tablet Take 40 mg by mouth daily. BD ULTRA-FINE MINI PEN NEEDLE 31 gauge x /16 Ndle 09/14/2022 cholecalciferol (VITAMIN D3) 2,000 unit capsule Take 5,000 Units by mouth 2 (two) times a week. 2 insulin detemir U-100 (LEVEMIR FLEXTOUCH U-100 INSULN) 100 unit/mL (3 mL) InPn injection pen INJECT 10 UNITS SUBCUTANEOUSLY EVERY MORNING INCREASE BY 2 UNITS EVERY 2 DAYS UNTIL FBS < 140 06/19/2022 LANTUS SOLOSTAR U-100 INSULIN 100 unit/mL (3 mL) InPn injection pen PLEASE SEE ATTACHED FOR DETAILED DIRECTIONS 02/03/2024 losartan (COZAAR) 50 MG tablet Take 50 mg by mouth daily. magnesium oxide,aspartate ,citr 400 mg magnesium Cap Take by mouth. metoprolol succinate (TOPROL-XL) 50 MG 24 hr tablet Take 150 mg by mouth daily. ONETOUCH VERIO Strp strips TEST 3 TIMES A DAY BEFORE MEALS 08/05/2022 sertraline (ZOLOFT) 100 MG tabletIndicatio ns:Mood disorder Take 1 tablet (100 mg total) by mouth daily. 30 tablet 2 03/12/2025 SITagliptin phosphate (JANUVIA) 25 MG tablet Take 25 mg by mouth daily. documented as of this encounter Plan of Treatment Upcoming Encounters Date Type Department Care Team (Late st Contact Info) Description 07/05/2025 11:30 AM EDT Office Visit [facility] [address] [place] [address] Андрей Sherman DO [address] [place] [address] [email or web address] documented as of this encounter Procedures Procedure Name Priority Date/Time Associated Diagnosis Comments COMPREHENSIVE METABOLIC PANEL Routine 04/26/2025 5:45 AM EDT Illness CBC Routine 04/26/2025 5:45 AM EDT Illness documented in this encounter Results * (ABNORMAL) Comprehensive metabolic panel (04/26/2025 5:45 AM EDT) SODIUM 142 133 - 146 mmol/L [facility] POTASSIUM 3.9 3.3 - 5.1 mmol/L [facility] CHLORIDE 107 96 - 108 mmol/L [facility] CO2 22 21 - 35 mmol/L [facility] BUN 25(H) 6 - 19 mg/dL [facility] CREATININE 2.10(H) 0.5 - 1.5 mg/dL [facility] GLUCOSE 36(LL) 70 - 99 mg/dL [facility] Comment: Critical value: Results called to and read back by: BROOKE Cornejo ALBUMIN 2.5(L) 3.9 - 4.8 g/dL [facility] TOTAL PROTEIN 4.4(L) 6.5 - 8.0 g/dL [facility] CALCIUM 7.5(L) 8.4 - 10.3 mg/dL [facility] ALKALINE PHOSPHATASE 116 39 - 117 U/L [facility] TOTAL BILIRUBIN <0.2 0.0 - 1.2 mg/dL [facility] AST 27 0 - 37 U/L [facility] ALT 24 0 - 40 U/L [facility] GLOBULIN 1.9 1 - 4.8 g/dL [facility] EGFR 22(L) >59 mL/min/1.7 3m2 [facility] Comment:Estimated glomerular filtration rate calculated using the CKD-EPI refit equation. ANION GAP 17 10 - 20 mmol/L [facility] Blood 04/26/2025 5:45 AM EDT 04/26/2025 9:06 AM EDT us Garo Chaudhary MD LAB BLOOD ORDERABLES Final Resul t Performing Organization Address [facility] Co de Phone Number [address] [address] * (ABNORMAL) CBC (04/26/2025 5:45 AM EDT) WBC 9.83 4.00 - 11.00 K/uL [facility] RBC 3.71(L) 4.00 - 5.20 M/uL [facility] HGB 11.2(L) 12.0 - 16.0 g/dL [facility] HCT 34.8(L) 36.0 - 46.0 % [facility] PLT 412 150 - 450 K/uL [facility] MCV 93.8 80.0 - 100.0 fL [facility] MCH 30.2 27.0 - 31.0 pg [facility] MCHC 32.2 32.0 - 36.0 g/dL [facility] RDW 13.6 11.5 - 14.5 % [facility] MPV 11.2 8.4 - 12.0 fL [facility] NRBC 0.00 0.00 /100 WBCs [facility] ABSOLUTE NRBC 0.00 0.00 K/uL [facility] Blood 04/26/2025 5:45 AM EDT 04/26/2025 9:06 AM EDT us Garo Chaudhary MD LAB BLOOD ORDERABLES Final Resul t Performing Organization Address [facility] Co de Phone Number [address] [address] documented in this encounter Visit Diagnoses Diagnosis Illness Other unknown and unspecified cause of morbidity or mortality documented in this encounter Additional Health Concerns Infection Onset Date Last Indicated Resolved Time C. diff 04/04/2025 04/04/2025 Assessment Noted Time PHQ-9 Depression Total Score: 6 03/12/20 25 3:30 PM EDT PHQ-2 Depression Total Score: 3 03/12/20 25 3:30 PM EDT documented as of this encounter Care Teams Fruit Or Nut Farmworker Relationship Specialty Start Date End Date Whitley Lay PA [address] [place] [phone] PCP - General Physician Performance Improvement Specialist 05/31/24 Андрей Sherman DO [address] [place] [phone] [email or web address] Medicine 05/23/24 Norma Chance, OT [address] [place] [phone] [email or web address] Transitions Gaming CashierSupervisor Loading Therapy 03/22/25 documented as of this encounter Additional Source Comments The information contained in this document represents components of the legal health record. It is not the complete legal health record.[facility]
--- OUTSIDE RECORDS SUMMARY | 2025-04-30 09:07 | XMS_ITS | Encounter Summary ---
Author Organization [facility] Address [address] [facility] [address] [place] [address] Phone Care Team Providers Care Drywall Hanger Helper Name Role Phone Destin Shermanruv Brian DO Unavailable [phone] Whitley Lay Primary Care Provider [phone] Norma Chance OT Unavailable [phone] Encounter Details Date Type Department Care Team (Latest Contact Info) Description 04/30/2025 9:07 AM EDT - 04/30/2025 11:59 PM EDT Hospital Encounter [facility] [address] [place] [address] Garo Chaudhary MD [address] [facility] [address], [address] [place] [address] [email or web address] Discharge Disposition: Home or Self Care Social [...] 07/05/2025 11:30 AM EDT Office Visit [facility] [address] [place] [address] Андрей Sherman DO [address] [place] [address] [email or web address] documented as of this encounter Procedures Procedure Name Priority Date/Time Associated Diagnosis Comments CBC Routine 04/30/2025 6:01 AM EDT Exudative pleurisy Diabetic glomerulopathy Hypertension, unspecified type BASIC METABOLIC PANEL Routine 04/30/2025 6:01 AM EDT Exudative pleurisy Diabetic glomerulopathy Hypertension, unspecified type documented in this encounter Results * (ABNORMAL) Basic metabolic panel (04/30/2025 6:01 AM EDT) SODIUM 141 133 - 146 mmol/L [facility] CHLORIDE 107 96 - 108 mmol/L [facility] POTASSIUM 4.6 3.3 - 5.1 mmol/L [facility] CO2 24 21 - 35 mmol/L [facility] BUN 38(H) 6 - 19 mg/dL [facility] CREATININE 2.10(H) 0.5 - 1.5 mg/dL [facility] GLUCOSE 86 70 - 99 mg/dL [facility] CALCIUM 7.9(L) 8.4 - 10.3 mg/dL [facility] EGFR 22(L) >59 mL/min/1.7 3m2 [facility] Comment:Estimated glomerular filtration rate calculated using the CKD-EPI refit equation. ANION GAP 15 10 - 20 mmol/L [facility] Blood 04/30/2025 6:01 AM EDT 04/30/2025 9:23 AM EDT us Garo Chaudhary MD LAB BLOOD ORDERABLES Final Resul t [facility] [address] [place] [address] * (ABNORMAL) CBC (04/30/2025 6:01 AM EDT) WBC 11.52(H) 4.00 - 11.00 K/uL [facility] RBC 3.39(L) 4.00 - 5.20 M/uL [facility] HGB 10.3(L) 12.0 - 16.0 g/dL [facility] HCT 32.8(L) 36.0 - 46.0 % [facility] PLT 360 150 - 450 K/uL [facility] MCV 96.8 80.0 - 100.0 fL [facility] MCH 30.4 27.0 - 31.0 pg [facility] MCHC 31.4(L) 32.0 - 36.0 g/dL [facility] RDW 14.0 11.5 - 14.5 % [facility] MPV 11.2 8.4 - 12.0 fL [facility] NRBC 0.00 0.00 /100 WBCs [facility] ABSOLUTE NRBC 0.00 0.00 K/uL [facility] Blood 04/30/2025 6:01 AM EDT 04/30/2025 9:23 AM EDT us Garo Chaudhary MD LAB BLOOD ORDERABLES Final Resul t Performing Organization Address City/State/[facility] Co de Phone Number [address] [address] documented in this encounter Visit Diagnoses Diagnosis Exudative pleurisy Unspecified pleural effusion Diabetic glomerulopathy Type II or unspecified type diabetes mellitus with renal manifestations, not stated as uncontrolled Hypertension, unspecified type documented in this encounter Additional Health Concerns Infection Onset Date Last Indicated Resolved Time C. diff 04/04/2025 04/04/2025 Assessment Noted Time PHQ-9 Depression Total Score: 6 03/12/20 25 3:30 PM EDT PHQ-2 Depression Total Score: 3 03/12/20 25 3:30 PM EDT documented as of this encounter Care Teams Drywall Hanger Helper Relationship Specialty Start Date End Date Whitley Lay PA [address] [place] [phone] PCP - General Physician Record Center Coordinator 05/31/24 Андрей Sherman DO [address] [place] [phone] [email or web address] Geriatric Medicine 05/23/24 Norma Chance, OT [address] [place] [phone] [email or web address] Transitions Odd Jobs Day WorkerCriminalist Therapy 03/22/25 documented as of this encounter Additional Source Comments The information contained in this document represents components of the legal health record. It is not the complete legal health record.[facility]
--- NOTE | 2025-05-01 13:41 | A.OFFVIS_ITS ---
Vital Signs 05/01/25 13:44 Pulse 57 Pulse Source Pulse Oximeter Pulse Oximetry (%) 98 Intake Visit Reasons: [facility] Reff/ C Diff Allergies No Known Allergies (No Known Allergies*) Allergy (Verified 05/01/25 14:35) HPI HPI [facility] Reff/ C Diff: Details: She has still had some diarrhea. She has no complaints COUNTS INCLUDE 234 BEDS AT THE [facility] Medical History C. difficile colitis Bronchitis Type 2 diabetes mellitus Chronic kidney disease (CKD), stage 4 Substernal goiter Essential hypertension Hyperlipidemia Social History Household Members: Unknown / Unable to assess Housing: Unknown / Unable to assess Do you presently have visiting nurse or other home services: No Unable to assess alcohol history related to: Unknown Alcohol intake: former Patient Tobacco Use Status: Never used Tobacco Advance Directives Date on File: 03/01/24 service: No Review of Systems Const All systems reviewed & are unremarkable except as noted in HPI and below Physical Exam Vital Signs: Last Vital Signs Pulse 57 05/01/25 13:44 Pulse Ox 98 05/01/25 13:44 Const General: cooperative Assessment & Plan Assessment & Plan (1) C. difficile colitis: Comment: She has less diarrhea Code(s): A04.72 - Enterocolitis due to Clostridium difficile, not specified as recurrent Category: Medical Plan: Finish fidaxomicin and then po Vancomycin with taper if recurs. Coding Level of Care Code Est Pt Level 3 (52615) Diagnoses C. difficile colitis A04.72
[2025-05-01 13:44] VITALS: PULSE 57; O2SAT 98
--- OUTSIDE RECORDS SUMMARY | 2025-05-01 14:19 | XMS_ITS | Encounter Summary ---
Author Organization [facility], Address [address] [place] [address] Phone Care Team Providers Care Head Batcher Name Role Phone Whitley Lay Primary Care Provider Ambreen ladd Encounter Details Date Type Department Care Team (Late st Contact Info) Description 06/29/2023 Documentation Only [facility] [address] [place] [address] Javon Porter MD [address] [place] [address] [place] [address] Social History Tobacco Use Types [...] Visit [facility] [address] [place] [phone] Javon Porter MD [address] [place] [address] [place] [address] documented as of this encounter Visit Diagnoses Not on filedocumented in this encounter Care Teams Head Batcher Relationship Specialty Start Date End Date Whitley Lay PA [address] [place] [phone] PCP - General 12/22/23 documented as of this encounter
--- OUTSIDE RECORDS SUMMARY | 2025-05-01 14:19 | XMS_ITS | Encounter Summary ---
Author Organization [facility] Address [address] [facility] [address] [place] [address] Phone Care Team Providers Care Disposal Worker Name Role Phone Shabnam Cornell MD Primary Care Provider [phone] Андрей Sherman DO Unavailable [phone] Whitley Lay Primary Care Provider [phone] Norma Chance OT Unavailable [phone] Encounter Details Date Type Department Care Team (Latest Contact Info) Description 07/01/2020 Transcribe Orders [facility] Laboratory [address] [facility] [address] [place], [place] [phone] Karli Bellamy NP [address] [place] [address] [email or web address] Bloating (Primary Dx); Abnormal bowel habits Social History Tobacco Use Types Packs/Day Years Used Date Smoking Tobacco: Former Smokeless Tobacco: Never Alcohol Use Standard Drinks/Week Comments Yes 0 (1 standard drink = 0.6 oz pur e alcohol) rare Comments Unknown Sex and Gender Information Value Date Recorded Sex Assigned at Not on file Legal Sex Female 10:14 PM EDT Gender Identity Not on file Sexual Orientation Not on file documented as of this encounter Plan of Treatment Upcoming Encounters Date Type Department Care Team ( Contact Info) Description 07/05/2025 11:30 AM EDT Office Visit [facility] [address] [place] [address] Андрей Sherman, [address] [place] [address] [email or web address] documented as of this encounter Results * Stool fat/fiber exam (07/15/2020 8:15 AM EST) FATTY ACID NORMAL NORMAL [facility] Neutral Fat, stool NORMAL NORMAL [facility] Stool (Stool) 07/15/2020 8:1 5 AM EST 07/15/2020 8:17 AM EST Karli Bellamy ANALYST BUSINESS ANALYSIS BODY FLUIDS AND STOOLS ORDE RABLES Final Result Performing Organization Address [facility] Co de Phone Number [facility] [address] [place] [address] * Pancreatic Elastase, Stool (07/15/2020 8:15 AM EST) Pancreatic Elastase, Feces 220 >200 (Normal) mcg/g [facility] Stool (Stool) 07/15/2020 8:1 5 AM EST 07/15/2020 8:16 AM EST us Karli Bellamy ANALYST BUSINESS ANALYSIS BODY FLUIDS AND STOOLS ORDE RABSOFI Final Result Performing Organization Address [facility] de Phone Number [facility] [address] [place] [address] * (ABNORMAL) C-Reactive Protein (07/01/2020 10:28 AM EDT) C REACTIVE PROTEIN 5.3(H) 0.0 - 4.0 mg/L [facility] Blood 07/01/2020 10:2 8 AM EDT 07/01/2020 10:36 AM EDT us Karli Bellamy ANALYST BUSINESS ANALYSIS LAB BLOOD ORDERABLES Final Result Performing Organization Address [facility]/State/ZIP Co de Phone Number [address] [address] * (ABNORMAL) Comprehensive metabolic panel (07/01/2020 10:28 AM EDT) SODIUM 136 133 - 146 mmol/L [facility] POTASSIUM 4.6 3.3 - 5.1 mmol/L [facility] CHLORIDE 100 96 - 108 mmol/L [facility] CO2 22 21 - 35 mmol/L [facility] BUN 25(H) 6 - 19 mg/dL [facility] CREATININE 1.20 0.5 - 1.5 mg/dL [facility] GLUCOSE 173(H) 70 - 99 mg/dL [facility] ALBUMIN 3.8(L) 3.9 - 4.8 g/dL [facility] TOTAL PROTEIN 6.8 6.5 - 8.0 g/dL [facility] CALCIUM 10.7(H) 8.4 - 10.3 mg/dL [facility] ALKALINE PHOSPHATASE 142(H) 39 - 117 U/L [facility] TOTAL BILIRUBIN 0.2 0.0 - 1.2 mg/dL [facility] AST 19 0 - 37 U/L [facility] ALT 19 0 - 40 U/L [facility] GLOBULIN 3.0 1 - 4.8 g/dL [facility] EGFR 42(L) >59 mL/min/1.7 3m2 [facility] Comment:Estimated glomerular filtration rate calculated using the CKD-EPI equation. ANION GAP 19 10 - 20 mmol/L [facility] Blood 07/01/2020 10:2 8 AM EDT 07/01/2020 10:36 AM EDT us Karli Bellamy NP LAB BLOOD ORDERABLES Final Result [address] [address] * (ABNORMAL) CBC and differential (07/01/2020 10:28 AM EDT) WBC 12.47(H) 4.00 - 11.00 K/uL [facility] Comment:Note Reference Range updates to all CBC and Differential results. RBC 3.83 3.72 - 5.30 M/uL [facility] HGB 11.7 11.4 - 15.9 g/dL [facility] Comment:Note updated Referen ce Ranges for all CBC and Differential results. HCT 35.2 34.2 - 46.8 % [facility] PLT 588(H) 140 - 430 K/uL [facility] MCV 91.9 78.0 - 97.0 fL [facility] MCH 30.5 25.0 - 33.0 pg [facility] MCHC 33.2 32.0 - 36.0 g/dL [facility] RDW 11.7 11.0 - 16.0 % [facility] MPV 10.9 8.4 - 12.8 fl [facility] NRBC 0.00 0 /100 WBCs [facility] ABSOLUTE NRBC 0.00 0 K/uL [facility] DIFF METHOD Auto [facility] NEUTS 84.0(H) 43.0 - 75.0 % [facility] LYMPHS 7.5(L) 18.2 - 47.4 % [facility] MONOS 7.4 4.00 - 11.00 % [facility] EOS 0.1 0.0 - 8.0 % [facility] BASOS 0.4 0.0 - 2.0 % [facility] Granulocytes, immature (%) 0.6 0.0 - 0.9 % [facility] ABSOLUTE NEUTS 10.48(H) 1.80 - 7.70 K/uL [facility] ABSOLUTE LYMPHS 0.94(L) 1.00 - 3.10 K/uL [facility] ABSOLUTE MONOS 0.92(H) 0.20 - 0.80 K/uL [facility] ABSOLUTE EOS 0.01 0.00 - 0.80 K/uL [facility] ABSOLUTE BASOS 0.05 0.00 - 0.09 K/uL [facility] Granulocytes, immature 0.07(H) 0.00 - 0.05 K/uL [facility] Blood 07/01/2020 10:2 8 AM EDT 07/01/2020 10:36 AM EDT us Karli Bellamy ANALYST BUSINESS ANALYSIS LAB BLOOD ORDERABLES Final Result Performing Organization Address City/[facility]/ZIP Co de Phone Number [address] [address] * Immunoglobulin A (07/01/2020 10:28 AM EDT) IgA 174 70 - 400 mg/dL [facility] Blood 07/01/2020 10:2 8 AM EDT 07/01/2020 10:36 AM EDT us Karli Salas Josesito ANALYST BUSINESS ANALYSIS LAB BLOOD ORDERABLES Final Result Performing Organization Address [facility] Co de Phone Number [address] [address] * Tissue transglutaminase IgA (07/01/2020 10:28 AM EDT) TTG IGA ANTIBODY <1.2 <4.0 (Negative) U/mL [facility] Blood 07/01/2020 10:2 8 AM EDT 07/01/2020 10:36 AM EDT Karlipatricio Salas Josesito ANALYST BUSINESS ANALYSIS LAB BLOOD ORDERABLES Final Result Performing Organization Address [facility] de Phone Number [facility] [address] [place] [address] documented in this encounter Visit Diagnoses Diagnosis Bloating- Primary Flatulence, eructation, and gas pain Abnormal bowel habits documented in this encounter Additional Health Concerns Infection Onset Date Last Indicated Resolved Time CDiff-Risk 04/04/2025 04/04/2025 04/04/2025 7:00 PM EDT C. diff 04/04/2025 04/04/2025 documented as of this encounter Care Teams Disposal Worker Relationship Specialty Start Date End Date Shabnam Cornell MD [email or web address] PCP - General Family Medicine 12/26/18 05/30/24 Whitley Lay PA [address] [place] [phone] PCP - General Physician Program Arranger 05/31/24 Андрей Sherman DO [address] [place] [address] [email or web address] [email or web address] Medicine 05/23/24 Norma Chance, OT [address] [place] [address] [email or web address] Transitions Wage AdjusterEqual Opportunity Counselor Therapy 03/22/25 documented as of this encounter Additional Source Comments The information contained in this document represents components of the legal health record. It is not the complete legal health record.[facility]
--- OUTSIDE RECORDS SUMMARY | 2025-05-01 14:19 | XMS_ITS | Encounter Summary ---
Author Organization [facility], Address [address] [place] [address] Phone Care Team Providers Care Clinical Appeals Auditor Name Role Phone Whitley Lay Primary Care Provider Ambreen ladd Encounter Details Date Type Department Care Team (Late st Contact Info) Description 12/21/2023 Documentation Only [facility] [address] [place] [address] Juli Ferguson [address] [place] [address] Social History Tobacco Use Types [...] Visit [facility] [address] [place] [phone] Javon Porter MD [address] [place] [address] [place] [address] documented as of this encounter Visit Diagnoses Not on filedocumented in this encounter Care Teams Clinical Appeals Auditor Relationship Specialty Start Date End Date Whitley Lay PA [address] [place] [phone] PCP - General 12/22/23 documented as of this encounter
--- OUTSIDE RECORDS SUMMARY | 2025-05-01 14:19 | XMS_ITS | Encounter Summary ---
Author Organization [facility] Address [address] [place] [address] Phone Care Team Providers Care Internet Architect Name Role Phone Shabnam Cornell MD Primary Care Provider [phone] Андрей Sherman DO Unavailable [phone] Whitley Lay Primary Care Provider [phone] Norma Chance OT Unavailable [phone] Encounter Details Date Type Department Care Team (Late st Contact Info) Description 08/12/2020 Procedure Pass [facility] Endoscopy Admitting Dept Virtual Department [address] [place] [address] Social History Tobacco Use Types Packs/Day Years Used Date Smoking Tobacco: Former Cigarettes Smokeless Tobacco: Never Comments:quit 48yrs ago Alcohol Use Standard Drinks/Week Comments Yes 0 (1 standard drink = 0.6 oz pur e alcohol) rare Comments No Sex and Gender Information Value Date Recorded Sex Assigned at Not on file Legal Sex Female 10:14 PM EDT Gender Identity Not on file Sexual Orientation Not on file documented as of this encounter Plan of Treatment Upcoming Encounters Date Type Department Care Team (Late Contact Info) Description 07/05/2025 11:30 AM EDT Office Visit [facility] Geriatrics [address] [place] [address] Андрей Sherman DO [address] [place] [address] documented as of this encounter Visit Diagnoses Not on filedocumented in this encounter Additional Health Concerns Infection Onset Date Last Indicated Resolved Time CDiff-Risk 04/04/2025 04/04/2025 04/04/2025 7:00 PM EDT C. diff 04/04/2025 04/04/2025 documented as of this encounter Care Teams Internet Architect Relationship Specialty Start Date End Date Shabnam Cornell MD PCP - General Family Medicine 12/26/18 05/30/24 Whitley Lay PA [address] [place] [phone] PCP - General Physician Wrapper Operator 05/31/24 Андрей Sherman DO [address] [place] [address] Geriatric Medicine 05/23/24 Norma Chance, OT [address] [place] [address] Transitions Project Program ManagerCisco Certified Network Professional Therapy 03/22/25 documented as of this encounter Additional Source Comments The information contained in this document represents components of the legal health record. It is not the complete legal health record.[facility]
--- OUTSIDE RECORDS SUMMARY | 2025-05-01 14:19 | XMS_ITS | Encounter Summary ---
Author Organization [facility], Address [address] [place] [address] Phone Care Team Providers Care Coal Grader Name Role Phone Whitley Lay Primary Care Provider Ambreen ladd Encounter Details Date Type Department Care Team (Late st Contact Info) Description 06/22/2023 Documentation Only [facility] Neri ROSEN [address] [place] [address] Javon Porter MD [address] [place] [address] [place] [address] Social History Tobacco Use Types [...] Visit [facility] Neri ROSEN [address] [place] [phone] Javon Porter MD [address] [place] [address] [place] [address] documented as of this encounter Visit Diagnoses Not on filedocumented in this encounter Care Teams Coal Grader Relationship Specialty Start Date End Date Whitley Lay PA [address] [place] [phone] PCP - General 12/22/23 documented as of this encounter
--- OUTSIDE RECORDS SUMMARY | 2025-05-01 14:19 | XMS_ITS | Encounter Summary ---
Author Organization [facility], Address [address] [place] [address] Phone Care Team Providers Care Shell Trim Tool Setter Name Role Phone Whitley Lay Primary Care Provider Ambreen ladd Encounter Details Date Type Department Care Team (Late st Contact Info) Description 06/22/2023 Documentation Only [facility] Neri [address] [place] [address] Javon Porter MD [address] [place] [address] [place] [address] Social History Tobacco Use Types [...] Visit [facility] Neri ROSEN [address] [place] [phone] Javon Porter MD [address] [place] [address] [place] [address] documented as of this encounter Visit Diagnoses Not on filedocumented in this encounter Care Teams Shell Trim Tool Setter Relationship Specialty Start Date End Date Whitley Lay PA [address] [place] [phone] PCP - General 12/22/23 documented as of this encounter
--- OUTSIDE RECORDS SUMMARY | 2025-05-01 14:19 | XMS_ITS | Encounter Summary ---
Author Organization [facility] Address [address] [place] [address] Phone Care Team Providers Care Coat Check Attendant Name Role Phone Shabnam Cornell MD Primary Care Provider [phone] Андрей Sherman DO Unavailable [phone] Whitley Lay Primary Care Provider [phone] Norma Chance OT Unavailable [phone] Encounter Details Date Type Department Care Team (Late st Contact Info) Description 07/24/2020 Procedure Pass [facility], Ct Scan - [address] [address] Social History Tobacco Use Types Packs/Day Years [...] Description 07/05/2025 11:30 AM EDT Office Visit [facility] Geriatrics [address] [place] [address] Андрей Sherman DO [address] [place] [address] documented as of this encounter Visit Diagnoses Not on filedocumented in this encounter Additional Health Concerns Infection Onset Date Last Indicated Resolved Time CDiff-Risk 04/04/2025 04/04/2025 04/04/2025 7:00 PM EDT C. diff 04/04/2025 04/04/2025 documented as of this encounter Care Teams Coat Check Attendant Relationship Specialty Start Date End Date Shabnam Cornell MD PCP - General Family Medicine 12/26/18 05/30/24 Whitley Lay PA [address] [place] [phone] PCP - General Physician Cognos Analyst 05/31/24 Андрей Sherman DO [address] [place] [address] Geriatric Medicine 05/23/24 Norma Chance, OT [address] [place] [address] Transitions Outside Installer ApprenticeNight Filler Therapy 03/22/25 documented as of this encounter Additional Source Comments The information contained in this document represents components of the legal health record. It is not the complete legal health record.[facility]
--- OUTSIDE RECORDS SUMMARY | 2025-05-01 14:19 | XMS_ITS | Encounter Summary ---
Author Organization [facility], Address [address] [place] [address] Phone Care Team Providers Care Manager In Training Name Role Phone Whitley Lay Primary Care Provider Ambreen ladd Encounter Details Date Type Department Care Team (Late st Contact Info) Description 12/16/2022 Documentation Only [facility] Neri ROSEN [address] [place] [address] Javon Porter MD [address] [place] [address] [place] [address] Social History Tobacco Use Types [...] Visit [facility] Neri ROSEN [address] [place] [phone] Javon Porter MD [address] [place] [address] [place] [address] documented as of this encounter Visit Diagnoses Not on filedocumented in this encounter Care Teams Manager In Training Relationship Specialty Start Date End Date Whitley Lay PA [address] [place] [phone] PCP - General 12/22/23 documented as of this encounter
--- OUTSIDE RECORDS SUMMARY | 2025-05-01 14:19 | XMS_ITS | Encounter Summary ---
Author Organization [facility], Address [address] [place] [address] Phone Care Team Providers Care High Pressure Operator Name Role Phone Whitley Lay Primary Care Provider Ambreen ladd Encounter Details Date Type Department Care Team (Late st Contact Info) Description 12/21/2022 Documentation Only [facility] Neri ROSEN [address] [place] [address] Javon Porter MD [address] [place] [address] [place] [address] Social History Tobacco Use Types [...] Visit [facility] Neri ROSEN [address] [place] [phone] Javon Porter MD [address] [place] [address] [place] [address] documented as of this encounter Visit Diagnoses Not on filedocumented in this encounter Care Teams High Pressure Operator Relationship Specialty Start Date End Date Whitley Lay PA [address] [place] [phone] PCP - General 12/22/23 documented as of this encounter
--- OUTSIDE RECORDS SUMMARY | 2025-05-01 14:19 | XMS_ITS | Encounter Summary ---
Author Organization [facility], Address [address] [place] [address] Phone Care Team Providers Care Patient Flow Coordinator Name Role Phone Whitley Lay Primary Care Provider Ambreen ladd Encounter Details Date Type Department Care Team (Late st Contact Info) Description 01/02/2024 Documentation Only [facility] [address] [place] [address] Juli Ferguson [address] [place] [address] Social History Tobacco Use Types [...] Visit [facility] [address] [place] [address] Javon Porter MD [address] [place] [phone] documented as of this encounter Visit Diagnoses Not on filedocumented in this encounter Care Teams Patient Flow Coordinator Relationship Specialty Start Date End Date Whitley Lay PA [address] [place] [phone] PCP - General 12/22/23 documented as of this encounter
--- OUTSIDE RECORDS SUMMARY | 2025-05-01 14:19 | XMS_ITS | Encounter Summary ---
Author Organization [facility] Address [address] [place] [address] [place] [address] Phone Care Team Providers Care Entry Level Assistant Manager Name Role Phone Андрей Sherman DO Unavailable [phone] Whitley Lay Primary Care Provider [phone] Norma Chance OT Unavailable [phone] Encounter Details Date Type Department Care Team (Late st Contact Info) Description 04/26/2025 Transcribe Orders [facility] Specimen Processing [address] [place] [address] Garo Chaudhary MD [address] [facility] [address], [address] [place] [address] [email or web address] Illness (Primary Dx) Social History Tobacco Use Types Packs/Day Years [...] Description 07/05/2025 11:30 AM EDT Office Visit [facility] Ger[facility] [address] [place] [address] Андрей Sherman DO [address] [place] [address] [email or web address] documented as of this encounter Results * (ABNORMAL) CBC (04/26/2025 5:45 AM EDT) WBC 9.83 4.00 - 11.00 K/uL [facility] RBC 3.71(L) 4.00 - 5.20 M/uL [facility] HGB 11.2(L) 12.0 - 16.0 g/dL [facility] HCT 34.8(L) 36.0 - 46.0 % [facility] PLT 412 150 - 450 K/uL [facility] MCV 93.8 80.0 - 100.0 fL [facility] MCH 30.2 27.0 - 31.0 pg [facility] MCHC 32.2 32.0 - 36.0 g/dL [facility] RDW 13.6 11.5 - 14.5 % [facility] MPV 11.2 8.4 - 12.0 fL [facility] NRBC 0.00 0.00 /100 WBCs [facility] ABSOLUTE NRBC 0.00 0.00 K/uL [facility] Blood 04/26/2025 5:45 AM EDT 04/26/2025 9:06 AM EDT us Garo Chaudhary MD LAB BLOOD ORDERABLES Final Resul t [facility] [address] [place] [address] * (ABNORMAL) Comprehensive metabolic panel (04/26/2025 5:45 AM EDT) SODIUM 142 133 - 146 mmol/L [facility] POTASSIUM 3.9 3.3 - 5.1 mmol/L [facility] CHLORIDE 107 96 - 108 mmol/L [facility] CO2 22 21 - 35 mmol/L [facility] BUN 25(H) 6 - 19 mg/dL [facility] CREATININE 2.10(H) 0.5 - 1.5 mg/dL [facility] GLUCOSE 36(LL) 70 - 99 mg/dL [facility] Comment: Critical value: Results called to and read back by: BROOKE Cornejo ALBUMIN 2.5(L) 3.9 - 4.8 g/dL [facility] TOTAL PROTEIN 4.4(L) 6.5 - 8.0 g/dL [facility] CALCIUM 7.5(L) 8.4 - 10.3 mg/dL [facility] ALKALINE PHOSPHATASE 116 39 - 117 U/L [facility] TOTAL BILIRUBIN <0.2 0.0 - 1.2 mg/dL [facility] AST 27 0 - 37 U/L [facility] ALT 24 0 - 40 U/L [facility] GLOBULIN 1.9 1 - 4.8 g/dL [facility] EGFR 22(L) >59 mL/min/1.7 3m2 [facility] Comment:Estimated glomerular filtration rate calculated using the CKD-EPI refit equation. ANION GAP 17 10 - 20 mmol/L [facility] Blood 04/26/2025 5:45 AM EDT 04/26/2025 9:06 AM EDT us Garo Chaudhary MD LAB BLOOD ORDERABLES Final Resul t [facility] [address] [place] [address] documented in this encounter Visit Diagnoses Diagnosis Illness- Primary Other unknown and unspecified cause of morbidity or mortality documented in this encounter Additional Health Concerns Infection Onset Date Last Indicated Resolved Time C. diff 04/04/2025 04/04/2025 Assessment Noted Time PHQ-9 Depression Total Score: 6 03/12/20 3:30 PM EDT PHQ-2 Depression Total Score: 3 03/12/20 3:30 PM EDT documented as of this encounter Care Teams Entry Level Assistant Manager Relationship Specialty Start Date End Date Whitley Lay PA [address] [place] [phone] PCP - General Physician Kerrick Kleaner Operator 05/31/24 Андрей Sherman DO [address] [place] [address] [email or web address] Geriatric Medicine 05/23/24 Norma Chance, OT [address] [place] [address] Transitions Bundles HangerJava Lead Engineer Therapy 03/22/25 documented as of this encounter Additional Source Comments The information contained in this document represents components of the legal health record. It is not the complete legal health record.[facility]
--- OUTSIDE RECORDS SUMMARY | 2025-05-01 14:19 | XMS_ITS | Encounter Summary ---
Author Organization [facility] Address [address] [place] [address] Phone Care Team Providers Care Hand Candy Molder Name Role Phone Shabnam Cornell MD Primary Care Provider [phone] Андрей Sherman DO Unavailable [phone] Whitley Lay Primary Care Provider [phone] Norma Chance OT Unavailable [phone] Encounter Details Date Type Department Care Team (Late st Contact Info) Description 07/25/2020 Ancillary Orders [facility],Outside Imaging [address] [place], [place] [phone] System, Provider Not In, [place] [address] Social History Tobacco Use Types Packs/Day Years [...] Description 07/05/2025 11:30 AM EDT Office Visit [facility] Geriatrics [address] [place] [address] Андрей Sherman DO [address] [place] [address] documented as of this encounter Results * XR Chest Outside (No Interpretation) (07/21/2020 12:00 AM EST) Narrative SYSTEMGENERATED, DOCUMENTATION - 07/25/2020 8:48 AM EST This study is for PACS storage only and not for interpretation. us Provider Not In System PhD IMG OUTSIDE IMAGING W /OUT INTERPRETATION Final Result documented in this encounter Visit Diagnoses Not on filedocumented in this encounter Additional Health Concerns Infection Onset Date Last Indicated Resolved Time CDiff-Risk 04/04/2025 04/04/2025 04/04/2025 7:00 PM EDT C. diff 04/04/2025 04/04/2025 documented as of this encounter Care Teams Hand Candy Molder Relationship Specialty Start Date End Date Shabnam Cornell MD PCP - General Family Medicine 12/26/18 05/30/24 Whitley Lay PA [address] [place] [phone] PCP - General Physician Tubing Mill Operator 05/31/24 Андрей Sherman DO [address] [place] [address] Geriatric Medicine 05/23/24 Norma Chance, OT [address] [place] [address] Transitions Senior Java Data ArchitectStraight Tooth Gear Generator Operator Therapy 03/22/25 documented as of this encounter Additional Source Comments The information contained in this document represents components of the legal health record. It is not the complete legal health record.[facility]
--- OUTSIDE RECORDS SUMMARY | 2025-05-01 14:19 | XMS_ITS | Encounter Summary ---
Author Organization [facility] Address [address] [place] [address] Phone Care Team Providers Care Coding File Clerk Name Role Phone Shabnam Cornell MD Primary Care Provider [phone] Андрей Sherman DO Unavailable [phone] Whitley Lay Primary Care Provider [phone] Norma Chance OT Unavailable [phone] Encounter Details Date Type Department Care Team (Late st Contact Info) Description 05/29/2020 Procedure Pass [facility], Ct Scan - [address] [address] Social History Tobacco Use Types Packs/Day Years [...] Description 07/05/2025 11:30 AM EDT Office Visit [facility] Geriatrics [address] [place] [address] Андрей Sherman DO [address] [place] [address] documented as of this encounter Visit Diagnoses Not on filedocumented in this encounter Additional Health Concerns Infection Onset Date Last Indicated Resolved Time CDiff-Risk 04/04/2025 04/04/2025 04/04/2025 7:00 PM EDT C. diff 04/04/2025 04/04/2025 documented as of this encounter Care Teams Coding File Clerk Relationship Specialty Start Date End Date Shabnam Cornell MD PCP - General Family Medicine 12/26/18 05/30/24 Whitley Lay PA [address] [place] [phone] PCP - General Physician Pile Driver Operator Barge Mounted 05/31/24 Андрей Sherman DO [address] [place] [address] Geriatric Medicine 05/23/24 Norma Chance, OT [address] [place] [address] Transitions Snow Removing SupervisorMachine Chain Maker Therapy 03/22/25 documented as of this encounter Additional Source Comments The information contained in this document represents components of the legal health record. It is not the complete legal health record.[facility]
--- OUTSIDE RECORDS SUMMARY | 2025-05-01 14:19 | XMS_ITS | Encounter Summary ---
Author Organization [facility], Address [address] [place] [address] Phone Care Team Providers Care Cigarette Vendor Name Role Phone Whitley Lay Primary Care Provider Ambreen ladd Encounter Details Date Type Department Care Team (Late st Contact Info) Description 06/29/2023 Documentation Only [facility] Neri ROSEN [address] [place] [address] Javon Porter MD [address] [place] [address] [place] [address] Social History Tobacco Use Types [...] Visit [facility] Neri ROSEN [address] [place] [phone] Javon Porter MD [address] [place] [address] [place] [address] documented as of this encounter Visit Diagnoses Not on filedocumented in this encounter Care Teams Cigarette Vendor Relationship Specialty Start Date End Date Whitley aLy PA [address] [place] [phone] PCP - General 12/22/23 documented as of this encounter
--- OUTSIDE RECORDS SUMMARY | 2025-05-01 14:19 | XMS_ITS | Encounter Summary ---
Author Organization [facility], Address [address] [place] [address] Phone Care Team Providers Care Chemical Pathologist Name Role Phone Whitley Lay Primary Care Provider Ambreen ladd Encounter Details Date Type Department Care Team (Late st Contact Info) Description 01/09/2024 Documentation Only [facility] [address] [place] [address] Juli Ferguson [address] [place] [address] Social History Tobacco Use Types [...] [facility] [place] ROS[address] [place] [phone] Javon Porter MD [address] [place] [address] [place] [address] documented as of this encounter Visit Diagnoses Not on filedocumented in this encounter Care Teams Chemical Pathologist Relationship Specialty Start Date End Date Whitley Lay PA [address] [place] [phone] PCP - General 12/22/23 documented as of this encounter
--- OUTSIDE RECORDS SUMMARY | 2025-05-01 14:19 | XMS_ITS | Encounter Summary ---
Author Organization [facility] Address [address] [place] [address] Phone Care Team Providers Care City Auditor Name Role Phone Shabnam Cornell MD Primary Care Provider [phone] Андрей Sherman DO Unavailable [phone] Whitley Lay Primary Care Provider [phone] Norma Chance OT Unavailable [phone] Reason for Referral * MRI/CAT Scan - Closed Specialty Diagnoses / Procedures Referred By Eliseo serrano Referred To Contact Radiology Diagnoses Abnormal weight loss Procedures CT Abdomen/Pelvis Shabnam Cornell MD Phone: tel: fax: [email or web address] Referral ID Status Reason Start Date Expiration Date Visits Re quested Visits Authorized [id number] Closed 05/29/2020 05/29/2021 1 1 Encounter Details Date Type Department Care Team (Latest Contact Info) Description 05/29/2020 Transcribe Orders Virtual Department [address] [place] [address] Shabnam Cornell MD [address] [place], [place] [id number] [email or web address] Abnormal weight loss (Primary Dx) Social History Tobacco Use Types [...] Description 07/05/2025 11:30 AM EDT Office Visit [facility] [address] [place] [address] Андрей Sherman DO [address] [place] [address] documented as of this encounter Results * CT ABDOMEN/PELVIS WITH CONTRAST (06/04/2020 10:16 AM EDT) Anatomical Region Laterality Modality Abdomen, Pelvis Computed Tomogra phy 06/04/2020 11:0 7 AM EDT Impressions 06/04/2020 11:26 AM EDT 1.No masses or adenopathy in the abdomen/pelvis. 2.Moderate right pleural effusion. 3.Mild cardiomegaly. Small pericardial effusion. 4.Additional findings as described above. Narrative 06/04/2020 11:26 AM EDT EXAM: CT ABDOMEN/PELVIS WITH CONTRAST CT OF ABDOMEN AND PELVIS WITH INTRAVENOUS CONTRAST COMPARISON: September 05, 2010 INDICATION: R/O ASSESS FOR ANY OCCULT MALIGNANCY GIVEN WEIGHT LOST AND FATIGUE/WEAKNESS/MALAISE TECHNIQUE: CT scan of the abdomen and pelvis was performed following the intravenous administration of 100 cc of Omnipaque 240 and oral contrast. Coronal and sagittal reformatted images were generated. Automated exposure control utilized. FINDINGS: LOWER THORAX: Moderate right pleural effusion associated with minimal compressive atelectasis. Left lung base is clear. Mild cardiomegaly. Small pericardial effusion. HEPATOBILIARY: No hepatomegaly. No focal hepatic lesions. No extra hepatic or intrahepatic ductal dilatation. Gallbladder is contracted. No calcified gallstones. SPLEEN: No splenomegaly. PANCREAS: Unremarkable. ADRENAL GLANDS: No mass. Mild diffuse thickening of the left adrenal gland. KIDNEYS AND URETERS: The kidneys enhance symmetrically. No hydronephrosis, hydroureter or solid mass. Multiple bilateral renal cysts. STOMACH/GI TRACT: Oral contrast reaches the ascending colon without obstruction. Stomach is partially distended with ingested content. Nondilated small bowel loops are filled with fluid.Small fecal load within the colonic loops. PELVIC ORGANS/BLADDER: Urinary bladder is partially distended and grossly unremarkable. Uterus is not identified. PERITONEUM AND RETROPERITONEUM: No free fluid or fluid collection. No free air. LYMPH NODES: No adenopathy. VESSELS: Extensive atherosclerotic disease with calcifications throughout the nonaneurysmal abdominal aorta and iliac arteries. Inferior vena cava is unremarkable. BONES AND SOFT TISSUES: Soft tissues are unremarkable. No acute or suspicious osseous abnormalities. Moderate dextrocurvature of the spine is associated with multilevel degenerative changes. Procedure Note Dimitry Bailey MD - 06/04/2020 EXAM: CT ABDOMEN/PELVIS WITH CONTRAST CT OF ABDOMEN AND PELVIS WITH INTRAVENOUS CONTRAST COMPARISON: September 05, 2010 INDICATION: R/O ASSESS FOR ANY OCCULT MALIGNANCY GIVEN WEIGHT LOST ANDFATIGUE/WEAKNESS/MALAISE TECHNIQUE: CT scan of the abdomen and pelvis was performed following theintravenous administration of 100 cc of Omnipaque 240 and oral contrast.Coronal and sagittal reformatted images were generated. Automatedexposure control utilized. FINDINGS: LOWER THORAX: Moderate right pleural effusion associated with minimalcompressive atelectasis. Left lung base is clear. Mild cardiomegaly. Smallpericardial effusion. HEPATOBILIARY: No hepatomegaly. No focal hepatic lesions. No extrahepatic or intrahepatic ductal dilatation. Gallbladder is contracted. Nocalcified gallstones. SPLEEN: No splenomegaly. PANCREAS: Unremarkable. ADRENAL GLANDS: No mass. Mild diffuse thickening of the left adrenalgland. KIDNEYS AND URETERS: The kidneys enhance symmetrically. Nohydronephrosis, hydroureter or solid mass. Multiple bilateral renalcysts. STOMACH/GI TRACT: Oral contrast reaches the ascending colon withoutobstruction. Stomach is partially distended with ingested content.Nondilated small bowel loops are filled with fluid.Small fecal load withinthe colonic loops. PELVIC ORGANS/BLADDER: Urinary bladder is partially distended and grosslyunremarkable. Uterus is not identified. PERITONEUM AND RETROPERITONEUM: No free fluid or fluid collection. No freeair. LYMPH NODES: No adenopathy. VESSELS: Extensive atherosclerotic disease with calcifications throughoutthe nonaneurysmal abdominal aorta and iliac arteries. Inferior vena cavais unremarkable. BONES AND SOFT TISSUES: Soft tissues are unremarkable. No acute orsuspicious osseous abnormalities. Moderate dextrocurvature of the spine isassociated with multilevel degenerative changes. IMPRESSION: 1.No masses or adenopathy in the abdomen/pelvis. 2.Moderate right pleural effusion. 3.Mild cardiomegaly. Small pericardial effusion. 4.Additional findings as described above. Shabnam Cornell MD IMG CT ABD/PELVIS Final Resu lt documented in this encounter Visit Diagnoses Diagnosis Abnormal weight loss- Primary Loss of weight Abnormal weight loss Loss of weight documented in this encounter Additional Health Concerns Infection Onset Date Last Indicated Resolved Time CDiff-Risk 04/04/2025 04/04/2025 04/04/2025 7:00 PM EDT C. diff 04/04/2025 04/04/2025 documented as of this encounter Care Teams City Auditor Relationship Specialty Start Date End Date Shabnam Cornell MD PCP - General Family Medicine 12/26/18 05/30/24 Whitley Lay PA [address] [place] [phone] PCP - General Physician Search Marketing Analyst 05/31/24 Андрей Sherman DO [address] [place] [address] Geriatric Medicine 05/23/24 Norma Chance, OT [address] [place] [address] [email or web address] Transitions Setter Automatic Spinning LatheCentral Office Repairer Therapy 03/22/25 documented as of this encounter Additional Source Comments The information contained in this document represents components of the legal health record. It is not the complete legal health record.[facility]
--- OUTSIDE RECORDS SUMMARY | 2025-05-01 14:19 | XMS_ITS | Encounter Summary ---
Author Organization [facility] Address [address] [place] [address] Phone Care Team Providers Care Surveillance Officer Name Role Phone Shabnam Cornell MD Primary Care Provider [phone] Андрей Sherman DO Unavailable [phone] Whitley Lay Primary Care Provider [phone] Norma Chance OT Unavailable [phone] Encounter Details Date Type Department Care Team (Late st Contact Info) Description 08/13/2020 Procedure Pass [facility] Cardiovascular [facility] Interventional Radiology [address] [place] [address] Social History Tobacco Use Types Packs/Day Years [...] Description 07/05/2025 11:30 AM EDT Office Visit [facility] [address] [place] [address] Андрей Sherman DO [address] [place] [address] documented as of this encounter Visit Diagnoses Not on filedocumented in this encounter Additional Health Concerns Infection Onset Date Last Indicated Resolved Time CDiff-Risk 04/04/2025 04/04/2025 04/04/2025 7:00 PM EDT C. diff 04/04/2025 04/04/2025 documented as of this encounter Care Teams Surveillance Officer Relationship Specialty Start Date End Date Shabnam Cornell MD PCP - General Family Medicine 12/26/18 05/30/24 Whitley Lay PA [address] [place] [phone] PCP - General Physician Installer Molding And Trim 05/31/24 Андрей Sherman DO [address] [place] [address] Geriatric Medicine 05/23/24 Norma Chance, OT [address] [place] [phone] Transitions Resource Recovery EngineerAcetone Button Paster Therapy 03/22/25 documented as of this encounter Additional Source Comments The information contained in this document represents components of the legal health record. It is not the complete legal health record.[facility]
--- OUTSIDE RECORDS SUMMARY | 2025-05-01 14:19 | XMS_ITS | Encounter Summary ---
Author Organization [facility] Address [address] [place] [address] Phone Care Team Providers Care Banquet Attendant Name Role Phone Shabnam Cornell MD Primary Care Provider [phone] Андрей Sherman DO Unavailable [phone] Whitley Lay Primary Care Provider [phone] Norma Chance OT Unavailable [phone] Encounter Details Date Type Department Care Team (Late st Contact Info) Description 01/24/2019 Procedure Pass [facility] Endoscopy Admitting Dept Virtual Department [address] [place] [address] Social History Tobacco Use Types Packs/Day Years [...] Description 07/05/2025 11:30 AM EDT Office Visit [facility] [address] [place] [address] Андрей Sherman DO [address] [place] [address] documented as of this encounter Visit Diagnoses Not on filedocumented in this encounter Additional Health Concerns Infection Onset Date Last Indicated Resolved Time CDiff-Risk 04/04/2025 04/04/2025 04/04/2025 7:00 PM EDT C. diff 04/04/2025 04/04/2025 documented as of this encounter Care Teams Banquet Attendant Relationship Specialty Start Date End Date Shabnam Cornell MD PCP - General Family Medicine 12/26/18 05/30/24 Whitley Lay PA [address] [place] [phone] PCP - General Physician Business Instructor 05/31/24 Андрей Sherman DO [address] [place] [address] Geriatric Medicine 05/23/24 Norma Chance, OT [address] [place] [phone] Transitions Legal Summer InternAccounts Officer Therapy 03/22/25 documented as of this encounter Additional Source Comments The information contained in this document represents components of the legal health record. It is not the complete legal health record.[facility]
--- OUTSIDE RECORDS SUMMARY | 2025-05-01 14:20 | XMS_ITS | Clinical Summary ---
Author Organization [facility], Address [address] [place] [address] Phone Care Team Providers Care Insulation Worker Furnace Installer Name Role Phone Whitley Lay Primary Care [...] Visit [facility] Maico Ackerman [address] [phone] Javon Porter MD [address] [place] [address] [place] [phone] Health Maintenance Due Date Last Done Comments Diabetes: Ophthalmology Exam 08/14/2021 Diabetes: Pedal Pulse Checked 08/14/2021 Diabetes: Sensory Foot Exam 08/14/2021 Diabetes: Visual Foot Exam 08/14/2021 Diabetes: Hemoglobin A1C 12/14/2021 09/15/2021 Influenza Vaccine (#1) 2025 3, 06/23/2019, 06/07/2018, Additional history exists Pneumococcal Vaccine: [...] Hemoglobin A1c (09/15/2021 11:10 AM EST) Blood specimen (specimen) Venous blood / Unknown us Javon Porter MD LAB BLOOD ORDERABLES Final Resul t PRINT/EXTERNAL (NON-INTERFACED LABS) from Last 3 Months or Most Recently Relevant to Health Maintenance Insurance Medicare [facility] Care Teams Insulation Worker Furnace Installer Relationship Specialty Start Date End Date Whitley Lay PA [address] [place] [phone] PCP - General 12/22/23
--- OUTSIDE RECORDS SUMMARY | 2025-05-01 14:20 | XMS_ITS | Encounter Summary ---
Author Organization [facility] Address [address] [facility] [address] [place] [address] Phone Care Team Providers Care Plastic Molder Name Role Phone Shabnam Cornell MD Primary Care Provider [phone] Андрей Sherman DO Unavailable [phone] Whitley Lay Primary Care Provider [phone] Norma Chance OT Unavailable [phone] Encounter Details Date Type Department Care Team (Late st Contact Info) Description 03/17/2022 Procedure Pass [address] [address] Social History Tobacco Use Types Packs/Day Years [...] Description 07/05/2025 11:30 AM EDT Office Visit [facility] [address] [place] [address] Анд[place] [address] documented as of this encounter Visit Diagnoses Not on filedocumented in this encounter Additional Health Concerns Infection Onset Date Last Indicated Resolved Time CDiff-Risk 04/04/2025 04/04/2025 04/04/2025 7:00 PM EDT C. diff 04/04/2025 04/04/2025 documented as of this encounter Care Teams Plastic Molder Relationship Specialty Start Date End Date Shabnam Cornell MD PCP - General Family Medicine 12/26/18 05/30/24 Whitley Lay PA [address] [place] [phone] PCP - General Physician Global Lead 05/31/24 Андрей Sherman DO [address] [place] [address] Geriatric Medicine 05/23/24 Norma Chance, OT [address] [place] [phone] Transitions Vb DeveloperContact Center Director Therapy 03/22/25 documented as of this encounter Additional Source Comments The information contained in this document represents components of the legal health record. It is not the complete legal health record.[facility]
--- OUTSIDE RECORDS SUMMARY | 2025-05-01 14:20 | XMS_ITS | Encounter Summary ---
Author Organization [facility], Address [address] [place] [address] Phone Care Team Providers Care Magnetic Resonance Imaging Coordinator Name Role Phone Whitley Lay Primary Care Provider Ambreen ladd Encounter Details Date Type Department Care Team (Late st Contact Info) Description 06/22/2023 Documentation Only [facility] [address] [place] [address] Javon Porter MD [address] [place] [address] [place] [address] Social History Tobacco Use Types [...] Visit [facility] [address] [place] [phone] Javon Porter MD [address] [place] [address] [place] [address] documented as of this encounter Visit Diagnoses Not on filedocumented in this encounter Care Teams Magnetic Resonance Imaging Coordinator Relationship Specialty Start Date End Date Whitley Lay PA [address] [place] [phone] PCP - General 12/22/23 documented as of this encounter
--- OUTSIDE RECORDS SUMMARY | 2025-05-01 14:20 | XMS_ITS | Encounter Summary ---
Author Organization [facility] Address [address] [facility] [address] [place] [address] Phone Care Team Providers Care Alterations Manager Name Role Phone Андрей Sherman DO Unavailable [phone] Whitley Lay Primary Care Provider [phone] Norma Chance OT Unavailable [phone] Encounter Details Date Type Department Care Team (Late st Contact Info) Description 04/30/2025 Transcribe Orders [facility] [address] [place] [address] Garo Chaudhary MD [address] [facility] [address], [address] [place] [address] [email or web address] Exudative pleurisy (Primary Dx); Diabetic glomerulopathy; Hypertension, unspecified type Social History Tobacco Use Types Packs/Day Years [...] Description 07/05/2025 11:30 AM EDT Office Visit [facility] 22 [place] [address] Андрей Sherman DO [address] [place] [address] [email or web address] documented as of this encounter Results * (ABNORMAL) CBC (04/30/2025 6:01 AM EDT) WBC 11.52(H) 4.00 - 11.00 K/uL [facility] RBC 3.39(L) 4.00 - 5.20 M/uL [facility] HGB 10.3(L) 12.0 - 16.0 g/dL [facility] HCT 32.8(L) 36.0 - 46.0 % [facility] PLT 360 150 - 450 K/uL [facility] MCV 96.8 80.0 - 100.0 fL [facility] MCH 30.4 27.0 - 31.0 pg [facility] MCHC 31.4(L) 32.0 - 36.0 g/dL [facility] RDW 14.0 11.5 - 14.5 % [facility] MPV 11.2 8.4 - 12.0 fL [facility] NRBC 0.00 0.00 /100 WBCs [facility] ABSOLUTE NRBC 0.00 0.00 K/uL [facility] Blood 04/30/2025 6:01 AM EDT 04/30/2025 9:23 AM EDT us Garo Chaudhary MD LAB BLOOD ORDERABLES Final Resul t [address] [address] * (ABNORMAL) Basic metabolic panel (04/30/2025 6:01 AM EDT) SODIUM 141 133 - 146 mmol/L [facility] CHLORIDE 107 96 - 108 mmol/L [facility] POTASSIUM 4.6 3.3 - 5.1 mmol/L [facility] CO2 24 21 - 35 mmol/L [facility] BUN 38(H) 6 - 19 mg/dL [facility] CREATININE 2.10(H) 0.5 - 1.5 mg/dL [facility] GLUCOSE 86 70 - 99 mg/dL [facility] CALCIUM 7.9(L) 8.4 - 10.3 mg/dL [facility] EGFR 22(L) >59 mL/min/1.7 3m2 [facility] Comment:Estimated glomerular filtration rate calculated using the CKD-EPI refit equation. ANION GAP 15 10 - 20 mmol/L [facility] Blood 04/30/2025 6:01 AM EDT 04/30/2025 9:23 AM EDT us Garo Chaudhary MD LAB BLOOD ORDERABLES Final Resul t [address] [address] documented in this encounter Visit Diagnoses Diagnosis Exudative pleurisy- Primary Unspecified pleural effusion Diabetic glomerulopathy Type II [...] documented as of this encounter Care Teams Alterations Manager Relationship Specialty Start Date End Date Whitley Lay PA [address] [place] [phone] PCP - General Physician Search Engineer 05/31/24 Андрей Sherman DO [address] [place] [phone] [email or web address] Geriatric Medicine 05/23/24 Norma Chance, OT [address] [place] [address] [email or web address] Transitions Entry EngineerElevator Constructor Supervisor Therapy 03/22/25 documented as of this encounter Additional Source Comments The information contained in this document represents components of the legal health record. It is not the complete legal health record.[facility]
--- OUTSIDE RECORDS SUMMARY | 2025-05-01 14:20 | XMS_ITS | Clinical Summary ---
Author Organization [facility] Address [address] [place] [address] Phone Care Team Providers Care Cloth Shrinker Name Role Phone Андрей Sherman DO Unavailable [phone] Whitley Lay Primary Care Provider [phone] Norma Chance OT Unavailable [phone] Allergies No known active allergies Medications aspirin 81 mg chewable tablet Take 81 mg by mouth daily. Active atorvastatin (LIPITOR) 40 MG tablet Take 40 mg by mouth daily. Active amLODIPine (NORVASC) 10 MG tablet Take 10 mg by mouth daily. Active metoprolol succinate (TOPROL-XL) 50 MG 24 hr tablet Take 150 mg by mouth daily. Active losartan (COZAAR) 50 MG tablet Take 50 mg by mouth daily. Active cholecalcifero l (VITAMIN D3) 2,000 unit capsule Take 5,000 Units by mouth 2 (two) times a week. 2 Active magnesium oxide,aspartat e,citr 400 mg magnesium Cap Take by mouth. A ctive ONETOUCH VERIO Strp strips TEST 3 TIMES A DAY BEFORE MEALS 2 Active insulin detemir U-100 (LEVEMIR FLEXTOUCH U-100 INSULN) 100 unit/mL (3 mL) InPn injection pen INJECT 10 UNITS SUBCUTANEOUSLY EVERY MORNING INCREASE BY 2 UNITS EVERY 2 DAYS UNTIL FBS < 140 2 Active BD ULTRA-FINE MINI PEN NEEDLE 31 gauge x 3/16 Ndle 3 Active LANTUS SOLOSTAR U-100 INSULIN 100 unit/mL (3 mL) InPn injection pen PLEASE SEE ATTACHED FOR DETAILED DIRECTIONS 4 Active SITagliptin phosphate (JANUVIA) 25 MG tablet Take 25 mg by mouth daily. Active sertraline (ZOLOFT) 100 MG tabletIndicati ons:Mood disorder Take 1 tablet (100 mg total) by mouth daily. 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 04/17/2024 Mood disorder 04/17/2024 Encounter for support to caregiver 04/17/2024 Polypharmacy 04/17/2024 Type 2 diabetes mellitus with diabetic nephropat hy 02/29/2024 Simple renal cyst 07/01/2022 Diabetic nephropathy associa sd with type 2 diabetes mellitus 08/14/2021 Essential hypertension 08/14/2021 Hematuria 08/14/2021 Hypercholesterolemia 08/14/2021 Hypomagnesemia 08/14/2021 Stage 3b chronic kidney disease 08/14/2021 Abnormal thyroid blood test 02/24/2021 Assessment & Plan (05/27/2021 11:34 AM EDT): This is a very interesting case is a patient with abnormal thyroid function studies suppressed TSH and we did not find the etiology for the suppressed TSH. Eventually thyroid functions normalized except for the free T4 but upon repeating the free T4 by equilibrium dialysis is within the reference range. So the patient is chemically euthyroid she does not require any further work-up. I would not give her a follow-up appointment. I do recommend that if the free T4 is abnormal that it be repeated by free T4 by equilibrium dialysis in the future. Assessment & Plan (02/24/2021 10:56 AM EDT): The patient is no longer in a subclinical hyperthyroid pattern. Now her free T4 is low. I will continue monitoring the patient I will request free T4 by equilibrium dialysis and repeat TSH and free T3. The patient should do this lab work 2 to 3 weeks prior to the follow-up visit because the free T4 micrograms dialysis takes some time to be done. Subclinical hyperthyroidism 10/14/2020 Assessment & Plan (11/27/2020 12:35 PM EDT): The hyperthyroidism has resolved. Free T4 level is now low. I cannot explain why she had these abnormal thyroid function studies. All the studies did not show an etiology. So since the free T4 is low I think we should continue to monitor. We will repeat thyroid function studies in 3 months time and see if there is any changes. Assessment & Plan (10/30/2020 2:58 PM EST): The patient with subclinical hypothyroidism who is asymptomatic. I have not found the etiology of suppressed TSH she does not have Rowena's or Graves' disease or toxic nodule based on antibody studies and radioactive iodine uptake and scan. This is not factitious her thyroglobulin level is not suppressed. At this point will repeat thyroid function studies in 4 weeks. If the TSH remains suppressed we may have to treat her because it could be associated with arrhythmia, osteopenia/osteoporosis. However if the TSH is in the normal reference range there is no further action and need to be taken. Assessment & Plan (10/14/2020 11:21 AM EST): So the patient has a low TSH. She states that she is not taking any thyroid medications. I will check thyroglobulin levels for factitious etiology. Radioactive iodine uptake and scan was low which can mean that she has Rowena's thyroiditis but TPO antibodies have been negative. We will check thyroglobulin antibody which is another antibody for Rowena's. Based on the radioactive iodine uptake and scan she does not have Graves' disease but I will proceed and check TBI I antibodies regardless. If I do not find the etiology of the suppressed TSH then maybe I can send specimen for evaluation of heterophile antibodies or maybe it can be checked at another facility other than [facility] to see if the TSH remains low. 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 The ultrasound show very minimal thyroid tissue bilaterally. TPO antibodies have been negative for Rowena's. She was found to have a suppressed TSH. Radioactive iodine uptake and scan showed decreased uptake which is usually associated with Rowena's thyroiditis. We will check thyroglobulin antibody. Assessment & Plan (09/16/2020 11:19 AM EST): This is a patient with substernal goiter. Apparently she has history of thyroid goiter with what appears to be hyperthyroidism based on the history. She had partial resection of the thyroid gland and apparently required thyroxine supplementation but stopped it after a year. Her most recent TSH levels were within the reference range. She has both symptoms of hyperthyroidism and hypothyroidism. I think is best to repeat thyroid function studies and I will check TPO for evaluation of Rowena's thyroiditis. I am also going to refer her for ultrasound of the thyroid gland for evaluation. If the gland is in the substernal we may not see much. She will probably need neck CT in that case. I have not requested neck CT because there has not been any description of esophageal displacement and the patient does not have any obstructive symptoms. She has dysphonia but this apparently has been present for many years and could have been due to tobacco use. However the patient states that she really did not smoke much. Abnormal CT of the chest 08/07/2020 Pleural effusion 08/07/2020 Encounters Date Type Department Care Team Description 04/30/2025 9:07 AM EDT - 04/30/2025 11:59 PM EDT Hospital Encounter [facility] [address] [place] [address] Garo Chaudhary MD Discharge Disposition: Home or Self Care 04/30/2025 Transcribe Orders [facility] [address] [place] [address] Garo Chaudhary MD Exudative pleurisy (Primary Dx); Diabetic glomerulopathy; Hypertension, unspecified type 04/26/2025 8:41 AM EDT - 04/26/2025 11:59 PM EDT Hospital Encounter [facility] [address] [place] [address] Garo Chaudhary MD Discharge Disposition: Home or Self Care 04/26/2025 Transcribe Orders [facility] Specimen Processing [address] [place] [address] Garo Chaudhary MD Illness (Primary Dx) 04/22/2025 Patient Outreach [facility] [address] [place] [address] Norma Chance, OT Non Acute Coordination (Discharge note) 04/11/2025 Patient Outreach [facility] [address] [place] [address] Norma Chance, OT Non Acute Coordination (Weekly note) 04/05/2025 Patient Outreach [facility] [address] [place] [address] Norma Chance, OT Non Acute Coordination (Weekly note) 04/04/2025 4:07 PM EDT - 04/04/2025 11:59 PM EDT Hospital Encounter [facility] [address] [place] [address] Garo Chaudhary MD Discharge Disposition: Home or Self Care 04/04/2025 Transcribe Orders [facility] [address] [place] [address] Garo Chaudhary MD Diagnosis unknown (Primary Dx) 04/02/2025 9:46 AM EDT - 04/02/2025 11:59 PM EDT Hospital Encounter [facility] [address] [place] [address] Garo Chaudhary MD Discharge Disposition: Home or Self Care 04/02/2025 Transcribe Orders [facility] [address] [place] [address] Garo Chaudhary MD Exudative pleurisy (Primary Dx); Essential hypertension, malignant; Diabetic glomerulopathy 03/28/2025 Patient Outreach [facility] [address] [place] [address] Norma Chance, OT Non Acute Coordination (Admission and weekly note) 03/25/2025 10:38 AM EDT - 03/25/2025 11:59 PM EDT Hospital Encounter [facility] [address] [place] [address] Garo Chaudhary MD Discharge Disposition: Home or Self Care 03/25/2025 Transcribe Orders [facility] [address] [place] [address] Garo Chaudhary MD Unresolved pneumonia (Primary Dx) 03/22/2025 7:22 AM EDT - 03/22/2025 11:59 PM EDT Hospital Encounter [facility] [address] [place] [address] Garo Chaudhary MD Discharge Disposition: Home or Self Care 03/22/2025 Transcribe Orders [facility] Spec[facility] [address] [place] [address] Garo Chaudhary MD Acute kidney failure with lesion of tubular necrosis (Primary Dx) 03/20/2025 Telephone [facility] [address] [place] [address] [place] [address] Lauren Gusman RN VNA inquiry 03/12/2025 3:30 PM EDT Office Visit [facility] [address] [place] [address] [place] [address] Андрей Sherman, 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 (Primary Dx); Caregiver burden; Encounter for medication review; Mood disorder; Frequent falls from Last 3 Months Immunizations Immunization Administration Dates Next Due COVID-19 (Pre-06/27) Moderna Vaccine, mRNA, PF 06/03/2022,11/08/2020,10/11/2020 COVID-19, Unspecified Formulation 06/14/2023, [id number] FORMULATION 10/06/2009 INFLUENZA, SPLIT VIRUS, TRIVALENT PF 06/12/2013 INFLUENZA, SPLIT VIRUS, TRIV ALENT W/ PRESERVATIVE IM 06/14/2012,05/18/2011,07/27/2010,09/25 Influenza High-Dose Quadriva lent Preservative Free IM 06/01/2022,07/07/2021,07/10/2020 Influenza High-Dose Trivalen t Preservative Free IM 06/23/2019,06/07/2018,05/12/2017,05/20,06/11/2015,07/08/2014 Influenza Quadrivalent Adjuv anted Preservative Free IM 04/27/2023 Influenza, Unspecified Formulation 09/13/2008 Pneumococcal conjugate PCV13 02/24/2016 Pneumococcal polysaccharide PPSV23 12/17/2009 Td (adult),2 Lf Tetanus Toxo id, PF, Adsorbed 03/14/2019 Td, unspecified formulation 09/13/2008 Zoster live 04/09/2013 Family History Medical History Relation Comments No Known Problems Father Heart disease Mother Relation Status Comments Father Mother Social History Tobacco Use Types Packs/Day Years [...] on file Sexual Orientation Not on file Last Filed Vital Signs Vital Sign Reading Time Taken Comments Blood Pressure 134/68 03/12/2025 3:29 PM EDT Pulse 54 03/12/2025 3:29 PM EDT Temperature 36.4 C (97.6 F) 08/22/2020 11:06 AM EST Respiratory Rate 23 08/22/2020 7:15 AM EST Oxygen Saturation 97% 03/12/2025 3:29 PM EDT Inhaled Oxygen Concentration - - Weight 44.9 kg (99 lb) 03/12/2025 3:29 PM EDT Height 160 cm (5' 3 ) 04/28/2023 5:29 PM EDT Body Mass Index 17.54 04/28/2023 5:29 PM EDT Plan of Treatment Upcoming Encounters Date Type Department Care Team (Late st Contact Info) Description 07/05/2025 11:30 AM EDT Office Visit Sujit Rivera [facility] [address] [place] [address] Андрей Sherman, DO [address] [place] [address] [email or web address] Health Maintenance Due Date Last Done Comments OSTEOPOROSIS SCREENING INITIAL (ONE-TIME) 2002 RSV VACCINE (1 - 1-dose 75+ series) 2012 ZOSTER VACCINES (2 of 3) 06/04/2013 04/09/2013 DIABETIC EYE EXAM 04/07/2024 COVID-19 VACCINE ( season) 2024 05/04/2024, 05/04/2024, 06/14/2023, Additional history exists INFLUENZA VACCINE (#1) 2025 , 04/27/2023, 06/01/2022, Additional history exists HEMOGLOBIN A1C 07/03/2025 04/02/2025, 09/15/2021 DEPRESSION SCREENING 03/12/2026 03/12/2025, 03/12/20 25 CREATININE LEVEL 04/30/2026 04/30/2025, , 04/02/2025, Additional history exists POTASSIUM LEVEL 04/30/2026 04/30/2025, 04/06, 04/02/2025, Additional history exists Adult Td,Tdap Booster 03/14/2029 03/14/2019, 009 PNEUMOCOCCAL VACCINES (50+ years) Completed 02/24/2016, 12/17/2009 HEPATITIS A VACCINES Aged Out No long er eligible based on patient's age to complete this topic HIB VACCINES Aged Out No longer eligi ble based on patient's age to complete this topic MENINGOCOCCAL VACCINES (ACWY) Aged Out No longer eligible based on patient's age to complete this topic MENINGOCOCCAL VACCINES (B) Aged Out N o longer eligible based on patient's age to complete this topic Medical Devices Not on file Procedures Procedure Name Priority Date/Time Associated Diagnosis Comments BASIC METABOLIC PANEL Routine 04/30/2025 6:01 AM EDT Exudative pleurisy Diabetic glomerulopathy Hypertension, unspecified type CBC Routine 04/30/2025 6:01 AM EDT Exudative pleurisy Diabetic glomerulopathy Hypertension, unspecified type COMPREHENSIVE METABOLIC PANEL Routine 04/26/2025 5:45 AM EDT Illness CBC Routine 04/26/2025 5:45 AM EDT Illness C. DIFFICILE ANTIGEN/TOXIN ASSAY Routine 04/04/2025 4:14 PM EDT C. DIFFICILE PCR Routine 04/04/2025 4:14 PM EDT Diagnosis unknown 25-OH VITAMIN D Routine 04/02/2025 8:45 AM EDT Exudative pleurisy Essential hypertension, malignant Diabetic glomerulopathy HEMOGLOBIN A1C Routine 04/02/2025 8:45 AM EDT Exudative pleurisy Essential hypertension, malignant Diabetic glomerulopathy CBC Routine 04/02/2025 8:45 AM EDT Exudative pleurisy Essential hypertension, malignant Diabetic glomerulopathy COMPREHENSIVE METABOLIC PANEL Routine 04/02/2025 8:45 AM EDT Exudative pleurisy Essential hypertension, malignant Diabetic glomerulopathy COMPREHENSIVE METABOLIC PANEL Routine 03/25/2025 6:10 AM EDT Unresolved pneumonia CBC Routine 03/25/2025 6:10 AM EDT Unresolved pneumonia CBC Routine 03/22/2025 5:25 AM EDT Acute kidney failure with lesion of tubular necrosis COMPREHENSIVE METABOLIC PANEL Routine 03/22/2025 5:25 AM EDT Acute kidney failure with lesion of tubular necrosis from Last 3 Months Results * (ABNORMAL) CBC (04/30/2025 6:01 AM EDT) Only the most recent of5 resultswithin the time period is included. WBC 11.52(H) 4.00 - 11.00 K/uL [facility] RBC 3.39(L) 4.00 - 5.20 M/uL [facility] HGB 10.3(L) 12.0 - 16.0 g/dL [facility] HCT 32.8(L) 36.0 - 46.0 % [facility] PLT 360 150 - 450 K/uL [facility] MCV 96.8 80.0 - 100.0 fL [facility] MCH 30.4 27.0 - 31.0 pg [facility] MCHC 31.4(L) 32.0 - 36.0 g/dL [facility] RDW 14.0 11.5 - 14.5 % [facility] MPV 11.2 8.4 - 12.0 fL [facility] NRBC 0.00 0.00 /100 WBCs [facility] ABSOLUTE NRBC 0.00 0.00 K/uL [facility] Blood 04/30/2025 6:01 AM EDT 04/30/2025 9:23 AM EDT us Garo Chaudhary MD LAB BLOOD ORDERABLES Final Resul t [facility] [address] [place] [address] * (ABNORMAL) Basic metabolic panel (04/30/2025 6:01 AM EDT) SODIUM 141 133 - 146 mmol/L [facility] CHLORIDE 107 96 - 108 mmol/L [facility] POTASSIUM 4.6 3.3 - 5.1 mmol/L [facility] CO2 24 21 - 35 mmol/L [facility] BUN 38(H) 6 - 19 mg/dL [facility] CREATININE 2.10(H) 0.5 - 1.5 mg/dL [facility] GLUCOSE 86 70 - 99 mg/dL [facility] CALCIUM 7.9(L) 8.4 - 10.3 mg/dL [facility] EGFR 22(L) >59 mL/min/1.7 3m2 [facility] Comment:Estimated glomerular filtration rate calculated using the CKD-EPI refit equation. ANION GAP 15 10 - 20 mmol/L [facility] Blood 04/30/2025 6:01 AM EDT 04/30/2025 9:23 AM EDT us Garo Chaudhary MD LAB BLOOD ORDERABLES Final Resul t [address] [address] * (ABNORMAL) Comprehensive metabolic panel (04/26/2025 5:45 AM EDT) Only the most recent of4 resultswithin the time period is included. SODIUM 142 133 - 146 mmol/L [facility] POTASSIUM 3.9 3.3 - 5.1 mmol/L [facility] CHLORIDE 107 96 - 108 mmol/L [facility] CO2 22 21 - 35 mmol/L [facility] BUN 25(H) 6 - 19 mg/dL [facility] CREATININE 2.10(H) 0.5 - 1.5 mg/dL [facility] GLUCOSE 36(LL) 70 - 99 mg/dL [facility] Comment: Critical value: Results called to and read back by: LOTUS Cornejo ALBUMIN 2.5(L) 3.9 - 4.8 g/dL [facility] TOTAL PROTEIN 4.4(L) 6.5 - 8.0 g/dL [facility] CALCIUM 7.5(L) 8.4 - 10.3 mg/dL [facility] ALKALINE PHOSPHATASE 116 39 - 117 U/L [facility] TOTAL BILIRUBIN <0.2 0.0 - 1.2 mg/dL [facility] AST 27 0 - 37 U/L [facility] ALT 24 0 - 40 U/L [facility] GLOBULIN 1.9 1 - 4.8 g/dL [facility] EGFR 22(L) >59 mL/min/1.7 3m2 [facility] Comment:Estimated glomerular filtration rate calculated using the CKD-EPI refit equation. ANION GAP 17 10 - 20 mmol/L [facility] Blood 04/26/2025 5:45 AM EDT 04/26/2025 9:06 AM EDT us Garo Chaudhary MD LAB BLOOD ORDERABLES Final Resul t Performing Organization Address [facility] de Phone Number [address] [address] * (ABNORMAL) C. DIFFICILE PCR (04/04/2025 4:14 PM EDT) C.DIFFICILE PCR Positive(A) Negative [facility] Comment:C.difficile gene was detected. C.difficile toxin assay has been reflexed. See separate report. C.DIFFICILE STRAIN Presumptive Positive(A) PRESUMPTIVE NEGATIVE [facility] Comment:Detection of 027/NAP 1/BI strains of C.difficile is presumptive and is solely for epidemiological purposes and is not intended to guide or monitor treatment of infections. Stool (Stool) 04/04/2025 4:1 4 PM EDT 04/04/2025 4:17 PM EDT Garo Chaudhary MD MICROBIOLOGY - GENERAL ORDERABLE S Final Result Performing Organization Address [facility] de Phone Number [address] [address] * (ABNORMAL) Clostridioides (Clostridium) difficile Antigen/Toxin Assay (04/04/2025 4:14 PM EDT) Pathologist [facility] C. diff [facility] Positive(A) Negative [facility] C. DIFFICILE TOXIN POSITIVE for Clostridium difficile toxin.(A) NEGATIVE for Clostridium difficile toxin. [facility] 04/04/2025 4:14 PM EDT 04/04/2025 4:17 PM EDT Garo Chaudhary MD MICROBIOLOGY - GENERAL ORDERABLE S Final Result Performing Organization Address [facility] de Phone Number [address] [address] * (ABNORMAL) 25-OH vitamin D (04/02/2025 8:45 AM EDT) 25 OH VIT D (TOTAL) 65(H) 30 - 60 ng/mL [facility] Blood 04/02/2025 8:45 AM EDT 04/02/2025 10:55 AM EDT us Garo Chaudhary MD LAB BLOOD ORDERABLES Final Resul t Performing Organization Address City/[facility]/ZIP Co de Phone Number [address] [address] * (ABNORMAL) Hemoglobin A1c (04/02/2025 8:45 AM EDT) HEMOGLOBIN A1C 8.1(H) 4.3 - 5.8 % [facility] Blood 04/02/2025 8:45 AM EDT 04/02/2025 10:56 AM EDT us Garo Chaudhary MD LAB BLOOD ORDERABLES Final Resul t Performing Organization Address City/[facility] de Phone Number [address] [address] from Last 3 Months Additional Health Concerns Infection Onset Date Last Indicated C. diff 04/04/2025 04/04/2025 Insurance MEDICARE PART A & B [facility] MEDICARE SUPPLEMENT MEDICARE PART A & B [facility] MEDICARE SUPPLEMENT MEDICARE PART A & B [facility] MEDICARE SUPPLEMENT MEDICARE PART A & B [facility] MEDICARE SUPPLEMENT MEDICARE PART A & B [facility] MEDICARE SUPPLEMENT MEDICARE PART A & B [facility] MEDICARE SUPPLEMENT MEDICARE PART A & B [employer] MEDICARE SUPPLEMENT MEDICARE PART A & B [employer] MEDICARE SUPPLEMENT MEDICARE PART A & B [facility] MEDICARE SUPPLEMENT Advance Directives For more information, please contact: [phone] (9AM - 5PM [facility], Tuesday-Tuesday) Documents on File Type Date Recorded Patient Chronometer Repairer Expl anation Healthcare Proxy 03/12/2025 HEALTH CARE PROXY 03/12/25 Healthcare Agents on File Name Relationship Healthcare Agent Relationshi p Communication Rachna Escobedo Daughter .Primary Healt h Care Agent (Proxy form on file) Ghislaine Hi Daughter .Primary Health Care Agent (Proxy form on file) Care Teams Cloth Shrinker Relationship Specialty Start Date End Date Whitley Lay PA [address] [place] [phone] PCP - General Physician Aoc Director Combat Plans Officer 05/31/24 Андрей Sherman DO [address] [place] [phone] [email or web address] Geriatric Medicine 05/23/24 Norma Chance, OT [address] [place] [phone] [email or web address] Transitions Home Health Billing SpecialistCamp Counselor Therapy 03/22/25 Additional Source Comments The information contained in this document represents components of the legal health record. It is not the complete legal health record.[facility]
--- OUTSIDE RECORDS SUMMARY | 2025-05-01 14:20 | XMS_ITS | Encounter Summary ---
Author Organization [facility], Address [address] [place] [address] Phone Care Team Providers Care Edge Kitter Name Role Phone Whitley Lay Primary Care Provider Ambreen ladd Encounter Details Date Type Department Care Team (Late st Contact Info) Description 06/22/2023 Documentation Only [facility] Neri ROSEN [address] [place] [address] Javon Porter MD [address] [place] [address] [place] [address] Social History Tobacco Use Types [...] Visit [facility] Neri ROSEN [address] [place] [phone] Javon Porter MD [address] [place] [address] [place] [address] documented as of this encounter Visit Diagnoses Not on filedocumented in this encounter Care Teams Edge Kitter Relationship Specialty Start Date End Date Whitley Lay PA [address] [place] [phone] PCP - General 12/22/23 documented as of this encounter
--- OUTSIDE RECORDS SUMMARY | 2025-05-01 14:20 | XMS_ITS | Encounter Summary ---
Author Organization [facility] Address [address] [facility] [address] [place] [address] Phone Care Team Providers Care Car Shunter Name Role Phone Shabnam Cornell MD Primary Care Provider [phone] Андрей Sherman DO Unavailable [phone] Whitley Lay Primary Care Provider [phone] Norma Chance OT Unavailable [phone] Encounter Details Date Type Department Care Team (Late st Contact Info) Description 02/15/2022 Procedure Pass [address] [address] Social History Tobacco Use Types Packs/Day Years [...] Description 07/05/2025 11:30 AM EDT Office Visit [facility] Geriatrics [address] [place] [address] Анд[place] [address] documented as of this encounter Visit Diagnoses Not on filedocumented in this encounter Additional Health Concerns Infection Onset Date Last Indicated Resolved Time CDiff-Risk 04/04/2025 04/04/2025 04/04/2025 7:00 PM EDT C. diff 04/04/2025 04/04/2025 documented as of this encounter Care Teams Car Shunter Relationship Specialty Start Date End Date Shabnam Cornell MD PCP - General Family Medicine 12/26/18 05/30/24 Whitley Lay PA [address] [place] [phone] PCP - General Physician Physician Specialist 05/31/24 Андрей Sherman DO [address] [place] [address] Geriatric Medicine 05/23/24 Norma Chance, OT [address] [place] [address] Transitions Unmanned Equipment OperatorSql Ssis Developer Therapy 03/22/25 documented as of this encounter Additional Source Comments The information contained in this document represents components of the legal health record. It is not the complete legal health record.[facility]
--- OUTSIDE RECORDS SUMMARY | 2025-05-01 14:20 | XMS_ITS | Encounter Summary ---
Author Organization [facility] Address [address] [facility] [address] [place] [address] Phone Care Team Providers Care Power Plant Assistant Name Role Phone Shabnam Corenll MD Primary Care Provider [phone] Андрей Sherman DO Unavailable [phone] Whitley Lay Primary Care Provider [phone] Norma Chance OT Unavailable [phone] Reason for Referral * MRI/CAT Scan - Closed Specialty Diagnoses / Procedures Referred By Eliseo serrano Referred To Contact Radiology Diagnoses Cerebral aneurysm, nonruptured Procedures MRI Angio Brain Emery Kelly MD Phone: tel: fax: Referral ID Status Reason Start Date Expiration Date Visits Re quested Visits Authorized [id number] Closed 04/12/2023 1 1 Encounter Details Date Type Department Care Team (Latest Contact Info) Description 04/12/2023 Transcribe Orders Virtual Department [address] [place] [address] Emery Kelly MD [address] [place] [address] Cerebral aneurysm, nonruptured (Primary Dx) Social History Tobacco Use Types [...] Description 07/05/2025 11:30 AM EDT Office Visit [facility] Geriatrics [address] [place] [address] Андрей Sherman, [address] [place] [address] [email or web address] documented as of this encounter Results * MRA HEAD WITHOUT CONTRAST (05/04/2023 10:31 AM EDT) Anatomical Region Laterality Modality Head Magnetic Resonan ce 05/07/2023 7:02 AM EDT Impressions 05/07/2023 12:01 PM EDT - 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 Maximal intensity projection 3D angiographic reformatted images were performed. COMPARISON: MRA brain 04/03/2022. FINDINGS: Anterior Circulation: Normal flow within the intracranial internal carotid arteries, anterior cerebral arteries and the middle cerebral arteries. No severe stenosis, occlusion, or arteriovenous malformation. Similar 12 x 8 mm saccular aneurysm projecting superiorly and laterally from the supraclinoid left internal carotid artery, most likely arising from the ophthalmic artery origin. The aneurysm neck measures approximately 4 mm. There are two aneurysms arising from the right internal carotid artery, similar prior. One measures 3 x 3 mm and projects inferiorly and laterally from the mid to distal supraclinoid right internal carotid artery (2:77), likely proximal to the dural ring. The other measures approximately 2 x 2 mm and arises from the proximal supraclinoid right internal carotid artery, likely just distal to the dural ring (2:82). Posterior Circulation: Normal. Normal flow within the intracranial vertebral arteries, basilar artery and posterior cerebral arteries. configuration of both posterior cerebral arteries. No severe stenosis, occlusion, aneurysm or arteriovenous malformation. Procedure Note Coleman Floyd MD - 05/07/2023 MRI ANGIO BRAIN WITHOUT CONTRAST TECHNIQUE: MRI ANGIO BRAIN WITHOUT CONTRAST MRA of the head was performed utilizing [id number]-mg-[id number] technique (nogadolinium). Maximal intensity projection 3D angiographic reformattedimages were performed. COMPARISON: MRA brain 04/03/2022. FINDINGS: Anterior Circulation: Normal flow within the intracranial internal carotidarteries, anterior cerebral arteries and the middle cerebral arteries. Nosevere stenosis, occlusion, or arteriovenous malformation. Similar 12 x 8 mm saccular aneurysm projecting superiorly and laterallyfrom the supraclinoid left internal carotid artery, most likely arisingfrom the ophthalmic artery origin. The aneurysm neck measuresapproximately 4 mm. There are two aneurysms arising from the right internal carotid artery,similar prior. One measures 3 x 3 mm and projects inferiorly and laterallyfrom the mid to distal supraclinoid right internal carotid artery (2:77),likely proximal to the dural ring. The other measures approximately 2 x 2mm and arises from the proximal supraclinoid right internal carotidartery, likely just distal to the dural ring (2:82). Posterior Circulation: Normal. Normal flow within the intracranialvertebral arteries, basilar artery and posterior cerebral arteries. Fetalconfiguration of both posterior cerebral arteries. No severe stenosis,occlusion, aneurysm or arteriovenous malformation. 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 diff 04/04/2025 04/04/2025 documented as of this encounter Care Teams Power Plant Assistant Relationship Specialty Start Date End Date Shabnam Cornell MD PCP - General Family Medicine 12/26/18 05/30/24 Whitley Lay PA [address] [place] [phone] PCP - General Physician Control Operator Flow Coat 05/31/24 Андрей Sherman DO [address] [place] [address] Geriatric Medicine 05/23/24 Norma Chance, OT [address] [place] [address] Transitions Disbursing OfficerFurniture Assembler And Installer Therapy 03/22/25 documented as of this encounter Additional Source Comments The information contained in this document represents components of the legal health record. It is not the complete legal health record.[facility]
--- OUTSIDE RECORDS SUMMARY | 2025-05-01 14:20 | XMS_ITS | Encounter Summary ---
Author Organization [facility], Address [address] [place] [address] Phone Care Team Providers Care Scoop Driver Name Role Phone Whitley Lay Primary Care Provider Ambreen ladd Encounter Details Date Type Department Care Team (Late st Contact Info) Description 02/09/2023 Documentation Only [facility] [address] [place] [address] Rinku Lozano MD [address] [place] [address] Social History Tobacco Use Types Packs/Day Years [...] Visit [facility] [address] [place] [address] Javon Porter MD [address] [place] [address] [place] [phone] documented as of this encounter Visit Diagnoses Not on filedocumented in this encounter Care Teams Scoop Driver Relationship Specialty Start Date End Date Whitley Lay PA [address] [place] [address] PCP - General 12/22/23 documented as of this encounter
--- OUTSIDE RECORDS SUMMARY | 2025-05-01 14:20 | XMS_ITS | Encounter Summary ---
Author Organization [facility] Address [address] [facility] [address] [place] [address] Phone Care Team Providers Care Rd Mechanical Engineer Name Role Phone Shabnam Cornell MD Primary Care Provider [phone] Андрей Sherman DO Unavailable [phone] Whitley Lay Primary Care Provider [phone] Norma Chance OT Unavailable [phone] Encounter Details Date Type Department Care Team (Late st Contact Info) Description 08/22/2020 Procedure Pass [facility] [address] [place] [address] Social History Tobacco Use Types Packs/Day Years [...] Description 07/05/2025 11:30 AM EDT Office Visit [facility] Geriatrics [address] [place] [address] Андрей Sherman DO [address] [place] [address] documented as of this encounter Visit Diagnoses Not on filedocumented in this encounter Additional Health Concerns Infection Onset Date Last Indicated Resolved Time CDiff-Risk 04/04/2025 04/04/2025 04/04/2025 7:00 PM EDT C. diff 04/04/2025 04/04/2025 documented as of this encounter Care Teams Rd Mechanical Engineer Relationship Specialty Start Date End Date Shabnam Cornell MD PCP - General Family Medicine 12/26/18 05/30/24 Whitley Lay PA [address] [place] [phone] PCP - General Physician Environmental Services Associate 05/31/24 Андрей Sherman DO [address] [place] [address] Geriatric Medicine 05/23/24 Norma Chance, OT [address] [place] [address] Transitions On Site ManagerEarly Head Start Teacher Therapy 03/22/25 documented as of this encounter Additional Source Comments The information contained in this document represents components of the legal health record. It is not the complete legal health record.[facility]
--- OUTSIDE RECORDS SUMMARY | 2025-05-01 14:20 | XMS_ITS | Encounter Summary ---
Author Organization [facility] Address [address] [facility] [facility] [address] [place] [address] Phone Care Team Providers Care Security Guard Supervisor Name Role Phone Shabnam Cornell MD Primary Care Provider [phone] Андрей Sherman DO Unavailable [phone] Whitley Lay Primary Care Provider [phone] Norma Chance OT Unavailable [phone] Encounter Details Date Type Department Care Team (Late st Contact Info) Description 04/12/2023 Procedure Pass [facility], [address] [address] Social History Tobacco Use Types Packs/Day Years [...] Description 07/05/2025 11:30 AM EDT Office Visit [facility] Geriatrics [address] [place] [address] Андрей Sherman DO [address] [place] [address] documented as of this encounter Visit Diagnoses Not on filedocumented in this encounter Additional Health Concerns Infection Onset Date Last Indicated Resolved Time CDiff-Risk 04/04/2025 04/04/2025 04/04/2025 7:00 PM EDT C. diff 04/04/2025 04/04/2025 documented as of this encounter Care Teams Security Guard Supervisor Relationship Specialty Start Date End Date Shabnam Cornell MD PCP - General Family Medicine 12/26/18 05/30/24 Whitley Lay PA [address] [place] [phone] PCP - General Physician Tearoom Host/Hostess 05/31/24 Андрей Sherman DO [address] [place] [address] Geriatric Medicine 05/23/24 Norma Chance, OT [address] [place] [address] Transitions Frame StylistQualification Engineer Therapy 03/22/25 documented as of this encounter Additional Source Comments The information contained in this document represents components of the legal health record. It is not the complete legal health record.[facility]
--- OUTSIDE RECORDS SUMMARY | 2025-05-01 14:20 | XMS_ITS | Encounter Summary ---
Author Organization [facility], Address [address] [place] [address] Phone Care Team Providers Care Ten Pin Bowling Centre Manager Name Role Phone Whitley Lay Primary Care Provider Ambreen ladd Encounter Details Date Type Department Care Team (Late st Contact Info) Description 07/03/2024 Documentation Only [facility] [address] [place] [address] Juli Ferguson [address] [place] [address] Social History Tobacco Use Types [...] Visit [facility] [address] [place] [phone] Javon Porter MD [address] [place] [address] [place] [address] documented as of this encounter Visit Diagnoses Not on filedocumented in this encounter Care Teams Ten Pin Bowling Centre Manager Relationship Specialty Start Date End Date Whitley Lay PA [address] [place] [phone] PCP - General 12/22/23 documented as of this encounter
--- OUTSIDE RECORDS SUMMARY | 2025-05-01 14:20 | XMS_ITS | Encounter Summary ---
Author Organization [facility], Address [address] [place] [address] Phone Care Team Providers Care Foundry Supervisor Name Role Phone Whitley Lay Primary Care Provider Ambreen ladd Encounter Details Date Type Department Care Team (Late st Contact Info) Description 12/16/2022 Documentation Only [facility] [place] [address] Rinku Lozano MD [address] [place] [address] Social History Tobacco Use Types Packs/Day Years [...] [facility] [address] [place] [address] Javon Porter MD [address] [place] [phone] documented as of this encounter Visit Diagnoses Not on filedocumented in this encounter Care Teams Foundry Supervisor Relationship Specialty Start Date End Date Whitley Lay PA [address] [place] [address] PCP - General 12/22/23 documented as of this encounter
--- OUTSIDE RECORDS SUMMARY | 2025-05-01 14:20 | XMS_ITS | Encounter Summary ---
Author Organization [facility] Address [address] [facility] [address] [place] [address] Phone Care Team Providers Care Tongue Binder Name Role Phone Shabnam Cornell MD Primary Care Provider [phone] Андрей Sherman DO Unavailable [phone] Whitley Lay Primary Care Provider [phone] Norma Chance OT Unavailable [phone] Encounter Details Date Type Department Care Team (Latest Contact Info) Description 12/26/2018 Transcribe Orders [facility] Laboratory [address] [facility] [address] [place], [place] [phone] Eitan Luciano NP [address] [place] [address] [email or web address] Black stool (Primary Dx); Positive occult stool blood test; Loss of weight Social History Tobacco Use Types Packs/Day Years Used Date Smoking Tobacco: Never Assessed Comments Unknown Sex and Gender Information Value Date Recorded Sex Assigned at Not on file Legal Sex Female 10:14 PM EDT Gender Identity Not on file Sexual Orientation Not on file documented as of this encounter Plan of Treatment Upcoming Encounters Date Type Department Care Team (Late st Contact Info) Description 07/05/2025 11:30 AM EDT Office Visit [facility] Ger[facility] [address] [place] [address] Андрей Sherman DO [address] [place] [address] [email or web address] documented as of this encounter Results * Ferritin (12/26/2018 11:23 AM EDT) FERRITIN 61 13 - 150 ug/L [facility] Blood 12/26/2018 11:2 3 AM EDT 12/26/2018 11:29 AM EDT us Eitan Luciano ADULT NURSE PRACTITIONER LAB BLOOD ORDERABLES Final Re sult Performing Organization Address [facility]/ZIP Co de Phone Number [address] [address] * TSH (12/26/2018 11:23 AM EDT) TSH 1.70 0.27 - 4.20 uIU/mL [facility] Blood 12/26/2018 11:2 3 AM EDT 12/26/2018 11:29 AM EDT us Eitan Luciano ADULT NURSE PRACTITIONER LAB BLOOD ORDERABLES Final Re sult Performing Organization Address [facility]/ZIP Co de Phone Number [address] [address] * Iron and iron binding capacity (12/26/2018 11:23 AM EDT) IRON 80 30 - 160 ug/dL [facility] IRON BINDING CAPACITY 350 228 - 428 ug/dL [facility] TRANSFERRIN SATURAT. 23 15 - 50 % [facility] Blood 12/26/2018 11:2 3 AM EDT 12/26/2018 11:29 AM EDT us Eitan Luciano NP LAB BLOOD ORDERABLES Final Re sult Performing Organization Address [facility]/ZIP Co de Phone Number [address] [address] * (ABNORMAL) Comprehensive metabolic panel (12/26/2018 11:23 AM EDT) SODIUM 141 133 - 146 mmol/L [facility] POTASSIUM 4.0 3.3 - 5.1 mmol/L [facility] CHLORIDE 101 96 - 108 mmol/L [facility] CO2 25 21 - 35 mmol/L [facility] BUN 16 6 - 19 mg/dL [facility] CREATININE 0.90 0.5 - 1.5 mg/dL [facility] GLUCOSE 135(H) 70 - 99 mg/dL [facility] ALBUMIN 4.5 3.9 - 4.8 g/dL [facility] TOTAL PROTEIN 7.1 6.5 - 8.0 g/dL [facility] CALCIUM 10.1 8.4 - 10.3 mg/dL [facility] ALKALINE PHOSPHATASE 82 39 - 117 U/L [facility] TOTAL BILIRUBIN 0.5 0.0 - 1.2 mg/dL [facility] AST 16 0 - 37 U/L [facility] ALT 10 0 - 40 U/L [facility] GLOBULIN 2.6 1 - 4.8 g/dL [facility] EGFR 60 >59 mL/min/1.7 3m2 [facility] Comment:If patient is black, multiply result by 1.159. Estimated glomerular filtration rate calculated using the CKD-EPI equation. ANION GAP 19 10 - 20 mmol/L [facility] Blood 12/26/2018 11:2 3 AM EDT 12/26/2018 11:29 AM EDT us Eitan Luciano ADULT NURSE PRACTITIONER LAB BLOOD ORDERABLES Final Re sult [facility] [address] [place] [address] * CBC (12/26/2018 11:23 AM EDT) WBC 8.73 3.40 - 11.20 K/uL [facility] RBC 4.13 3.80 - 4.80 M/uL [facility] HGB 12.6 12.0 - 15.0 g/dL [facility] HCT 38.4 36.0 - 46.0 % [facility] PLT 291 130 - 400 K/uL [facility] MCV 93.0 79.0 - 98.0 fL [facility] MCH 30.5 27.0 - 34.8 pg [facility] MCHC 32.8 31.5 - 36.0 g/dL [facility] RDW 12.2 10.8 - 14.6 % [facility] MPV 12.1 9.4 - 12.4 [facility] NRBC 0.00 0.00 /100 WBCs [facility] ABSOLUTE NRBC 0.00 0.00 K/uL [facility] Blood 12/26/2018 11:2 3 AM EDT 12/26/2018 11:29 AM EDT us Eitan Luciano ADULT NURSE PRACTITIONER LAB BLOOD ORDERABLES Final Re sult [facility] [address] [place] [address] documented in this encounter Visit Diagnoses Diagnosis Black stool- Primary Nonspecific abnormal finding in stool contents Positive occult stool blood test Nonspecific abnormal finding in stool contents Loss of weight documented in this encounter Additional Health Concerns Infection Onset Date Last Indicated Resolved Time CDiff-Risk 04/04/2025 04/04/2025 04/04/2025 7:00 PM EDT C. diff 04/04/2025 04/04/2025 documented as of this encounter Care Teams Tongue Binder Relationship Specialty Start Date End Date Shabnam Cornell MD PCP - General Family Medicine 12/26/18 05/30/24 Whitley Lay PA [address] [place] [phone] PCP - General Physician Rehabilitation Liaison 05/31/24 Андрей Sherman DO [address] [place] [address] [email or web address] Geriatric Medicine 05/23/24 Norma Chance, OT [address] [place] [address] [email or web address] Transitions Shovel MechanicFinancial Coach Therapy 03/22/25 documented as of this encounter Additional Source Comments The information contained in this document represents components of the legal health record. It is not the complete legal health record.[facility]
--- OUTSIDE RECORDS SUMMARY | 2025-05-01 14:20 | XMS_ITS | Encounter Summary ---
Author Organization [facility] Address [address] [place] [address] Phone Care Team Providers Care Aircraft Motor Mechanic Name Role Phone Shabnam Cornell MD Primary Care Provider [phone] Андрей Sherman DO Unavailable [phone] Whitley Lay Primary Care Provider [phone] Norma Chance OT Unavailable [phone] Reason for Referral * MRI/CAT Scan - Closed Specialty Diagnoses / Procedures Referred By Eliseo serrano Referred To Contact Radiology Diagnoses Mass in chest Procedures CT Chest Shabnam Cornell MD Phone: tel: fax: [email or web address] Referral ID Status Reason Start Date Expiration Date Visits Re quested Visits Authorized [id number] Closed 07/24/2020 07/24/2021 1 1 Encounter Details Date Type Department Care Team (Late st Contact Info) Description 07/24/2020 Ancillary Orders [facility] Department [address] [place] [id number] Shabnam Cornell MD [address] [place] [address] [email or web address] Mass in chest Social History Tobacco Use Types Packs/Day Years [...] Description 07/05/2025 11:30 AM EDT Office Visit [facility] [address] [place] [address] Андрей Sherman DO [address] [place] [address] [email or web address] documented as of this encounter Results * CT CHEST WITH CONTRAST (07/28/2020 12:35 PM EST) Anatomical Region Laterality Modality Chest Computed Tomogra phy 07/28/2020 12:4 5 PM EST Impressions 07/28/2020 12:55 PM EST Very large substernal goiter. Large right pleural effusion with almost complete right middle lobe atelectasis and mild right lower lobe compressive atelectasis. Etiology unclear and pulmonary consultation may be warranted for endobronchial evaluation. Probable postinflammatory left upper lobe pulmonary nodule. No mediastinal or hilar lymphadenopathy detected. TOTAL CTDIvol: mGy POS - [id number] Narrative 07/28/2020 12:55 PM EST COMPARISON: Outside radiographs dated 07/21/2020 TECHNIQUE: CT chest with IV contrast. Multiplanar reformatted images generated. Automated exposure control utilized. FINDINGS: The mass lesion demonstrated on the outside study represents substernal goiter measuring approximately 10.4 x 6.0 cm in greatest transverse dimensions and 7.9 cm in craniocaudal span. Internal density is diffusely heterogeneous with multiple hypodense nodules and macrocalcifications present. This displaces the great vessels dorsally but there is no evidence of arterial occlusion. There is a small pericardial effusion. No pathologically enlarged superior mediastinal lymph nodes are apparent. Main right and left pulmonary arteries are patent. There is a large right pleural effusion with compressive right lower lobe atelectasis. There is almost complete right middle lobe atelectasis without central obstructing mass identified. No left pulmonary or right upper lobe infiltrates or left pleural effusion demonstrated. There is a 3 mm left upper lobe nodule (series 4 image 55). A few scattered smaller nodules are demonstrated. No axillary lymphadenopathy. There is prominent left convex scoliotic curvature. No acute traumatic or destructive skeletal lesions are noted. There is mild fullness of the left adrenal gland. Spleen unremarkable in appearance. No hepatic mass or large cyst identified. Visualized left kidney unremarkable. Procedure Note Héctor Garcia MD - 07/28/2020 COMPARISON: Outside radiographs dated 07/21/2020 TECHNIQUE: CT chest with IV contrast. Multiplanar reformatted imagesgenerated. Automated exposure control utilized. FINDINGS: The mass lesion demonstrated on the outside study represents substernalgoiter measuring approximately 10.4 x 6.0 cm in greatest transversedimensions and 7.9 cm in craniocaudal span. Internal density is diffuselyheterogeneous with multiple hypodense nodules and macrocalcificationspresent. This displaces the great vessels dorsally but there is noevidence of arterial occlusion. There is a small pericardial effusion. Nopathologically enlarged superior mediastinal lymph nodes are apparent.Main right and left pulmonary arteries are patent. There is a large right pleural effusion with compressive right lower lobeatelectasis. There is almost complete right middle lobe atelectasiswithout central obstructing mass identified. No left pulmonary or rightupper lobe infiltrates or left pleural effusion demonstrated. There is a 3mm left upper lobe nodule (series 4 image 55). A few scattered smallernodules are demonstrated. No axillary lymphadenopathy. There is prominent left convex scolioticcurvature. No acute traumatic or destructive skeletal lesions are noted. There is mild fullness of the left adrenal gland. Spleen unremarkable inappearance. No hepatic mass or large cyst identified. Visualized leftkidney unremarkable. IMPRESSION: Very large substernal goiter. Large right pleural effusion with almostcomplete right middle lobe atelectasis and mild right lower lobecompressive atelectasis. Etiology unclear and pulmonary consultation maybe warranted for endobronchial evaluation. Probable postinflammatory left upper lobe pulmonary nodule. No mediastinalor hilar lymphadenopathy detected. TOTAL CTDIvol: mGy POS - [id number] Shabnam Cornell MD IMG CT CHEST Final Result documented in this encounter Visit Diagnoses Diagnosis Mass in chest Swelling, mass, or lump in chest Mass in chest Swelling, mass, or lump in chest documented in this encounter Additional Health Concerns Infection Onset Date Last Indicated Resolved Time CDiff-Risk 04/04/2025 04/04/2025 04/04/2025 7:00 PM EDT C. diff 04/04/2025 04/04/2025 documented as of this encounter Care Teams Aircraft Motor Mechanic Relationship Specialty Start Date End Date Shabnam Cornell MD PCP - General Family Medicine 12/26/18 05/30/24 Whitley Lay PA [address] [place] [id number] PCP - General Physician Winding Rack Operator 05/31/24 Андрей Sherman DO [address] [place] [id number] Geriatric Medicine 05/23/24 Norma Chance, OT [address] [place] [id number] Transitions Feed Mill ManagerVerification Rep Therapy 03/22/25 documented as of this encounter Additional Source Comments The information contained in this document represents components of the legal health record. It is not the complete legal health record.[facility]
--- OUTSIDE RECORDS SUMMARY | 2025-05-01 14:20 | XMS_ITS | Encounter Summary ---
Author Organization [facility], Address [address] [place] [address] Phone Care Team Providers Care Men'S Custom Hair Piece Consultant Name Role Phone Whitley Lay Primary Care Provider mAbreen ladd Encounter Details Date Type Department Care Team (Late st Contact Info) Description 06/20/2024 Documentation Only [facility] [address] [place] [address] Juli Ferguson [address] [place] [address] Social History Tobacco Use Types [...] [facility] [address] [address] [place] [address] Javon Porter MD [address] [place] [phone] documented as of this encounter Visit Diagnoses Not on filedocumented in this encounter Care Teams Men'S Custom Hair Piece Consultant Relationship Specialty Start Date End Date Whitley Lay PA [address] [place] [phone] PCP - General 12/22/23 documented as of this encounter
== END 2025-05-01 14:10 | disposition home or self-care (01) ==
LOC: HO.HID 13:28
PROVIDERS: PCP Physician Assistant; Visit Provider Internal Medicine
DX: A04.72 Enterocolitis due to Clostridium difficile, not specified as recurrent (principal)
CPT/HCPCS: 99213

== ENCOUNTER → 2025-05-01 13:28 | Outpatient (BNVA) | payer MEDICARE, OTHER, SELFPAY | PROVIDERS: PCP Physician Assistant; Visit Provider Internal Medicine | DX: N18.4 Chronic kidney disease, stage 4 (severe) (principal); I1A.0 Resistant hypertension; A04.72 Enterocolitis due to Clostridium difficile, not specified as recurrent | CPT/HCPCS: 99202; 99212 ==

== ENCOUNTER 2025-05-01 14:12 | Outpatient (AMB) | payer MEDICARE, OTHER, SELFPAY ==
--- NOTE | 2025-05-01 14:27 | HO.NEPHOV_ITS ---
Vital Signs 05/01/25 14:35 Weight 103 lb 6 oz BP 170/64 H Blood Pressure Location Rt brachial Position Sitting Pulse 54 Pulse Source Pulse Oximeter Pulse Oximetry (%) 97 Oxygen Delivery Method Room Air Intake Visit Reasons: [facility] HFU-Unable to Conf Thinner Sprayer Required: No Accompanied by: Other Relationship Allergies No Known Allergies (No Known Allergies*) Allergy (Verified 05/01/25 14:35) HPI Comments Details: 89-year-old female with a medical history significant for dementia, hypertension, type 2 diabetes, HLD, anxiety, depression, CKD 4, systolic and diastolic heart failure, asthma, hypothyroidism, hypercholesterolemia. Patient is here with CRANE MECHANIC from [facility] rehab facility in [place]. Patient states she lives at home alone in [place] in a house. CRANE MECHANIC states she has been living at [facility] rehab since her hospital discharge on 04/25/25. CRANE MECHANIC is not familiar with patient's situation or medication history, but thinks she has a daughter involved in her care. Patient is unable to specify her medical history, who takes care of her, or other pertinent details. She was hospitalized 04/20/25-04/25/25 for CHF exacerbation and c.diff colitis (also had hospitalization in March 2025 at [facility]). She received abx for c.diff infection and diuresis for CHF exacerbation and was discharged to SNF. It is unclear whom referred this patient to nephrology, as she was not seen by nephrology in the hospital nor was there a referral to nephrology in the discharge summary. She does, however, have an elevated creatinine with proteinuria on UA. Her blood pressures are elevated today- 170/64. She is not sure if they are elevated at her SNF, nor is her CRANE MECHANIC. She takes lasix 20mg daily, amlodipine 10mg daily, losartan 50mg daily, and metoprolol 150mg PO daily per the medication list provided by [facility] today. She is not sure if her blood sugars are controlled. She has type 2 diabetes and takes glipizide 5mg PO daily, Januvia 25mg PO daily, insulin glargine 7 units subcu daily. She is not certain how long she has had diabetes. Per [facility] paperwork, her PCP is Garo Chaudhary at [facility]. She thinks she sees other specialists but is unclear of specifics. Patient states she is hoarse. She is unable to specify whether or not her breathing is comfortable but appears to be breathing comfortably and her lungs are clear. She has some +1 bilateral pitting ankle and pedal edema. She denies pain. She denies urinary symptoms. She states she is not sleeping well. She denies other concerns at this time. [facility] Medical History C. difficile colitis Bronchitis Type 2 diabetes mellitus Chronic kidney disease (CKD), stage 4 Substernal goiter Essential hypertension Hyperlipidemia Social History Household Members: Unknown / Unable to assess Housing: Unknown / Unable to assess Do you presently have visiting nurse or other home services: No Unable to assess alcohol history related to: Unknown Alcohol intake: former Patient Tobacco Use Status: Never used Tobacco Advance Directives Date on File: 03/01/24 service: No Review of Systems Const All systems reviewed & are unremarkable except as noted in HPI and below Physical Exam Vital Signs: Last Vital Signs Pulse 54 05/01/25 14:35 BP 170/64 H 05/01/25 14:35 Pulse Ox 97 05/01/25 14:35 Oxygen Delivery Method Room Air 05/01/25 14:35 Const General: no acute distress, alert and awake Neck Neck: Yes no JVD Resp Effort & Inspection: normal respiratory effort and able to speak in complete sentences Auscultation: clear to auscultation bilaterally Cardio Rate: regular rate Rhythm: regular rhythm Heart sounds: S1 normal heart sound present and S2 normal heart sound present GI Palpation (GI): Soft to palpation and nontender General: Yes no CVA tenderness Back/Spine/Pelvis Back: no CVA tenderness Skin Rashes: no rashes Extrem General: Yes edema and Yes pedal edema Results Reviewed Nephrology Results: Hgb, (12.0-16.0) 10.8 g/dl L 04/25/25 WBC, (4.8-10.8) 12.5 X10*3/uL H 04/25/25 Plt Count, (160-400) 220 X10*3/uL Δ 04/25/25 Sodium, (135-145) 139 mmol/L 04/25/25 Potassium, (3.3-5.1) 3.7 mmol/L 04/25/25 Chloride, (96-108) 112 mmol/L H 04/25/25 Carbon Dioxide, (22-29) 19 mmol/L L 04/25/25 BUN, (9-16) 22 mg/dL H 04/25/25 Creatinine, (0.5-1.4) 1.89 mg/dL H 04/25/25 Calcium, (8.4-10.2) 7.5 mg/dL L Δ 04/25/25 Assessment & Plan Assessment & Plan (1) CKD (chronic kidney disease): Code(s): N18.9 - Chronic kidney disease, unspecified Category: Medical Qualifiers: Chronic kidney disease stage: stage 4 (GFR 15-29) Qualified Code(s): N18.4 - Chronic kidney disease, stage 4 (severe) (2) Resistant hypertension: Code(s): I1A.0 - Resistant hypertension Category: Medical Plan Patient is an 89 year old female with CKD, possibly vascular given hypertension and dementia (may be vascular) in nature though diabetic nephropathy is also on differential. However, may also have more acute process given creatinine seems to have been significantly more elevated in the past several months; unclear if acute process or progression of underlying renal disease. Will get extensive workup as ordered below, including blood work, urine studies and renal doppler given suspicion of vascular disease with resistant hypertension- discussed with CRANE MECHANIC who will ensure labs are done at [place] or that [facility] staff call for printouts of orders if needed. Will add hydralazine 25mg PO BID to medication regimen given poorly controlled blood pressures today- may otherwise continue current regimen. Advised low salt diet, hydration, avoid NSAIDs, and encouraged adequate nutritional intake. She will follow up in [address] Hodge- appointment given. Plan above discussed with Dr Hodge. Orders: Orders B Type Natriuretic Peptide 05/01/25 N18.9 - Chronic kidney disease, unspecified, R80.9 - Proteinuria, unspecified UA CC w/rflx Micro + Cult 05/01/25 N18.9 - Chronic kidney disease, unspecified, R80.9 - Proteinuria, unspecified Complete Blood Count Auto Diff 05/01/25 N18.9 - Chronic kidney disease, unspecified, R80.9 - Proteinuria, unspecified PTH Intact Intraoperative 05/01/25 N18.9 - Chronic kidney disease, unspecified, R80.9 - Proteinuria, unspecified Protein Creatinine Ratio, Ur 05/01/25 N18.9 - Chronic kidney disease, unspecified, R80.9 - Proteinuria, unspecified US renal doppler 05/01/25 I10 - Essential (primary) hypertension, I1A.0 - Resistant hypertension, N18.9 - Chronic kidney disease, unspecified Comprehensive Met. Panel 05/01/25 N18.9 - Chronic kidney disease, unspecified, R80.9 - Proteinuria, unspecified ANCA Vasculitides 05/01/25 N18.9 - Chronic kidney disease, unspecified, R80.9 - Proteinuria, unspecified Immunofixation Pnl, Serum 05/01/25 N18.9 - Chronic kidney disease, unspecified, R80.9 - Proteinuria, unspecified Immunofixation, Random Urine 05/01/25 N18.9 - Chronic kidney disease, unspecified, R80.9 - Proteinuria, unspecified Medications: New hydralazine 25 mg PO BID 180 tabs 1RF I10 - Essential (primary) hypertension Coding Level of Care Code New Pt Level 4 (33863) Diagnoses Stage 4 chronic kidney disease N18.4 Chronic kidney disease stage: stage 4 (GFR 15-29) Resistant hypertension I1A.0
[2025-05-01 14:35] VITALS: BP 170/64; PULSE 54; O2SAT 97
== END 2025-05-01 15:05 | disposition home or self-care (01) ==
PROVIDERS: PCP Physician Assistant; Visit Provider Nurse Practitioner Family
DX: N18.4 Chronic kidney disease, stage 4 (severe) (principal); I1A.0 Resistant hypertension
CPT/HCPCS: 99204